=== PATIENT | female | born 1995 | race Caucasian/White ===

== ENCOUNTER 2020-02-01 16:43 | Emergency (ER) | payer OTHER, SELFPAY ==
[2020-02-01 16:44] VITALS: BP 132/71; PULSE 106; RESP 14; TEMP 36.3; O2SAT 99
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
[2020-02-01] MEDS: SODIUM CHLORIDE 0.9% IV 1,000 ML 999 ML IV CONT (17:30)
[2020-02-01] MEDS: METOCLOPRAMIDE HCL INJ 10 MG/2 ML VIAL IV PUSH (17:31)
[2020-02-01] MEDS: KETOROLAC 30 MG/ML VIAL (*BKC) IV PUSH (17:33)
[2020-02-01] MEDS: diphenhydrAMINE HCl INJ 50 MG/ML VIAL 25 MG IV PUSH (17:33)
[2020-02-01 19:12] VITALS: BP 125/73; PULSE 86; RESP 20; O2SAT 99
[2020-02-01 20:38] VITALS: BP 108/60; PULSE 85; RESP 16; O2SAT 100
== END 2020-02-01 20:38 | disposition home or self-care (01) ==
PROVIDERS: Emergency Provider Emergency Medicine
DX: G43.909 Migraine, unspecified, not intractable, without status migrainosus (principal); M79.7 Fibromyalgia; F17.200 Nicotine dependence, unspecified, uncomplicated
CPT/HCPCS: 96361; 96365; 96375; 99284; A9270; J0131; J1100; J1200; J1885; J2765; J7030

== ENCOUNTER 2020-02-02 06:59 | Emergency (ER) | payer OTHER, SELFPAY ==
[2020-02-02 07:02] VITALS: BP 120/63; PULSE 103; RESP 16; TEMP 36.7; O2SAT 100
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
[2020-02-02] MEDS: KETOROLAC 30 MG/ML VIAL (*BKC) IV PUSH (08:32)
[2020-02-02] MEDS: diazePAM INJ (*CRX) 10 MG/2 ML SYRINGE 5 MG IV PUSH (08:36)
== END 2020-02-02 09:50 | disposition home or self-care (01) ==
PROVIDERS: Emergency Provider General Practice
DX: G43.909 Migraine, unspecified, not intractable, without status migrainosus (principal); M79.7 Fibromyalgia; F17.200 Nicotine dependence, unspecified, uncomplicated
CPT/HCPCS: 96374; 96375; 99284; J1885; J3360

== ENCOUNTER 2020-02-17 14:24 | Emergency (ER) | payer OTHER, SELFPAY ==
[2020-02-17 14:26] VITALS: BP 114/50; PULSE 96; RESP 18; TEMP 36.3; O2SAT 98
--- NOTE | 2020-02-17 14:45 | PC.NURSE ---
patient brought back to ED room 4 with c/o headache. see initial notes. patient prefers not to have IV meds. wants PO meds only. waiting for further orders from the provider.
--- NOTE | 2020-02-17 14:49 | PC.NURSE ---
provider in room
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
[2020-02-17] MEDS: SODIUM CHLORIDE 0.9% IV 1,000 ML 999 ML IV CONT (15:14)
[2020-02-17] MEDS: METOCLOPRAMIDE HCL INJ 10 MG/2 ML VIAL IV PUSH (15:15)
[2020-02-17] MEDS: KETOROLAC 30 MG/ML VIAL (*BKC) IV PUSH (15:15)
[2020-02-17] MEDS: diphenhydrAMINE HCl INJ 50 MG/ML VIAL 25 MG IV PUSH (15:16)
[2020-02-17] MEDS: LORazepam INJ (*CRX) 2 MG/ML VIAL 1 MG IV PUSH (15:24)
[2020-02-17 16:27] VITALS: BP 97/53; PULSE 69; RESP 18; O2SAT 100
== END 2020-02-17 16:28 | disposition home or self-care (01) ==
PROVIDERS: Emergency Provider Emergency Medicine; PCP Nurse Practitioner Family
DX: F41.9 Anxiety disorder, unspecified (principal); F32.9 Major depressive disorder, single episode, unspecified; M79.7 Fibromyalgia; F17.210 Nicotine dependence, cigarettes, uncomplicated; G43.909 Migraine, unspecified, not intractable, without status migrainosus
CPT/HCPCS: 96361; 96374; 96375; 99284; J1200; J1885; J2060; J2765; J7030

== ENCOUNTER 2020-02-18 12:35 | Outpatient (CLI) | payer OTHER, SELFPAY ==
[2020-02-18 15:15] LABS: Anion Gap 6 mmol/L (8-16); Blood Urea Nitrogen 9 mg/dL (7-17); Calcium 9.1 mg/dL (8.4-10.2); Carbon Dioxide 23 mmol/L (22-30); Chloride 112 mmol/L (98-107); Estimated Glomerular Filt Rate > 60; Glucose 95 mg/dL (65-105); Magnesium 2.1 mg/dL (1.6-2.3); Potassium 4.5 mmol/L (3.4-5.0); Sodium 141 mmol/L (137-145)
== END 2020-02-18 12:36 | disposition home or self-care (01) ==
LOC: ANHLAB 12:57
PROVIDERS: PCP Nurse Practitioner Family
DX: E87.6 Hypokalemia (principal)
CPT/HCPCS: 36415; 80048; 83735; 97014; 97140; G0283

== ENCOUNTER 2020-03-03 15:44 | Outpatient (CLI) | payer OTHER, SELFPAY ==
[2020-03-03 15:55] LABS: Basophils Absolute Auto 0.05 K/mm3 (0.00-0.10); Basophils Percent Auto 0.8 % (0.0-1.0); Eosinophils Absolute Auto 0.13 K/mm3 (0.02-0.50); Eosinophils Percent Auto 2.1 % (1.0-6.0); Hematocrit 42.9 % (35.0-49.0); Hemoglobin 14.3 g/dL (12.0-15.0); Immature Granulocyte Absolute 0.02 K/mm3 (0.00-0.00); Immature Granulocyte Percent A 0.3 % (0.0-0.0); Lymphocytes Percent Auto 36.6 % (18.0-42.0); Mean Corpuscular HGB Conc 33.3 g/dL (32.0-36.0); Mean Corpuscular Hemoglobin 31.8 pg (27.0-31.0); Mean Corpuscular Volume 95.3 fL (78.0-102.0); Mean Platelet Volume 9.8 fl (9.2-11.8); Monocytes Percent Auto 6.4 % (2.0-11.0); Neutrophils Absolute Auto 3.4 K/mm3 (1.7-7.2); Neutrophils Percent Auto 53.8 % (50.0-70.0); Platelet Count Result 341 K/mm3 (150-420); Red Cell Distribution Width 11.6 % (11.6-14.4); White Blood Count 6.3 K/mm3 (4.8-10.8)
[2020-03-03 16:41] LABS: Alanine Aminotransferase 14 U/L (14-59); Albumin Level 4.9 g/dL (3.4-5.0); Alkaline Phosphatase 85 U/L (46-116); Anion Gap 13 mmol/L (8-16); Aspartate Amino Transferase < 10 U/L (15-37); Bilirubin,Total 0.4 mg/dL (0.00-1.00); Blood Urea Nitrogen 15 mg/dL (7-18); Calcium 9.4 mg/dL (8.5-10.1); Carbon Dioxide 20 mmol/L (21-32); Chloride 107 mmol/L (98-108); Estimated Glomerular Filt Rate > 60; Glucose 94 mg/dL (70-99); Osmolality Calculated 290 mOsm/kg (285-295); Potassium 3.9 mmol/L (3.5-5.1); Sodium 140 mmol/L (136-145)
[2020-03-08 23:02] LABS: Gliadin AB, IgG 4 Units (<20); Reticulin IgA Negative (Negative); TTG IGA AB 1 U/mL (<4)
== END 2020-03-03 15:45 | disposition home or self-care (01) ==
LOC: CHSLAB 15:46
PROVIDERS: PCP Nurse Practitioner Family; Visit Provider Nurse Practitioner Family
DX: M79.7 Fibromyalgia (principal); G43.109 Migraine with aura, not intractable, without status migrainosus; F41.9 Anxiety disorder, unspecified; F32.9 Major depressive disorder, single episode, unspecified
CPT/HCPCS: 36415; 80053; 83516; 85025; 86255

== ENCOUNTER 2020-03-08 14:41 | Emergency (ER) | payer OTHER, SELFPAY ==
[2020-03-08 15:03] VITALS: BP 122/49; PULSE 55; RESP 18; TEMP 36.6; O2SAT 99
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
[2020-03-08] MEDS: METOCLOPRAMIDE HCL INJ 10 MG/2 ML VIAL IV PUSH (16:03)
[2020-03-08] MEDS: LACTATED RINGERS 1,000 ML 999 ML IV CONT (16:03)
[2020-03-08] MEDS: diazePAM INJ (*CRX) 10 MG/2 ML SYRINGE 5 MG IV PUSH (16:03)
[2020-03-08 16:08] VITALS: BP 91/64; PULSE 64; RESP 18; O2SAT 98
[2020-03-08 17:35] VITALS: BP 120/64; PULSE 64; RESP 18; O2SAT 99
== END 2020-03-08 17:36 | disposition home or self-care (01) ==
PROVIDERS: Emergency Provider Emergency Medicine; PCP Nurse Practitioner Family
DX: G43.909 Migraine, unspecified, not intractable, without status migrainosus (principal); F41.9 Anxiety disorder, unspecified; F32.9 Major depressive disorder, single episode, unspecified; M79.7 Fibromyalgia; F43.10 Post-traumatic stress disorder, unspecified; Z62.810 Personal history of physical and sexual abuse in childhood; F17.210 Nicotine dependence, cigarettes, uncomplicated
CPT/HCPCS: 96361; 96374; 96375; 99284; J1100; J2765; J3360; J7120

== ENCOUNTER 2020-03-20 10:11 | Outpatient (CLI) | payer OTHER, SELFPAY ==
[2020-03-20 11:43] LABS: HIV 1/2 Ab P24 Ag Result Negative (Negative)
[2020-03-20 12:31] LABS: Hepatitis B Surface Antigen Negative (Negative)
[2020-03-20 12:37] LABS: HAV RESULT Negative (Negative); Hepatitis B Core IgM Result Negative (Negative)
[2020-03-20 12:49] LABS: Hepatitis C Virus Antibody Negative (Negative)
[2020-03-21 07:11] LABS: Rapid Plasma Reagin Non-Reactive (NonReactive)
== END 2020-03-20 10:12 | disposition home or self-care (01) ==
LOC: ANHLAB 10:13
PROVIDERS: PCP Nurse Practitioner Family; Visit Provider Obstetrics & Gynecology
DX: Z11.3 Encounter for screening for infections with a predominantly sexual mode of transmission (principal)
CPT/HCPCS: 36415; 80074; 86592; 86695; 86696; 86703; 97014; 97140; G0283; G0432

== ENCOUNTER 2020-04-02 18:37 | Emergency (ER) | payer OTHER, SELFPAY ==
[2020-04-02 19:13] VITALS: BP 116/49; PULSE 83; RESP 12; TEMP 36.9; O2SAT 97
[2020-04-02] MEDS: ACETAMINOPHEN 500 MG TABLET 1000 MG PO (20:30)
[2020-04-02 21:05] VITALS: BP 114/56; PULSE 66; RESP 18; O2SAT 100
== END 2020-04-02 19:15 | disposition left against medical advice (07) ==
PROVIDERS: Emergency Provider Emergency Medicine; PCP Nurse Practitioner Family
DX: G43.909 Migraine, unspecified, not intractable, without status migrainosus (principal)
CPT/HCPCS: 99199; A9270

== ENCOUNTER 2020-04-04 14:30 | Outpatient (CLI) | payer OTHER, SELFPAY ==
--- NOTE | ~2020-04-04 | XR_ITS ---
XR facial bones min 3V DATE: 04/04/2020 14:54 INDICATION: Left facial bruising for 4 days. Migraine with aura. TECHNIQUE: 4 views COMPARISON: None FINDINGS: The nasal bones and anterior maxillary spine appear intact. Normal sella turcica. The front ozygomatic sutures are intact. Orbital rims are preserved. No blowout fracture is evident. The paranasal sinuses and mastoid air cells appear normally developed and aerated. The mandible appea rs unremarkable. IMPRESSION: No evidence of facial fracture Normal paranasal sinuses and mastoid air cells Reviewed, dictated and finalized at location A. MAL ENGINEER
== END 2020-04-04 14:31 | disposition home or self-care (01) ==
LOC: CHSLAB 14:32
PROVIDERS: PCP Nurse Practitioner Family; Visit Provider Nurse Practitioner Family
DX: G43.109 Migraine with aura, not intractable, without status migrainosus (principal); S09.93XA Unspecified injury of face, initial encounter
CPT/HCPCS: 70150

== ENCOUNTER 2020-04-08 20:08 | Emergency (ER) | payer OTHER, SELFPAY ==
[2020-04-08 20:36] VITALS: BP 104/77; PULSE 80; RESP 20; TEMP 36.3; O2SAT 99
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
[2020-04-08] MEDS: LACTATED RINGERS 1,000 ML 999 ML IV CONT (21:26)
[2020-04-08] MEDS: METOCLOPRAMIDE HCL INJ 10 MG/2 ML VIAL IV PUSH (21:27)
[2020-04-08] MEDS: KETOROLAC 30 MG/ML VIAL (*BKC) IV PUSH (21:27)
[2020-04-08] MEDS: diazePAM INJ (*CRX) 10 MG/2 ML SYRINGE 5 MG IV PUSH (21:27)
[2020-04-08 22:22] VITALS: BP 104/64; PULSE 58; RESP 20; TEMP 36.6; O2SAT 100
== END 2020-04-08 22:25 | disposition home or self-care (01) ==
PROVIDERS: Emergency Provider Emergency Medicine; PCP Nurse Practitioner Family
DX: G43.119 Migraine with aura, intractable, without status migrainosus (principal); F07.81 Postconcussional syndrome
CPT/HCPCS: 96361; 96374; 96375; 99283; 99284; J1885; J2765; J3360; J7120

== ENCOUNTER 2020-04-20 13:29 | Emergency (ER) | payer OTHER, SELFPAY ==
[2020-04-20 13:51] VITALS: BP 123/78; PULSE 91; RESP 16; TEMP 36.9; O2SAT 98
[2020-04-20] MEDS: ONDANSETRON HCL ODT 4 MG TABLET PO (14:10)
[2020-04-20] MEDS: KETOROLAC (*BKC) 60 MG/2 ML VIAL IM (14:10)
[2020-04-20] MEDS: METOCLOPRAMIDE HCL 10 MG TABLET PO (14:11)
[2020-04-20] MEDS: PROCHLORPERAZINE MALEATE 5 MG TABLET PO (14:11)
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
[2020-04-20] MEDS: traMADol HCL (*CRX) 50 MG TABLET PO (15:49)
[2020-04-20 16:08] VITALS: BP 111/75; PULSE 94; RESP 16; O2SAT 100
== END 2020-04-20 16:10 | disposition home or self-care (01) ==
PROVIDERS: Emergency Provider Emergency Medicine; PCP Nurse Practitioner Family
DX: G43.909 Migraine, unspecified, not intractable, without status migrainosus (principal)
CPT/HCPCS: 96372; 99283; A9270; J1885

== ENCOUNTER 2020-05-07 13:30 | Outpatient (RCR) | payer OTHER, SELFPAY ==
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
--- NOTE | 2020-03-27 16:09 | PTOPEVAL ---
PHYSICAL THERAPY RE-EVALUATION and UPDATED PLAN OF CARE Thank you for referring Molly Acevedo to [facility].? Molly has made gains in PT but has not fully reached goals set. She is scheduled to continue with physical therapy? 2x/week for 6 weeks. Please review, sign, date and return this plan of care MARIBEL. I agree with and certify that the following plan of care is medically necessary. 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 Still occasional discomfort with tampon use. [place] - a little bit better with insertion and penetration - but still rather painful. Some increase in discomfort next day as well. Did notice some improvement following last treatment with PT approaching pt from the L side. Feeling ~ 40% improvement since starting treatment. Pain Assessment Lower Abdomen Reported Pain Level 5 Pain Description Aching,Cramping,Dull,Tightness Pain Frequency Chronic Other Pain Description more on L side Lowest Pain Intensity 3 Greatest Pain Intensity 6 Pelvic Health Evaluation Pelvic Floor Assessment Permission Received for External/ Yes Internal Perineal Exam External Perineal Body Palpation L lower abdominal tightness present - lateral bladder border Internal Perineal Body Palpation tenderness at introitus - mainly at 6 o'clock, internally 10-11 o'clock region, 1-6 o'clock region - overall - decrease in tissue tension but still increased tightness/tautness at 4-5 o' clock region more tenderness this date vs tissue tension PT Clinical Summary Clinical Summary Protocol: PTEVCODE PT Clinical Summary Pelvic Floor Impact Questionnaire - 15 pts Vulvar Pain Functional Questionnaire - 22 pts
--- NOTE | 2020-04-03 09:54 | PCPTNOTE ---
Pt called and cancelled due to illness.
--- NOTE | 2020-04-16 09:32 | PCPTNOTE ---
Patient called & cancelled scheduled appointment this date due to [not feeling well ]
--- NOTE | 2020-05-05 12:15 | PCPTNOTE ---
Patient called & cancelled scheduled appointment this date due to having migraine.
--- NOTE | 2020-05-07 15:54 | PTOPEVAL ---
PHYSICAL THERAPY DISCHARGE NOTE Thank you for referring Molly Acevedo to [facility] [place].? Molly has been seen for 21 visits. Gains have been made in regards to decrease in tissue tension - levator ani and lower abdominal, mild decrease with pain levels, and increase with functional abilities. She is being discharged from PT at this time. I agree with Molly's discharge from PT. Referring Physician Date Admitting Provider: Attending Provider: Singh Long DO Referring Provider: Singh Long DO Therapy Assessment Status Assessment Status Assessment Status Discharge Evaluation Information Problem Diagnosis vaginismus Subjective Information Molly states that she is Query Text:As Reported By Patient/ having some lasting effect Family from migraine on Tuesday. She hasn't had intercourse for awhile. Not using tampons - no periods due to control method. Pain Assessment Pain Scale Used Numeric (1 - 10) Self Report Pain Assessment Lower Abdomen Reported Pain Level 6 Pain Description Pulling,Tightness Pain Frequency Chronic Lowest Pain Intensity 4 Greatest Pain Intensity 8 Additional Pain Comments also having increased back discomfort Pain Score Pain Score 6: Self Report Interventions Used Interventions Used By Clinicians Electrical Stimulation,Heat, Manual Therapy Techniques Pelvic Health Evaluation Pelvic Floor Assessment Permission Received for External/ Yes Internal Perineal Exam Internal Perineal Body Palpation tenderness at initial entrance - but then palpation of introitus - not tender today. Marked decrease in levator ani tissue tension - some tenderness still present at 11 o'clock, 5-6 o'clock regions - but no tissue tension. Additional Comments sacral - mild decreased mobility on L side, decrease with L to R lateral glide - able to increase mobility, mild decrease with P-A mobility L5 mild decrease mobility with L leg pull Lower abdominal - L sided tightness present - lateral border region and into L iliac region PT Clinical Summary Clinical Summary Protocol: PTEVCODE
== END 2020-05-12 12:43 | disposition home or self-care (01) ==
LOC: ANHHIPT 13:30
PROVIDERS: PCP Nurse Practitioner Family; Referring Provider Obstetrics & Gynecology; Visit Provider Obstetrics & Gynecology
DX: N94.2 Vaginismus (principal)
CPT/HCPCS: 97014; 97140; 97162; 97530; G0283

== ENCOUNTER 2020-05-27 23:13 | Emergency (ER) | payer OTHER, SELFPAY ==
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
[2020-05-27 23:15] VITALS: BP 131/82; PULSE 84; RESP 16; TEMP 36.5; O2SAT 99
[2020-05-28 00:27] VITALS: BP 116/70; PULSE 71; RESP 18; O2SAT 100
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
[2020-05-28] MEDS: diphenhydrAMINE HCl INJ 50 MG/ML VIAL 25 MG IV PUSH (00:41)
[2020-05-28] MEDS: METOCLOPRAMIDE HCL INJ 10 MG/2 ML VIAL IV PUSH (00:41)
[2020-05-28] MEDS: KETOROLAC 30 MG/ML VIAL (*BKC) IV PUSH (00:42)
[2020-05-28] MEDS: LACTATED RINGERS 1,000 ML 999 ML IV CONT (00:50)
[2020-05-28 01:32] VITALS: BP 135/73; PULSE 81; RESP 16; O2SAT 100
== END 2020-05-28 01:34 | disposition home or self-care (01) ==
PROVIDERS: Emergency Provider General Practice; PCP Nurse Practitioner Family
DX: R51.9 Headache, unspecified (principal); S90.121A Contusion of right lesser toe(s) without damage to nail, initial encounter; F41.9 Anxiety disorder, unspecified; F32.9 Major depressive disorder, single episode, unspecified; M41.9 Scoliosis, unspecified; M79.7 Fibromyalgia; F43.10 Post-traumatic stress disorder, unspecified; F17.210 Nicotine dependence, cigarettes, uncomplicated; X58.XXXA Exposure to other specified factors, initial encounter
CPT/HCPCS: 73660; 96361; 96374; 96375; 99284; J1200; J1885; J2765; J7120

== ENCOUNTER 2020-06-19 15:15 | Outpatient (CLI) | payer OTHER, SELFPAY ==
--- NOTE | ~2020-06-19 | MR_ITS ---
EXAMINATION: MR brain/brain stem wo/w con DATE: 06/19/2020 16:22 INDICATION: Chronic migraine headache. TECHNIQUE: Magnetic resonance imaging (MRI) of the brain and brainstem was performed without and with 15 mL MultiHance intravenous contrast. Sequences included sagittal and axial T1-weighted FSE, axial diffusion-weighted FS EPI, axial T2*-weighted GRE, axial T2-weighted FLAIR Propeller, and axial T2-we ighted Propeller. Postcontrast sequences included axial and coronal T1-weighted FSE. Apparent diffusi on coefficient (ADC) maps were created. COMPARISON: None. FINDINGS: There is no intracranial hemorrhage, acute infarction, or abnormal intracranial mass lesion . The ventricles are normal in size. The paranasal sinuses are clear. The orbits are normal. The mast oid air cells are normal. IMPRESSION: 1. Normal brain. Reviewed, dictated and finalized at location B. IMPRESSION: 1. Normal brain.
[2020-06-19 15:50] LABS: Estimated Glomerular Filt Rate > 60
== END 2020-06-19 15:16 | disposition home or self-care (01) ==
PROVIDERS: PCP Nurse Practitioner Family
DX: G43.709 Chronic migraine without aura, not intractable, without status migrainosus (principal)
CPT/HCPCS: 70553; A9577

== ENCOUNTER 2020-09-07 22:04 | Emergency (ER) | payer OTHER, SELFPAY ==
[2020-09-07 22:25] VITALS: BP 110/64; PULSE 93; RESP 18; TEMP 37.1; O2SAT 100
--- NOTE | 2020-09-08 01:21 | PC.NURSE ---
pt to triage requesting to know how long wait would be. told this RN she was leaving and ambulatory out of ed c steady, even, unassisted gait. a/o x 4.
== END 2020-09-08 01:21 | disposition left against medical advice (07) ==
LOC: ANHED 09-08 01:37
PROVIDERS: PCP Nurse Practitioner Family
DX: R51.9 Headache, unspecified (principal)
CPT/HCPCS: 99199

== ENCOUNTER 2020-09-08 15:13 | Emergency (ER) | payer OTHER, SELFPAY ==
[2020-09-08 15:30] VITALS: BP 134/62; PULSE 99; RESP 16; TEMP 36.4; O2SAT 98
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
[2020-09-08] MEDS: DEXAMETHASONE SOD PHOS INJ 4 MG/ML VIAL 10 MG IM (16:07)
[2020-09-08] MEDS: METOCLOPRAMIDE HCL 10 MG TABLET PO (16:07)
[2020-09-08] MEDS: KETOROLAC (*BKC) 60 MG/2 ML VIAL IM (16:08)
[2020-09-08] MEDS: diphenhydrAMINE HCl INJ 50 MG/ML VIAL IM (16:08)
--- NOTE | 2020-09-08 16:18 | PC.NURSE ---
REPORT PROVIDED TO ONCOMING RN PONCHO OLGUIN
[2020-09-08 16:22] VITALS: BP 120/80; PULSE 80; RESP 18; TEMP 36.6; O2SAT 98
== END 2020-09-08 16:24 | disposition home or self-care (01) ==
PROVIDERS: Emergency Provider Emergency Medicine; PCP Nurse Practitioner Family
DX: G43.909 Migraine, unspecified, not intractable, without status migrainosus (principal)
CPT/HCPCS: 96372; 99283; 99284; A9270; J1100; J1200; J1885

== ENCOUNTER 2021-05-07 15:00 | Outpatient (RCR) | payer OTHER, SELFPAY ==
[2021-02-26 13:10] VITALS: BP_SYST 155
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
--- NOTE | 2021-03-04 14:30 | PCPTNOTE ---
Patient called & cancelled scheduled appointment this date due to transportation not picking her up for her appointment.
--- NOTE | 2021-03-31 14:40 | PCPTNOTE ---
Patient did not show up for scheduled appointment this date. Called, left message regarding rescheduling re-eval.
--- NOTE | 2021-04-07 15:24 | PCPTNOTE ---
Patient called & cancelled scheduled appointment this date due to transportation. She has been rescheduled for next week.
[2021-04-16 16:31] VITALS: BP_SYST 180
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
--- NOTE | 2021-04-28 16:10 | PCPTNOTE ---
Patient called & cancelled scheduled appointment this date did not leave a reason.
--- NOTE | 2021-05-05 15:23 | PCPTNOTE ---
Patient called & cancelled scheduled appointment this date due to not having transportation.
--- NOTE | 2021-05-28 10:55 | PCPTNOTE ---
Admitting Provider: Attending Provider: Mala Fisher Patient:Molly Acevedo Date of :1995 Physical Therapy Discharge Summary Patient has not returned for any further treatments since her re-evaluation on 05/07/2021, therefore she will be discharged at this time. Patient?s initial visit was on 02/26/2021 and she had a total of 11 visits with 5 missed visits. The goals have been partially met at this time. Thank you for referring this patient to [facility]. Please review, sign, date and return this discharge summary MARIBEL. I have been updated about the patient's current status and I agree with discharge from the above service at this time. Referring Physician Date
== END 2021-05-27 23:59 | disposition home or self-care (01) ==
LOC: ANHPT 15:00
PROVIDERS: PCP Nurse Practitioner Family
DX: S42.202D Unspecified fracture of upper end of left humerus, subsequent encounter for fracture with routine healing (principal); S22.089D Unspecified fracture of T11-T12 vertebra, subsequent encounter for fracture with routine healing; S32.019D Unspecified fracture of first lumbar vertebra, subsequent encounter for fracture with routine healing
CPT/HCPCS: 97110; 97112; 97140; 97162

== ENCOUNTER 2021-12-04 10:37 | Outpatient (CLI) | payer OTHER, SELFPAY ==
[2021-12-04 11:54] LABS: HIV 1/2 Ab P24 Ag Result Negative (Negative)
[2021-12-04 12:19] LABS: Hepatitis B Surface Antigen Negative (Negative)
[2021-12-04 12:25] LABS: HAV RESULT Negative (Negative); Hepatitis B Core IgM Result Negative (Negative)
[2021-12-04 12:36] LABS: Hepatitis C Virus Antibody Negative (Negative)
== END 2021-12-04 10:38 | disposition home or self-care (01) ==
LOC: ANHLAB 10:39
PROVIDERS: PCP Nurse Practitioner Family; Visit Provider Obstetrics & Gynecology
DX: Z11.3 Encounter for screening for infections with a predominantly sexual mode of transmission (principal)
CPT/HCPCS: 36415; 80074; 86695; 86696; 86703; 87491; 87591; 87661; G0432

== ENCOUNTER 2022-01-07 16:12 | Outpatient (CLI) | payer OTHER, SELFPAY | END 2022-01-07 16:13 | disposition home or self-care (01) | LOC: ANHLAB 16:14 | PROVIDERS: PCP Family Medicine; Visit Provider Obstetrics & Gynecology | DX: Z11.3 Encounter for screening for infections with a predominantly sexual mode of transmission (principal) | CPT/HCPCS: 87491; 87591 ==

== ENCOUNTER 2022-06-13 15:11 | Emergency (ER) | payer OTHER, SELFPAY ==
--- NOTE | ~2022-06-13 | XR_ITS ---
EXAMINATION: XR hip LT 2V w AP pelvis DATE: 06/13/2022 16:00 INDICATION: Left hip pain. TECHNIQUE: An anteroposterior view of the pelvis and 2 views of left hip were obtained. COMPARISON: None. FINDINGS: Bone alignment is normal. No fracture. Joint spaces are normal. IMPRESSION: 1. Normal pelvis and left hip. Reviewed, dictated and finalized at location A.
[2022-06-13 15:17] VITALS: BP 113/78; PULSE 90; RESP 18; TEMP 37.3; O2SAT 100
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
[2022-06-13] MEDS: HYDROcodone/acetaminophen (*CRX) 5-325 MG TABLET 1 TAB PO (17:03)
== END 2022-06-13 17:05 | disposition home or self-care (01) ==
PROVIDERS: Emergency Provider Physician Assistant; PCP Family Medicine
DX: M54.32 Sciatica, left side (principal); S70.02XA Contusion of left hip, initial encounter; M79.7 Fibromyalgia; F41.9 Anxiety disorder, unspecified; F32.A Depression, unspecified; F43.10 Post-traumatic stress disorder, unspecified; Z62.810 Personal history of physical and sexual abuse in childhood; F17.290 Nicotine dependence, other tobacco product, uncomplicated; W19.XXXA Unspecified fall, initial encounter
CPT/HCPCS: 73502; 96372; 99283; A9270; J1100

== ENCOUNTER 2022-07-11 08:47 | Emergency (ER) | payer OTHER, SELFPAY ==
[2022-07-11 08:49] VITALS: BP 130/84; PULSE 69; RESP 16; TEMP 36.8; O2SAT 100
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
[2022-07-11] MEDS: SODIUM CHLORIDE 0.9% IV 1,000 ML 999 ML IV CONT (10:11)
[2022-07-11] MEDS: diphenhydrAMINE HCl INJ 50 MG/ML VIAL 25 MG IV PUSH (10:12)
[2022-07-11] MEDS: KETOROLAC 15 MG/ML VIAL (*BKC) IV PUSH (10:15)
[2022-07-11] MEDS: PROCHLORPERAZINE EDISYLATE 10 MG/2 ML VIAL IV PUSH (10:17)
[2022-07-11 10:30] VITALS: BP 107/53; PULSE 55; RESP 16; O2SAT 100
[2022-07-11 11:00] VITALS: BP 90/60; PULSE 50; RESP 16; O2SAT 100
[2022-07-11 11:40] VITALS: BP 96/50; PULSE 80; RESP 16; O2SAT 100
== END 2022-07-11 11:45 | disposition home or self-care (01) ==
PROVIDERS: Emergency Provider Emergency Medicine
DX: G43.909 Migraine, unspecified, not intractable, without status migrainosus (principal); F43.10 Post-traumatic stress disorder, unspecified; F41.8 Other specified anxiety disorders; F17.290 Nicotine dependence, other tobacco product, uncomplicated; F12.90 Cannabis use, unspecified, uncomplicated
CPT/HCPCS: 96361; 96374; 96375; 99284; J0780; J1200; J1885; J7030

== ENCOUNTER 2022-10-27 14:00 | Outpatient (RCR) | payer OTHER, SELFPAY ==
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
--- NOTE | 2022-09-02 16:45 | OPREHPOC ---
Outpatient Therapy Plan of Care This is a Multidisciplinary Plan of Care that may contain components documented by all disciplines (PT, OT, and ST.) PT Problem 1 PT Problem #1 Knowledge Deficit PT Goal 1 Goal Pt will be independent in HEP Target Visit 8 PT Goal 2 Goal Pt will verbalize understanding of diagnosis and prognosis Target Visit 8 PT Problem 2 PT Problem #2 Impaired Strength PT Goal 1 Goal Pt will demo strength of 4/5 in all tested planes Target Visit 16 PT Problem 3 PT Problem #3 Impaired Range of Motion PT Goal 1 Goal Pt will demo full ROM of lumbar and thoracic spine PT Problem 4 PT Problem #4 Pain PT Goal 1 Goal Pt will report worst pain at 5/10 or less Target Visit 8 PT Goal 2 Goal Pt will report worst pain at 3/10 or less Target Visit 16
--- NOTE | 2022-09-24 16:49 | PTOPPROG ---
Assessment and note entered by Marivel Gibbons, PT Evaluation Information Assessment Status Progress Diagnosis pain in thoracic spine, pain in left hip Subjective Information Pt reports feeling 60-70% improved. Has relieved some of the sharpness of pain in left hip. High levels of pain are shorter in length Assessment PT Clinical Summary Pt reports improvement in overall discomfort, that moments of severe pain are decreased in length of time, rosa's improved strength and range. However she has yet to meet all her therapy goals and will be starting a new job soon next week which will require incresaed length of time standing and possibly lifting. Thus patient will benefit from continued therapy to continue progress, and educate patient on core stability and techniques to prevent reinjury or increased pain. Plan of Care Interventions Electrical Stimulation,Hot Pack/Cold Pack,Manual Therapy,Neuro Re-education,Patient/Caregiver Educati,Therapeutic Activities,Therapeutic Exercise,Ultrasound PT Services Indicated Yes Treatment Frequency and 2x weekly x 4 weeks Duration These treatments will address the objective and functional deficits as defined above. The patient will be advanced safely and appropriately in order for the patient to progress towards his/her prior level of function. Additional exercises will be introduced and as well as a comprehensive home exercise program upon discharge, if needed, ?to ensure carryover of functional gains achieved in the clinic. This treatment plan has been reviewed and agreement upon by the patient.
--- NOTE | 2022-09-24 16:50 | OPREHPOC ---
Outpatient Therapy Plan of Care This is a Multidisciplinary Plan of Care that may contain components documented by all disciplines (PT, OT, and ST.) PT Problem 1 PT Problem #1 Knowledge Deficit PT Goal 1 Goal Pt will be independent in HEP Target Visit 8 Progress Met PT Goal 2 Goal Pt will verbalize understanding of diagnosis and prognosis Target Visit 8 Progress Met PT Problem 2 PT Problem #2 Impaired Strength PT Goal 1 Goal Pt will demo strength of 4/5 in all tested planes Target Visit 16 Progress Partially Met PT Problem 3 PT Problem #3 Impaired Range of Motion PT Goal 1 Goal Pt will demo full ROM of lumbar and thoracic spine Target Visit 8 Progress Met PT Goal 2 Goal Pt will demo full ROM of lumbar and thoracic spine without discomfort Target Visit 16 PT Problem 4 PT Problem #4 Pain PT Goal 1 Goal Pt will report worst pain at 5/10 or less Target Visit 8 Progress Partially Met Comment progressing PT Goal 2 Goal Pt will report worst pain at 3/10 or less Target Visit 16
--- NOTE | 2022-10-21 07:56 | PCPTNOTE ---
10/20/22 Pt was called after being 10 minutes late to her appointment and reported she forgot her appointment, wouldn't be in today. Appointment cancelled and re-evaluation rescheduled for next appointment.
--- NOTE | 2022-10-28 16:19 | PTOPDC ---
Assessment and note entered by Marivel Gibbons, PT Assessment Status Discharge Diagnosis pain in thoracic spine, Left hip pain Subjective Information Pt reports applying the abdominal tightening and postural support at work. Would like to be able to go to the gym and do her own work outs. Self-perceived improvement: 60-70% improved overall. With working some days are more inflammed. Pt reports high pain levels are shorter in length Reported Pain Level Pain Score 5,2: Self Report Assessment PT Clinical Summary Pt has attended therapy consistently for her hip and back pain. She has since started a new job which requires standing and lifting frequently. She states she uses the knowledge she has gained to make sure she has appropriate alignment and posture with these activities. Overall she reports feeling 60-70% improved which has remained unchanged, while her strength has improved and her range has improved overall as well. Pt does have multiple co-morbidities and prior medical history that may have prevented her from reaching the pain goals set for her however she does report improved function with less pain overall. Thus patient is being discharged from therapy for max benefit being met at this time.
== END 2022-10-29 14:19 | disposition home or self-care (01) ==
LOC: ANHHIPT 14:00
PROVIDERS: Visit Provider Nurse Practitioner Family
DX: M54.6 Pain in thoracic spine (principal)
CPT/HCPCS: 97014; 97110; 97140; 97162; 97530; 97750; G0283

== ENCOUNTER 2023-06-14 10:03 | Outpatient (CLI) | payer OTHER, SELFPAY ==
[2023-06-14 10:29] LABS: Basophils Absolute Auto 0.03 K/mm3 (0.00-0.10); Basophils Percent Auto 0.4 % (0.0-1.0); Eosinophils Absolute Auto 0.09 K/mm3 (0.02-0.50); Eosinophils Percent Auto 1.1 % (1.0-6.0); Hematocrit 44.4 % (35.0-49.0); Hemoglobin 14.2 g/dL (12.0-15.0); Immature Granulocyte Absolute 0.03 K/mm3 (0.00-0.00); Immature Granulocyte Percent A 0.4 % (0.0-0.0); Lymphocytes Absolute Auto 1.88 K/mm3 (1.10-4.50); Lymphocytes Percent Auto 23.9 % (18.0-42.0); Mean Corpuscular Hemoglobin 29.9 pg (27.0-31.0); Mean Corpuscular Volume 93.5 fL (78.0-102.0); Mean Platelet Volume 10.2 fl (9.2-11.8); Monocytes Absolute Auto 0.39 K/mm3 (0.10-0.90); Neutrophils Absolute Auto 5.44 K/mm3 (1.70-7.20); Neutrophils Percent Auto 69.2 % (50.0-70.0); Platelet Count Result 268 K/mm3 (150-420); Red Blood Count 4.75 M/mm3 (4.20-5.40); Red Cell Distribution Width 12.1 % (11.6-14.4); White Blood Count 7.9 K/mm3 (4.8-10.8)
[2023-06-14 10:57] LABS: Alanine Aminotransferase 30 U/L (14-59); Albumin Level 4.3 g/dL (3.4-5.0); Alkaline Phosphatase 53 U/L (46-116); Anion Gap 12 mmol/L (4-12); Aspartate Amino Transferase 12 U/L (15-37); Bilirubin,Total 0.3 mg/dL (0.00-1.00); Blood Urea Nitrogen 15 mg/dL (7-18); Calcium 9.5 mg/dL (8.5-10.1); Carbon Dioxide 24 mmol/L (21-32); Chloride 109 mmol/L (98-108); Estimated Glomerular Filt Rate > 60; Glucose 84 mg/dL (70-99); Osmolality Calculated 299 mOsm/kg (285-295); Potassium 4.7 mmol/L (3.5-5.1); Sodium 145 mmol/L (136-145); Total Protein 7.3 g/dL (6.4-8.2)
== END 2023-06-14 10:04 | disposition home or self-care (01) ==
LOC: CHSLAB 10:05
PROVIDERS: PCP Family Medicine; Visit Provider Family Medicine
DX: M79.7 Fibromyalgia (principal)
CPT/HCPCS: 36415; 80053; 85025

== ENCOUNTER 2023-07-19 13:01 | Outpatient (CLI) | payer OTHER, SELFPAY ==
[2023-07-19 14:14] LABS: HIV 1/2 Ab P24 Ag Result Negative (Negative)
[2023-07-19 14:41] LABS: Hepatitis B Surface Antigen Negative (Negative)
[2023-07-19 14:46] LABS: HAV RESULT Negative (Negative)
[2023-07-19 14:59] LABS: Hepatitis C Virus Antibody Negative (Negative)
[2023-07-20 13:50] LABS: Rapid Plasma Reagin Non-Reactive (NonReactive)
== END 2023-07-19 13:02 | disposition home or self-care (01) ==
LOC: ANHLAB 13:02
PROVIDERS: PCP Family Medicine; Visit Provider Obstetrics & Gynecology
DX: Z11.3 Encounter for screening for infections with a predominantly sexual mode of transmission (principal)
CPT/HCPCS: 36415; 86592; 86695; 86696; 86703; 86709; 86803; 87340; G0432

== ENCOUNTER 2023-08-04 12:51 | Emergency (ER) | payer OTHER, SELFPAY ==
--- NOTE | ~2023-08-04 | US_ITS ---
EXAMINATION: US pelvic complete w TV DATE: 08/04/2023 18:41 INDICATION: lower abd/vaginal pain TECHNIQUE: Multiple transabdominal and endovaginal sonographic images of the pelvis were obtained. COMPARISON: 04/20/2015 FINDINGS: Uterus: 5.3 x 2.8 x 3.1 cm. Fluid in the endometrial canal. Somewhat focal appearing hypoechoic area measuring approximately 11 mm in the endometrial canal, similar size and location to the prior study. Endometrial complex measures 4 mm. Right Ovary: 3.9 x 2.4 x 3.0 cm. Vascular flow is present. No adnexal mass. Left Ovary: 3.9 x 2.0 x 3.1 cm. Vascular flow is present. No adnexal mass. Adnexal fluid. There is moderate free fluid in the pelvis. IMPRESSION: Fluid in the endometrial canal, likely blood. Correlate with menstrual cycle. Additional 11 mm, hypoechoic focus in the endometrial canal, may represent blood and/or clot, however similarity to the prior study raises concern for an endometrial polyp. Consider gynecology referral and sonohysterography. Reviewed, dictated and finalized at location K. IMPRESSION: Fluid in the endometrial canal, likely blood. Correlate with menstrual cycle. Additional 11 mm, hypoechoic focus in the endometrial canal, may represent bloo d and/or clot, however similarity to the prior study raises concern for an endo metrial polyp. Consider gynecology referral and sonohysterography.
[2023-08-04 13:16] VITALS: BP 109/66; PULSE 87; RESP 16; TEMP 36.6; O2SAT 100
[2023-08-04 14:01] LABS: Appearance Urine Turbid (Clear); Bacteria Urine None Seen /hpf; Bilirubin Urine Negative (Negative); Blood Urine Negative (Negative); Color Urine Yellow (Yellow); Glucose Urine UA Negative (Negative); Ketones Urine Negative (Negative); Leukocyte Esterase Ur Negative LEU/UL (Negative); Nitrate Urine Negative (Negative); Non Pathogenic Casts 0-2; Protein Urine Negative (Negative); RBC Urine 0-2 /hpf (0-2); Specific Grav Ur 1.016 (1.001-1.035); Squamous Epithelial Cell Urine None Seen /hpf (Few); Urobilinogen Urine 0.2 mg/dL (<2.0); WBC Urine 0-5 /hpf (0-3)
[2023-08-04 14:02] LABS: Add Urine Microscopic? YES
[2023-08-04 17:00] VITALS: BP 127/87; PULSE 70; RESP 18; O2SAT 98
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
[2023-08-04] MEDS: ACETAMINOPHEN 500 MG TABLET 1000 MG PO (17:26)
[2023-08-04 17:36] LABS: Basophils Absolute Auto 0.1 K/mm3 (0.0-0.1); Basophils Percent Auto 0.7 % (0.2-1.2); Eosinophils Absolute Auto 0.1 K/mm3 (0-0.3); Eosinophils Percent Auto 0.9 % (0-4.4); Hematocrit 40.1 % (37.0-47.0); Hemoglobin 13.6 g/dL (12.0-15.0); Immature Granulocyte Absolute 0.02 K/mm3 (0.00-0.031); Immature Granulocyte Percent A 0.2 % (0-0.5); Lymphocytes Absolute Auto 3.02 K/mm3 (0.9-3.2); Lymphocytes Percent Auto 33.9 % (18.3-44.2); Mean Corpuscular HGB Conc 33.9 g/dl (32-36); Mean Corpuscular Hemoglobin 31.1 pg (26-34); Mean Corpuscular Volume 91.6 fl (80-100); Mean Platelet Volume 10.3 fl (7.4-10.4); Monocytes Absolute Auto 0.4 K/mm3 (0.1-0.6); Monocytes Percent Auto 4.8 % (2.6-8.5); Neutrophils Absolute Auto 5.3 K/mm3 (1.3-6.7); Neutrophils Percent Auto 59.5 % (45.5-73.1); Platelet Count Result 249 k/mm3 (150-375); Red Blood Count 4.38 M/mm3 (4.2-5.4); Red Cell Distribution Width 11.9 % (11.5-14.5); White Blood Count 8.9 K/mm3 (4.5-10.0)
[2023-08-04 18:35] LABS: Alanine Aminotransferase 30 U/L (6-35); Albumin Level 4.9 g/dL (3.5-5.1); Alkaline Phosphatase 61 U/L (38-126); Anion Gap 12 mmol/L (4-12); Aspartate Amino Transferase 23 U/L (14-36); Bilirubin,Total 0.6 mg/dL (0.2-1.3); Blood Urea Nitrogen 18 mg/dL (7-17); Calcium 9.5 mg/dL (8.4-10.2); Carbon Dioxide 17 mmol/L (22-30); Chloride 112 mmol/L (98-107); Estimated CRCL calculation 69 ml/min; Estimated Glomerular Filt Rate > 60; Glucose 92 mg/dL (65-110); Potassium 3.7 mmol/L (3.4-5.0); Sodium 141 mmol/L (137-145)
[2023-08-04 19:10] VITALS: BP 116/74; PULSE 64; RESP 16; O2SAT 100
[2023-08-04] MEDS: KETOROLAC 30 MG/ML VIAL (*BKC) IM (19:28)
== END 2023-08-04 20:09 | disposition home or self-care (01) ==
PROVIDERS: Emergency Medicine; Emergency Provider Physician Assistant; PCP Family Medicine
DX: N84.0 Polyp of corpus uteri (principal); R10.2 Pelvic and perineal pain; M79.7 Fibromyalgia; F41.9 Anxiety disorder, unspecified; F32.A Depression, unspecified; F43.10 Post-traumatic stress disorder, unspecified; Z62.810 Personal history of physical and sexual abuse in childhood; F17.290 Nicotine dependence, other tobacco product, uncomplicated; Z90.49 Acquired absence of other specified parts of digestive tract; Z79.899 Other long term (current) drug therapy
CPT/HCPCS: 36415; 76830; 76856; 80053; 81001; 81025; 85025; 96372; 99284; A9270; J1885

== ENCOUNTER 2023-10-18 10:11 | Outpatient (CLI) | payer OTHER, SELFPAY | END 2023-10-18 10:12 | disposition home or self-care (01) | LOC: ANHLAB 10:12 | PROVIDERS: PCP Family Medicine; Visit Provider Obstetrics & Gynecology | DX: R35.0 Frequency of micturition (principal) | CPT/HCPCS: 87086 ==

== ENCOUNTER 2023-12-27 09:00 | Outpatient (RCR) | payer OTHER, SELFPAY ==
--- NOTE | 2023-11-01 11:00 | OPREHPOC ---
Outpatient Therapy Plan of Care This is a Multidisciplinary Plan of Care that may contain components documented by all disciplines (PT, OT, and ST.) PT Problem 1 PT Problem #1 Knowledge Deficit PT Goal 1 Goal / Goal Update 1. Patient will perform independent HEP Target Visit 3 PT Problem 2 PT Problem #2 Pain PT Goal 1 Goal / Goal Update 1. Patient will tolerate 2 finger circumferential stretch of pelvic floor with pain no higher than 2 /10 to fully tolerate pelvic exam and other medical management Target Visit 6 PT Problem 3 PT Problem #3 Impaired Functional ADLs PT Goal 1 Goal / Goal Update 1. Patient will report no difficulty with voiding 2. Patient will be able to sit and stand without limitation from pelvic pain Target Visit 6
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
--- NOTE | 2023-11-29 09:39 | PCPTNOTE ---
Patient called to cancel appointment 11/29/23 due to personal conflict.
--- NOTE | 2023-12-06 09:43 | OPREHPOC ---
Outpatient Therapy Plan of Care This is a Multidisciplinary Plan of Care that may contain components documented by all disciplines (PT, OT, and ST.) PT Problem 1 PT Problem #1 Knowledge Deficit PT Goal 1 Goal / Goal Update 1. Patient will perform independent HEP Target Visit 3 Progress Met PT Problem 2 PT Problem #2 Pain PT Goal 1 Goal / Goal Update 1. Patient will tolerate 2 finger circumferential stretch of pelvic floor with pain no higher than 2 /10 to fully tolerate pelvic exam and other medical management update 12/06/23 1. pain 4/10 with mild increased muscle tone NEW GOAL 2. Back pain no higher than 2/10 with cooking and cleaning tasks Target Visit 10 Progress Partially Met PT Problem 3 PT Problem #3 Impaired Functional ADLs PT Goal 1 Goal / Goal Update 1. Patient will report no difficulty with voiding 2. Patient will be able to sit and stand without limitation from pelvic pain update 12/06/23 1. improved but still some difficulty 2. pelvic pain still present Target Visit 6 Progress Partially Met PT Problem 4 PT Problem #4 Impaired Range of Motion PT Goal 1 Goal / Goal Update New goal 12/06/23 1. Lumbar range of motion will be full and pain free in all planes to allow for cooking and cleaning Target Visit 10
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
--- NOTE | 2024-01-03 11:37 | PCPTNOTE ---
Patient did not show up for appointment 01/03/24. Patient did not answer when called and voicemail not set up.
--- NOTE | 2024-01-19 14:48 | PCPTNOTE ---
Patient did not show up for appointment 01/19/24.
== END 2024-01-30 23:59 | disposition home or self-care (01) ==
LOC: ANHPT 09:00
PROVIDERS: PCP Nurse Practitioner Family; Visit Provider Obstetrics & Gynecology
DX: M54.6 Pain in thoracic spine (principal); R10.2 Pelvic and perineal pain; G89.29 Other chronic pain
CPT/HCPCS: 97110; 97140; 97162; 97530

== ENCOUNTER 2023-12-29 10:42 | Outpatient (CLI) | payer OTHER, SELFPAY ==
[2023-12-29 12:04] LABS: HIV 1/2 Ab P24 Ag Result Negative (Negative)
[2023-12-29 12:20] LABS: Trichomonas Vag PCR NOT DETECTED (NOT DETECTE)
[2023-12-29 12:43] LABS: Chlamydia trachomatis NOT DETECTED (NOT DETECTE); Neisseria gonorrhoeae PCR NOT DETECTED (NOT DETECTE)
[2023-12-29 16:20] LABS: Hepatitis B Surface Antigen Negative (Negative)
[2023-12-29 16:25] LABS: HAV RESULT Negative (Negative); Hepatitis B Core IgM Result Negative (Negative)
[2023-12-29 16:37] LABS: Hepatitis C Virus Antibody Negative (Negative)
[2023-12-30 10:35] LABS: Rapid Plasma Reagin Non-Reactive (NonReactive)
== END 2023-12-29 10:43 | disposition home or self-care (01) ==
LOC: ANHLAB 10:43
PROVIDERS: PCP Nurse Practitioner Family; Visit Provider Obstetrics & Gynecology
DX: Z11.3 Encounter for screening for infections with a predominantly sexual mode of transmission (principal)
CPT/HCPCS: 36415; 80074; 86592; 86703; 87491; 87591; 87661; G0432

== ENCOUNTER 2024-03-29 11:02 | Outpatient (CLI) | payer OTHER, SELFPAY ==
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
--- OUTSIDE RECORDS SUMMARY | 2024-03-29 11:34 | XMS_ITS | Encounter Summary ---
Author Organization [facility] Address [address] [place] [address] Care Team Providers Care Roll Forming Supervisor Name Role Phone Myra, Breana Gorman APRN-JOURNEYMAN PRESS OPERATOR Primary Care Provider Jacob Galvan DO Primary Care Provider [phone] Reason for Visit * Reason Onset Date Comments MEDICATION REFILL 06/11/2022 Encounter Details Date Type Department Care Team (Late st Contact Info) Description 06/11/2022 Refill [facility] [address] [place] [address], [place] [address] Andre Farah MD [address] [place] [phone] MEDICATION REFILL Social History Tobacco Use Types Packs/Day Years Used Date Smoking Tobacco: Former Cigarettes 0.5 9 1 03/23/2009 - 01/20/2019 Smokeless Tobacco: Never Alcohol Use Standard Drinks/Week Comments No 0 (1 standard drink = 0.6 oz pur e alcohol) Sex and Gender Information Value Date Recorded Sex Assigned at Not on file Gender Identity Not on file Sexual Orientation Not on file COVID-19 Exposure Response Date Recorded In the last 10 days, have yo u been in contact with someone who was confirmed or suspected to have Coronavirus/COVID-19? No / Unsure 06/07/2022 11:01 AM CDT documented as of this encounter Functional Status Functional Status Response Date of Assess ment Is person deaf or have serious hearing difficult y? No 05/16/2019 Is person blind or have serious difficulty seein g? No 05/16/2019 Does person have serious dif ficulty walking/climbing stairs? No 05/16/2019 Does person have difficulty dressing/bathing? No 05/16/2019 Does person have difficulty doing errands alone? No 05/16/2019 Cognitive Status Response Date of Assessm ent Does person have difficulty concentrating/remembering/making decisions? No 05/16/2019 documented as of this encounter Miscellaneous Notes * Telephone Encounter - Karlee Craig MA - 06/11/2022 9:08 AM CDT Refill Request NAVEEN: 09/09/2021 NOV scheduled: canceled LRF: 03/01/2022 Qty Disp: 15 # of refills: 3 documented in this encounter Plan of Treatment Upcoming Encounters Date Type Department Care Team (Late st Contact Info) Description 06/11/2024 1:00 PM CDT Office Visit [facility]rology [address] [place] [address], [place] [address] Jhonathan Subramanian APRN-CNP [address] [place] [phone] documented as of this encounter Visit Diagnoses Diagnosis Fibromyalgia Mylagia and myositis, unspecified documented in this encounter Care Teams Roll Forming Supervisor Relationship Specialty Start Date End Date Breana Renteria APRN-CNP [address] [place] [address] PCP - General 05/05/20 05/08/23 Jacob Galvan DO [address] [place] [address] PCP - General Family Medicine 05/09/23 documented as of this encounter
--- OUTSIDE RECORDS SUMMARY | 2024-03-29 11:34 | XMS_ITS ---
Author Organization [facility] Address [address] [place] [address] Care Team Providers Care Furnace Packer Name Role Phone Marge Gaston Primary Care Provider [phone] Allergies No Known Allergies REASON FOR VISIT 1 Month follow up Medications Medication SIG (Take, Route, Fr equency, Duration) Notes Start Date End Date Status Pregabalin 200 MG 1 capsule Orally twice a day 06/2023 Active Depo-Provera 150 MG/ML 1 mL Intramuscular Active Lexapro 20 MG 1 tablet Orally Once a day for 30 days Active lamoTRIgine 200 MG 1 tablet Orally Once a day for 30 days Active traZODone HCl 50 MG 1.5 tablets at bedti me as needed Orally Once a day for 30 days Active Encounters Encounter Location Date Provider Diagnosis [address] [address] 03/06/2024 Marge Gaston Post traumatic stres s disorder (PTSD) F43.10 ; Marijuana smoker F12.20 ; Nicotine dependence, unspecified, uncomplicated F17.200 ; Medication management Z79.899 and Chronic depression F32.9 Assessments Encounter Date Diagnosis (ICD Code) Assessment Notes Treatment Notes Treatment Clinical Notes Section Notes 03/06/2024 Post traumatic stress disorder (PTSD) (ICD-10 - F43.10) Client does not wish to make medication changes at this time. Continue psychotherapy as scheduled. 03/06/2024 Marijuana smoker (ICD-10 - F12.20) 03/06/2024 Nicotine dependence, unspecified, uncomplicated (ICD-10 - F17.200) 03/06/2024 Medication management (ICD-10 - Z79.899) May self-administer medications or be administered own oral medications per [facility] protocols. Provided informed consent with understanding of side effects, adverse effects, risks and benefits as well as alternative treatments as previously discussed and with the above recommended medications & other aspects of the treatment program. Agrees to return sooner if symptoms worsen or suicidal or homicidal ideations occur. Labs monitored by PCP. 03/06/2024 Chronic depression (ICD-10 - F32.9) Client does not wish to make medication changes at this time. Continue psychotherapy as scheduled. Plan Of Treatment Medication Medication Name Sig Start Date Stop Date Notes Lexapro 20 MG 1 tablet Orally Once a day for 30 days lamoTRIgine 200 MG 1 tablet Orally Once a day for 30 days traZODone HCl 50 MG 1.5 tablets at bedti me as needed Orally Once a day for 30 days Treatment Notes Assessment Notes Post traumatic stress disorder (PTSD) Client does not wish to make medication changes at this time. Continue psychotherapy as scheduled. Medication management May self-administe r medications or be administered own oral medications per [facility] protocols. Provided informed consent with understanding of side effects, adverse effects, risks and benefits as well as alternative treatments as previously discussed and with the above recommended medications & other aspects of the treatment program. Agrees to return sooner if symptoms worsen or suicidal or homicidal ideations occur. Chronic depression Client does not wish to make medication changes at this time. Continue psychotherapy as scheduled. Next Appt Details Follow Up: 4 Weeks, Reason: Psychiatric Follow-up & Medication Management Progress Notes * Molly PETERSONDOB: 7 (28 yo F)Acc No.[id number]:03/06/2024 Patient: Molly ABDUL Provider: Renetta Gaston DNP, STUDENT DEVELOPMENT SPECIALIST, PMHNP-BC :1995 A ge:28 Y S ex:Female Date:03/06/2024 Address:[address], [place], [id number] Check In:01:00 PM SERGEANT MISSILE CREWMAN Subjective: * Chief Complaints: * 1 Month follow up * HPI: D epression Screening: PHQ-9 L ittle interest or pleasure in doing things?Several days F eeling down, depressed, or hopeless S everal T rouble falling or staying asleep, or sleeping too much N early every day F eeling tired or having little energy N early every day P oor appetite or overeating N ot at all F eeling bad about yourself or that you are a failure, or have let yourself or your family down S ever T rouble concentrating on things, such as reading the newspaper or watching television S ever M oving or speaking so slowly that other people could have noticed; or the opposite, being so fidgety or restless that you have been moving around a lot more than usual N ot at all T houghts that you would be better off or of hurting yourself in some way N ot at all T otal Score 1 0 I nterpretation M oderate Depression Intervention D epression Screening Findings P ositive F ollow-Up for Depression N o Referral necessary, patient involved in behavioral health treatment . S creening: Clayton Suicide Severity Rating Scale (LF) D o you want to initiate with S creener form I nterpretation: L ow Risk 6 . Suicide Behaviour: Have you ever done anything,started to do anything, or prepared to end your life? N o 2 . Suicidal Thoughts: Have you actually had any thoughts of killing yourself? N o 1 . Wish to be : Have you wished you were or wished you could go to sleep and not wake up? N o C SSRS Interpretation and Follow Up Plan: CSSRS Interpretation and Follow Up Plan C SSRS Screen documented using SF Y es R isk Disposition from SF L ow - No Follow Up Plan Required P sychiatric Assessment - Current Symptoms: 28-year-old female client presents for follow-up psychiatric and medication management appointment. Client is being followed for the management of chronic depression, PTSD, nicotine use disorder, and cannabis use. Client has a medical Hx significant for fibromyalgia and migraines. Client is amenable to appointment today. Changes since the last visit: Client has been organizing and cleaning things at home. She has job interview for [employer]. She has been practicing meditation and yoga. Goals: Mood stabilization Medications effective.: Reports that medications are mostly effective Medication Adherence: Reports taking medications as prescribed Side effects.: Denies side effects Sleep: Poor, has been napping during the day Nightmares/Night terrors: No but reports vivid dreams Appetite: Good Mood: Back and forth - pretty good overall Depression Rating (10/10 being the worst): 8 Suicidal ideation: Denies Homicidal ideation: Denies Anxiety Rating (10/10 being the worst): 9 Anger/Irritability Rating (10/10 being the worst): 5 Psychotic Symptoms/Behaviors: None observed or reported Manic Behaviors: None observed or reported Obsessive/Compulsive Behaviors: None observed or reported Signs/Symptoms of trauma/PTSD: Client has Hx of PTSD Substance Use: None Medical concerns or hospitalizations: No medical concerns at this time Therapy: Participating in individual therapy services. * ROS: P sych ROS: Constitutional A ll systems negative unless indicated otherwise, No recent illness reported. R espiratory D enies problems. C ardiovascular D enies history of cardiac problems. G I D enies problems. G U P COS. M usculoskeletal C hronic pain - H x of fibromyalgia. N eurological M igraines. E ndocrine D enies problems/concerns.?Psych D enies SI/HI/AH/VH,Reports depression, anxiety and anger/irritability,Reports sleep disturbances. * Medical History: * Surgical History: t onsillectomy/adnoidectomy 2008gallbladder removed 2015tead ducts worked on 1999wisdom teeth removed 2017 * Hospitalization/Major Diagno stic Procedure: s ee surgeries * Family History: F ather: alive. M other: alive. 3 sister(s) - healthy. . * Social History: P rimary Social History: L iving Arrangement L iving Arrangement: I ndependent Living I s this a supportive environment? Y es Alcohol Use A lcohol Use Frequency: N ever Illicit Substance Usage I llicit Substance Usage: N o Employment Status E mployment Status: U nemployed Full-time student * Medications: T akingDepo-Provera 150 MG/ML Suspension Prefilled Syringe 1 mL Intramuscular Pregabalin 200 MG Capsule 1 capsule Orally twice a day lamoTRIgine 200 MG Tablet 1 tablet Orally Once a day Lexapro 20 MG Tablet 1 tablet Orally Once a day traZODone HCl 50 MG Tablet 1.5 tablets at bedtime as needed Orally Once a day Medication List reviewed and reconciled with the patientTaking Depo-Provera 150 MG/ML Suspension Prefilled Syringe 1 mL Intramuscular Taking Pregabalin 200 MG Capsule 1 capsule Orally twice a day Taking lamoTRIgine 200 MG Tablet 1 tablet Orally Once a day Taking Lexapro 20 MG Tablet 1 tablet Orally Once a day Taking traZODone HCl 50 MG Tablet 1.5 tablets at bedtime as needed Orally Once a day Medication List reviewed and reconciled with the patient * Allergies: N .K.D.A.no[Allergies Verified] Objective: * Vitals: Unable to obtain vital signs due to telehealth visit . * Examination: P sychiatry: ATTENTION: g ood. ORIENTATION: p erson, place and time. ATTITUDE: c ooperative. AFFECT: u nable to assess - telephone appointment, verbally full, tearful at times. MOOD: d ysthymic, anxious. SPEECH: c lear, normal/R/V/R. CURRENT HOMICIDALITY: d enies. CURRENT SUICIDALITY: d enies. THOUGHT PROCESS: l inear, goal-directed. THOUGHT CONTENT: u nremarkable. PERCEPTUAL DISORDERS: n o perceptual disorder noted. INSIGHT: g ood-fair. JUDGEMENT: f air. INTELLIGENCE (estimate): a verage. M ental Status Exam is limited due to telehealth visit . Assessment: * Assessment: 1. P ost traumatic stress disorder (PTSD) - F43.10 2 . M arijuana smoker - F12.20 3 . N icotine dependence, unspecified, uncomplicated - F17.200 4 . M edication management - Z79.899 5 . C hronic depression - F32.9 (Primary) Plan: * Treatment: 2. P ost traumatic stress disorder (PTSD) Refill Lexapro Tablet, 20 MG, 1 tablet, Orally, Once a day, 30 days, 30 Tablet, Refills 0; R efill traZODone HCl Tablet, 50 MG, 1.5 tablets at bedtime as needed, Orally, Once a day, 30 days, 45 Tablet, Refills 0. Notes: Client does not wish to make medication changes at this time. Continue psychotherapy as scheduled. 3. M edication management Notes: May self-administer medications or be administered own oral medications per [facility] protocols. Provided informed consent with understanding of side effects, adverse effects, risks and benefits as well as alternative treatments as previously discussed and with the above recommended medications & other aspects of the treatment program. Agrees to return sooner if symptoms worsen or suicidal or homicidal ideations occur. Clinical Notes: Labs monitored by PCP. * Procedure Codes: * Follow Up: 4 Weeks (Reason: Psychiatric Follow-up & Medication Management) * * EANT MISSILE CREWMAN Sign off status: Completed true * Provider: Renetta Gaston, TAJ, STUDENT DEVELOPMENT SPECIALIST, PMLEYDIP-KILO Date: 0 03/06/2024 Generated for Printing/Faxing/eTransmitting on: 0 03/29/2024 11:33 AM SERGEANT MISSILE CREWMAN History and Physical Notes * HPI (History of Present Illness) Category Sub-Category Detail Notes Category Not es Depression Screening PHQ-9 Little inte rest or pleasure in doing things: Several days Feeling down, depressed, or hopeless: Se veral days Trouble falling or staying asleep, or sl eeping too much: Nearly every day Feeling tired or having little energy: N early every day Poor appetite or overeating: Not at all Feeling bad about yourself o r that you are a failure, or have let yourself or your family down: Several days Trouble concentrating on thi ngs, such as reading the newspaper or watching television: Several days Moving or speaking so slowly that other people could have noticed; or the opposite, being so fidgety or restless that you have been moving around a lot more than usual: Not at all Thoughts that you would be b jefe off or of hurting yourself in some way: Not at all Total Score: 10 Interpretation: Moderate Depression Intervention Depression Screening Findings: P ositive Follow-Up for Depression: No Referral necessary, patient involved in behavioral health treatment . Psychiatric Assessment - Current Symptoms 28-year-old female client presents for follow-up psychiatric and medication management appointment. Client is being followed for the management of chronic depression, PTSD, nicotine use disorder, and cannabis use. Client has a medical Hx significant for fibromyalgia and migraines. Client is amenable to appointment today. Changes since the last visit: Client has been organizing and cleaning things at home. She has job interview for [employer]. She has been practicing meditation and yoga. Goals: Mood stabilization Medications effective.: Reports that medications are mostly effective Medication Adherence: Reports taking medications as prescribed Side effects.: Denies side effects Sleep: Poor, has been napping during the day Nightmares/Night terrors: No but reports vivid dreams Appetite: Good Mood: Back and forth - pretty good overall Depression Rating (10/10 being the worst): 8 Suicidal ideation: Denies Homicidal ideation: Denies Anxiety Rating (10/10 being the worst): 9 Anger/Irritability Rating (10/10 being the worst): 5 Psychotic Symptoms/Behaviors: None observed or reported Manic Behaviors: None observed or reported Obsessive/Compulsive Behaviors: None observed or reported Signs/Symptoms of trauma/PTSD: Client has Hx of PTSD Substance Use: None Medical concerns or hospitalizations: No medical concerns at this time Therapy: Participating in individual therapy services Screening Clayton Suicide Severity Rating Scale (LF) Do you want to initiate with: Screener form Interpretation:: Low Risk 6. Suicide Behavior Question: Have you ever done anything,started to do anything, or prepared to end your life?: No 2. Suicidal Thoughts: Have you actually had any thoughts of killing yourself?: No 1. Wish to be : Have you wished you were or wished you could go to sleep and not wake up?: No CSSRS Interpretation and Follow Up Plan CSSRS Interpretation and Follow Up Plan CSSRS Screen documented using SF: Yes Risk Disposition from SF: Low - No Follo w Up Plan Required Examination Category Sub-Category Detail Notes Category Not es Psychiatry ATTITUDE: cooperative Mental Status E xam is limited due to telehealth visit ATTENTION: good ORIENTATION: person, place and ti me AFFECT: unable to assess - t elephone appointment, verbally full, tearful at times MOOD: dysthymic, anxious SPEECH: clear, normal/R/V/R INSIGHT: good-fair JUDGEMENT: fair THOUGHT PROCESS: linear, goal-directe d THOUGHT CONTENT: unremarkable PERCEPTUAL DISORDERS: no perceptual diso rder noted CURRENT SUICIDALITY: denies CURRENT HOMICIDALITY: denies INTELLIGENCE (estimate): average
--- OUTSIDE RECORDS SUMMARY | 2024-03-29 11:34 | XMS_ITS | Encounter Summary ---
Author Organization [facility] Address [address] [place] [address] Care Team Providers Care Oil Heater Operator Name Role Phone Jacob Galvan DO Primary Care Provider [phone] Reason for Visit * Reason Onset Date Comments MEDICATION REFILL 01/20/2024 Encounter Details Date Type Department Care Team (Late st Contact Info) Description 01/20/2024 Refill [facility] - Neurology [address] [place] [address], [place] [phone] Jhonathan Subramanian, SCIENCE INTERN-GYM TEACHER [address] [place] [phone] MEDICATION REFILL Social History Tobacco Use [...] on file Sexual Orientation Not on file documented as of this encounter Functional Status [...] No 05/16/2019 documented as of this encounter Plan of Treatment Upcoming Encounters Date Type Department Care Team (Late st Contact Info) Description 06/11/2024 1:00 PM CDT Office Visit [facility] - Neurology [address] [facility], [place] [address] Jhonathan Subramanian, SCIENCE INTERN-GYM TEACHER [address] [place] [address] [place] [phone] documented as of this encounter Visit Diagnoses Diagnosis Chronic migraine without aura, intractable, without status migrainosus Migraine without aura and without status migrainosus, not intractable Migraine without aura, without mention of intractable migraine without mention of status migrainosus documented in this encounter Care Teams Oil Heater Operator Relationship Specialty Start Date End Date Jacob Galvan DO [address] [place] [id number] PCP - General Family Medicine 05/09/23 documented as of this encounter
--- OUTSIDE RECORDS SUMMARY | 2024-03-29 11:34 | XMS_ITS | Referral Summary ---
Author Organization [facility] Address [address] [place] [address] Care Team Providers Care Glass Calibrator Name Role Phone Martinnuzhat Jacob Primary Care Provider [phone] Source Comments [facility],non-owned Affiliates and Associated Physician Practices is amultiple site organization consisting of ambulatory clinics and hospital sitesin [place], [place], [place] and [place]. This disclosure is being madepursuant to the Care Everywhere program and may not contain all information available regarding this patient. Last updated 17.[facility] Encounters Date Type Department Care Team Description 01/20/2024 Refill [facility] - Neurology [address] [place] [phone] Jhonathan Subramanian, SPEARER-SHEARING MACHINE FEEDER MEDICATION REFILL from Last 3 Months Allergies Active Allergy Reactions Criticality Noted Date [...] fluticasone propionate (FLONASE) 50 MCG/ACT nasal spray [place] 1 (one) spray into the nose every [...] every 6 hours as needed 1 Inhaler 05/05/2020 Active medroxyPROGESTER one (DEPO-PROVERA) 150 MG/ML [...] Anxiety 03/28/2015 GERD (gastroesophageal reflux disease) 5 Immunizations Name Administration Dates Next Due DTAP, [...] OPV 12/18/1997 TDAP (7yrs+) 12/19/2020,11/08/2011 VARICELLA 09/03/2014,12/18/1997 Social History Tobacco Use Types Packs/Day Years [...] Comments Blood Pressure 146/71 12/12/2023 1:03 PM GRANT MANAGER Pulse 68 12/12/2023 1:03 PM GRANT MANAGER Temperature 36.3 C (97.4 F) 12/12/2023 1:03 PM GRANT MANAGER Respiratory Rate 18 05/21/2019 1:36 PM CDT Oxygen Saturation 99% 12/12/2023 1:03 PM GRANT MANAGER Inhaled Oxygen Concentration - - Weight 50.8 kg (112 lb) 12/12/2023 1:03 PM GRANT MANAGER Height 160 cm (5' 3 ) 12/12/2023 1:03 PM GRANT MANAGER Body Mass Index 19.84 12/12/2023 1:03 PM GRANT MANAGER Functional Status Functional Status Response Date of [...] person have difficulty concentrating/remembering/making decisions? No 05/16/2019 Plan of Treatment Upcoming Encounters Date Type Department Care Team (Late st Contact Info) Description 06/11/2024 1:00 PM CDT Office Visit [facility] - Neurology [address] [facility], [place] [phone] Jhonathan Subramanian, SPEARER-SHEARING MACHINE FEEDER [address] [place] [phone] Procedures Procedure Name Priority Date/Time Associated Diagnosis Comments HIV-1 HIV-2 ANTIGEN/ANTIBODY STAT 12/19/2018 2:21 PM GRANT MANAGER from Last 3 Months or Most Recently Relevant to Health Maintenance Results * HIV-1 HIV-2 ANTIGEN/ANTIBODY (12/19/2018 2:21 PM GRANT MANAGER) HIV Antigen/Antibod y 1 & 2 Non-reacti ve Non-react michel 12/19/2018 3:27 PM GRANT MANAGER [facility] Comment: Neither HIV-1 p24 Antigen nor HIV-1/HIV-2 Antibodies are detected. Blood BLOOD SPECIMEN / Unknown Venipuncture / Unknown 12/19/2018 2:21 PM GRANT MANAGER 12/19/2018 2:40 PM GRANT MANAGER Carmella Box MD LAB - HEMATOLOGY ORD ERABLES [facility] [address] [phone] from Last 3 Months or Most Recently Relevant to Health Maintenance Advance Directives * Full Code (Latest Code Status on File) Date Activated Date Inactivated Comments 05/16/2019 2:31 AM 05/21/2019 4:18 PM * Full Code Date Activated Date Inactivated Comments 08/23/2017 5:14 AM 08/24/2017 6:05 PM * Full Code Date Activated Date Inactivated Comments 08/23/2017 4:24 AM 08/23/2017 5:14 AM Care Teams Glass Calibrator Relationship Specialty Start Date End Date Jacob Galvan DO [address] [place] [id number] PCP - General Family Medicine 05/09/23
--- OUTSIDE RECORDS SUMMARY | 2024-03-29 11:34 | XMS_ITS | Encounter Summary ---
Author Organization [facility] Address [address] [place] [address] Care Team Providers Care Net Software Developer Name Role Phone Myra Breana Gorman APRN-FACILITIES ENGINEERING MANAGER Primary Care Provider Jacob Galvan DO Primary Care Provider [phone] Reason for Visit * Reason Onset Date Comments MEDICATION REFILL 12/22/2022 Encounter Details Date Type Department Care Team (Late st Contact Info) Description 12/22/2022 Refill [facility] - Neurology [address] [place] [address], [place] [address] Andre Farah MD [address] [place] [phone] MEDICATION REFILL Social History Tobacco Use Types [...] encounter Miscellaneous Notes * Telephone Encounter - Dale Butcher MA - 12/22/2022 8:20 AM CST Molly Praveenasterling NAVEEN: 11/03/2022Dec due: 6 month follow up DEC date: none scheduled topiramate 200 MG tablet LRF: 11/03/2022 Quantity dispensed: 180 tablets (patient takes 2 tablets a day) # refills: 0 CIPAL GIFTS OFFICER documented in this encounter Plan of Treatment Upcoming Encounters Date Type Department Care Team (Late st Contact Info) Description 06/11/2024 1:00 PM CDT Office Visit [facility] - Neurology [address] [place] [address] [place] [address] Jhonathan Subramanian, SEARCH ENGINE OPTIMIZATION SPECIALIST-FACILITIES ENGINEERING MANAGER [address] [place] [address] [place] [address] documented as of this encounter Visit Diagnoses Diagnosis Migraine without aura and without status migrainosus, not intractable Migraine without aura, without mention of intractable migraine without mention of status migrainosus documented in this encounter Care Teams Net Software Developer Relationship Specialty Start Date End Date Breana Renteria APRN-FACILITIES ENGINEERING MANAGER [address] [place] [address] PCP - General 05/05/20 05/08/23 Jacob Galvan DO [address] [place] [phone] PCP - General Family Medicine 05/09/23 documented as of this encounter
--- OUTSIDE RECORDS SUMMARY | 2024-03-29 11:34 | XMS_ITS | Referral Summary ---
Author Organization [facility] Address [address] [place] [address] Care Team Providers Care Canvas Baster Name Role Phone Dhruv Byrd MD Primary Care Provider [phone] Allergies Active Allergy Reactions Criticality Noted Date Comments Bupropion Other (See comments) Low 05/05/2020 Made depression worse Duloxetine Other (See comments),Unknown Low 01/25/2019 Vomiting and insomnia Vomiting and insomnia Sumatriptan Vomiting Low 08/17/2017 Morphine Anxiety,Other (See comments),Palpitations Low 06/12/2015 Gets warm Pramipexole Other (See comments) Low 10/04/2019 insomnia insomnia Verapamil Other (See comments) Low 01/25/2019 Worsen acid reflux Worsen acid reflux Medications pregabalin (LYRICA) 200 mg capsule Take 1 capsule (200 mg total) by mouth 2 (two) times a day Active topiramate (TOPAMAX) 200 mg tablet Take 1 tablet (200 mg total) by mouth 2 (two) times a day Active lamoTRIgine (LaMICtal) 200 mg tablet Take 150 mg by mouth daily Active pantoprazole DR (PROTONIX) 40 mg EC tablet Take 1 tablet (40 mg total) by mouth daily Active escitalopram (LEXAPRO) 20 mg tablet Take 1 tablet (20 mg total) by mouth daily Active traZODone (DESYREL) 100 mg tablet Take 0.5 tablets (50 mg total) by mouth nightly Active tiZANidine (ZANAFLEX) 4 mg tablet Take 1 tablet (4 mg total) by mouth every 6 (six) hours as needed for muscle spasms Active erenumab-aooe (AIMOVIG AUTOINJECTOR, 2 PACK, SUBQ) Inject under the skin Active lidocaine (LIDODERM) 5 %Indications:Ch ronic midline thoracic back pain Place 1 patch on the skin daily Apply to painful area 12 hours per day, remove for 12 hours. 30 patch 1 3 Active butalbital-acet aminophen-caffe ine (ESGIC) 50-325-40 mg per tablet Take 1 tablet by mouth every 4 (four) hours as needed for headaches Active Active Problems Problem Noted Date Diagnosed Date Allergic rhinitis 05/25/2019 Recurrent major depressive disorder 08/17/2017 Fibromyalgia 05/05/2017 Insomnia 01/08/2017 Chronic migraine 2016 Mild persistent asthma without complication 06/2015 Anxiety 03/28/2015 GERD (gastroesophageal reflux disease) 5 Immunizations Immunization Administration Dates Next Due DTaP / HiB 11/26/1998 DTaP, Unspecified 09/19/2002, 8,04/01/1997,02/04 HPV, Quadrivalent 03/27/2009,11/19/2008,09/19/19 09 Hep A, Pediatric 03/06/2015,09/03/2014 Hep A, Unspecified 03/06/2015,09/03/2014 Hep B, Unspecified 07/15/1997,1996, 997 HiB 07/15/1997,04/01/1997,02/04/1997 Hib (HbOC) 07/15/1997,04/01/1997,02/04/1997 IPV 09/19/2002,04/01/1997,02/04/1997 Influenza Nasal, Unspecified 11/07/2021(Deferred : Patient Refused) Influenza, Quadrivalent, Spl it, Preservative Free, Intramuscular 03/06/2015 Influenza, Unspecified 08/23/2018,2018,02/10/2018,11/11,08/12/2017,04/15/2017 MMR 09/19/2002,12/18/1997 Meningococcal MCV4P (Menactra) 09/03/2014 OPV 12/18/1997 OPV, Unspecified 12/18/1997 Tdap 12/19/2020,11/08/2011 Varicella 09/03/2014,12/18/1997 Social History Tobacco Use Types Packs/Day Years Used Date Smoking Tobacco: Every Day Smokeless Tobacco: Never AUDIT-C Answer Date Recorded Q1: How often do you have a drink containing alc ohol? Never 11/20/2020 Average Number of Drinks Not on file 021 Q3: How often do you have si x or more drinks on one occasion? 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 [facility] Gender Identity Not on file Sexual Orientation Not on file Last Filed Vital Signs Vital Sign Reading Time Taken Comments Blood Pressure 112/72 07/29/2022 3:26 PM CDT Pulse 80 07/29/2022 3:26 PM CDT Temperature 36.6 C (97.8 F) 07/29/2022 3:26 PM CDT Respiratory Rate 16 07/29/2022 3:26 PM CDT Oxygen Saturation 99% 07/29/2022 3:26 PM CDT Inhaled Oxygen Concentration - - Weight 58.6 kg (129 lb 3.2 oz) 07/29/2022 3:26 P M CDT Height 160 cm (5' 2.99 ) 07/29/2022 3:26 PM CDT Body Mass Index 22.89 07/29/2022 3:26 PM CDT Plan of Treatment Not on file Insurance [facility] [address] [place] [id number] [id number] Care Teams Canvas Baster Relationship Specialty Start Date End Date Dhruv Byrd MD PCP - General Family Medicine 04/21/20
--- OUTSIDE RECORDS SUMMARY | 2024-03-29 11:34 | XMS_ITS | Patient Health Summary ---
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 1:36 PM CST Images from the original note were not included. Wilson Pendleton MD PFT ORDERABLES * FRACTIONAL EXHALED NITRIC OXIDE (03/01/2019 1:35 PM PHARMACEUTICAL PROCESS ENGINEER) Impressions Dale Ivey MD - 03/01/2019 1:35 PM PHARMACEUTICAL PROCESS ENGINEER [facility] DEPARTMENT OF PULMONARY, CRITICAL CARE, AND SLEEP MEDICINE EXHALED NITRIC OXIDE (FeNO) Molly Acevedo 03/01/2019 INTERPRETATION The measurement of fractional exhaled nitric oxide (FENO) was 5 ppb. IMPRESSION: 1. Normal fractional exhaled nitric oxide. 2. No prior study to compare. Dr.Raja Gene MORSE Pulmonary & Critical Care Fellow Division of Pulmonary, Critical Care and Sleep Medicine [facility] Pager:[phone] I have personally reviewed the test data and agree with Dr. Mills's findings. Dale Ivey MD 03/11/2019 Narrative Dale Ivey MD - 03/01/2019 1:35 PM PHARMACEUTICAL PROCESS ENGINEER Mervin Mills MD 03/01/2019 3:34 PM Procedure Note Mervin Mills MD - 03/01/2019 1:35 PM CST Images from the original note were not included. Wilson Pendleton MD RESPIRATORY THERAPY ORDERABLES * XR CHEST 2VW (12/19/2018 4:46 PM PHARMACEUTICAL PROCESS ENGINEER) Anatomical Region Laterality Modality Chest Radiographic Luz ging 12/19/2018 4:48 PM PHARMACEUTICAL PROCESS ENGINEER Impressions 12/20/2018 8:11 AM PHARMACEUTICAL PROCESS ENGINEER FINDINGS/IMPRESSION: There is no focal consolidation, pleural effusion, or pneumothorax. The cardiomediastinal silhouette is normal. The visible bony thorax is intact. Dictated by Sonu Sam MD (vice president investor relations). Dr. CHELE Valencia MD have personally reviewed and interpreted this examination/study. This report was electronically signed by CHELE RODRIGEZ MD on 12/20/2018 8:11 AM . Narrative 12/20/2018 8:11 AM PHARMACEUTICAL PROCESS ENGINEER EXAMINATION: XR CHEST 2VW HISTORY: 23 year-old with leukocytosis. COMPARISON: Chest radiograph dated 08/23/2017. Procedure Note Chele Rodrigez MD - 12/20/2018 EXAMINATION: XR CHEST 2VW HISTORY: 23 year-old with leukocytosis. COMPARISON: Chest radiograph dated 08/23/2017. FINDINGS/IMPRESSION: There is no focal consolidation, pleural effusion, or pneumothorax. The cardiomediastinal silhouette is normal. The visible bony thorax isintact. Dictated by Sonu Sam MD (vice president investor relations). Dr. CHELE Valencia MD have personally reviewed and interpreted this examination/study. This report was electronically signed by CHELE RODRIGEZ MD on 12/20/2018 8:11 AM . Jigna Amadormagaly PA-C DIAGNOSTIC IMAGING ORDERABLES * URINALYSIS W/MICROSCOPIC NO CULTURE (12/19/2018 2:22 PM PHARMACEUTICAL PROCESS ENGINEER) Color UA Straw Straw, Yellow, Colorless 12/19/2018 2:47 PM [facility] Clarity UA Clear Clear, Slt Cloudy 12/19/2018 2:47 PM [facility] Specific [place] UA 1.006 1.005 - 1.030 12/19/2018 2:47 PM [facility] pH UA 6.0 5.0 - 8.0 pH 12/19/2018 2:47 PM [facility] Protein UA Negative Negative mg/dL 12/19/2018 2:47 PM [facility] Glucose UA Negative Negative mg/dL 12/19/2018 2:47 PM [facility] Ketone UA Negative Negative mg/dL 12/19/2018 2:47 PM [facility] Bilirubin UA Negative Negative mg/dL 12/19/2018 2:47 PM [facility] Blood UA Negative Negative 12/19/2018 2:47 PM [facility] Nitrite UA Negative Negative 12/19/2018 2:47 PM [facility] Leukocyte Esterase Negative Negative 12/19/2018 2:47 PM [facility] Urobilinogen UA Negative Negative mg/dL 12/19/2018 2:47 PM [facility] RBC UA 0-2 None Seen, 0-2, 3-5 /HPF 12/19/2018 2:47 PM [facility] WBC UA 0-5 None Seen, 0-5 /HPF 12/19/2018 2:47 PM [facility] Squamous Epithelial Cells UA 0-2 None Seen, 0-2 /HPF 12/19/2018 2:47 PM [facility] Urine URINE SPECIMEN OBTAINED BY CLEAN CATCH PROCEDURE / Unknown Collection / Unknown 12/19/2018 2:22 PM PHARMACEUTICAL PROCESS ENGINEER 12/19/2018 2:40 PM PHARMACEUTICAL PROCESS ENGINEER Narrative [facility] - 12/19/2018 2:47 PM PHARMACEUTICAL PROCESS ENGINEER Jigna Varghese PA-C LAB - URINA LYSIS ORDERABLES Performing Organization Address [facility] Co de Phone Number [address] [phone] * HIV-1 HIV-2 ANTIGEN/ANTIBODY (12/19/2018 2:21 PM PHARMACEUTICAL PROCESS ENGINEER) HIV Antigen/Antibod y 1 & 2 Non-reacti ve Non-react michel 12/19/2018 3:27 PM [facility] Comment: Neither HIV-1 p24 Antigen nor HIV-1/HIV-2 Antibodies are detected. Blood BLOOD SPECIMEN / Unknown Venipuncture / Unknown 12/19/2018 2:21 PM PHARMACEUTICAL PROCESS ENGINEER 12/19/2018 2:40 PM PHARMACEUTICAL PROCESS ENGINEER Carmella Box MD LAB - HEMATOLOGY ORD ERABLES Performing Organization Address City/[facility]/ZIP Co de Phone Number [place] [id number], [place] [phone] * (ABNORMAL) DIFFERENTIAL MANUAL (12/19/2018 2:21 PM PHARMACEUTICAL PROCESS ENGINEER) WBC (corrected for NRBC) 19.3 10 3/uL 12/19/2018 3:16 PM [facility] Total Cell Count 100 12/19/2018 3:16 PM [facility] Neutrophils Absolute Manual 12.35(H) 1.60 - 7.00 10 3/uL 12/19/2018 3:16 PM [facility] Comment:(BANDS+SEGS) x WBC = NEUT # (ANC) Lymphocyte Absolute Manual 5.98(H) 0.80 - 2.90 10 3/uL 12/19/2018 3:16 PM [facility] Monocytes Absolute Manual 0.97(H) 0.14 - 0.66 10 3/uL 12/19/2018 3:16 PM [facility] Neutrophil % Manual 64(H) 30 - 60 % 12/19/2018 3:16 PM [facility] Lymphocyte % Manual 31 20 - 45 % 12/19/2018 3:16 PM [facility] Monocytes % Manual 5 2 - 10 % 12/19/2018 3:16 PM [facility] Platelet Estimate Adequate Adequate 12/19/2018 3:16 PM [facility] RBC Morphology Normal 12/19/2018 3:16 PM [facility] Blood BLOOD SPECIMEN / Unknown Venipuncture / Unknown 12/19/2018 2:21 PM PHARMACEUTICAL PROCESS ENGINEER 12/19/2018 2:40 PM PHARMACEUTICAL PROCESS ENGINEER Jigna Varghese PA-C LAB - HEMAT OLOGY ORDERABLES [facility] [address] [place] [address], [facility] [phone] * (ABNORMAL) CBC W AUTO DIFFERENTIAL (12/19/2018 2:21 PM PHARMACEUTICAL PROCESS ENGINEER) Only the most recent of3 resultswithin the time period is included. WBC 19.3(H) 3.5 - 10.5 10 3/uL 12/19/2018 2:43 PM [facility] RBC 4.49 3.90 - 5.00 10 6/uL 12/19/2018 2:43 PM [facility] Hemoglobin 13.8 12.0 - 15.5 g/dL 12/19/2018 2:43 PM [facility] Hematocrit 39.9 35.0 - 45.0 % 12/19/2018 2:43 PM [facility] MCV 88.9 81.0 - 97.0 fL 12/19/2018 2:43 PM [facility] MCH 30.7 28.0 - 34.0 pg 12/19/2018 2:43 PM [facility] MCHC 34.6 32.0 - 36.0 g/dL 12/19/2018 2:43 PM [facility] Platelet Count 382 150 - 400 10 3/uL 12/19/2018 2:43 PM [facility] RDW-SD 41.4 36.0 - 50.0 fL 12/19/2018 2:43 PM [facility] RDW-CV 12.8 11.2 - 14.8 % 12/19/2018 2:43 PM [facility] MPV 9.7 9.3 - 12.8 fL 12/19/2018 2:43 PM [facility] nRBC Absolute 0.00 0 10 3/uL 12/19/2018 2:43 PM [facility] nRBC Auto 0.0 0 /100 WBC 12/19/2018 2:43 PM [facility] Blood BLOOD SPECIMEN / Unknown Venipuncture / Unknown 12/19/2018 2:21 PM PHARMACEUTICAL PROCESS ENGINEER 12/19/2018 2:40 PM [facility] Jigna Varghese PA-C LAB - HEMAT OLOGY ORDERABLES [facility] [address] [place] [address] * (ABNORMAL) COMPREHENSIVE METABOLIC PANEL (12/19/2018 2:21 PM PHARMACEUTICAL PROCESS ENGINEER) BUN 8 7 - 26 mg/dL 12/19/2018 3:03 PM [facility] Creatinine 0.7 0.6 - 1.2 mg/dL 12/19/2018 3:03 PM [facility] Sodium 143 136 - 145 mmol/L 12/19/2018 3:03 PM [facility] Potassium 3.0(L) 3.5 - 4.5 mmol/L 12/19/2018 3:03 PM [facility] Chloride 111(H) 98 - 107 mmol/L 12/19/2018 3:03 PM [facility] CO2 21(L) 22 - 29 mmol/L 12/19/2018 3:03 PM [facility] Glucose 101 70 - 115 mg/dL 12/19/2018 3:03 PM [facility] Calcium 9.6 8.4 - 10.2 mg/dL 12/19/2018 3:03 PM [facility] Protein Total 7.4 6.0 - 8.3 g/dL 12/19/2018 3:03 PM [facility] Albumin 4.5 3.4 - 5.0 g/dL 12/19/2018 3:03 PM [facility] Bilirubin Total 0.8 0.2 - 1.2 mg/dL 12/19/2018 3:03 PM [facility] Alkaline Phosphatase 82 40 - 150 Units/L 12/19/2018 3:03 PM [facility] ALT 19 0 - 55 Units/L 12/19/2018 3:03 PM [facility] AST 17 5 - 34 Units/L 12/19/2018 3:03 PM [facility] Anion Gap 14 8 - 18 12/19/2018 3:03 PM [facility] BUN/Creatinine Ratio 11 7 - 23 12/19/2018 3:03 PM [facility] Osmolality Calculated 294 270 - 300 mOsm/kg 12/19/2018 3:03 PM [facility] Albumin/Globulin Ratio 1.6 1.1 - 2.3 12/19/2018 3:03 PM [facility] eGFR >60 >60 mL/min/1.7 3 m2 12/19/2018 3:03 PM [facility] Blood BLOOD SPECIMEN / Unknown Venipuncture / Unknown 12/19/2018 2:21 PM PHARMACEUTICAL PROCESS ENGINEER 12/19/2018 2:40 PM PHARMACEUTICAL PROCESS ENGINEER Jigna Varghese PA-C LAB - CHEMI STRY ORDERABLES [facility] [address] [phone] * HCG URINE QUALITATIVE - POINT OF CARE (12/19/2018 2:15 PM PHARMACEUTICAL PROCESS ENGINEER) HCG Qual Urine Negative Negative [facility] P OCT TESTING QC Verified Yes Yes [facility] POCT TESTING Urine URINE / Unknown 12/19/2018 2 :15 PM PHARMACEUTICAL PROCESS ENGINEER Carmella Box MD LAB - POINT OF CARE ORDERABLES Performing Organization Address [facility] Co de Phone Number [facility] POCT TESTING [address] [phone] * (ABNORMAL) BASIC METABOLIC PANEL (CALCIUM TOTAL) (08/24/2017 1:46 AM CDT) Only the most recent of2 resultswithin the time period is included. Pathologist [facility] BUN 11 7 - 26 mg/dL 08/24/2017 2:30 AM [facility] Creatinine 0.8 0.6 - 1.2 mg/dL 08/24/2017 2:30 AM [facility] Sodium 140 136 - 145 mmol/L 08/24/2017 2:30 AM [facility] Potassium 3.1(L) 3.5 - 4.5 mmol/L 08/24/2017 2:30 AM [facility] Chloride 113(H) 98 - 107 mmol/L 08/24/2017 2:30 AM [facility] CO2 16(L) 22 - 29 mmol/L 08/24/2017 2:30 AM [facility] Glucose 79 70 - 115 mg/dL 08/24/2017 2:30 AM [facility] Calcium 8.5 8.4 - 10.2 mg/dL 08/24/2017 2:30 AM [facility] Anion Gap 14 8 - 18 08/24/2017 2:30 AM [facility] BUN/Creatinine Ratio 14 7 - 23 08/24/2017 2:30 AM [facility] Osmolality Calculated 288 270 - 300 mOsm/kg 08/24/2017 2:30 AM CDT [facility] eGFR >60 >60 mL/min/1.7 3 m2 08/24/2017 2:30 AM CDT [facility] Blood BLOOD SPECIMEN / Unknown Venipuncture / Unknown 08/24/2017 1:46 AM CDT 08/24/2017 2:04 AM CDT Kelin Stanley MD LAB - CHEMISTRY [place]IZ [place] [address] [phone] * PHOSPHORUS BLOOD (08/24/2017 1:46 AM CDT) Phosphorus 3.1 2.3 - 4.7 mg/dL 08/24/2017 2:29 AM CDT [facility] Blood BLOOD SPECIMEN / Unknown Venipuncture / Unknown 08/24/2017 1:46 AM CDT 08/24/2017 2:04 AM CDT Kelin Stanley MD LAB - CHEMISTRY DENIZ [place] Performing Organization Address [facility]/ZIP Co de Phone Number [address] [phone] * MAGNESIUM BLOOD (08/24/2017 1:46 AM CDT) Magnesium 1.7 1.6 - 2.6 mg/dL 08/24/2017 2:29 AM CDT [facility] Blood BLOOD SPECIMEN / Unknown Venipuncture / Unknown 08/24/2017 1:46 AM CDT 08/24/2017 2:04 AM CDT Kelin Stanley MD LAB - CHEMISTRY DENIZ [place] Performing Organization Address [facility]/ZIP Co de Phone Number [address] [phone] * XR PELVIS AP W INLET OUTLET (08/23/2017 5:22 AM CDT) Anatomical Region Laterality Modality Radiographic Luz ging 08/23/2017 7:06 AM CDT Impressions 08/23/2017 10:41 AM CDT IMPRESSION: Known minimal fractures not visible. Dictated by Rachell Olson MD (vice president investor relations). Dr. SHARON Valencia M.D. have personally reviewed and interpreted this examination/study. This report was electronically signed by SHARON JAMES M.D. on 08/23/2017 10:41 AM . Narrative 08/23/2017 10:41 AM CDT EXAMINATION: XR PELVIS AP W INLET OUTLET HISTORY: fx FINDINGS: Comparison is made with a study from 08/23/2017 3:38 AM. Minimal fractures of the right sacral ala and right puboacetabular junction described on outside CT are not visible. . The hip joint spaces are preserved. The pubic symphysis is intact. The sacroiliac joints are normal. Contrast material is seen within the bladder. Linear radiopaque object overlying the left aspect of L3-4 vertebrae may be umbilical jewelry. Procedure Note Sharon James MD - 08/23/2017 EXAMINATION: XR PELVIS AP W INLET OUTLET HISTORY: fx FINDINGS: Comparison is made with a study from 08/23/2017 3:38 AM. Minimal fractures of the right sacral ala and right puboacetabular junction described on outside CT are not visible. . The hip joint spaces are preserved. The pubic symphysis is intact. The sacroiliac joints are normal. Contrast material is seen within the bladder. Linear radiopaque object overlying the left aspect of L3-4 vertebrae may be umbilical jewelry. IMPRESSION: Known minimal fractures not visible. Dictated by Rachell Olson MD (vice president investor relations). Dr. SHARON Valencia M.D. have personally reviewed and interpreted this examination/study. This report was electronically signed by SHARON JAMES M.D. on 08/23/2017 10:41 AM . Ranjan Willett MD DIAGNOSTIC IMAGING O RDERABLES * HCG URINE QUALITATIVE (08/23/2017 4:29 AM CDT) Test Urine Negative Negative 08/23/2017 4:36 AM CDT [facility] Urine URINE / Unknown Collection / Unknown 08/23/2017 4:29 AM CDT 08/23/2017 4:29 AM CDT Kelin Stanley MD LAB - URINALYS[place] [address], [facility] [phone] * XR PELVIS 1 OR 2VW (08/23/2017 3:54 AM CDT) Anatomical Region Laterality Modality Pelvis Radiographic Luz ging 08/23/2017 7:58 AM CDT Impressions 08/23/2017 10:18 AM CDT IMPRESSION: No acute fracture or dislocation identified. Dictated by Rachell Olson MD (vice president investor relations). I, Dr. SHARON JAMES M.D. have personally reviewed and interpreted this examination/study. This report was electronically signed by SHARON JAMES M.D. on 08/23/2017 10:18 AM . Narrative 08/23/2017 10:18 AM CDT EXAMINATION: XR FEMUR RIGHT 2VW, XR PELVIS 1 OR 2VW HISTORY: trauma FINDINGS: No prior study is available for comparison at the time of this dictation. PELVIS: No acute fracture is identified. The femoral heads appear well-seated within their respective acetabula. The hip joint spaces are preserved. The pubic symphysis is intact. The sacroiliac joints are normal. Contrast is seen in the urinary bladder. RIGHT FEMUR: The femur is intact without acute fracture. The joint spaces are preserved. Bone density and texture are normal. There is no soft tissue abnormality. Procedure Note Sharon James MD - 08/23/2017 EXAMINATION: XR FEMUR RIGHT 2VW, XR PELVIS 1 OR 2VW HISTORY: trauma FINDINGS: No prior study is available for comparison at the time of this dictation. PELVIS: No acute fracture is identified. The femoral heads appear well-seated within their respective acetabula. The hip joint spaces are preserved.The pubic symphysis is intact. The sacroiliac joints are normal. Contrast is seen in the urinary bladder. RIGHT FEMUR: The femur is intact without acute fracture. The joint spaces are preserved. Bone density and texture are normal. There is no soft tissue abnormality. IMPRESSION: No acute fracture or dislocation identified. Dictated by Rachell Olson MD (vice president investor relations). Dr. SHARON Valencia M.D. have personally reviewed and interpreted this examination/study. This report was electronically signed by SHARON JAMES M.D. on 08/23/2017 10:18 AM . Kelin Stanley MD DIAGNOSTIC IMAGING O RDERABLES * XR FEMUR RIGHT 2VW (08/23/2017 3:54 AM CDT) Anatomical Region Laterality Modality Lower Extremity Radiographic Luz ging 08/23/2017 7:58 AM CDT Impressions 08/23/2017 10:18 AM CDT IMPRESSION: No acute fracture or dislocation identified. Dictated by Rachell Olson MD (vice president investor relations). Dr. SHARON Valencia M.D. have personally reviewed and interpreted this examination/study. This report was electronically signed by SHARON JAMES M.D. on 08/23/2017 10:18 AM . Narrative 08/23/2017 10:18 AM CDT EXAMINATION: XR FEMUR RIGHT 2VW, XR PELVIS 1 OR 2VW HISTORY: trauma FINDINGS: No prior study is available for comparison at the time of this dictation. PELVIS: No acute fracture is identified. The femoral heads appear well-seated within their respective acetabula. The hip joint spaces are preserved. The pubic symphysis is intact. The sacroiliac joints are normal. Contrast is seen in the urinary bladder. RIGHT FEMUR: The femur is intact without acute fracture. The joint spaces are preserved. Bone density and texture are normal. There is no soft tissue abnormality. Procedure Note Sharon James MD - 08/23/2017 EXAMINATION: XR FEMUR RIGHT 2VW, XR PELVIS 1 OR 2VW HISTORY: trauma FINDINGS: No prior study is available for comparison at the time of this dictation. PELVIS: No acute fracture is identified. The femoral heads appear well-seated within their respective acetabula. The hip joint spaces are preserved.The pubic symphysis is intact. The sacroiliac joints are normal. Contrast is seen in the urinary bladder. RIGHT FEMUR: The femur is intact without acute fracture. The joint spaces are preserved. Bone density and texture are normal. There is no soft tissue abnormality. IMPRESSION: No acute fracture or dislocation identified. Dictated by Rachell Olson MD (vice president investor relations). Dr. SHARON Valencia M.D. have personally reviewed and interpreted this examination/study. This report was electronically signed by SHARON JAMES M.D. on 08/23/2017 10:18 AM . Kelin Stanley MD DIAGNOSTIC IMAGING O RDERABLES * XR CHEST 1VW PORTABLE (08/23/2017 3:52 AM CDT) Anatomical Region Laterality Modality Chest Radiographic Luz ging 08/23/2017 4:10 AM CDT Impressions 08/23/2017 10:16 AM CDT FINDINGS/IMPRESSION: Body ornamentation is present. There is no focal consolidation, pleural effusion, or pneumothorax. The cardiomediastinal silhouette is normal. The visible osseous structures are intact. Dictated by Raheel Tom MD (vice president investor relations). Dr. SHARON Valencia M.D. have personally reviewed and interpreted this examination/study. This report was electronically signed by SHARON JAMES M.D. on 08/23/2017 10:16 AM . Narrative 08/23/2017 10:16 AM CDT EXAMINATION: XR CHEST 1VW PORTABLE HISTORY: trauma COMPARISON: No prior study is available for comparison. Procedure Note Sharon James MD - 08/23/2017 EXAMINATION: XR CHEST 1VW PORTABLE HISTORY: trauma COMPARISON: No prior study is available for comparison. FINDINGS/IMPRESSION: Body ornamentation is present. There is no focal consolidation, pleural effusion, or pneumothorax. The cardiomediastinal silhouette is normal.The visible osseous structures are intact. Dictated by Raheel Tom MD (vice president investor relations). Dr. SHARON Valencia M.D. have personally reviewed and interpreted this examination/study. This report was electronically signed by SHARON JAMES M.D. on 08/23/2017 10:16 AM . Kelin Stanley MD DIAGNOSTIC IMAGING O RDERABLES * TYPE + SCREEN PANEL (08/23/2017 3:45 AM CDT) Antibody Screen NEG 8 4:27 AM CDT [facility] ABO Rh O NEG 08/23/2017 4:27 AM CDT [facility] Blood Bank BLOOD SPECIMEN / Unknown 08/23/2017 3:45 AM CDT 08/23/2017 3:45 AM CDT Kelin Stanley MD LAB - BLOOD BANK ORD ERABLES Performing Organization Address City/[facility]/ZIP Co de Phone Number [facility] [address] * ALCOHOL ETHYL BLOOD (08/23/2017 3:35 AM CDT) Interpretation Ethanol None Detected None Detected mg/dL 08/23/2017 3:54 AM CDT [facility] Comment: Ethanol levels less than 10 mg/dL are resulted as None detected . Blood BLOOD SPECIMEN / Unknown Venipuncture / Unknown 08/23/2017 3:35 AM CDT 08/23/2017 3:35 AM CDT Kelin Stanley MD LAB - CHEMISTRY ORDE RABMADHURI [address] [phone] Care Teams Research Professor Relationship Specialty Start Date End Date Jacob Galvan DO [address] [place] [id number] PCP - General Family Medicine 05/09/23
--- OUTSIDE RECORDS SUMMARY | 2024-03-29 11:34 | XMS_ITS | Encounter Summary ---
Author Organization [facility] Address [address] [place] [address] Care Team Providers Care Outbound Call Center Representative Name Role Phone Manan Etienne MD Primary Care Provider [phone] Breana Renteria Primary Care Provider [phone] None, Provider Primary Care Provider Jacob Rao DO Primary Care Provider [phone] Encounter Details Date Type Department Care Team (Late st Contact Info) Description 01/18/2013 Abstract [facility] CONVERSION [address] [place], [place] [id number] , Generic Conversion, Social History Tobacco Use Types Packs/Day Years Used Date Smoking Tobacco: Never Assessed Comments Unknown Sex and Gender Information Value Date Recorded Sex Assigned at Not on file Legal Sex Female 7:42 PM CDT Gender Identity Not on file Sexual Orientation Not on file documented as of this encounter Plan of Treatment Not on file documented as of this encounter Visit Diagnoses Not on filedocumented in this encounter Additional Health Concerns Infection Onset Date Last Indicated Resolved Time COVID-19 Rule Out 12/30/2020 12/30/2020 12/30/2020 9:05 PM PERSONAL INJURY LITIGATION PARALEGAL COVID-19 Rule Out 12/30/2020 12/30/2020 12/31/2020 11:04 PM PERSONAL INJURY LITIGATION PARALEGAL COVID-19 Confirmed 12/30/2020 12/30/2020 12:32 AM PERSONAL INJURY LITIGATION PARALEGAL documented as of this encounter Care Teams Outbound Call Center Representative Relationship Specialty [place] [address] [place] [address] PCP - General FAMILY PRACTICE 02/27/18 07/25/21 Breana Renteria FNP [address] [place] [address] PCP - General NURSE PRACTITIONER 07/26/21 01/06/22 None, MD Katy PCP - General UNKNOWN PHYSICIAN SPECIALTY 01/07/22 Jacob Galvan DO [address] [place] [address] PCP - General FAMILY PRACTICE 06/16/22 documented as of this encounter
--- OUTSIDE RECORDS SUMMARY | 2024-03-29 11:34 | XMS_ITS | Clinical Summary ---
Author Organization [facility] Address [address] [place] [address] Care Team Providers Care Diversity Manager Name Role Phone Dhruv Byrd MD Primary Care Provider Allergies Active Allergy Reactions Criticality Noted Date [...] OPV, Unspecified 12/18/1997 Tdap 12/19/2020,11/08/2011 Varicella 09/03/2014,12/18/1997 Surgical History Surgery Date Site/Laterality Comments CHOLECYSTECTOMY WISDOM TOOTH EXTRACTION TONSILLECTOMY AND ADENOIDECTOMY TONGUE SURGERY EYE SURGERY Medical History Medical History Date Comments Anxiety Depression GERD (gastroesophageal reflux disease) Inflammatory bowel disease Irritable bowel syndrome Fibromyalgia Anorexia Bulimia Migraine Head trauma Family History Medical History Relation Name Comments Depression Father Diabetes Father Heart disease Father Hyperlipidemia Father Hypertension Father Depression Mother Diabetes Mother Hyperlipidemia Mother Hypertension Mother Mental illness Mother Relation Name Status Comments Father Alive Mother Alive Social History Tobacco Use Types Packs/Day [...] on file Legal 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 Gender Identity Not on file Sexual Orientation Not on file Obstetrics History Last Filed Vital Signs Vital Sign Reading [...] 07/29/2022 3:26 PM CDT Plan of Treatment Health Maintenance Due Date Last Done Comments Cervical Cancer Screening 1996 Hepatitis C Screening 1996 Regular Well Visit/Exam 18-64 2014 Pneumococcal vaccine <65 (1 of 2 - PCV) 11/18/2015 Depression Screening 07/30/2023 07/29/2022, 11/20/2020, 11/20/2020 Covid-19 Vaccine (2 - 4-2 5 season) 2023 07/17/2020 Influenza Vaccine (#1) 2023 9, 05/19/2018, 02/10/2018, Additional history exists DTaP/Tdap/Td Vaccine (8 - Td or Tdap) 12/19/2030 12/19/2020, 11/08/2011, 09/19/2002, Additional history exists Hepatitis B Screening Completed 07/15/1997 , 1996, 1996 HPV Vaccines Completed 03/27/2009, 11/07, 09/18/2008 Varicella Vaccines Completed 09/03/2014, 12/18/1997 Insurance [facility] Care Teams Diversity Manager Relationship Specialty Start Date End Date Dhruv Byrd MD PCP - General Family Medicine 04/21/20
--- OUTSIDE RECORDS SUMMARY | 2024-03-29 11:34 | XMS_ITS | Encounter Summary ---
Author Organization [facility] Address [address] [place] [address] Care Team Providers Care Lay Up Operator Name Role Phone Manan Etienne MD Primary Care Provider [phone] Breana Renteria Primary Care Provider [phone] None, Provider Primary Care Provider Jacob Rao DO Primary Care Provider [phone] Encounter Details Date Type Department Care Team (Late st Contact Info) Description 07/20/2019 [facility] Complete Home Servicest Message Enc [facility] Family & Internal Medicine [address] [address] Manan Etienne MD [address] [place] [address] RE: Medication Questions Social History Tobacco Use Types Packs/Day Years Used Date Smoking Tobacco: Some Days Cigarettes 0.5 8 Electronic Cigarettes Smokeless Tobacco: Never Alcohol Use Standard Drinks/Week Comments No 0 (1 standard drink = 0.6 oz pur e alcohol) AUDIT-C Answer Date Recorded Frequency of Alcohol Consumption Never 02/27/2018 Average Number of Drinks Not on file 019 Frequency of Binge Drinking Not on file 02/08 PHQ-2 Answer Date Recorded PHQ-2 Score 5 01/02/2019 Comments No Sex and Gender Information Value Date Recorded Sex Assigned at Not on file Legal Sex Female 7:42 PM CDT Gender Identity Not on file Sexual Orientation Not on file COVID-19 Exposure Response Date Recorded In the last month, have you been in contact with someone who was confirmed or suspected to have Coronavirus / COVID-19? No / Unsure 07/20/2019 3:09 PM CDT documented as of this encounter Plan of Treatment Not on file documented as of this encounter Visit Diagnoses Not on filedocumented in this encounter Additional Health Concerns Infection Onset Date Last Indicated Resolved Time COVID-19 Rule Out 12/30/2020 12/30/2020 12/30/2020 9:05 PM HALL WORKER COVID-19 Rule Out 12/30/2020 12/30/2020 12/31/2020 11:04 PM HALL WORKER COVID-19 Confirmed 12/30/2020 12/30/2020 12:32 AM HALL WORKER Assessment Noted Time PHQ-9 Depression Total Score: 019 10:28 AM CDT documented as of this encounter Care Teams Lay Up Operator Relationship Specialty [place] [address] [place] [address] PCP - General FAMILY PRACTICE 02/27/18 07/25/21 Breana Renteria FNP [address] [place] [address] PCP - General NURSE PRACTITIONER 07/26/21 01/06/22 None, MD Katy PCP - General UNKNOWN PHYSICIAN SPECIALTY 01/07/22 Jacob Galvan DO [address] [place], [place] [id number] PCP - General FAMILY PRACTICE 06/16/22 documented as of this encounter
--- OUTSIDE RECORDS SUMMARY | 2024-03-29 11:34 | XMS_ITS ---
Author Organization [facility] Address [address] [place] [address] Care Team Providers Care Physical Therapy Manager Name Role Phone Marge Gaston Primary Care Provider REASON FOR VISIT PRAPARE Assess Social History Tobacco Use: Social History Observation Description Date Details (start date - stop date) Current Smoker NA - NA Dont use, Tobacco Use/Smoking Question Answer Notes Are you a Uses tobacco in other forms PRAPARE Question Answer Notes Date Completed/Updated: 03/22/2024 What is your current housing situation? I have h ousing Are you worried about losing your housing? No What is the highest level of school that you have finished? More than high school What is your current work situation? Unemployed and seeking work In the past year, have you o r any family members you live with been unable to get any of the following when it was really needed? Check all that apply Food,Phone Has lack of transportation k ept you from medical appointments, meetings, work or from getting things needed for daily living? No How often do you see or talk to people that you care about and feel close to? (For example: talking to friends on the phone, visiting friends or family, going to adventism or club meetings) 3 to 5 times a week How stressed are you? Stress is when someone feels tense, nervous, anxious, or can\t sleep at night because their mind is troubled Quite a bit In the past year have you sp ent more than 2 nights in a row in a long term, skilled nursing, mcc center, or juvenile correctional facility? No Are you a refugee? No What country are you from? [place] Do you feel physically and e motionally safe where you currently live? Unsure In the past year, have you b een afraid of your partner or ex-partner? No PRAPARE Score: 7 Enabling Services Provided? Yes Please specify Referral for Housing Services Tobacco Control (Standard) Question Answer Notes Tobacco use: Current every day smoker Additional Findings: Tobacco user e-cigarette Encounters Encounter Location Date Provider Diagnosis [address] [place] [address] 03/23/2024 Marge Gaston Plan Of Treatment No Information Progress Notes * ANDREEBaudilioMollyDOB: 7 (28 yo F)Acc No.[id number]:03/23/2024 Patient: Molly ABDUL :1995 A ge:28 Y S ex:Female Address:[address] [place] [address], [place] [address] Subjective: * Chief Complaints: * Rufino DELAROSA Assess * Medical History: * Surgical History: * Hospitalization/Major Diagno stic Procedure: * Social History: S ocial Determinants: Rufino Menchaca ate Completed/Updated: 0 03/22/2024 W hat is your current housing situation? I have housing A re you worried about losing your housing??No W hat is the highest level of school that you have finished? M ore than high school W hat is your current work situation? U nemployed and seeking work I n the past year, have you or any family members you live with been unable to get any of the following when it was really needed? Check all that apply F ood,Phone H as lack of transportation kept you from medical appointments, meetings, work or from getting things needed for daily living? N o H ow often do you see or talk to people that you care about and feel close to? (For example: talking to friends on the phone, visiting friends or family, going to adventism or club meetings) 3 to 5 times a week H ow stressed are you? Stress is when someone feels tense, nervous, anxious, or can\t sleep at night because their mind is troubled Q uite a bit I n the past year have you spent more than 2 nights in a row in a long term, skilled nursing, mcc center, or juvenile correctional facility? N o A re you a refugee? N o W hat country are you from? [place] D o you feel physically and emotionally safe where you currently live? U nsure I n the past year, have you been afraid of your partner or ex-partner? N o P RAPARE Score: 7 E nabling Services Provided? 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
--- OUTSIDE RECORDS SUMMARY | 2024-03-29 11:34 | XMS_ITS | Encounter Summary ---
Author Organization [facility] Address [address] [place] [address] Care Team Providers Care Tool/Die Maker Name Role Phone Breana Renteria Primary Care Provider Jacob Galvan DO Primary Care Provider [phone] Reason for Visit * Reason Onset Date Comments MEDICATION REFILL 07/09/2022 Encounter Details Date Type Department Care Team (Late st Contact Info) Description 07/09/2022 Refill [facility] - Neurology [address] [place] [address], [place] [address] Jhonathan Subramanian APRN-CNP [address] [place] [phone] MEDICATION REFILL Social History Tobacco Use Types [...] Description 06/11/2024 1:00 PM CDT Office Visit [facility] - Neurology [address] [facility], [place] [address] Jhonathan Subramanian, MULTIMEDIA DESIGNER-BELT AND LINK SHOP SUPERVISOR [address] [place] [address] [place] [address] documented as of this encounter Visit Diagnoses Diagnosis Fibromyalgia Mylagia and myositis, unspecified documented in this encounter Care Teams Tool/Die Maker Relationship Specialty Start Date End Date Breana Renteria, RANDA-BELT AND LINK SHOP SUPERVISOR [address] [place] [address] PCP - General 05/05/20 05/08/23 Jacob Galvan DO [address] [place] [address] PCP - General Family Medicine 05/09/23 documented as of this encounter
--- OUTSIDE RECORDS SUMMARY | 2024-03-29 11:34 | XMS_ITS | Encounter Summary ---
Author Organization [facility] Address [address] [place] [address] Care Team Providers Care Conveyor Technician Name Role Phone Manan Etienne MD Primary Care Provider [phone] Breana Renteria Primary Care Provider [phone] None, Provider Primary Care Provider Jacob Rao DO Primary Care Provider [phone] Encounter Details Date Type Department Care Team (Late st Contact Info) Description 07/23/2019 MyCAwesomeHighlightert Message Enc [facility] Medical Group Family & Internal Medicine [address] [address] Manan Etienne MD [address] [place] [address] Medication Questions Social History Tobacco Use Types [...] have Coronavirus / COVID-19? 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 COVID-19 Rule Out 12/30/2020 12/30/2020 12/31/2020 11:04 PM PRODUCT TRANSFER PUMPER COVID-19 Confirmed 12/30/2020 12/30/2020 12:32 AM PRODUCT TRANSFER PUMPER Assessment Noted Time PHQ-9 Depression Total Score: 019 10:28 AM CDT documented as of this encounter Care Teams Conveyor Technician Relationship Specialty [place] [address] [place] [address] PCP - General FAMILY PRACTICE 02/27/18 07/25/21 Breana Renteria FNP [address] [place] [address] PCP - General NURSE PRACTITIONER 07/26/21 01/06/22 None, MD Katy PCP - General UNKNOWN PHYSICIAN SPECIALTY 01/07/22 Jacob Galvan DO [address] [place] [address] PCP - General FAMILY PRACTICE 06/16/22 documented as of this encounter
--- OUTSIDE RECORDS SUMMARY | 2024-03-29 11:34 | XMS_ITS | Encounter Summary ---
Author Organization [facility] Address [address] [place] [address] Care Team Providers Care Bacteriology Professor Name Role Phone Myra, Breana Gorman APRN-CAFETERIA ASSISTANT Primary Care Provider Jacob Galvan DO Primary Care Provider [phone] Reason for Visit * Reason Onset Date Comments MEDICATION REFILL 03/01/2022 Encounter Details Date Type Department Care Team (Late st Contact Info) Description 03/01/2022 Refill [facility] [address] [place] [address], [place] [address] Andre Farah MD [address] [place] [phone] MEDICATION REFILL Social History Tobacco Use [...] Telephone Encounter - Karlee Craig MA - 03/01/2022 8:15 AM CST Refill Request NAVEEN: 09/09/2021 NOV scheduled: 06/14/2022 LRF: 09/11/2021 Qty Disp: 15 # of refills: 3 MONGERY WORKER documented in this encounter Plan of Treatment Upcoming Encounters Date Type Department Care Team (Late st Contact Info) Description 06/11/2024 1:00 PM CDT Office Visit [facility] - Neurology [address] [place] [address], [place] [address] Jhonathan Subramanian APRN-CAFETERIA ASSISTANT [address] [place] [address] [place] [address] documented as of this encounter Visit Diagnoses Diagnosis Fibromyalgia Mylagia and myositis, unspecified documented in this encounter Care Teams Bacteriology Professor Relationship Specialty Start Date End Date Breana Renteria APRN-MEMO [address] [place] [address] PCP - General 05/05/20 05/08/23 Jacob Galvan DO [address] [place] [address] PCP - General Family Medicine 05/09/23 documented as of this encounter
--- OUTSIDE RECORDS SUMMARY | 2024-03-29 11:34 | XMS_ITS | Patient Health Record ---
Author Organization [facility] Address [address] [place] [address] Care Team Providers Care Bridal Consultant Name Role Phone Marge Gaston Primary Care Provider [phone] Randi Johnston Unavailable [phone] Tyler Colon Unavailable Allergies No Known Allergies Reason For Referral Reason Psychotherapy Diagnosis 1 Chronic depression ( F32.9) Diagnosis 2 Post traumatic stres s disorder (PTSD) (F43.10) Referral Organization [facility] Referring Provider First Name Marge Referring Provider Last Name Alek Referring Provider Speciality Psychiatry Referred Provider Specialty Behavioral [facility] Clinical Notes Rey Munoz 08:56:58 AM >HN PW contacted consumer regarding referral. Consumer is in agreement with the therapy referral. HN explained the therapy process and provided the Central Access contact information with instructions. Consumer voiced understanding and had no questions at this time. Case addressed and closed. Referral Priority Routine Medications Medication SIG (Take, Route, Fr equency, [...] Once a day for 30 days Active Social History Tobacco Use: Social History Observation [...] phone, visiting friends or family, going to pentecostal or club meetings) 3 to 5 times a week How stressed are you? Stress is when someone feels tense, nervous, anxious, or can\t sleep at night because their mind is troubled Quite a bit In the past year have you sp ent more than 2 nights in a row in a penitentiary, correction, [facility] center, or juvenile correctional facility? No Are [...] day smoker Additional Findings: Tobacco user e-cigarette Problems Problem Type SNOMED Code ICD Code Onset Dates Problem Status W/U Status Risk Notes Problem Tobacco user (490895990) Nicotine dependence, unspecified, uncomplicated (F17.200) Active confirmed Problem Posttraumatic stress disorder (31719460) Post traumatic stress disorder (PTSD) (F43.10) Active confirmed Problem Cannabis dependence (80902349) Marijuana smoker (F12.20) Active confirmed Problem Chronic depression (177674100) Chronic depression (F32.9) Active confirmed Encounters Encounter Location Date Provider Diagnosis [address] [address] 04/06/2023 Randi Johnston Post traumatic stress disorder (PTSD) F43.10 and Chronic depression F32.[address] [address] 06/01/2023 Marge Sabblut Nicotine dependence, unspecified, uncomplicated F17.200 ; Post traumatic stress disorder (PTSD) F43.10 ; Chronic depression F32.9 and Marijuana smoker F12.[address] [address] 06/22/2023 Marge Sabblut Post traumatic stress disorder (PTSD) F43.10 ; Marijuana smoker F12.20 ; Nicotine dependence, unspecified, uncomplicated F17.200 and Chronic depression F32.[address] [address] 07/12/2023 Marge Sabblut Post traumatic stress disorder (PTSD) F43.10 ; Marijuana smoker F12.20 ; Nicotine dependence, unspecified, uncomplicated F17.200 and Chronic depression F32.[address] [address] 08/12/2023 Marge Sabblut Post traumatic stress disorder (PTSD) F43.10 ; Marijuana smoker F12.20 ; Nicotine dependence, unspecified, uncomplicated F17.200 and Chronic depression F32.[address] [place] [address] 09/14/2023 Marge Sabblut Post traumatic stress disorder (PTSD) F43.10 ; Marijuana smoker F12.20 ; Nicotine dependence, unspecified, uncomplicated F17.200 and Chronic depression F32.[address] [place] [address] 11/15/2023 Marge Sabblut Post traumatic stress disorder (PTSD) F43.10 ; Marijuana smoker F12.20 ; Nicotine dependence, unspecified, uncomplicated F17.200 and Chronic depression F32.[address] [address] 12/27/2023 Marge Sabblut Post traumatic stress disorder (PTSD) F43.10 ; Marijuana smoker F12.20 ; Nicotine dependence, unspecified, uncomplicated F17.200 and Chronic depression F32.[address] [address] 02/07/2024 Marge Gaston Post traumatic stress disorder (PTSD) F43.10 ; Marijuana smoker F12.20 ; Nicotine dependence, unspecified, uncomplicated F17.200 ; Chronic depression F32.9 and Medication management Z79.[address] [address] 03/06/2024 Marge Gaston Post traumatic stress disorder (PTSD) F43.10 ; Marijuana smoker F12.20 ; Nicotine dependence, unspecified, uncomplicated F17.200 ; Medication management Z79.899 and Chronic depression F32.[address] [address] 06/27/2023 Marge Gaston Encounter for screening for malignant neoplasm of cervix Z12.[address] [address] 07/06/2023 Marge Gaston Chronic depression F32.[address] [address] 07/27/2023 Marge Gaston [address] [address] 09/06/2023 Marge Gaston [address] [address] 11/08/2023 Marge Gaston Chronic depression F32.[address] [address] 11/22/2023 Marge Gaston [address] [place] [address] 11/28/2023 Marge Gaston [address] [address] 01/27/2024 Marge Gaston Chronic depression F32.9 and Post traumatic stress disorder (PTSD) F43.[address] [place] [address] 02/09/2024 Tyler Colon [address] [place] [address] 03/23/2024 Marge Gaston Assessments Encounter Date Diagnosis (ICD Code) Assessment Notes Treatment Notes Treatment Clinical Notes Section Notes 04/06/2023 Post traumatic stress disorder (PTSD) (ICD-10 - F43.10) Antidepressant education - reviewed side effects which may include increased risk of suicide, anxiety, sleep disturbance, nausea, dry mouth, increased bruising, sexual dysfunction, chicho, wt gain, and serotonin syndrome. Need to notify provider if planning or experiencing . Reasons, potential benefits, interactions and side effects of all medications were discussed. The Patient/Guardian asked appropriate questions, appeared to understand the answers, and decided to accept the treatment and continue being followed. Alternatives and expected course without treatment were reviewed. The Patient/Guardian is aware of the need to contact the office or return for an earlier appointment if any problems or concerns arise. May also contact the 24-hour crisis hotline ([facility]), refer to the closest emergency room or call 911 if new symptoms arise of existing symptoms worsen. The Patient/Guardian is aware that this would apply to symptoms like: suicidal ideation, homicidal ideation, high risk behaviors, manic symptoms, psychotic symptoms, physical symptoms, or any other symptoms that may be dangerous to self or others. Greater than 50% of time spent on coordination and counseling where psychopharmacology as well as psychotherapeutic interventions were discussed along with review of treatments in the past. Education provided concerning need for adequate hydration. Patient/Guardian verbalized understanding of education, treatment plan and follow up. May self-administer or be administered own oral medication per [facility] Protocols. Provided informed consent with understanding of side effects, risks and benefits as well as alternative treatments as previously discussed and with the above recommended medications ang other aspects of the treatment program. Agrees to return sooner if symptoms worsen or suicidal or homicidal ideations occur. support and education provided concerning illness and treatment plan, risks and benefits, pt verbalized understanding of the same and agreeable 06/01/2023 Nicotine dependence, unspecified, uncomplicated (ICD-10 - F17.200) 06/22/2023 Post traumatic stress disorder (PTSD) (ICD-10 - F43.10) 06/27/2023 Encounter for screening for malignant neoplasm of cervix (ICD-10 - Z12.4) Patient Educated with: Learning about Cervical Cancer Screenings.pdf (Learning about Cervical Cancer Screenings.pdf) 07/06/2023 Chronic depression (ICD-10 - F32.9) 07/12/2023 Post traumatic stress disorder (PTSD) (ICD-10 - F43.10) 08/12/2023 Post traumatic stress disorder (PTSD) (ICD-10 - F43.10) Client reports improved mood - mutually agreed to not make medication changes at this time Psychotherapy recommended. Client has information needed to make appointment. 09/14/2023 Post traumatic stress disorder (PTSD) (ICD-10 - F43.10) Client reports improved mood - mutually agreed to not make medication changes at this time Psychotherapy recommended. Client has information needed to make appointment. 11/08/2023 Chronic depression (ICD-10 - F32.9) 11/15/2023 Post traumatic stress disorder (PTSD) (ICD-10 - F43.10) Trazodone managed by PCP. Psychotherapy recommended. Client has information needed to make appointment. 12/27/2023 Post traumatic stress disorder (PTSD) (ICD-10 - F43.10) Trazodone managed by PCP. Continue psychotherapy as scheduled. 01/27/2024 Chronic depression (ICD-10 - F32.9) 02/07/2024 Post traumatic stress disorder (PTSD) (ICD-10 - F43.10) Client does not wish to make medication changes at this time. Continue psychotherapy as scheduled. 03/06/2024 Post traumatic stress disorder (PTSD) (ICD-10 - F43.10) Client does not wish to make medication changes at this time. Continue psychotherapy as scheduled. 01/27/2024 Post traumatic stress disorder (PTSD) (ICD-10 - F43.10) 03/06/2024 Marijuana smoker (ICD-10 - F12.20) 02/07/2024 Marijuana smoker (ICD-10 - F12.20) 12/27/2023 Marijuana smoker (ICD-10 - F12.20) 11/15/2023 Marijuana smoker (ICD-10 - F12.20) 09/14/2023 Marijuana smoker (ICD-10 - F12.20) 08/12/2023 Marijuana smoker (ICD-10 - F12.20) 07/12/2023 Marijuana smoker (ICD-10 - F12.20) 06/22/2023 Marijuana smoker (ICD-10 - F12.20) 06/01/2023 Post traumatic stress disorder (PTSD) (ICD-10 - F43.10) 04/06/2023 Chronic depression (ICD-10 - F32.9) Mood stabilizer education - reviewed side effects which may include decreases WBCs, SJS, hepatotoxicity. Possible harm; need to notify provider if planning or experiencing . 06/01/2023 Marijuana smoker (ICD-10 - F12.20) 06/01/2023 Chronic depression (ICD-10 - F32.9) 06/22/2023 Nicotine dependence, unspecified, uncomplicated (ICD-10 - F17.200) 07/12/2023 Nicotine dependence, unspecified, uncomplicated (ICD-10 - F17.200) 08/12/2023 Nicotine dependence, unspecified, uncomplicated (ICD-10 - F17.200) 11/15/2023 Nicotine dependence, unspecified, uncomplicated (ICD-10 - F17.200) 09/14/2023 Nicotine dependence, unspecified, uncomplicated (ICD-10 - F17.200) 12/27/2023 Nicotine dependence, unspecified, uncomplicated (ICD-10 - F17.200) 02/07/2024 Nicotine dependence, unspecified, uncomplicated (ICD-10 - F17.200) 03/06/2024 Nicotine dependence, unspecified, uncomplicated (ICD-10 - F17.200) 03/06/2024 Medication management (ICD-10 - Z79.899) May self-administer medications or be administered own oral medications per [facility]. Provided informed consent with understanding of side effects, adverse effects, risks and benefits as well as alternative treatments as previously discussed and with the above recommended medications & other aspects of the treatment program. Agrees to return sooner if symptoms worsen or suicidal or homicidal ideations occur. Labs monitored by PCP. 02/07/2024 Medication management (ICD-10 - Z79.899) May self-administer medications or be administered own oral medications per [facility]. Provided informed consent with understanding of side effects, adverse effects, risks and benefits as well as alternative treatments as previously discussed and with the above recommended medications & other aspects of the treatment program. Agrees to return sooner if symptoms worsen or suicidal or homicidal ideations occur. Labs monitored by PCP. 02/07/2024 Chronic depression (ICD-10 - F32.9) Client does not wish to make medication changes at this time. Continue psychotherapy as scheduled. 12/27/2023 Chronic depression (ICD-10 - F32.9) Consider med change if no improvement in mood next month. Continue psychotherapy as scheduled. 11/15/2023 Chronic depression (ICD-10 - F32.9) Consider med change if no improvement in mood next month. Psychotherapy recommended. Client has information needed to make appointment. 08/12/2023 Chronic depression (ICD-10 - F32.9) Client reports improved mood - mutually agreed to not make medication changes at this time Psychotherapy recommended. Client has information needed to make appointment. 09/14/2023 Chronic depression (ICD-10 - F32.9) Client reports improved mood - mutually agreed to not make medication changes at this time Psychotherapy recommended. Client has information needed to make appointment. 07/12/2023 Chronic depression (ICD-10 - F32.9) 06/22/2023 Chronic depression (ICD-10 - F32.9) 03/06/2024 Chronic depression (ICD-10 - F32.9) Client does not wish to make medication changes at this time. Continue psychotherapy as scheduled. 06/01/2023 Other May self-admini ster medications or be administered own oral medications per [facility]. Provided informed consent with understanding of side effects, adverse effects, risks and benefits as well as alternative treatments as previously discussed and with the above recommended medications & other aspects of the treatment program. Agrees to return sooner if symptoms worsen or suicidal or homicidal ideations occur. 06/22/2023 Other May self-admini ster medications or be administered own oral medications per [facility]. Provided informed consent with understanding of side effects, adverse effects, risks and benefits as well as alternative treatments as previously discussed and with the above recommended medications & other aspects of the treatment program. Agrees to return sooner if symptoms worsen or suicidal or homicidal ideations occur. 07/12/2023 Other Psychotherapy recommended. Client has information needed to make appointment. May self-administer medications or be administered own oral medications per [facility] protocols. Provided informed consent with understanding of side effects, adverse effects, risks and benefits as well as alternative treatments as previously discussed and with the above recommended medications & other aspects of the treatment program. Agrees to return sooner if symptoms worsen or suicidal or homicidal ideations occur. 08/12/2023 Other May self-admini ster medications or be administered own oral medications per [facility] protocols. Provided informed consent with understanding of side effects, adverse effects, risks and benefits as well as alternative treatments as previously discussed and with the above recommended medications & other aspects of the treatment program. Agrees to return sooner if symptoms worsen or suicidal or homicidal ideations occur. 09/14/2023 Other May self-admini ster medications or be administered own oral medications per [facility] protocols. Provided informed consent with understanding of side effects, adverse effects, risks and benefits as well as alternative treatments as previously discussed and with the above recommended medications & other aspects of the treatment program. Agrees to return sooner if symptoms worsen or suicidal or homicidal ideations occur. 11/15/2023 Other May self-admini ster medications or be administered own oral medications per [facility] protocols. Provided informed consent with understanding of side effects, adverse effects, risks and benefits as well as alternative treatments as previously discussed and with the above recommended medications & other aspects of the treatment program. Agrees to return sooner if symptoms worsen or suicidal or homicidal ideations occur. 12/27/2023 Other May self-admini ster medications or be administered own oral medications per [facility] protocols. Provided informed consent with understanding of side effects, adverse effects, risks and benefits as well as alternative treatments as previously discussed and with the above recommended medications & other aspects of the treatment program. Agrees to return sooner if symptoms worsen or suicidal or homicidal ideations occur. Labs monitored by PCP. 02/07/2024 Other Plan Of Treatment No Information Insurance Providers Payer Name Payer Address Payer Phone Subscriber Number Group Number Insured Name Patient Relationship to Insured Coverage Start Date Coverage End Date [employer] [facility] Attn Claims Department [address] [place] [address] [phone] [id number] Molly Acevedo Self - patient is the insured [facility] Attn Claims Department [address] [place] [address] [phone] [id number] Molly Acevedo Self - patient is the insured 3 Medical (General) History Medical History History ICD Code migraine headaches fibromyalgia Surgical History Surgery Date(Month/Year) tonsillectomy/adnoidectomy 2007 gallbladder removed 2015 tead ducts worked on 1998 wisdom teeth removed 2018 Hospitalization History Reason Date(Month/Year) see surgeries
--- OUTSIDE RECORDS SUMMARY | 2024-03-29 11:35 | XMS_ITS | Encounter Summary ---
Author Organization [facility] Address [address] [place] [address] Care Team Providers Care Crosscutter Rolled Glass Name Role Phone Manan Etienne MD Primary Care Provider [phone] Breana Renteria Primary Care Provider [phone] None, Provider Primary Care Provider Jacob Rao DO Primary Care Provider [phone] Reason for Visit * Reason Onset Date Comments Hospital Follow Up 12/22/2020 Encounter Details Date Type Department Care Team (Late st Contact Info) Description 12/22/2020 Hospital Follow-up Call [facility] [address] [place] [address] Ewa Thomson RN Hospital Follow Up Social History Tobacco Use Types Packs/Day Years Used Date Smoking Tobacco: Every Day Cigarettes 1 8 Electronic Cigarettes Smokeless Tobacco: Never Comments:Daily Vape use Alcohol Use Standard Drinks/Week Comments No 0 [...] have Coronavirus / COVID-19? No / Unsure 12/20/2020 1:01 AM SITE ACQUISITION SPECIALIST documented as of this encounter Functional Status * RETIRED Are you deaf or do you have serious difficulty hearing Answer Date of Assessment Author Status No 12/20/2020 12:55 AM SITE ACQUISITION SPECIALIST Acti ve documented as of this encounter Plan of Treatment Not on file documented as of this encounter Visit Diagnoses Not on filedocumented in this encounter Additional Health Concerns Infection Onset Date Last Indicated Resolved Time COVID-19 Rule Out 12/30/2020 12/30/2020 12/30/2020 9:05 PM SITE ACQUISITION SPECIALIST COVID-19 Rule Out 12/30/2020 12/30/2020 12/31/2020 11:04 PM SITE ACQUISITION SPECIALIST COVID-19 Confirmed 12/30/2020 12/30/2020 12:32 AM SITE ACQUISITION SPECIALIST Assessment Noted Time PHQ-9 Depression Total Score: 019 10:28 AM CDT documented as of this encounter Care Teams Crosscutter Rolled Glass Relationship Specialty [place] [address] [place] [address] PCP - General FAMILY PRACTICE 02/27/18 07/25/21 Breana Renteria FNP [address] [place] [address] PCP - General NURSE PRACTITIONER 07/26/21 01/06/22 None, Provider, PCP - General UNKNOWN PHYSICIAN SPECIALTY 01/07/22 Jacob Galvan DO [address] [place] [address] PCP - General FAMILY PRACTICE 06/16/22 documented as of this encounter
--- OUTSIDE RECORDS SUMMARY | 2024-03-29 11:35 | XMS_ITS ---
[facility] Organization [facility] Address [address] [place] [address] Care Team Providers Care Commercial Designer Name Role Phone Alek Marge Primary Care Provider Tyler Colon Unavailable [phone] REASON FOR VISIT resources needed Social History Tobacco Use: Social History Observation Description Date Details (start date - stop date) Current Smoker NA - NA Dont use, Tobacco Use/Smoking Question Answer Notes Are you a Uses tobacco in other forms PRAPARE Question Answer Notes Date Completed/Updated: 02/07/2024 What is your current housing situation? I have h ousing Are you worried about losing your housing? Yes What is the highest level of school that you have finished? More than high school What is your current work situation? Unemployed and seeking work In the past year, have you o r any family members you live with been unable to get any of the following when it was really needed? Check all that apply Food,Medicine or any health care (medical, dental, mental health or vision) Has lack of transportation k ept you from medical appointments, meetings, work or from getting things needed for daily living? No How often do you see or talk to people that you care about and feel close to? (For example: talking to friends on the phone, visiting friends or family, going to nondenominational or club meetings) 3 to 5 times a week How stressed are you? Stress is when someone feels tense, nervous, anxious, or can\t sleep at night because their mind is troubled Quite a bit In the past year have you sp ent more than 2 nights in a row in a [place]f, [place], halfway center, or juvenile correctional facility? No Are you a refugee? No What country are you from? [place] Do you feel physically and e motionally safe where you currently live? Unsure In the past year, have you b een afraid of your partner or ex-partner? No PRAPARE Score: 8 Enabling Services Provided? Yes Please specify Referral for Housing Services Tobacco Control (Standard) Question Answer Notes Tobacco use: Current every day smoker Additional Findings: Tobacco user e-cigarette Encounters Encounter Location Date Provider Diagnosis [address] [place] [address] 02/09/2024 Tyler Colon Plan Of Treatment No Information Progress Notes * Molly PETERSONDOB: 7 (28 yo F)Acc No.[id number]:02/09/2024 Patient: Molly ABDUL :1995 A ge:28 Y S ex:Female Address:[address] [place] [address], [place] [address] Subjective: * Chief Complaints: * R esources needed * Medical History: * Surgical History: * Hospitalization/Major Diagno stic Procedure: * Social History: S ocial Determinants: Rufino Menchaca ate Completed/Updated: , W hat is your current housing situation? I have housing, A re you worried about losing your housing? Y es, W hat is the highest level of school that you have finished? M ore than high school, W hat is your current work situation? U nemployed and seeking work, I n the past year, have you or any family members you live with been unable to get any of the following when it was really needed? Check all that apply F ood,Medicine or any health care (medical, dental, mental health or vision), H as lack of transportation kept you from medical appointments, meetings, work or from getting things needed for daily living? N o, H ow often do you see or talk to people that you care about and feel close to? (For example: talking to friends on the phone, visiting friends or family, going to nondenominational or club meetings) 3 to 5 times a week, H ow stressed are you? Stress is when someone feels tense, nervous, anxious, or can\t sleep at night because their mind is troubled Q uite a bit, I n the past year have you spent more than 2 nights in a row in a [place]f, [place], halfway center, or juvenile correctional facility? N o, A re you a refugee? N o, W hat country are you from? [place], D o you feel physically and emotionally safe where you currently live? U nsure, I n the past year, have you been afraid of your partner or ex-partner??No, P RAPARE Score: 8 , E nabling Services Provided? Y es, P lease specify?Referral for Housing Services. T obacco Use: D ont use, Tobacco Use/Smoking A re you a U ses tobacco in other forms. T obacco Control (Standard) T obacco use: C urrent every day smoker, A dditional Findings: Tobacco user e -cigarette. * Medications: Objective: * Vitals: * Physical Examination: Assessment: Plan: * Treatment: * Procedure Codes: * true * Date: Generated for Claire sood/Urvashi/eTransmitting on: 0 03/29/2024 11:34 AM LIAISON INSPECTION LABORATORY ASSISTANT
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
[2024-03-29 12:50] LABS: Hepatitis B Surface Antigen Negative (Negative)
[2024-03-29 12:51] LABS: HIV 1/2 Ab P24 Ag Result Negative (Negative)
[2024-03-29 12:55] LABS: HAV RESULT Negative (Negative); Hepatitis B Core IgM Result Negative (Negative)
[2024-03-29 13:07] LABS: Hepatitis C Virus Antibody Negative (Negative)
[2024-04-02 16:12] LABS: RPR Screen NON-REACTIVE (NON-REACTIVE)
== END 2024-03-29 11:03 | disposition home or self-care (01) ==
LOC: ANHLAB 11:03
PROVIDERS: PCP Family Medicine; Visit Provider Obstetrics & Gynecology
DX: Z20.2 Contact with and (suspected) exposure to infections with a predominantly sexual mode of transmission (principal)
CPT/HCPCS: 36415; 80074; 86592; 86695; 86696; 86703; G0432

== ENCOUNTER 2024-04-17 14:52 | Outpatient (CLI) | payer OTHER, SELFPAY ==
[2024-04-17 16:13] LABS: HIV 1/2 Ab P24 Ag Result Negative (Negative)
[2024-04-17 16:14] LABS: Hepatitis B Surface Antigen Negative (Negative)
[2024-04-17 16:19] LABS: Trichomonas Vag PCR NOT DETECTED (NOT DETECTE)
[2024-04-17 16:20] LABS: HAV RESULT Negative (Negative); Hepatitis B Core IgM Result Negative (Negative)
[2024-04-17 16:32] LABS: Hepatitis C Virus Antibody Negative (Negative)
[2024-04-17 16:44] LABS: Chlamydia trachomatis NOT DETECTED (NOT DETECTE); Neisseria gonorrhoeae PCR NOT DETECTED (NOT DETECTE)
--- OUTSIDE RECORDS SUMMARY | 2024-04-17 16:56 | XMS_ITS | Clinical Summary ---
Author Organization [facility] Address [address] [facility] [place] [place] [address] Care Team Providers Care Arts Manager Name Role Phone Jacob Galvan DO Primary Care Provider [phone] Source Comments [facility],non-owned Affiliates and Associated Physician Practices is amultiple site organization consisting of ambulatory clinics and hospital sitesin [place], [place], [place] and [place]. This disclosure is being madepursuant to the Care Everywhere program and may not contain all information available regarding this patient. Last updated 17.[facility] Allergies Active Allergy Reactions Criticality Noted Date [...] fluticasone propionate (FLONASE) 50 MCG/ACT nasal spray [place] 1 (one) spray into the nose every [...] 01/20/2024 Refill [facility] [address] [place] [address], [facility] [place] [address] Jhonathan Subramanian, SILVERING APPLICATOR-[facility] MEDICATION REFILL from Last 3 Months Immunizations [...] Comments Blood Pressure 146/71 12/12/2023 1:03 PM LITIGATOR Pulse 68 12/12/2023 1:03 PM LITIGATOR Temperature 36.3 C (97.4 F) 12/12/2023 1:03 PM LITIGATOR Respiratory Rate 18 05/21/2019 1:36 PM CDT Oxygen Saturation 99% 12/12/2023 1:03 PM LITIGATOR Inhaled Oxygen Concentration - - Weight 50.8 kg (112 lb) 12/12/2023 1:03 PM LITIGATOR Height 160 cm (5' 3 ) 12/12/2023 1:03 PM LITIGATOR Body Mass Index 19.84 12/12/2023 1:03 PM LITIGATOR Plan of Treatment Upcoming Encounters Date Type Department Care Team (Late st Contact Info) Description 06/11/2024 1:00 PM CDT Office Visit [facility] [address] [facility], [place] [address] Jhonathan Subramanian, SILVERING APPLICATOR-ADULT HEALTH CLINICAL NURSE SPECIALIST [address] [place] [phone] Health Maintenance Due Date Last Done Comments [...] HIV-1 HIV-2 ANTIGEN/ANTIBODY STAT 12/19/2018 2:21 PM LITIGATOR from Last 3 Months or Most Recently Relevant to Health Maintenance Results * HIV-1 HIV-2 ANTIGEN/ANTIBODY (12/19/2018 2:21 PM LITIGATOR) HIV Antigen/Antibod y 1 & 2 Non-reacti ve Non-react michel 12/19/2018 3:27 PM LITIGATOR [facility] Comment: Neither HIV-1 p24 Antigen nor HIV-1/HIV-2 Antibodies are detected. Blood BLOOD SPECIMEN / Unknown Venipuncture / Unknown 12/19/2018 2:21 PM LITIGATOR 12/19/2018 2:40 PM LITIGATOR Carmella Box MD LAB - HEMATOLOGY ORD ERABLES Performing Organization Address City/State/[facility] Co de Phone Number [facility] [address] [place] [address] from Last 3 Months or Most Recently Relevant to Health Maintenance Advance Directives * Full Code (Latest Code Status on File) Date Activated Date Inactivated Comments 05/16/2019 2:31 AM 05/21/2019 4:18 PM * Full Code Date Activated Date Inactivated Comments 08/23/2017 5:14 AM 08/24/2017 6:05 PM * Full Code Date Activated Date Inactivated Comments 08/23/2017 4:24 AM 08/23/2017 5:14 AM Care Teams Arts Manager Relationship Specialty Start Date End Date Jacob Galvan DO [address] [place] [address] PCP - General Family Medicine 05/09/23
--- OUTSIDE RECORDS SUMMARY | 2024-04-17 16:56 | XMS_ITS | Encounter Summary ---
Author Organization [facility] Address [address] [place] [address] Care Team Providers Care Electroplater Helper Name Role Phone Breana Renteria Primary Care Provider Jacob Galvan DO Primary Care Provider [phone] Reason for Visit * Reason Onset Date Comments MEDICATION REFILL 07/09/2022 Encounter Details Date Type Department Care Team (Late st Contact Info) Description 07/09/2022 Refill [facility] [address] [place] [address], [place] [address] Jhonathan Subramanian APRN-CNP [address] [place] [phone] MEDICATION REFILL Social History Tobacco Use Types [...] Description 06/11/2024 1:00 PM CDT Office Visit [facility] [address] [facility], [place] [address] Jhonathan Subramanian, [employer] HAND-EX ASSISTANT/PROGRAM DIRECTOR [address] [place] [address] [place] [address] documented as of this encounter Visit Diagnoses Diagnosis Fibromyalgia Mylagia and myositis, unspecified documented in this encounter Care Teams Electroplater Helper Relationship Specialty Start Date End Date Breana Renteria, RANDA-EX ASSISTANT/PROGRAM DIRECTOR [address] [place] [address] PCP - General 05/05/20 05/08/23 Jacob Galvan DO [address] [place] [id number] PCP - General Family Medicine 05/09/23 documented as of this encounter
--- OUTSIDE RECORDS SUMMARY | 2024-04-17 16:56 | XMS_ITS | Encounter Summary ---
Author Organization [facility] Address [address] [place] [address] Care Team Providers Care Senior Research Project Manager Name Role Phone Manan Etienne MD Primary Care Provider [phone] Breana Renteria Primary Care Provider [phone] None, Provider Primary Care Provider Jacob Rao DO Primary Care Provider [phone] Reason for Visit * Reason Onset Date Comments Hospital Follow Up 12/22/2020 Encounter Details Date Type Department Care Team (Late st Contact Info) Description 12/22/2020 Hospital Follow-up Call [facility] [address] [place] [address] Ewa Thomson RN Hospital Follow [...] COVID-19? No / Unsure 12/20/2020 1:01 AM EELER documented as of this encounter Functional Status * RETIRED Are you deaf or do you have serious difficulty hearing Answer Date of Assessment Author Status No 12/20/2020 12:55 AM EELER Acti ve documented as of this encounter Plan of Treatment Not on file documented as of this encounter Visit Diagnoses Not on filedocumented in this encounter Additional Health Concerns Infection Onset Date Last Indicated Resolved Time COVID-19 Rule Out 12/30/2020 12/30/2020 12/30/2020 9:05 PM EELER COVID-19 Rule Out 12/30/2020 12/30/2020 12/31/2020 11:04 PM EELER COVID-19 Confirmed 12/30/2020 12/30/2020 12:32 AM EELER Assessment Noted Time PHQ-9 Depression Total Score: 019 10:28 AM CDT documented as of this encounter Care Teams Senior Research Project Manager Relationship Specialty [place] [address] [place] [address] PCP - General FAMILY PRACTICE 02/27/18 07/25/21 Breana Renteria FNP [address] [place] [address] PCP - General NURSE PRACTITIONER 07/26/21 01/06/22 None, Provider, PCP - General UNKNOWN PHYSICIAN SPECIALTY 01/07/22 Jacob Galvan DO [address] [place] [address] PCP - General FAMILY PRACTICE 06/16/22 documented as of this encounter
--- OUTSIDE RECORDS SUMMARY | 2024-04-17 16:56 | XMS_ITS | Encounter Summary ---
Author Organization [facility] Address [address] [place] [address] Care Team Providers Care Radio Antenna Installer Name Role Phone Myra, Breana Gorman APRN-COTTON INSPECTOR Primary Care Provider Jacob Galvan DO Primary Care Provider [phone] Reason for Visit * Reason Onset Date Comments MEDICATION REFILL 06/11/2022 Encounter Details Date Type Department Care Team (Late st Contact Info) Description 06/11/2022 Refill [facility] [address] [place] [address], [place] [address] Andre Farah MD [address] [place] [phone] MEDICATION REFILL Social History Tobacco Use [...] Office Visit [facility] [address] [place] [address], [place] [address] Jhonathan Subramanian APRN-CNP [address] [place] [phone] documented as of this encounter Visit Diagnoses Diagnosis Fibromyalgia Mylagia and myositis, unspecified documented in this encounter Care Teams Radio Antenna Installer Relationship Specialty Start Date End Date Breana Renteria APRN-CNP [address] [place] [address] PCP - General 05/05/20 05/08/23 Jacob Galvan DO [address] [place] [address] PCP - General Family Medicine 05/09/23 documented as of this encounter
--- OUTSIDE RECORDS SUMMARY | 2024-04-17 16:56 | XMS_ITS ---
Author Organization [facility]ly [facility], later [facility] Address [address] [place] [address] Care Team Providers Care Tobacco Prevention Health Educator Name Role Phone Marge Gaston Primary Care Provider [phone] Allergies No Known Allergies REASON FOR VISIT 4 week F/U Medications Medication SIG (Take, Route, Fr equency, Duration) Notes Start Date End Date Status Pregabalin 200 MG 1 capsule Orally twice a day 06/2023 Active Depo-Provera 150 MG/ML 1 mL Intramuscular Active Lexapro 20 MG 1 tablet Orally Once a day for 30 days Active traZODone HCl 50 MG 1 - 2 tablets at bed time as needed Orally Once a day for 30 days Active lamoTRIgine 200 MG 1 tablet Orally Once a day for 30 days Active Encounters Encounter Location Date Provider Diagnosis [address] [place] [address] 04/16/2024 Marge Gaston Post traumatic stres s disorder (PTSD) F43.10 ; Marijuana smoker F12.20 ; Nicotine dependence, unspecified, uncomplicated F17.200 ; Medication management Z79.899 and Chronic depression F32.9 Assessments Encounter Date Diagnosis (ICD Code) Assessment Notes Treatment Notes Treatment Clinical Notes Section Notes 04/16/2024 Post traumatic stress disorder (PTSD) (ICD-10 - F43.10) Continue psychotherapy as scheduled. 04/16/2024 Marijuana smoker (ICD-10 - F12.20) 04/16/2024 Nicotine dependence, unspecified, uncomplicated (ICD-10 - F17.200) 04/16/2024 Medication management (ICD-10 - Z79.899) May self-administer medications or be administered own oral medications per [facility] protocols. Provided informed consent with understanding of side effects, adverse effects, risks and benefits as well as alternative treatments as previously discussed and with the above recommended medications & other aspects of the treatment program. Agrees to return sooner if symptoms worsen or suicidal or homicidal ideations occur. Labs monitored by PCP. 04/16/2024 Chronic depression (ICD-10 - F32.9) Client does not wish to make medication changes at this time. Continue psychotherapy as scheduled. Plan Of Treatment Medication Medication Name Sig Start Date Stop Date Notes Lexapro 20 MG 1 tablet Orally Once a day for 30 days traZODone HCl 50 MG 1 - 2 tablets at bed time as needed Orally Once a day for 30 days lamoTRIgine 200 MG 1 tablet Orally Once a day for 30 days Treatment Notes Assessment Notes Post traumatic stress disorder (PTSD) Co ntinue psychotherapy as scheduled. Medication management May self-administe r medications or be administered own oral medications per [facility] protocols. Provided informed consent with understanding of [...] Appt Details Follow Up: 4 Weeks, Reason: Psych F/U - In-Person or Telehealth Progress Notes * Molly PETERSONDOB: 7 (28 yo F)Acc No.[id number]:04/16/2024 Patient: Pat ABDULcelyn Provider: Renetta Gaston, TAJ, INTERACTIVE MULTIMEDIA DESIGNER, PMHNP-BC :1995 A ge:28 Y S ex:Female Date:04/16/2024 [id number] Check In:12:59 PM SOLE INKER Subjective: * Chief Complaints: * 4 week F/U * HPI: D epression Screening: PHQ-9 L ittle interest or pleasure in doing things?Several days F eeling down, depressed, or hopeless S everal days T rouble falling or staying asleep, or [...] reading the newspaper or watching television S M oving or speaking so slowly that [...] in behavioral health treatment . S creening: [place] Suicide Severity Rating Scale (LF) D o you want to initiate with S creener form I nterpretation: L ow Risk 6 . Suicide Behavior Question: Have you ever done [...] ow - No Follow Up Plan Required S ummary: Molly Peterson is a 28-year-old female client who presents for follow-up psychiatric and medication management appointment. Client is being followed for the management of chronic depression, PTSD, nicotine use disorder, and cannabis use. Client has a medical Hx significant for fibromyalgia and migraines. Client is amenable to appointment today. Molly Peterson is a 28-year-old female who reports experiencing anxiety and depression. She mentions that her grandfather recently (04/09/2024), but she feels at peace with it. Molly is currently in therapy to address some resurfacing issues from her past. She describes her mood as having anxiety and depression, rating both at an 8 out of 10. D enies anger/irritability. S he finds some relief by engaging in activities like going outside and readjusting her thoughts. Molly reports sleeping from 8:00 PM to 4:00 AM, which she feels is adequate, but she does not wish to wake up at 4:00 AM. She is considering increasing her Trazodone dosage from 75 mg to 100 mg as needed. Her appetite is good, and she eats two to three meals a day. Molly denies having nightmares. Denies suicidal or homicidal ideation. No reports or observations of psychotic symptoms/behaviors, manic behaviors, obsessive/compulsive behaviors or trauma/PTSD. No reports of side effects from medications. Denies substance use. Denies any medical concerns at this time. Client is participating in individual therapy services. * ROS: P [...] problems/concerns.?Psych D enies SI/HI/AH/VH,Reports depression, anxiety and anger/irritability. * Medical History: * Surgical History: t onsillectomy/adnoidectomy 2008gallbladder removed 2015tead ducts worked on 1998wisdom teeth removed 2017 * Hospitalization/Major Diagno stic [...] day, 30 days, 30 Tablet, Refills 0; I ncrease traZODone HCl Tablet, 50 MG, 1 - 2 tablets at bedtime as needed, Orally, Once a day, 30 days, 60 Tablet, Refills 0. Notes: Continue psychotherapy as scheduled. 3. M edication management Notes: May self-administer medications or be administered own oral medications per [facility] protocols. Provided informed consent with understanding of side effects, adverse effects, risks and benefits as well as alternative treatments as previously discussed and with the above recommended medications & other aspects of the treatment program. Agrees to return sooner if symptoms worsen or suicidal or homicidal ideations occur. Clinical Notes: Labs monitored by PCP. * Procedure Codes: * Follow Up: 4 Weeks (Reason: Psych F/U - In-Person or Telehealth) * * Sign off status: Completed true * Provider: Renetta Gaston, TAJ, INTERACTIVE MULTIMEDIA DESIGNER, PMHNP- Date: 0 04/16/2024 Generated for Printing/FaClctin/eTransmitting on: 0 04/17/2024 04:55 PM CDT History and Physical Notes * HPI (History [...] patient involved in behavioral health treatment . Summary Molly Peterson is a 28-year-old female client who presents for follow-up psychiatric and medication management appointment. Client is being followed for the management of chronic depression, PTSD, nicotine use disorder, and cannabis use. Client has a medical Hx significant for fibromyalgia and migraines. Client is amenable to appointment today. Molly Peterson is a 28-year-old female who reports experiencing anxiety and depression. She mentions that her grandfather recently (04/09/2024), but she feels at peace with it. Molly is currently in therapy to address some resurfacing issues from her past. She describes her mood as having anxiety and depression, rating both at an 8 out of 10. Denies anger/irritability. She finds some relief by engaging in activities like going outside and readjusting her thoughts. Molly reports sleeping from 8:00 PM to 4:00 AM, which she feels is adequate, but she does not wish to wake up at 4:00 AM. She is considering increasing her Trazodone dosage from 75 mg to 100 mg as needed. Her appetite is good, and she eats two to three meals a day. Molly denies having nightmares. Denies suicidal or homicidal ideation. No reports or observations of psychotic symptoms/behaviors, manic behaviors, obsessive/compulsive behaviors or trauma/PTSD. No reports of side effects from medications. Denies substance use. Denies any medical concerns at this time. Client is participating in individual therapy services. Screening [place] Suicide Severity Rating Scale (LF) Do you [...]
--- OUTSIDE RECORDS SUMMARY | 2024-04-17 16:56 | XMS_ITS | Encounter Summary ---
Author Organization [facility] Address [address] [place] [address] Care Team Providers Care Physiognomist Name Role Phone Manan Etienne MD Primary Care Provider [phone] Breana Renteria Primary Care Provider [phone] None, Provider Primary Care Provider Jacob Rao DO Primary Care Provider [phone] Encounter Details Date Type Department Care Team (Late st Contact Info) Description 01/18/[address] 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
--- OUTSIDE RECORDS SUMMARY | 2024-04-17 16:56 | XMS_ITS | Referral Summary ---
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
--- OUTSIDE RECORDS SUMMARY | 2024-04-17 16:56 | XMS_ITS | Patient Health Summary ---
Author Organization [facility] Address [address] [place] [address] Care Team Providers Care Commutator Repairer Name Role Phone Martinnuzhat Jacob LOPEZ Primary Care Provider [phone] Note from [facility],non-owned Affiliates and Associated Physician Practices is amultiple site organization consisting of ambulatory clinics and hospital sitesin [place], [place], [place] and [place]. This disclosure is being madepursuant to the Care Everywhere program and may not contain all information available regarding this patient. Last updated 17.[facility] Allergies * Duloxetine(Other) * Morphine(Other) -Low [...] propionate (FLONASE) 50 MCG/ACT nasal spray(Started 01/18/2013) [place] 1 (one) spray into the nose every [...] times daily 5 refills by 12/11/2024 * aubbopxtza-sxmfoztgnngbu-pviikcqe (Fioricet) 50-325-40 MG tablet(Started 12/12/2023) TAKE 1 [...] Comments Blood Pressure 146/71 12/12/2023 1:03 PM COMPUTER PROGRAMMING MANAGER Pulse 68 12/12/2023 1:03 PM COMPUTER PROGRAMMING MANAGER Temperature 36.3 C (97.4 F) 12/12/2023 1:03 PM COMPUTER PROGRAMMING MANAGER Respiratory Rate 18 05/21/2019 1:36 PM CDT Oxygen Saturation 99% 12/12/2023 1:03 PM COMPUTER PROGRAMMING MANAGER Inhaled Oxygen Concentration - - Weight 50.8 kg (112 lb) 12/12/2023 1:03 PM COMPUTER PROGRAMMING MANAGER Height 160 cm (5' 3 ) 12/12/2023 1:03 PM COMPUTER PROGRAMMING MANAGER Body Mass Index 19.84 12/12/2023 1:03 PM COMPUTER PROGRAMMING MANAGER Procedures * AUTO REFRACTOR(Performed 05/09/2023) * TSH REFLEX FREE T4(Performed 05/20/2019) * SYPHILIS ANTIBODY CASCADING REFLEX(Performed 05/20/2019) * LIPID PROFILE(Performed 05/20/2019) * HEMOGLOBIN A1C(Performed 05/20/2019) * URINALYSIS REFLEX TO MICROSCOPIC NO CULTURE(Performed 05/18/2019) * URINE DRUG SCREEN IMMUNOASSAY(Performed 05/18/2019) * IN POLYSOM 6/> YRS 4/> LOUISE(Performed 03/22/2019) Performed [...] Reactive Non Reactive 05/20/2019 8:13 AM CDT [facility] Comment: No Laboratory evidence of syphilis infection. Note: Circulating antibodies may be low or undetectable in early infection. If recent exposure is suspected, re-draw sample in 2-4 weeks and repeat testing. Blood BLOOD SPECIMEN / Unknown Venipuncture / Unknown 05/20/2019 7:13 AM CDT 05/20/2019 7:21 AM CDT Kary Munoz BAND ATTACHER-LINE PALLETIZER LAB - SEROLOGY O RDERABLES [facility] [address] [place] [address] * TSH REFLEX FREE T4 (05/20/2019 7:13 AM CDT) TSH 0.844 0.350 - 4.940 uIU/mL 05/20/2019 8:04 AM CDT [facility] Blood BLOOD SPECIMEN / Unknown Venipuncture / Unknown 05/20/2019 7:13 AM CDT 05/20/2019 7:21 AM CDT Kary Munoz BAND ATTACHER-LINE PALLETIZER LAB - CHEMISTRY ORDERABLES [facility] [address] [place] [address] * HEMOGLOBIN A1C (05/20/2019 7:13 AM CDT) Hemoglobin A1c 4.7 4.2 - 5.6 % 05/20/2019 7:35 AM CDT [facility] Estimated Average Glucose 88 mg/dL 05/20/2019 7:35 AM CDT [facility] Blood BLOOD SPECIMEN / Unknown Venipuncture / Unknown 05/20/2019 7:13 AM CDT 05/20/2019 7:21 AM CDT Narrative [facility] - 05/20/2019 7:35 AM CDT The following cutoff levels are recommended by [place] [employer]. A1c > 6.5% : considered [...] (HbF) exceeds 5% in the specimen. [facility] - CHEMISTRY ORDERABLES Performing Organization Address [facility]/[place] de Phone Number [facility] [address] [place] [address] * LIPID PROFILE (05/20/2019 7:13 AM CDT) Cholesterol 161 <200 mg/dL 05/20/2019 7:44 AM CDT [facility] Triglycerides 72 <150 mg/dL 05/20/2019 7:44 AM CDT [facility] HDL Cholesterol 50 >40 mg/dL 0 7:44 AM CDT [facility] LDL Calculated 97 <130 mg/dL 05/20/2019 7:44 AM CDT [facility] VLDL Calculated 14 <=30 mg/dL 0 7:44 AM CDT [facility] Chol HDL Ratio 3.2 <4.5 05/20/2019 7:44 AM CDT [facility] LDL/HDL Ratio 1.9 <5.0 05/20/2019 7:44 AM CDT [facility] Blood BLOOD SPECIMEN / Unknown Venipuncture / Unknown 05/20/2019 7:13 AM CDT 05/20/2019 7:21 AM CDT Kary S [facility] LAB - CHEMISTRY ORDERABLES Performing Organization Address [facility]/[place] de Phone Number [facility] [address] [place] [address] * (ABNORMAL) URINALYSIS REFLEX TO MICROSCOPIC NO CULTURE (05/18/2019 6:45 AM CDT) Color UA Straw Straw, Yellow 05/18/2019 7:48 AM CDT [facility] Clarity UA Slt Cloudy(A) Clear 05/18/2019 7:48 AM CDT [facility] Glucose UA Negative Negative 05/18/2019 7:48 AM CDT [facility] Bilirubin UA Negative Negative 05/18/2019 7:48 AM CDT [facility] Ketone UA Negative Negative 05/18/2019 7:48 AM CDT [facility] Specific [place] UA 1.008 1.005 - 1.030 05/18/2019 7:48 AM CDT [facility] Blood UA Negative Negative 05/18/2019 7:48 AM CDT [facility] pH UA 7.0 5.0 - 8.0 pH 05/18/2019 7:48 AM CDT [facility] Protein UA Negative Negative 05/18/2019 7:48 AM CDT [facility] Urobilinogen UA Negative Negative mg/dL 05/18/2019 7:48 AM CDT [facility] Nitrite UA Negative Negative 05/18/2019 7:48 AM CDT [facility] Leukocyte UA Negative Negative 05/18/2019 7:48 AM CDT [facility] Urine Microscopy Urine microscopy not indicated 05/18/2019 7:48 AM CDT [facility] Urine URINE SPECIMEN OBTAINED BY CLEAN CATCH PROCEDURE / Unknown Collection / Unknown 05/18/2019 6:45 AM CDT 05/18/2019 6:55 AM CDT Narrative [facility] - 05/18/2019 7:48 AM CDT Kary Munoz APRN-LINE PALLETIZER LAB - URINALYSIS ORDERABLES [facility] [address] [place] [address] * (ABNORMAL) DRUG SCREEN TOX URINE PANEL (05/18/2019 6:45 AM CDT) Only the most recent of3 resultswithin the time period is included. [facility] Amphetamines Screen Urine Not detected Not detected 05/18/2019 7:18 AM CDT [facility] Barbiturates Screen Urine Detected(A) Not detected 05/18/2019 7:18 AM CDT [facility] Benzodiazepines Screen Urine Not detected Not detected 05/18/2019 7:18 AM CDT [facility] Cannabinoids Screen Urine Not detected Not detected 05/18/2019 7:18 AM CDT [facility] Cocaine Screen Urine Not [...] 300 ng/mL PHENCYCLIDINE(PCP) 25 ng/mL Kary Munoz BAND ATTACHER-LINE PALLETIZER LAB - URINE CHEM ISTRY ORDERABLES [facility] [address] [place] [address] * IN POLYSOM 6/> YRS 4/> LOUISE (03/22/2019 11:03 AM COMPUTER PROGRAMMING MANAGER) Wilson Lange MD - 03/22/2019 11:03 AM COMPUTER PROGRAMMING MANAGER Wilson Pendleton MD 03/22/2019 11:04 AM [facility] Accredited by the [place] [employer] [facility], First Floor [address] [place] [address] Telephone : [phone] Medical Records Patient Name: Molly Acevedo : 1995 Date of Study: 03/22/2019 Referring Physician: Manan Etienne MD Type of Montage: Respiratory Scoring System: [facility] FULL NIGHT DIAGNOSTIC POLYSOMNOGRAM INTERPRETATION Procedure: The polysomnogram was performed with a fish technologist in attendance. Central, occipital, and temporal EEG, [...] obstructive sleep apnea (RONEN). Current Outpatient Medications: aubdqxtvlz-jnbckwzntdhvs-eihomhld (FIORICET) 50-325-40 MG tablet, Take 1-2 tablets [...] (FLONASE ALLERGY RELIEF) 50 MCG/ACT nasal spray, [place] 2 sprays into each nostril once daily, [...] M.D. Pulmonary and Critical Care Fellow, PGY-5 [facility] Division of Pulmonary, Critical Care and Sleep Medicine Pager: [phone] 03/22/2019 SLEEP MEDICINE ATTENDING PSG ATTESTATION I reviewed the entire polysomnogram epoch by epoch with our Pulmonary Disease and Critical Care Medicine Fellow, Dr. Gandhi. I revised the report accordingly. I agree with the above findings and impression. Wilson Pendleton MD, [facility], [facility], [facility] Field Technical Support Consultant, [facility] Professor of Internal Medicine Adjunct Design Printer [employer] of Neurology Division of Pulmonary, Critical Care, and Sleep Medicine [facility] This note was electronically signed on 03/22/2019. This note was electronically signed on 03/22/2019. CC: Boom Amador APRN-LINE PALLETIZER [address] [place] [address] Manan Etienne MD Wilson Pendleton MD PROCEDURE/MINOR DEBRA GICAL ORDERABLES * COMPLETE PFT W/WO BRONCHODILATOR (03/01/2019 1:37 PM COMPUTER PROGRAMMING MANAGER) Impressions Dale Ivey MD - 03/01/2019 1:37 PM COMPUTER PROGRAMMING MANAGER [facility] DEPARTMENT OF PULMONARY, CRITICAL CARE, AND SLEEP [...] of Pulmonary, Critical Care and Sleep Medicine [facility] Pager:[phone] I have personally reviewed the test data and agree with Dr. Mills's findings. Dale Ivey MD 03/11/2019 Narrative Dale Ivey MD - 03/01/2019 1:37 PM COMPUTER PROGRAMMING MANAGER Mervin Mills MD 03/01/2019 3:34 PM Procedure Note Mervin Mills MD - 03/01/2019 1:37 PM CST Images from the original note were not included. Wilson Pendleton MD RESPIRATORY THERAPY ORDERABLES * PFT OXYGEN DESATURATION STUDY (03/01/2019 1:36 PM COMPUTER PROGRAMMING MANAGER) Impressions Dale Ivey MD - 03/01/2019 1:36 PM COMPUTER PROGRAMMING MANAGER [facility] Department of Pulmonary, Critical Care, and Sleep [...] of Pulmonary, Critical Care and Sleep Medicine [facility] Pager:[phone] I have personally reviewed the test data and agree with Dr. Mills's findings. Dale Ivey MD 03/11/2019 Narrative Dale Ivey MD - 03/01/2019 1:36 PM COMPUTER PROGRAMMING MANAGER Mervin Mills MD 03/01/2019 3:34 PM Procedure Note Mervin Mills MD - 03/01/2019 1:36 PM CST Images from the original note were not included. Wilson Pendleton MD PFT ORDERABLES * FRACTIONAL EXHALED NITRIC OXIDE (03/01/2019 1:35 PM COMPUTER PROGRAMMING MANAGER) Impressions Dale Ivey MD - 03/01/2019 1:35 PM COMPUTER PROGRAMMING MANAGER [facility] DEPARTMENT OF PULMONARY, CRITICAL CARE, AND SLEEP MEDICINE EXHALED NITRIC OXIDE (FeNO) Molly Acevedo 03/01/2019 INTERPRETATION The measurement of fractional exhaled nitric oxide (FENO) was 5 ppb. IMPRESSION: 1. Normal fractional exhaled nitric oxide. 2. No prior study to compare. Dr.Raja Gene MORSE Pulmonary & Critical Care Fellow Division of Pulmonary, Critical Care and Sleep Medicine [facility] Pager:[phone] I have personally reviewed the test data and agree with Dr. Mills's findings. Dale Ivey MD 03/11/2019 Narrative Dale Ivey MD - 03/01/2019 1:35 PM COMPUTER PROGRAMMING MANAGER Mevrin Mills MD 03/01/2019 3:34 PM Procedure Note Mervin Mills MD - 03/01/2019 1:35 PM CST Images from the original note were not included. Wilson Pendleton MD RESPIRATORY THERAPY ORDERABLES * XR CHEST 2VW (12/19/2018 4:46 PM COMPUTER PROGRAMMING MANAGER) Anatomical Region Laterality Modality Chest Radiographic Luz ging 12/19/2018 4:48 PM COMPUTER PROGRAMMING MANAGER Impressions 12/20/2018 8:11 AM COMPUTER PROGRAMMING MANAGER FINDINGS/IMPRESSION: There is no focal consolidation, pleural effusion, or pneumothorax. The cardiomediastinal silhouette is normal. The visible bony thorax is intact. Dictated by Sonu Sam MD (assistant to the president). Dr. CHELE Valencia MD have personally reviewed and interpreted this examination/study. This report was electronically signed by CHELE RODRIGEZ MD on 12/20/2018 8:11 AM . Narrative 12/20/2018 8:11 AM COMPUTER PROGRAMMING MANAGER EXAMINATION: XR CHEST 2VW HISTORY: 23 year-old with leukocytosis. COMPARISON: Chest radiograph dated 08/23/2017. Procedure Note Chele Rodrigez MD - 12/20/2018 EXAMINATION: XR CHEST 2VW HISTORY: 23 year-old with leukocytosis. COMPARISON: Chest radiograph dated 08/23/2017. FINDINGS/IMPRESSION: There is no focal consolidation, pleural effusion, or pneumothorax. The cardiomediastinal silhouette is normal. The visible bony thorax isintact. Dictated by Sonu Sam MD (assistant to the president). Dr. CHELE Valencia MD have personally reviewed and interpreted this examination/study. This report was electronically signed by CHELE RODRIGEZ MD on 12/20/2018 8:11 AM . Jigna Amadormagaly PA-C DIAGNOSTIC IMAGING ORDERABLES * URINALYSIS W/MICROSCOPIC NO CULTURE (12/19/2018 2:22 PM COMPUTER PROGRAMMING MANAGER) Color UA Straw Straw, Yellow, Colorless 12/19/2018 2:47 PM [facility] Clarity UA Clear Clear, Slt Cloudy 12/19/2018 2:47 PM [facility] Specific [place] UA 1.006 1.005 - 1.030 12/19/2018 2:47 PM [facility] pH UA 6.0 5.0 - 8.0 pH 12/19/2018 2:47 PM [facility] Protein UA Negative Negative mg/dL 12/19/2018 2:47 PM [facility] Glucose UA Negative Negative mg/dL 12/19/2018 2:47 PM [facility] Ketone UA Negative Negative mg/dL 12/19/2018 2:47 PM [facility] Bilirubin UA Negative Negative mg/dL 12/19/2018 2:47 PM [facility] Blood UA Negative Negative 12/19/2018 2:47 PM [facility] Nitrite UA Negative Negative 12/19/2018 2:47 PM [facility] Leukocyte Esterase Negative Negative 12/19/2018 2:47 PM [facility] Urobilinogen UA Negative Negative mg/dL 12/19/2018 2:47 PM [facility] RBC UA 0-2 None Seen, 0-2, 3-5 /HPF 12/19/2018 2:47 PM [facility] WBC UA 0-5 None Seen, 0-5 /HPF 12/19/2018 2:47 PM [facility] Squamous Epithelial Cells UA 0-2 None Seen, 0-2 /HPF 12/19/2018 2:47 PM [facility] Urine URINE SPECIMEN OBTAINED BY CLEAN CATCH PROCEDURE / Unknown Collection / Unknown 12/19/2018 2:22 PM COMPUTER PROGRAMMING MANAGER 12/19/2018 2:40 PM COMPUTER PROGRAMMING MANAGER Narrative [facility] - 12/19/2018 2:47 PM COMPUTER PROGRAMMING MANAGER Jigna Varghese PA-C LAB - URINA LYSIS ORDERABLES Performing Organization Address [facility] Co de Phone Number [address] [phone] * HIV-1 HIV-2 ANTIGEN/ANTIBODY (12/19/2018 2:21 PM COMPUTER PROGRAMMING MANAGER) HIV Antigen/Antibod y 1 & 2 Non-reacti ve Non-react michel 12/19/2018 3:27 PM [facility] Comment: Neither HIV-1 p24 Antigen nor HIV-1/HIV-2 Antibodies are detected. Blood BLOOD SPECIMEN / Unknown Venipuncture / Unknown 12/19/2018 2:21 PM COMPUTER PROGRAMMING MANAGER 12/19/2018 2:40 PM COMPUTER PROGRAMMING MANAGER Carmella Box MD LAB - HEMATOLOGY ORD ERABLES Performing Organization Address City/[facility]/ZIP Co de Phone Number [place] [id number], [place] [phone] * (ABNORMAL) DIFFERENTIAL MANUAL (12/19/2018 2:21 PM COMPUTER PROGRAMMING MANAGER) WBC (corrected for NRBC) 19.3 10 3/uL 12/19/2018 3:16 PM [facility] Total Cell Count 100 12/19/2018 3:16 PM [facility] Neutrophils Absolute Manual 12.35(H) 1.60 - 7.00 10 3/uL 12/19/2018 3:16 PM [facility] Comment:(BANDS+SEGS) x WBC = NEUT # (ANC) Lymphocyte Absolute Manual 5.98(H) 0.80 - 2.90 10 3/uL 12/19/2018 3:16 PM [facility] Monocytes Absolute Manual 0.97(H) 0.14 - 0.66 10 3/uL 12/19/2018 3:16 PM [facility] Neutrophil % Manual 64(H) 30 - 60 % 12/19/2018 3:16 PM [facility] Lymphocyte % Manual 31 20 - 45 % 12/19/2018 3:16 PM [facility] Monocytes % Manual 5 2 - 10 % 12/19/2018 3:16 PM [facility] Platelet Estimate Adequate Adequate 12/19/2018 3:16 PM [facility] RBC Morphology Normal 12/19/2018 3:16 PM [facility] Blood BLOOD SPECIMEN / Unknown Venipuncture / Unknown 12/19/2018 2:21 PM COMPUTER PROGRAMMING MANAGER 12/19/2018 2:40 PM COMPUTER PROGRAMMING MANAGER Jigna Varghese PA-C LAB - HEMAT OLOGY ORDERABLES [facility] [address] [place] [address], [facility] [phone] * (ABNORMAL) CBC W AUTO DIFFERENTIAL (12/19/2018 2:21 PM COMPUTER PROGRAMMING MANAGER) Only the most recent of3 resultswithin the time period is included. WBC 19.3(H) 3.5 - 10.5 10 3/uL 12/19/2018 2:43 PM [facility] RBC 4.49 3.90 - 5.00 10 6/uL 12/19/2018 2:43 PM [facility] Hemoglobin 13.8 12.0 - 15.5 g/dL 12/19/2018 2:43 PM [facility] Hematocrit 39.9 35.0 - 45.0 % 12/19/2018 2:43 PM [facility] MCV 88.9 81.0 - 97.0 fL 12/19/2018 2:43 PM [facility] MCH 30.7 28.0 - 34.0 pg 12/19/2018 2:43 PM [facility] MCHC 34.6 32.0 - 36.0 g/dL 12/19/2018 2:43 PM [facility] Platelet Count 382 150 - 400 10 3/uL 12/19/2018 2:43 PM [facility] RDW-SD 41.4 36.0 - 50.0 fL 12/19/2018 2:43 PM [facility] RDW-CV 12.8 11.2 - 14.8 % 12/19/2018 2:43 PM [facility] MPV 9.7 9.3 - 12.8 fL 12/19/2018 2:43 PM [facility] nRBC Absolute 0.00 0 10 3/uL 12/19/2018 2:43 PM [facility] nRBC Auto 0.0 0 /100 WBC 12/19/2018 2:43 PM [facility] Blood BLOOD SPECIMEN / Unknown Venipuncture / Unknown 12/19/2018 2:21 PM COMPUTER PROGRAMMING MANAGER 12/19/2018 2:40 PM [facility] Jigna Varghese PA-C LAB - HEMAT OLOGY ORDERABLES [facility] [address] [place] [address] * (ABNORMAL) COMPREHENSIVE METABOLIC PANEL (12/19/2018 2:21 PM COMPUTER PROGRAMMING MANAGER) BUN 8 7 - 26 mg/dL 12/19/2018 3:03 PM [facility] Creatinine 0.7 0.6 - 1.2 mg/dL 12/19/2018 3:03 PM [facility] Sodium 143 136 - 145 mmol/L 12/19/2018 3:03 PM [facility] Potassium 3.0(L) 3.5 - 4.5 mmol/L 12/19/2018 3:03 PM [facility] Chloride 111(H) 98 - 107 mmol/L 12/19/2018 3:03 PM [facility] CO2 21(L) 22 - 29 mmol/L 12/19/2018 3:03 PM [facility] Glucose 101 70 - 115 mg/dL 12/19/2018 3:03 PM [facility] Calcium 9.6 8.4 - 10.2 mg/dL 12/19/2018 3:03 PM [facility] Protein Total 7.4 6.0 - 8.3 g/dL 12/19/2018 3:03 PM [facility] Albumin 4.5 3.4 - 5.0 g/dL 12/19/2018 3:03 PM [facility] Bilirubin Total 0.8 0.2 - 1.2 mg/dL 12/19/2018 3:03 PM [facility] Alkaline Phosphatase 82 40 - 150 Units/L 12/19/2018 3:03 PM [facility] ALT 19 0 - 55 Units/L 12/19/2018 3:03 PM [facility] AST 17 5 - 34 Units/L 12/19/2018 3:03 PM [facility] Anion Gap 14 8 - 18 12/19/2018 3:03 PM [facility] BUN/Creatinine Ratio 11 7 - 23 12/19/2018 3:03 PM [facility] Osmolality Calculated 294 270 - 300 mOsm/kg 12/19/2018 3:03 PM [facility] Albumin/Globulin Ratio 1.6 1.1 - 2.3 12/19/2018 3:03 PM [facility] eGFR >60 >60 mL/min/1.7 3 m2 12/19/2018 3:03 PM [facility] Blood BLOOD SPECIMEN / Unknown Venipuncture / Unknown 12/19/2018 2:21 PM COMPUTER PROGRAMMING MANAGER 12/19/2018 2:40 PM COMPUTER PROGRAMMING MANAGER Jigna Varghese PA-C LAB - CHEMI STRY ORDERABLES [facility] [address] [phone] * HCG URINE QUALITATIVE - POINT OF CARE (12/19/2018 2:15 PM COMPUTER PROGRAMMING MANAGER) HCG Qual Urine Negative Negative [facility] QC Verified Yes Yes [facility] Urine URINE / Unknown 12/19/2018 2 :15 PM COMPUTER PROGRAMMING MANAGER Carmella Box MD LAB - POINT OF CARE ORDERABLES Performing Organization Address [facility] Co de Phone Number [facility] [address] [phone] * (ABNORMAL) BASIC METABOLIC PANEL (CALCIUM TOTAL) (08/24/2017 1:46 AM CDT) Only the most recent of2 resultswithin the time period is included. Pathologist [facility] BUN 11 7 - 26 mg/dL 08/24/2017 2:30 AM [facility] Creatinine 0.8 0.6 - 1.2 mg/dL 08/24/2017 2:30 AM [facility] Sodium 140 136 - 145 mmol/L 08/24/2017 2:30 AM [facility] Potassium 3.1(L) 3.5 - 4.5 mmol/L 08/24/2017 2:30 AM [facility] Chloride 113(H) 98 - 107 mmol/L 08/24/2017 2:30 AM [facility] CO2 16(L) 22 - 29 mmol/L 08/24/2017 2:30 AM [facility] Glucose 79 70 - 115 mg/dL 08/24/2017 2:30 AM [facility] Calcium 8.5 8.4 - 10.2 mg/dL 08/24/2017 2:30 AM [facility] Anion Gap 14 8 - 18 08/24/2017 2:30 AM [facility] BUN/Creatinine Ratio 14 7 - 23 08/24/2017 2:30 AM [facility] Osmolality Calculated 288 270 - 300 mOsm/kg 08/24/2017 2:30 AM CDT [facility] eGFR >60 >60 mL/min/1.7 3 m2 08/24/2017 2:30 AM CDT [facility] Blood BLOOD SPECIMEN / Unknown Venipuncture / Unknown 08/24/2017 1:46 AM CDT 08/24/2017 2:04 AM CDT Kelin Stanely MD LAB - CHEMISTRY [place] [address] [phone] * PHOSPHORUS BLOOD (08/24/2017 1:46 AM CDT) Phosphorus 3.1 2.3 - 4.7 mg/dL 08/24/2017 2:29 AM CDT [facility] Blood BLOOD SPECIMEN / Unknown Venipuncture / Unknown 08/24/2017 1:46 AM CDT 08/24/2017 2:04 AM CDT Kelin Stanley MD LAB - CHEMISTRY [place] Performing Organization Address [facility]/ZIP Co de Phone Number [address] [phone] * MAGNESIUM BLOOD (08/24/2017 1:46 AM CDT) Magnesium 1.7 1.6 - 2.6 mg/dL 08/24/2017 2:29 AM CDT [facility] Blood BLOOD SPECIMEN / Unknown Venipuncture / Unknown 08/24/2017 1:46 AM CDT 08/24/2017 2:04 AM CDT Kelin Stanley MD LAB - CHEMISTRY [place] Performing Organization Address [facility]/ZIP Co de Phone Number [address] [phone] * XR PELVIS AP W INLET OUTLET (08/23/2017 5:22 AM CDT) Anatomical Region Laterality Modality Radiographic Luz ging 08/23/2017 7:06 AM CDT Impressions 08/23/2017 10:41 AM CDT IMPRESSION: Known minimal fractures not visible. Dictated by Rachell Olson MD (assistant to the president). Dr. SHARON Valencia M.D. have personally reviewed [...] not visible. Dictated by Rachell Olson MD (assistant to the president). Dr. SHARON Valencia M.D. have personally reviewed and interpreted this examination/study. This report was electronically signed by SHARON JAMES M.D. on 08/23/2017 10:41 AM . Ranjan Willett MD DIAGNOSTIC IMAGING O RDERABLES * HCG URINE QUALITATIVE (08/23/2017 4:29 AM CDT) Test Urine Negative Negative 08/23/2017 4:36 AM CDT [facility] Urine URINE / Unknown Collection / Unknown 08/23/2017 4:29 AM CDT 08/23/2017 4:29 AM CDT Kelin Stanley MD LAB - [place]IN[place] [address], [facility] [phone] * XR PELVIS 1 OR 2VW (08/23/2017 3:54 AM CDT) Anatomical Region Laterality Modality Pelvis Radiographic Luz ging 08/23/2017 7:58 AM CDT Impressions 08/23/2017 10:18 AM CDT IMPRESSION: No acute fracture or dislocation identified. Dictated by Rachell Olson MD (assistant to the president). I, Dr. SHARON JAMES M.D. have personally [...] dislocation identified. Dictated by Rachell Olson MD (assistant to the president). Dr. SHARON Valencia M.D. have personally reviewed [...] dislocation identified. Dictated by Rachell Olson MD (assistant to the president). Dr. SHARON Valencia M.D. have personally reviewed [...] dislocation identified. Dictated by Rachell Olson MD (assistant to the president). Dr. SHARON Valencia M.D. have personally reviewed [...] are intact. Dictated by Raheel Tom MD (assistant to the president). Dr. SHARON Valencia M.D. have personally reviewed [...] are intact. Dictated by Raheel Tom MD (assistant to the president). Dr. SHARON Valencia M.D. have personally reviewed and interpreted this examination/study. This report was electronically signed by SHARON JAMES M.D. on 08/23/2017 10:16 AM . Kelin Stanley MD DIAGNOSTIC IMAGING O RDERABLES * TYPE + SCREEN PANEL (08/23/2017 3:45 AM CDT) Antibody Screen NEG 8 4:27 AM CDT [facility] ABO Rh O NEG 08/23/2017 4:27 AM CDT [facility] Blood Bank BLOOD SPECIMEN / Unknown 08/23/2017 3:45 AM CDT 08/23/2017 3:45 AM CDT Kelin Stanley MD LAB - BLOOD BANK ORD ERABLES Performing Organization Address City/[facility]/ZIP Co de Phone Number [facility] [address] * ALCOHOL ETHYL BLOOD (08/23/2017 3:35 AM CDT) Interpretation Ethanol None Detected None Detected mg/dL 08/23/2017 3:54 AM CDT [facility] Comment: Ethanol levels less than 10 mg/dL are resulted as None detected . Blood BLOOD SPECIMEN / Unknown Venipuncture / Unknown 08/23/2017 3:35 AM CDT 08/23/2017 3:35 AM CDT Kelin Stanley MD LAB - CHEMISTRY ORDE [facility]ABMADH[facility] [address] [phone] Care Teams Commutator Repairer Relationship Specialty Start Date End Date Jacob Galvan DO [address] [place] [address] PCP - General Family Medicine 05/09/23
--- OUTSIDE RECORDS SUMMARY | 2024-04-17 16:56 | XMS_ITS | Patient Health Record ---
Author Organization [facility] Address [address] [place] [address] Care Team Providers Care Coin Wrapping Machine Operator Name Role Phone Marge Gaston Primary Care Provider Tyler Colon Unavailable [phone] Allergies No Known Allergies Reason For Referral Reason Psychotherapy Diagnosis 1 Chronic depression ( F32.9) Diagnosis 2 Post traumatic stres s disorder (PTSD) (F43.10) Referral Organization [facility] Referring Provider First Name Marge Referring Provider Last Name Alek Referring Provider Speciality Psychiatry Referred Provider Specialty Behavioral [facility] Clinical Notes Rey Munoz 08:56:58 AM >HN [...] phone, visiting friends or family, going to sabianism or club meetings) 3 to 5 times a week How stressed are you? Stress is when someone feels tense, nervous, anxious, or can\t sleep at night because their mind is troubled Quite a bit In the past year have you sp ent more than 2 nights in a row in a detention, senior care, fdc center, or juvenile correctional facility? No Are [...] W/U Status Risk Notes Problem Tobacco user (479381680) Nicotine dependence, unspecified, uncomplicated (F17.200) Active confirmed Problem Posttraumatic stress disorder (82877302) Post traumatic stress disorder (PTSD) (F43.10) Active confirmed Problem Cannabis dependence (87527163) Marijuana smoker (F12.20) Active confirmed Problem Chronic depression (762699538) Chronic depression (F32.9) Active confirmed Encounters Encounter Location Date Provider Diagnosis [address] [place] [address] 06/01/2023 Marge Gaston Nicotine dependence, unspecified, uncomplicated F17.200 ; Post traumatic stress disorder (PTSD) F43.10 ; Chronic depression F32.9 and Marijuana smoker F12.[address] [address] 06/22/2023 Marge Sabblut Post traumatic stress disorder (PTSD) F43.10 ; Marijuana smoker F12.20 ; Nicotine dependence, unspecified, uncomplicated F17.200 and Chronic depression F32.[address] [address] 07/12/2023 Marge Sabblut Post traumatic stress disorder (PTSD) F43.10 ; Marijuana smoker F12.20 ; Nicotine dependence, unspecified, uncomplicated F17.200 and Chronic depression F32.[address] [address] 08/12/2023 Marge Sabblut Post traumatic stress disorder (PTSD) F43.10 ; Marijuana smoker F12.20 ; Nicotine dependence, unspecified, uncomplicated F17.200 and Chronic depression F32.[address] [address] 09/14/2023 Marge Sabblut Post traumatic stress disorder (PTSD) F43.10 ; Marijuana smoker F12.20 ; Nicotine dependence, unspecified, uncomplicated F17.200 and Chronic depression F32.[address] [address] 11/15/2023 Marge Sabblut Post traumatic stress disorder (PTSD) F43.10 ; Marijuana smoker F12.20 ; Nicotine dependence, unspecified, uncomplicated F17.200 and Chronic depression F32.[address] [address] 12/27/2023 Marge Sabblut Post traumatic stress disorder (PTSD) F43.10 ; Marijuana smoker F12.20 ; Nicotine dependence, unspecified, uncomplicated F17.200 and Chronic depression F32.[address] [address] 02/07/2024 Marge Sabblut Post traumatic stress disorder (PTSD) F43.10 ; Marijuana smoker F12.20 ; Nicotine dependence, unspecified, uncomplicated F17.200 ; Chronic depression F32.9 and Medication management Z79.[address] [address] 03/06/2024 Marge Gaston Post traumatic stress disorder (PTSD) F43.10 ; Marijuana smoker F12.20 ; Nicotine dependence, unspecified, uncomplicated F17.200 ; Medication management Z79.899 and Chronic depression F32.[address] [address] 04/16/2024 Marge Gaston Post traumatic stress disorder (PTSD) F43.10 ; Marijuana smoker F12.20 ; Nicotine dependence, unspecified, uncomplicated F17.200 ; Medication management Z79.899 and Chronic depression F32.[address] [address] 06/27/2023 Marge Gaston Encounter for screening for malignant neoplasm of cervix Z12.[address] [address] 07/06/2023 Marge Gaston Chronic depression F32.[address] [address] 07/27/2023 Marge Gaston [address] [address] 09/06/2023 Marge Gaston [address] [address] 11/08/2023 Marge Gaston Chronic depression F32.[address] [address] 11/22/2023 Marge Gaston [address] [address] 11/28/2023 Marge Gaston [address] [address] 01/27/2024 Marge Gaston Chronic depression F32.9 and Post traumatic stress disorder (PTSD) F43.[address] [place] [address] 02/09/2024 Tyler Colon [address] [place] [address] 03/23/2024 Marge Gaston Assessments Encounter Date Diagnosis (ICD Code) Assessment Notes Treatment Notes Treatment Clinical Notes Section Notes 06/01/2023 Nicotine dependence, unspecified, uncomplicated (ICD-10 - [...] at this time. Continue psychotherapy as scheduled. 04/16/2024 Post traumatic stress disorder (PTSD) (ICD-10 - F43.10) Continue psychotherapy as scheduled. 04/16/2024 Marijuana smoker (ICD-10 - F12.20) 03/06/2024 Marijuana smoker (ICD-10 - F12.20) 02/07/2024 Marijuana smoker (ICD-10 - F12.20) 01/27/2024 Post traumatic stress disorder (PTSD) (ICD-10 - F43.10) 12/27/2023 Marijuana smoker (ICD-10 - F12.20) 11/15/2023 Marijuana smoker (ICD-10 - F12.20) 09/14/2023 Marijuana smoker (ICD-10 - F12.20) 08/12/2023 Marijuana smoker (ICD-10 - F12.20) 07/12/2023 Marijuana smoker (ICD-10 - F12.20) 06/22/2023 Marijuana smoker (ICD-10 - F12.20) 06/01/2023 Post traumatic stress disorder (PTSD) (ICD-10 - F43.10) 06/01/2023 Marijuana smoker (ICD-10 - F12.20) 06/01/2023 [...] dependence, unspecified, uncomplicated (ICD-10 - F17.200) 04/16/2024 Nicotine dependence, unspecified, uncomplicated (ICD-10 - F17.200) 04/16/2024 Medication management (ICD-10 - Z79.899) May self-administer medications or be administered own oral medications per [facility] protocols. Provided informed consent with understanding of side effects, adverse effects, risks and benefits as well as alternative treatments as previously discussed and with the above recommended medications & other aspects of the treatment program. Agrees to return sooner if symptoms worsen or suicidal or homicidal ideations occur. Labs monitored by PCP. 03/06/2024 Medication management (ICD-10 - Z79.899) May self-administer medications or be administered own oral medications per [facility] protocols. Provided informed consent with understanding of [...] at this time. Continue psychotherapy as scheduled. 02/07/2024 Medication management (ICD-10 - Z79.899) May self-administer medications or be administered own oral medications per [facility] protocols. Provided informed consent with understanding of side effects, adverse effects, risks and benefits as well as alternative treatments as previously discussed and with the above recommended medications & other aspects of the treatment program. Agrees to return sooner if symptoms worsen or suicidal or homicidal ideations occur. Labs monitored by PCP. 09/14/2023 Chronic depression (ICD-10 - F32.9) Client reports improved mood - mutually agreed to not make medication changes at this time Psychotherapy recommended. Client has information needed to make appointment. 11/15/2023 Chronic depression (ICD-10 - F32.9) Consider med change if no improvement in mood next month. Psychotherapy recommended. Client has information needed to make appointment. 12/27/2023 Chronic depression (ICD-10 - F32.9) Consider med change if no improvement in mood next month. Continue psychotherapy as scheduled. 08/12/2023 Chronic depression (ICD-10 - F32.9) Client reports improved mood - mutually agreed to not make medication changes at this time Psychotherapy recommended. Client has information needed to make appointment. 07/12/2023 Chronic depression (ICD-10 - F32.9) 06/22/2023 Chronic depression (ICD-10 - F32.9) 03/06/2024 Chronic depression (ICD-10 - F32.9) Client does not wish to make medication changes at this time. Continue psychotherapy as scheduled. 04/16/2024 Chronic depression (ICD-10 - F32.9) Client does not wish to make medication changes at this time. Continue psychotherapy as scheduled. 06/01/2023 Other May self-administer medications or be administered own oral medications per [facility] protocols. Provided informed consent with understanding of side effects, adverse effects, risks and benefits as well as alternative treatments as previously discussed and with the above recommended medications & other aspects of the treatment program. Agrees to return sooner if symptoms worsen or suicidal or homicidal ideations occur. 06/22/2023 Other May self-administer medications or be administered own oral medications per [facility] protocols. Provided informed consent with understanding of [...] or be administered own oral medications per [facility] protocols. Provided informed consent with understanding of side effects, adverse effects, risks and benefits as well as alternative treatments as previously discussed and with the above recommended medications & other aspects of the treatment program. Agrees to return sooner if symptoms worsen or suicidal or homicidal ideations occur. 08/12/2023 Other May self-administer medications or be administered own oral medications per [facility] protocols. Provided informed consent with understanding of side effects, adverse effects, risks and benefits as well as alternative treatments as previously discussed and with the above recommended medications & other aspects of the treatment program. Agrees to return sooner if symptoms worsen or suicidal or homicidal ideations occur. 09/14/2023 Other May self-administer medications or be administered own oral medications per [facility] protocols. Provided informed consent with understanding of side effects, adverse effects, risks and benefits as well as alternative treatments as previously discussed and with the above recommended medications & other aspects of the treatment program. Agrees to return sooner if symptoms worsen or suicidal or homicidal ideations occur. 11/15/2023 Other May self-administer medications or be administered own oral medications per [facility] protocols. Provided informed consent with understanding of side effects, adverse effects, risks and benefits as well as alternative treatments as previously discussed and with the above recommended medications & other aspects of the treatment program. Agrees to return sooner if symptoms worsen or suicidal or homicidal ideations occur. 12/27/2023 Other May self-administer medications or be administered own oral medications per [facility] protocols. Provided informed consent with understanding of [...] Insured Coverage Start Date Coverage End Date [employer] [facility] Claims Department [address] [place] [address] [phone] [id number] Molly Acevedo Self - patient is the insured 3 [employer] [facility] Claims Department [address] [place] [address] [phone] [id number] Molly Acevedo Self - patient is the insured 3 Medical (General) History Medical History History ICD Code migraine headaches fibromyalgia Surgical History Surgery Date(Month/Year) tonsillectomy/adnoidectomy 2007 gallbladder removed 2015 tead ducts worked on 1998 wisdom teeth removed 2018 Hospitalization History Reason Date(Month/Year) see surgeries
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
--- OUTSIDE RECORDS SUMMARY | 2024-04-17 16:56 | XMS_ITS | Encounter Summary ---
Author Organization [facility] Address [address] [place] [address] Care Team Providers Care Licensed Electrician Name Role Phone Manan Etienne MD Primary Care Provider [phone] Breana Renteria Primary Care Provider [phone] None, Provider Primary Care Provider Jacob Rao DO Primary Care Provider [phone] Encounter Details Date Type Department Care Team (Late st Contact Info) Description 07/20/2019 [facility] Interactivet Message Enc [facility] Family & Internal Medicine [address] [address] Manan Etienne MD [address] [place] [address] RE: Medication Questions Social History Tobacco [...] Rule Out 12/30/2020 12/30/2020 12/30/2020 9:05 PM PROFILING MACHINE OPERATOR COVID-19 Rule Out 12/30/2020 12/30/2020 12/31/2020 11:04 PM PROFILING MACHINE OPERATOR COVID-19 Confirmed 12/30/2020 12/30/2020 12:32 AM PROFILING MACHINE OPERATOR Assessment Noted Time PHQ-9 Depression Total Score: 019 10:28 AM CDT documented as of this encounter Care Teams Licensed Electrician Relationship Specialty [place] [address] [place] [address] PCP - General FAMILY PRACTICE 02/27/18 07/25/21 Breana Renteria FNP [address] [place] [address] PCP - General NURSE PRACTITIONER 07/26/21 01/06/22 None, MD [place] PCP - General UNKNOWN PHYSICIAN SPECIALTY 01/07/22 Jacob Galvan DO [address] [place], [place] [id number] PCP - General FAMILY PRACTICE 06/16/22 documented as of this encounter
--- OUTSIDE RECORDS SUMMARY | 2024-04-17 16:56 | XMS_ITS | Encounter Summary ---
Author Organization [facility] Address [address] [place] [address] Care Team Providers Care Burr Filer Name Role Phone Jacob Galvan DO Primary Care Provider [phone] Reason for Visit * Reason Onset Date Comments MEDICATION REFILL 01/20/2024 Encounter Details Date Type Department Care Team (Late st Contact Info) Description 01/20/2024 Refill [facility] - Neurology [address] [place] [address], [place] [address] Jhonathan Subramanian, CARDIAC REHABILITATION SPECIALIST-DOUBLE SURFACE OPERATOR [address] [place] [address] MEDICATION REFILL Social History Tobacco Use [...] Visit [facility] [address] [facility], [place] [address] Jhonathan Subramanian, CARDIAC REHABILITATION SPECIALIST-DOUBLE SURFACE OPERATOR [address] [place] [address] [place] [address] documented as of this encounter Visit Diagnoses Diagnosis Chronic migraine without aura, intractable, without status migrainosus Migraine without aura and without status migrainosus, not intractable Migraine without aura, without mention of intractable migraine without mention of status migrainosus documented in this encounter Care Teams Burr Filer Relationship Specialty Start Date End Date Jacob Galvan DO [address] [place] [address] PCP - General Family Medicine 05/09/23 documented as of this encounter
--- OUTSIDE RECORDS SUMMARY | 2024-04-17 16:56 | XMS_ITS ---
Author Organization [facility] Address [address] [place] [address] Care Team Providers Care Contract Clerk Name Role Phone Marge Gaston Primary Care Provider [phone] Allergies No Known Allergies REASON FOR [...] Active Encounters Encounter Location Date Provider Diagnosis [address] [address] 03/06/2024 Marge Gaston Post traumatic stres s [...] or be administered own oral medications per [facility] protocols. Provided informed consent with understanding of [...] or be administered own oral medications per [facility] protocols. Provided informed consent with understanding of [...] * Molly PETERSONDOB: 7 (28 yo F)Acc No.[id number]:03/06/2024 Patient: Molly ABDUL Provider: Renetta Gaston DNP, SIGNAL OPERATOR LINGUIST, PMHNP-BC :1995 A ge:28 Y S ex:Female Date:03/06/2024 Address:[address], [place], [phone] Check In:01:00 PM STEAM CLEANING MACHINE OPERATOR Subjective: * Chief Complaints: * 1 Month [...] in behavioral health treatment . S creening: [place] Suicide Severity Rating Scale (LF) D o [...] or be administered own oral medications per [facility] protocols. Provided informed consent with understanding of [...] Psychiatric Follow-up & Medication Management) * * M CLEANING MACHINE OPERATOR Sign off status: Completed true * Provider: Renetta Gaston DNP, SIGNAL OPERATOR LINGUIST, PMLEYDIP- Date: 0 03/06/2024 Generated for Printing/Faxing/eTransmitting on: 0 04/17/2024 04:55 PM CDT History [...] at home. She has job interview for [employer]. She has been practicing meditation and yoga. [...] Therapy: Participating in individual therapy services Screening [place] Suicide Severity Rating Scale (LF) Do you [...]
--- OUTSIDE RECORDS SUMMARY | 2024-04-17 16:56 | XMS_ITS | Referral Summary ---
Author Organization [facility] Address [address] [place] [address] Care Team Providers Care Living Manager Name Role Phone Martinnuzhat Jacob Primary Care Provider [phone] Source Comments [facility],non-owned Affiliates and Associated Physician Practices is amultiple site organization consisting of ambulatory clinics and hospital sitesin [place], [place], [place] and [place]. This disclosure is being madepursuant to the Care Everywhere program and may not contain all information available regarding this patient. Last updated 17.[facility] Encounters Date Type Department Care Team Description 01/20/2024 Refill [facility] - Neurology [address] [place] [phone] Jhonathan Subramanian, CONSERVATION SCIENTIST-SAT INSTRUCTOR MEDICATION REFILL from Last 3 Months Allergies [...] fluticasone propionate (FLONASE) 50 MCG/ACT nasal spray [place] 1 (one) spray into the nose every [...] Comments Blood Pressure 146/71 12/12/2023 1:03 PM EP SPECIALIST Pulse 68 12/12/2023 1:03 PM EP SPECIALIST Temperature 36.3 C (97.4 F) 12/12/2023 1:03 PM EP SPECIALIST Respiratory Rate 18 05/21/2019 1:36 PM CDT Oxygen Saturation 99% 12/12/2023 1:03 PM EP SPECIALIST Inhaled Oxygen Concentration - - Weight 50.8 kg (112 lb) 12/12/2023 1:03 PM EP SPECIALIST Height 160 cm (5' 3 ) 12/12/2023 1:03 PM EP SPECIALIST Body Mass Index 19.84 12/12/2023 1:03 PM EP SPECIALIST Functional Status Functional Status Response Date of [...] 06/11/2024 1:00 PM CDT Office Visit [facility] - Neurology [address] [facility], [place] [address] Jhonathan Subramanian, CONSERVATION SCIENTIST-SAT INSTRUCTOR [address] [place] [address] Procedures Procedure Name Priority Date/Time Associated Diagnosis Comments HIV-1 HIV-2 ANTIGEN/ANTIBODY STAT 12/19/2018 2:21 PM EP SPECIALIST from Last 3 Months or Most Recently Relevant to Health Maintenance Results * HIV-1 HIV-2 ANTIGEN/ANTIBODY (12/19/2018 2:21 PM EP SPECIALIST) HIV Antigen/Antibod y 1 & 2 Non-reacti ve Non-react michel 12/19/2018 3:27 PM EP SPECIALIST [facility] Comment: Neither HIV-1 p24 Antigen nor HIV-1/HIV-2 Antibodies are detected. Blood BLOOD SPECIMEN / Unknown Venipuncture / Unknown 12/19/2018 2:21 PM EP SPECIALIST 12/19/2018 2:40 PM EP SPECIALIST Carmella Box MD LAB - HEMATOLOGY ORD ERABLES [facility] [address] [phone] from Last 3 Months or Most Recently Relevant to Health Maintenance Advance Directives * Full Code (Latest Code Status on File) Date Activated Date Inactivated Comments 05/16/2019 2:31 AM 05/21/2019 4:18 PM * Full Code Date Activated Date Inactivated Comments 08/23/2017 5:14 AM 08/24/2017 6:05 PM * Full Code Date Activated Date Inactivated Comments 08/23/2017 4:24 AM 08/23/2017 5:14 AM Care Teams Living Manager Relationship Specialty Start Date End Date Jacob Galvan DO [address] [place] [address] PCP - General Family Medicine 05/09/23
--- OUTSIDE RECORDS SUMMARY | 2024-04-17 16:56 | XMS_ITS | Encounter Summary ---
Author Organization [facility] Address [address] [place] [address] Care Team Providers Care Rice Drier Name Role Phone Myra Breana Gorman APRN-PHOTOVOLTAIC FABRICATION TECHNICIAN Primary Care Provider Jacob Galvan DO Primary Care Provider [phone] Reason for Visit * Reason Onset Date Comments MEDICATION REFILL 12/22/2022 Encounter Details Date Type Department Care Team (Late st Contact Info) Description 12/22/2022 Refill [facility] - Neurology [address] [place] [address], [place] [address] Andre Farah MD [address] [place] [phone] MEDICATION REFILL Social History Tobacco Use Types [...] 2 tablets a day) # refills: 0 ENVIRONMENTAL ENGINEER documented in this encounter Plan of Treatment Upcoming Encounters Date Type Department Care Team (Late st Contact Info) Description 06/11/2024 1:00 PM CDT Office Visit [facility] - Neurology [address] [place] [address] [place] [address] Jhonathan Subramanian, SURPLUS PROPERTY DISPOSAL AGENT-PHOTOVOLTAIC FABRICATION TECHNICIAN [address] [place] [address] [place] [address] documented as of this encounter Visit Diagnoses Diagnosis Migraine without aura and without status migrainosus, not intractable Migraine without aura, without mention of intractable migraine without mention of status migrainosus documented in this encounter Care Teams Rice Drier Relationship Specialty Start Date End Date Breana Renteria APRN-PHOTOVOLTAIC FABRICATION TECHNICIAN [address] [place] [address] PCP - General 05/05/20 05/08/23 Jacob Galvan DO [address] [place] [address] PCP - General Family Medicine 05/09/23 documented as of this encounter
--- OUTSIDE RECORDS SUMMARY | 2024-04-17 16:56 | XMS_ITS | Clinical Summary ---
Author Organization [facility] Address [address] [place] [address] Care Team Providers Care Hot Die Picker Name Role Phone Dhruv Byrd MD Primary Care Provider [phone] Allergies Active Allergy Reactions Criticality Noted Date [...] on file Legal Sex Female 10:28 PM OFFSET ASSISTANT PRESS OPERATOR Gender Identity Not on file Sexual Orientation [...] 09/18/2008 Varicella Vaccines Completed 09/03/2014, 12/18/1997 Insurance [facility] Care Teams Hot Die Picker Relationship Specialty Start Date End Date Dhruv Byrd MD PCP - General Family Medicine 04/21/20
--- OUTSIDE RECORDS SUMMARY | 2024-04-17 16:56 | XMS_ITS | Encounter Summary ---
Author Organization [facility] Address [address] [place] [address] Care Team Providers Care Cable Splicing Technician Name Role Phone Manan Etienne MD Primary Care Provider [phone] Breana Renteria Primary Care Provider [phone] None, Provider Primary Care Provider Jacob Rao DO Primary Care Provider [phone] Encounter Details Date Type Department Care Team (Late st Contact Info) Description 07/23/2019 MyCPriceAreat Message Enc [facility] Medical Group Family & Internal Medicine [address] [address] Manan Etienne MD [address] [place] [address] Medication Questions Social History Tobacco Use [...] Rule Out 12/30/2020 12/30/2020 12/30/2020 9:05 PM SENIOR RESIDENT CARE DIRECTOR COVID-19 Rule Out 12/30/2020 12/30/2020 12/31/2020 11:04 PM SENIOR RESIDENT CARE DIRECTOR COVID-19 Confirmed 12/30/2020 12/30/2020 12:32 AM SENIOR RESIDENT CARE DIRECTOR Assessment Noted Time PHQ-9 Depression Total Score: 019 10:28 AM CDT documented as of this encounter Care Teams Cable Splicing Technician Relationship Specialty [place] [address] [place] [address] PCP - General FAMILY PRACTICE 02/27/18 07/25/21 Breana Renteria FNP [address] [place] [address] PCP - General NURSE PRACTITIONER 07/26/21 01/06/22 None, MD [place] PCP - General UNKNOWN PHYSICIAN SPECIALTY 01/07/22 Jacob Galvan DO [address] [place] [address] PCP - General FAMILY PRACTICE 06/16/22 documented as of this encounter
--- OUTSIDE RECORDS SUMMARY | 2024-04-17 16:56 | XMS_ITS ---
[facility] Address [address] [place] [address] Care Team Providers Care Department Coordinator Name Role Phone Marge Gaston Primary Care Provider [phone] REASON FOR VISIT PRAPARE Assess Social History [...] phone, visiting friends or family, going to jehovah's witness or club meetings) 3 to 5 times a week How stressed are you? Stress is when someone feels tense, nervous, anxious, or can\t sleep at night because their mind is troubled Quite a bit In the past year have you sp ent more than 2 nights in a row in a mcfp, long-term, chcf center, or juvenile correctional facility? No Are [...] e-cigarette Encounters Encounter Location Date Provider Diagnosis [address] [place] [address] 03/23/2024 Marge Gasotn Plan Of Treatment No Information Progress Notes * ANDREEBaudilioMollyDOB: 7 (28 yo F)Acc No.[id number]:03/23/2024 Patient: Molly ABDUL :1995 A ge:28 Y S ex:Female Address:[address] [place] [address], [place] [address] Subjective: * Chief Complaints: * Rufino DELAROSA [...] phone, visiting friends or family, going to jehovah's witness or club meetings) 3 to 5 times a week H ow stressed are you? Stress is when someone feels tense, nervous, anxious, or can\t sleep at night because their mind is troubled Q uite a bit I n the past year have you spent more than 2 nights in a row in a mcfp, long-term, chcf center, or juvenile correctional facility? N o [...] * true * Date: Generated for Claire Gerber/Apoorva on: 0 04/17/2024 04:55 PM CDT
--- OUTSIDE RECORDS SUMMARY | 2024-04-17 16:56 | XMS_ITS | Encounter Summary ---
Author Organization [facility] Address [address] [place] [address] Care Team Providers Care Bench Molder Apprentice Name Role Phone Myra, Breana Gorman APRN-CLOTHES MARKER Primary Care Provider Jacob Galvan DO Primary Care Provider [phone] Reason for Visit * Reason Onset Date Comments MEDICATION REFILL 03/01/2022 Encounter Details Date Type Department Care Team (Late st Contact Info) Description 03/01/2022 Refill [facility] [address] [place] [address], [place] [address] Ander Farah MD [address] [place] [address] MEDICATION REFILL Social History Tobacco Use [...] Qty Disp: 15 # of refills: 3 LE REPORTS DEVELOPER documented in this encounter Plan of Treatment Upcoming Encounters Date Type Department Care Team (Late st Contact Info) Description 06/11/2024 1:00 PM CDT Office Visit [facility] - Neurology [address] [place] [address], [facility] [place] [address] Jhonathan Subramanian APRN-CLOTHES MARKER [address] [place] [address] [place] [address] documented as of this encounter Visit Diagnoses Diagnosis Fibromyalgia Mylagia and myositis, unspecified documented in this encounter Care Teams Bench Molder Apprentice Relationship Specialty Start Date End Date Breana Renteria APRN-MEMO [address] [place] [address] PCP - General 05/05/20 05/08/23 Jacob Galvan DO [address] [place] [address] PCP - General Family Medicine 05/09/23 documented as of this encounter
== END 2024-04-17 14:53 | disposition home or self-care (01) ==
LOC: ANHLAB 14:52
PROVIDERS: PCP Family Medicine; Visit Provider Obstetrics & Gynecology
DX: Z11.3 Encounter for screening for infections with a predominantly sexual mode of transmission (principal)
CPT/HCPCS: 36415; 80074; 86695; 86696; 86703; 87491; 87591; 87661; G0432

== ENCOUNTER 2024-06-06 11:10 | Emergency (ER) | payer OTHER, SELFPAY ==
[2024-06-06 11:16] VITALS: BP 120/70; PULSE 79; RESP 16; TEMP 36.2; O2SAT 100
--- OUTSIDE RECORDS SUMMARY | 2024-06-06 12:41 | XMS_ITS | Encounter Summary ---
Author Organization [facility] Address [address] [place] [address] Care Team Providers Care Developer Trading Systems Name Role Phone Myra, Breana Gorman APRN-MAINTENANCE AND OPERATIONS SUPERVISOR Primary Care Provider Jacob Galvan DO Primary Care Provider [phone] Reason for Visit * Reason Onset Date Comments MEDICATION REFILL 03/01/2022 Encounter Details Date Type Department Care Team (Late st Contact Info) Description 03/01/2022 Refill [facility] [address] [place] [address], [place] [address] Andre Farah MD [address] [place] [phone] MEDICATION REFILL Social History Tobacco Use Types Packs/Day Years Used Date Smoking Tobacco: Former Cigarettes 0.5 9 1 03/23/2009 - 01/20/2019 Smokeless Tobacco: Never Alcohol Use Standard Drinks/Week Comments No 0 (1 standard drink = 0.6 oz pur e alcohol) Comments No Sex and Gender Information Value Date Recorded Sex Assigned at Not on file Legal Sex Female 5:35 PM BIOINFORMATICIST Gender Identity Not on file Sexual Orientation Not on file 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 Answer Date of Assessment Author No 05/16/2019 4:55 AM CDT Sumi Hilario RN * Is person blind or have serious difficulty seeing? Answer Date of Assessment Author No 05/16/2019 4:55 AM CDT Sumi Hilario RN * Does person have serious difficulty walking/climbing stairs? Answer Date of Assessment Author No 05/16/2019 4:55 AM CDT Sumi Hilario RN * Does person have difficulty dressing/bathing? Answer Date of Assessment Author No 05/16/2019 4:55 AM CDT Sumi Hilario RN * Does person have difficulty doing errands alone? Answer Date of Assessment Author No 05/16/2019 4:55 AM CDT Sumi Hilario RN documented as of this encounter Mental Status * Does person have difficulty concentrating/remembering/making decisions? Answer Entry Date Author No 05/16/2019 4:55 AM KIAT Sumi Hilario RN documented in this encounter Miscellaneous Notes * Telephone Encounter - Karlee Craig MA - 03/01/2022 8:15 AM CST Refill Request NAVEEN: 09/09/2021 NOV scheduled: 06/14/2022 LRF: 09/11/2021 Qty Disp: 15 # of refills: 3 NFORMATICIST documented in this encounter Plan of Treatment Upcoming Encounters Date Type Department Care Team (Late st Contact Info) Description 06/11/2024 1:00 PM CDT Office Visit [facility] - Neurology [address] [place] [address], [place] [phone] Jhonathan Subramanian APRN-MEMO [address] [place] [address] [place] [address] documented as of this encounter Visit Diagnoses Diagnosis Fibromyalgia Mylagia and myositis, unspecified documented in this encounter Care Teams Developer Trading Systems Relationship Specialty Start Date End Date Breana Renteria APRN-MEMO [address] [place] [address] PCP - General 05/05/20 05/08/23 Jacob Galvan DO [address] [place] [address] PCP - General Family Medicine 05/09/23 documented as of this encounter
--- OUTSIDE RECORDS SUMMARY | 2024-06-06 12:41 | XMS_ITS | Encounter Summary ---
Author Organization [facility] Address [address] [place] [address] Care Team Providers Care Layer Off Name Role Phone Manan Etienne MD Primary Care Provider [phone] Breana Renteria Primary Care Provider [phone] None, Provider Primary Care Provider Jacob Rao DO Primary Care Provider [phone] Encounter Details Date Type Department Care Team (Late st Contact Info) Description 07/23/2019 MyChart Message Enc [facility] Medical Group Family & Internal Medicine [address] [address] Manan Etienne MD [address] [place] [address] Medication Questions Social History Tobacco Use [...] Information Value Date Recorded Sex Assigned at Female 05/24/2024 9:12 AM CDT Legal Sex Female 7:42 PM CDT Gender [...] Rule Out 12/30/2020 12/30/2020 12/30/2020 9:05 PM SKI EDGE PAINTER COVID-19 Rule Out 12/30/2020 12/30/2020 12/31/2020 11:04 PM SKI EDGE PAINTER COVID-19 Confirmed 12/30/2020 12/30/2020 12:32 AM SKI EDGE PAINTER Assessment Noted Time PHQ-9 Depression Total Score: 019 10:28 AM CDT documented as of this encounter Care Teams Layer Off Relationship Specialty [place] [address] [place] [address] PCP - General FAMILY PRACTICE 02/27/18 07/25/21 Breana Renteria FNP [address] [place] [address] PCP - General NURSE PRACTITIONER 07/26/21 01/06/22 None, Provider, PCP - General UNKNOWN PHYSICIAN SPECIALTY 01/07/22 Jacob Galvan DO [address] [place] [address] PCP - General FAMILY PRACTICE 06/16/22 documented as of this encounter
--- OUTSIDE RECORDS SUMMARY | 2024-06-06 12:41 | XMS_ITS | Encounter Summary ---
Author Organization [facility] Address [address] [place] [address] Care Team Providers Care Metallic Yarn Slitting Machine Operator Name Role Phone Myra Breana Gorman APRN-DATA COLLECTION SPECIALIST Primary Care Provider Jacob Galvan DO Primary Care Provider [phone] Reason for Visit * Reason Onset Date Comments MEDICATION REFILL 06/11/2022 Encounter Details Date Type Department Care Team (Late st Contact Info) Description 06/11/2022 Refill [facility] [address] [place] [address], [place] [address] Andre Farah MD [address] [place] [address] MEDICATION REFILL Social History Tobacco Use Types Packs/Day Years Used Date Smoking Tobacco: Former Cigarettes 0.5 9 1 03/23/2009 - 01/20/2019 Smokeless Tobacco: Never Alcohol Use Standard Drinks/Week Comments No 0 (1 standard drink = 0.6 oz pur e alcohol) Comments No Sex and Gender Information Value Date Recorded Sex Assigned at Not on file Legal Sex Female 5:35 PM RIDING COACH Gender Identity Not on file Sexual Orientation Not on file 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 Not on file Not on file COVID-19 Exposure Response Date [...] Entry Date Author No 05/16/2019 4:55 AM CDT Sumi Hilario RN documented in this encounter [...] Office Visit [facility] - Neurology [address] [place] [address], [place] [address] Jhonathan Subramanian, DIRECTOR VACCINE-DATA COLLECTION SPECIALIST [address] [place] [address] [place] [phone] documented as of this encounter Visit Diagnoses Diagnosis Fibromyalgia Mylagia and myositis, unspecified documented in this encounter Care Teams Metallic Yarn Slitting Machine Operator Relationship Specialty Start Date End Date Breana Renteria, DIRECTOR VACCINE-DATA COLLECTION SPECIALIST [address] [place] [address] PCP - General 05/05/20 05/08/23 Jacob Galvan DO [address] [place] [address] PCP - General Family Medicine 05/09/23 documented as of this encounter
--- OUTSIDE RECORDS SUMMARY | 2024-06-06 12:41 | XMS_ITS | Encounter Summary ---
Author Organization [facility] Address [address] [place] [address] Care Team Providers Care Flight Control Tower Operator Name Role Phone Myra Breana Gorman APRN-CYLINDRICAL MIXER Primary Care Provider Jacob Galvan DO Primary Care Provider [phone] Reason for Visit * Reason Onset Date Comments MEDICATION REFILL 12/22/2022 Encounter Details Date Type Department Care Team (Late st Contact Info) Description 12/22/2022 Refill [facility] - Neurology [address] [place] [address], [place] [address] Andre Farah MD [address] [place] [address] [place] [address] MEDICATION REFILL Social History Tobacco Use Types Packs/Day Years Used Date Smoking Tobacco: Former Cigarettes 0.5 9 1 03/23/2009 - 01/20/2019 Smokeless Tobacco: Never Alcohol Use Standard Drinks/Week Comments No 0 (1 standard drink = 0.6 oz pur e alcohol) Comments No Sex and Gender Information Value Date Recorded Sex Assigned at Not on file Legal Sex Female 5:35 PM COMPUTER DRAFTER Gender Identity Not on file Sexual Orientation Not on file 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 Answer Date of Assessment Author No 05/16/2019 4:55 AM CDSumi Diaz RN * Is person blind or have serious difficulty seeing? Answer Date of Assessment Author No 05/16/2019 4:55 AM Sumi Oliveira RN * Does person have serious difficulty walking/climbing stairs? Answer Date of Assessment Author No 05/16/2019 4:55 AM Sumi Oliveira RN * Does person have difficulty dressing/bathing? Answer Date of Assessment Author No 05/16/2019 4:55 AM Sumi Oliveira RN * Does person have difficulty doing errands alone? Answer Date of Assessment Author No 05/16/2019 4:55 AM Sumi Oliveira RN documented as of this encounter Mental Status * Does person have difficulty concentrating/remembering/making decisions? Answer Entry Date Author No 05/16/2019 4:55 AM Sumi Oliveira RN documented in this encounter Miscellaneous Notes * Telephone Encounter - Dale Butcher MA - 12/22/2022 8:20 AM CST Molly Acevedo NAVEEN: 11/03/2022Dec due: 6 month follow up DEC date: none scheduled topiramate 200 MG tablet LRF: 11/03/2022 Quantity dispensed: 180 tablets (patient takes 2 tablets a day) # refills: 0 UTER DRAFTER documented in this encounter Plan of Treatment Upcoming Encounters Date Type Department Care Team (Late st Contact Info) Description 06/11/2024 1:00 PM CDT Office Visit [facility] - Neurology [address] [place] [address] [place] [address] Jhonathan Subramanian APRN-CNP [address] [place] [address] [place] [address] documented as of this encounter Visit Diagnoses Diagnosis Migraine without aura and without status migrainosus, not intractable Migraine without aura, without mention of intractable migraine without mention of status migrainosus documented in this encounter Care Teams Flight Control Tower Operator Relationship Specialty Start Date End Date Breana Renteria APRN-CNP [address] [place] [address] PCP - General 05/05/20 05/08/23 Jacob Galvan DO [address] [place] [address] PCP - General Family Medicine 05/09/23 documented as of this encounter
--- OUTSIDE RECORDS SUMMARY | 2024-06-06 12:41 | XMS_ITS | Encounter Summary ---
Author Organization [facility] Address [address] [place] [address] Care Team Providers Care Business Solutions Analyst Name Role Phone Breana Renteria Primary Care Provider Jacob Galvan DO Primary Care Provider [phone] Reason for Visit * Reason Onset Date Comments MEDICATION REFILL 07/09/2022 Encounter Details Date Type Department Care Team (Late st Contact Info) Description 07/09/2022 Refill [facility] - Neurology [address] [place] [address], [place] [address] Jhonathan Subramanian APRN-CNP [address] [place] [phone] MEDICATION REFILL Social History Tobacco Use Types Packs/Day Years Used Date Smoking Tobacco: Former Cigarettes 0.5 9 1 03/23/2009 - 01/20/2019 Smokeless Tobacco: Never Alcohol Use Standard Drinks/Week Comments No 0 (1 standard drink = 0.6 oz pur e alcohol) Comments No Sex and Gender Information Value Date Recorded Sex Assigned at Not on file Legal Sex Female 5:35 PM MEDIA LAW FACULTY MEMBER Gender Identity Not on file Sexual Orientation Not on file 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 Answer Date of Assessment Author No 05/16/2019 4:55 AM Sumi Oliveira RN * Is person blind or have [...] Sumi Oliveira RN documented in this encounter Plan of Treatment Upcoming Encounters Date Type Department Care Team (Late st Contact Info) Description 06/11/2024 1:00 PM CDT Office Visit [facility] - Neurology [address] [place] [address], [facility] [place] [address] Jhonathan Subramanian APRN-CNP [address] [place] [phone] documented as of this encounter Visit Diagnoses Diagnosis Fibromyalgia Mylagia and myositis, unspecified documented in this encounter Care Teams Business Solutions Analyst Relationship Specialty Start Date End Date Breana Renteria APRN-CNP [address] [place] [address] PCP - General 05/05/20 05/08/23 Jacob Galvan DO [address] [place] [address] PCP - General Family Medicine 05/09/23 documented as of this encounter
--- OUTSIDE RECORDS SUMMARY | 2024-06-06 12:41 | XMS_ITS | Encounter Summary ---
Author Organization [facility] Address [address] [facility] [place] [address] Care Team Providers Care Pharmaceutical Sales Representative Name Role Phone Cole Jacob LOPEZ Primary Care Provider [phone] Reason for Visit * Reason Onset Date Comments MEDICATION REFILL 01/20/2024 Encounter Details Date Type Department Care Team (Late st Contact Info) Description 01/20/2024 Refill [facility] - Neurology [address] [place] [address], [place] [address] Jhonathan Subramanian, DETAIL TECHNICIAN-BAR STEWARD [address] [place] [place] [phone] MEDICATION REFILL Social History Tobacco Use Types Packs/Day Years Used Date Smoking Tobacco: Former Cigarettes 0.5 9 1 03/23/2009 - 01/20/2019 Smokeless Tobacco: Never Alcohol Use Standard Drinks/Week Comments No 0 (1 standard drink = 0.6 oz pur e alcohol) Comments No Sex and Gender Information Value Date Recorded Sex Assigned at Not on file Legal Sex Female 5:35 PM ASSEMBLER FISHING FLOATS Gender Identity Not on file Sexual Orientation Not on file 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 Not on file Not [...] Office Visit [facility] - Neurology [address] [place] [address], [facility] [place] [address] Jhonathan Subramanian, DETAIL TECHNICIAN-BAR STEWARD [address] [place] [address] [place] [phone] documented as of this encounter Visit Diagnoses Diagnosis Chronic migraine without aura, intractable, without status migrainosus Migraine without aura and without status migrainosus, not intractable Migraine without aura, without mention of intractable migraine without mention of status migrainosus documented in this encounter Care Teams Pharmaceutical Sales Representative Relationship Specialty Start Date End Date Jacob Galvan DO [address] [place] [address] PCP - General Family Medicine 05/09/23 documented as of this encounter
--- OUTSIDE RECORDS SUMMARY | 2024-06-06 12:41 | XMS_ITS | Encounter Summary ---
Author Organization [facility] Address [address] [place] [address] Care Team Providers Care Practice Billing Associate Name Role Phone Manan Etienne MD Primary Care Provider [phone] Breana Renteria Primary Care Provider [phone] None, Provider Primary Care Provider Jacob Rao DO Primary Care Provider [phone] Encounter Details Date Type Department Care Team (Late st Contact Info) Description 07/20/2019 MyChart Message Enc [facility] Medical Group Family & Internal Medicine [address] [address] Manan Etienne MD [address] [place] [address] RE: Medication Questions Social History Tobacco [...] Rule Out 12/30/2020 12/30/2020 12/30/2020 9:05 PM CARBONATION EQUIPMENT TENDER COVID-19 Rule Out 12/30/2020 12/30/2020 12/31/2020 11:04 PM CARBONATION EQUIPMENT TENDER COVID-19 Confirmed 12/30/2020 12/30/2020 12:32 AM CARBONATION EQUIPMENT TENDER Assessment Noted Time PHQ-9 Depression Total Score: 019 10:28 AM CDT documented as of this encounter Care Teams Practice Billing Associate Relationship Specialty [place] [address] [place] [address] PCP - General FAMILY PRACTICE 02/27/18 07/25/21 Breana Renteria FNP [address] [place] [address] PCP - General NURSE PRACTITIONER 07/26/21 01/06/22 None, Provider, PCP - General UNKNOWN PHYSICIAN SPECIALTY 01/07/22 Jacob Galvan DO [address] [place] [address] PCP - General FAMILY PRACTICE 06/16/22 documented as of this encounter
--- OUTSIDE RECORDS SUMMARY | 2024-06-06 12:42 | XMS_ITS | Patient Health Record ---
Author Organization [facility] Address [address] [place] [address] Care Team Providers Care Technology Manager Name Role Phone Marge Gaston Primary Care Provider Tyler Colon Unavailable Allergies No Known Allergies Reason For Referral Reason Psychotherapy Diagnosis 1 Chronic depression ( F32.9) Diagnosis 2 Post traumatic stres s disorder (PTSD) (F43.10) Referral Organization [facility] Referring Provider First Name Marge Referring Provider Last Name Alek Referring Provider Speciality Psychiatry Referred Provider Specialty Behavioral [facility] Clinical Notes Rey Munoz 08:56:58 AM >HN [...] Duration) Notes Start Date End Date Status lamoTRIgine 200 MG 1 tablet Orally Once a day for 30 days Active Depo-Provera 150 MG/ML 1 mL Intramuscular Active Lexapro 20 MG 1 tablet Orally Once a day for 30 days Active Pregabalin 200 MG 1 capsule Orally twice a day 06/2023 Active traZODone HCl 50 MG 1 - [...] phone, visiting friends or family, going to buddhist or club meetings) 3 to 5 times a week How stressed are you? Stress is when someone feels tense, nervous, anxious, or can\t sleep at night because their mind is troubled Quite a bit In the past year have you sp ent more than 2 nights in a row in a usp, usp, longterm center, or juvenile correctional facility? No Are [...] W/U Status Risk Notes Problem Tobacco user (096487811) Nicotine dependence, unspecified, uncomplicated (F17.200) Active confirmed Problem Posttraumatic stress disorder (25933879) Post traumatic stress disorder (PTSD) (F43.10) Active confirmed Problem Cannabis dependence (28208011) Marijuana smoker (F12.20) Active confirmed Problem Chronic depression (317173934) Chronic depression (F32.9) Active confirmed Encounters Encounter Location Date Provider Diagnosis [address] [place] [address] 06/22/2023 Marge Gaston Post traumatic stress disorder (PTSD) F43.10 ; Marijuana smoker F12.20 ; Nicotine dependence, unspecified, uncomplicated F17.200 and Chronic depression F32.[address] [address] 07/12/2023 Marge Sabblut Post traumatic stress disorder (PTSD) F43.10 ; Marijuana smoker F12.20 ; Nicotine dependence, unspecified, uncomplicated F17.200 and Chronic depression F32.[address] [address] 08/12/2023 Marge Sabblut Post traumatic stress disorder (PTSD) F43.10 ; Marijuana smoker F12.20 ; Nicotine dependence, unspecified, uncomplicated F17.200 and Chronic depression F32.[address] [address] 09/14/2023 Marge Sabblut Post traumatic stress disorder (PTSD) F43.10 ; Marijuana smoker F12.20 ; Nicotine dependence, unspecified, uncomplicated F17.200 and Chronic depression F32.[address] [address] 11/15/2023 Marge Sabblut Post traumatic stress disorder (PTSD) F43.10 ; Marijuana smoker F12.20 ; Nicotine dependence, unspecified, uncomplicated F17.200 and Chronic depression F32.[address] [address] 12/27/2023 Marge Sabblut Post traumatic stress disorder (PTSD) F43.10 ; Marijuana smoker F12.20 ; Nicotine dependence, unspecified, uncomplicated F17.200 and Chronic depression F32.[address] [address] 02/07/2024 Marge Sabblut Post traumatic stress disorder (PTSD) F43.10 ; Marijuana smoker F12.20 ; Nicotine dependence, unspecified, uncomplicated F17.200 ; Chronic depression F32.9 and Medication management Z79.[address] [address] 03/06/2024 Marge Sabblut Post traumatic stress disorder (PTSD) F43.10 ; Marijuana smoker F12.20 ; Nicotine dependence, unspecified, uncomplicated F17.200 ; Medication management Z79.899 and Chronic depression F32.[address] [address] 04/16/2024 Marge Gaston Post traumatic stress disorder (PTSD) F43.10 ; Marijuana smoker F12.20 ; Nicotine dependence, unspecified, uncomplicated F17.200 ; Medication management Z79.899 and Chronic depression F32.[address] [address] 05/30/2024 Marge Gaston Post traumatic stress disorder (PTSD) F43.10 ; Marijuana smoker F12.20 ; Nicotine dependence, unspecified, uncomplicated F17.200 ; Medication management Z79.899 and Chronic depression F32.[address] [address] 06/27/2023 Marge Gaston Encounter for screening for malignant neoplasm of cervix Z12.[address] [address] 07/06/2023 Marge Gaston Chronic depression F32.[address] [address] 07/27/2023 Marge Gaston [address] [address] 09/06/2023 Marge Gaston [address] [address] 11/08/2023 Marge Gaston Chronic depression F32.[address] [address] 11/22/2023 Marge Gaston [address] [address] 11/28/2023 Marge Gaston [address] [address] 01/27/2024 Marge Gaston Chronic depression F32.9 and Post traumatic stress disorder (PTSD) F43.[address] [place] [address] 02/09/2024 Tyler Colon [address] [place] [address] 03/23/2024 Marge Gaston Assessments Encounter Date Diagnosis (ICD Code) Assessment Notes Treatment Notes Treatment Clinical Notes Section Notes 06/22/2023 Post traumatic stress disorder (PTSD) (ICD-10 [...] (ICD-10 - F43.10) Continue psychotherapy as scheduled. 05/30/2024 Post traumatic stress disorder (PTSD) (ICD-10 - F43.10) Continue psychotherapy as scheduled. 05/30/2024 Marijuana smoker (ICD-10 - F12.20) 04/16/2024 Marijuana smoker (ICD-10 - F12.20) 03/06/2024 Marijuana smoker (ICD-10 - F12.20) 02/07/2024 Marijuana smoker (ICD-10 - F12.20) 01/27/2024 Post traumatic stress disorder (PTSD) (ICD-10 - F43.10) 12/27/2023 Marijuana smoker (ICD-10 - F12.20) 11/15/2023 Marijuana smoker (ICD-10 - F12.20) 09/14/2023 Marijuana smoker (ICD-10 - F12.20) 08/12/2023 Marijuana smoker (ICD-10 - F12.20) 07/12/2023 Marijuana smoker (ICD-10 - F12.20) 06/22/2023 Marijuana smoker (ICD-10 - F12.20) 06/22/2023 Nicotine dependence, unspecified, uncomplicated (ICD-10 - [...] Nicotine dependence, unspecified, uncomplicated (ICD-10 - F17.200) 05/30/2024 Nicotine dependence, unspecified, uncomplicated (ICD-10 - F17.200) 05/30/2024 Medication management (ICD-10 - Z79.899) May self-administer medications or be administered own oral medications per [facility] protocols. Provided informed consent with understanding of side effects, adverse effects, risks and benefits as well as alternative treatments as previously discussed and with the above recommended medications & other aspects of the treatment program. Agrees to return sooner if symptoms worsen or suicidal or homicidal ideations occur. Labs monitored by PCP. 04/16/2024 Medication management (ICD-10 - Z79.899) May self-administer medications or be administered own oral medications per [facility] protocols. Provided informed consent with understanding of [...] or be administered own oral medications per [facility] protocols. Provided informed consent with understanding of [...] or be administered own oral medications per [facility] protocols. Provided informed consent with understanding of [...] at this time. Continue psychotherapy as scheduled. 05/30/2024 Chronic depression (ICD-10 - F32.9) Client does not wish to make medication changes at this time. Continue psychotherapy as scheduled. 06/22/2023 Other May self-administer medications or be administered own oral medications per [facility] protocols. Provided informed consent with understanding of [...] or be administered own oral medications per [facility] protocols. Provided informed consent with understanding of side effects, adverse effects, risks and benefits as well as alternative treatments as previously discussed and with the above recommended medications & other aspects of the treatment program. Agrees to return sooner if symptoms worsen or suicidal or homicidal ideations occur. 08/12/2023 Other May self-administer medications or be administered own oral medications per [facility] protocols. Provided informed consent with understanding of side effects, adverse effects, risks and benefits as well as alternative treatments as previously discussed and with the above recommended medications & other aspects of the treatment program. Agrees to return sooner if symptoms worsen or suicidal or homicidal ideations occur. 09/14/2023 Other May self-administer medications or be administered own oral medications per [facility] protocols. Provided informed consent with understanding of side effects, adverse effects, risks and benefits as well as alternative treatments as previously discussed and with the above recommended medications & other aspects of the treatment program. Agrees to return sooner if symptoms worsen or suicidal or homicidal ideations occur. 11/15/2023 Other May self-administer medications or be administered own oral medications per [facility] protocols. Provided informed consent with understanding of side effects, adverse effects, risks and benefits as well as alternative treatments as previously discussed and with the above recommended medications & other aspects of the treatment program. Agrees to return sooner if symptoms worsen or suicidal or homicidal ideations occur. 12/27/2023 Other May self-administer medications or be administered own oral medications per [facility] protocols. Provided informed consent with understanding of [...] Insured Coverage Start Date Coverage End Date [facility] Attn Claims Department [address] [place] [address] [phone] [id number] Molly Acevedo Self - patient is the insured 3 [facility] [employer] Att[employer] Claims Department [address] [place] [address] [phone] [id number] Molly Acevedo Self - patient is the insured 3 Medical (General) History Medical History History ICD Code migraine headaches fibromyalgia Surgical History Surgery Date(Month/Year) tonsillectomy/adnoidectomy 2007 gallbladder removed 2015 tead ducts worked on 1999 wisdom teeth removed 2018 Hospitalization History Reason Date(Month/Year) see surgeries
--- OUTSIDE RECORDS SUMMARY | 2024-06-06 12:42 | XMS_ITS | Clinical Summary ---
Author Organization [facility] Address [address] [place] [address] Care Team Providers Care Email Manager Name Role Phone Jacob Galvan DO Primary Care Provider [phone] Source Comments [facility],non-owned Affiliates and Associated Physician Practices is amultiple site organization consisting of ambulatory clinics and hospital sitesin [place], [place], [place]. This disclosure is being madepursuant to the Care Everywhere program and may not contain all information available regarding this patient. Last updated 17.[facility] Allergies Active Allergy Reactions Criticality Noted Date Comments Duloxetine Other 01/25/2019 Vomiting and insomnia Morphine Other Low 06/12/2015 Gets warm Pramipexole Other 10/04/2019 insomnia Sumatriptan Nausea Low 06/12/2015 Verapamil Other 01/25/2019 Worsen acid reflux Bupropion Other 05/05/2020 Made depression worse Medications * This document contains information received from the source organization and may not represent a complete record from that organization. * Be aware that medications may not be up to date on this document. Alwaysverify current medications with the patient. escitalopram (LEXAPRO) 20 MG tabletIndicatio ns:Major Depressive Disorder Take 1 tablet by mouth at bedtime Reasons: Major Depressive Disorder 15 tablet 1 05/21/19 20 Active fluticasone propionate (FLONASE) 50 MCG/ACT nasal spray Dillon 1 (one) spray into the nose every 24 hours 01/19/20 13 Active omeprazole (PRILOSEC) 40 MG capsule Take 1 capsule by mouth every 24 hours 30 capsule 3 06/27/19 20 Active Additional Information Patient not taking.Reported on 11/03/2022 lamoTRIgine (LAMICTAL) 200 MG tabletIndicatio ns:Depression, unspecified depression type Take 1 (one) tablet by mouth once daily 90 tablet 3 02/05/20 20 Active tiZANidine (ZANAFLEX) 4 MG tabletIndicatio ns:Muscle Spasticity Take 1 (one) tablet by mouth 3 times daily Reasons: Muscle Spasticity 270 tablet 3 02/05/20 20 Active traZODone (Desyrel) 75 MG TABSIndications :Depression, unspecified depression type Take 1 (one) Half Tablet by mouth at bedtime 90 tablet 3 02/05/20 20 Active loratadine (CLARITIN) 10 MG tabletIndicatio ns:Allergic rhinitis, unspecified seasonality, unspecified trigger Take 1 tablet by mouth once daily 90 tablet 3 02/05/20 20 Active Additional Information Patient not taking.Reported on 11/03/2022 potassium chloride ER (KLOR-CON M) 20 MEQ tabletIndicatio ns:Hypokalemia Take 1 tablet by mouth once daily 90 tablet 4 02/05/20 20 Active prochlorperazin e (COMPAZINE) 25 MG suppositoryIndi cations:Chronic migraine UNWRAP AND INSERT 1 SUPPOSITORY RECTALLY EVERY 12 HOURS NEEDED FOR NAUSEA OR VOMITING 12 suppository 5 04/18/19 21 Active Additional Information Patient not taking.Reported on 11/03/2022 albuterol HFA (PROVENTIL;VENT JARVIS;PROAIR) 108 (90 Base) MCG/ACT inhalerIndicati ons:Uncomplicat ed asthma, unspecified asthma severity, unspecified whether persistent (HCC) Inhale 2 (two) puffs by mouth every 6 hours as needed 1 Inhaler 11 05/06/19 21 Active medroxyPROGESTE Seth (DEPO-PROVERA) 150 MG/ML prefilled syringe 07/02/19 21 Active lamoTRIgine (LaMICtal) 150 MG tablet Take 1 (one) tablet by mouth once daily 05/04/19 24 Active medroxyPROGESTE Seth (Depo-Provera) 150 MG/ML vial ADMINISTER 1 ML IN THE MUSCLE EVERY 3 MONTHS 04/18/19 24 Active pregabalin (Lyrica) 200 MG capsuleIndicati ons:Fibromyalgi a Take 1 (one) capsule by mouth 2 times daily 60 capsule 3 05/09/19 24 Active erenumab-aooe (Aimovig) 140 MG/ML auto injector penIndications: Chronic migraine without aura, intractable, without status migrainosus,Michele sanjay without aura and without status migrainosus, not intractable Inject 1 mL subcutaneously every 30 days 1 mL 5 12/12/19 24 Active ubrogepant (Ubrelvy) 100 MG tabletIndicatio ns:Chronic migraine without aura, intractable, without status migrainosus,Michele sanjay without aura and without status migrainosus, not intractable Take 1 (one) tablet by mouth as needed for Migraine Can repeat in 2 hours if needed. No more than 2 doses in 24 hours. 10 tablet 5 12/12/19 24 Active topiramate (Topamax) 200 MG tabletIndicatio ns:Chronic migraine without aura, intractable, without status migrainosus,Michele sanjay without aura and without status migrainosus, not intractable Take 1 (one) tablet by mouth 2 times daily 60 tablet 5 12/12/19 24 Active butalbital-acet aminophen-caffe ine (Fioricet) 50-325-40 MG tabletIndicatio ns:Migraine without aura and without status migrainosus, not intractable TAKE 1 TABLET BY MOUTH EVERY 6 HOURS NEEDED FOR HEADACHE. NO ADDITIONAL TYLENOL OR ACETAMEOPHEN 15 tablet 5 12/12/19 24 Active Active Problems Problem Noted Date Diagnosed [...] Encounters Date Type Department Care Team Description 05/21/2024 Telephone [facility] - [facility]rology [address] [place] [id number] Jhonathan Subramanian, STRAW BOSS-WOOD DRILL OPERATOR Medication Prior Auth Request from Last 3 Months Immunizations Immunization Administration Dates Next Due DTAP, HISTORIC VACCINE 09/19/2002,1997,04/01/1997,02/04 DTaP/HIB 11/26/1998 HEP A PED/ADULT VACCINE 03/06/2015,09/03/2014 HEP A PEDS 2 DOSE 03/06/2015,09/03/2014 HEP B VACCINE 07/15/1997,1996,1996 HIB VACCINE 07/15/1997,04/01/1997,02/04/1997 HIB-HAEMOPHILUS INFLUENZAE B CONJUGATE VACCINE 07/15/1997,04/01/1997,02/04/1997 Human Papilloma Virus Hung valent Vaccine 03/27/2009,11/19/2008,09/18/2008 INFLUENZA VACCINE 10/28/2022, 9,05/19/2018,02/10,11/11/2017,08/12/2017,04/15/2017 ,03/06/2015 INFLUENZA VACCINE, QUADR. 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 file Not on file Not on file Last Filed Vital Signs Vital Sign Reading Time Taken Comments Blood Pressure 146/71 12/12/2023 1:03 PM PILER Pulse 68 12/12/2023 1:03 PM PILER Temperature 36.3 C (97.4 F) 12/12/2023 1:03 PM PILER Respiratory Rate 18 05/21/2019 1:36 PM CDT Oxygen Saturation 99% 12/12/2023 1:03 PM PILER Inhaled Oxygen Concentration - - Weight 50.8 kg (112 lb) 12/12/2023 1:03 PM PILER Height 160 cm (5' 3 ) 12/12/2023 1:03 PM PILER Body Mass Index 19.84 12/12/2023 1:03 PM PILER Plan of Treatment Upcoming Encounters Date Type Department Care Team (Late st Contact Info) Description 06/11/2024 1:00 PM CDT Office Visit [facility] - Neurology [address] [place] [address], [place] [phone] Jhonathan Subramanian, STRAW BOSS-WOOD DRILL OPERATOR [address] [place] [phone] Health Maintenance Due Date Last Done Comments PAP SMEAR 1996 HEPATITIS C SCREENING 11/13/2014 PNEUMOCOCCAL VACCINE (1 of 2 - PCV) 11/18/2015 COVID-19 VACCINE (1 - season) 2023 DEPRESSION SCREENING 02/08/2024 INFLUENZA VACCINE (Season Ended) 2024 10/28/2022, 08/23/2018, 05/19/2018, Additional history exists DTAP/TDAP/TD VACCINES (8 - Td or Tdap) 12/19/2030 12/19/2020, 11/08/2011, 09/19/2002, Additional history exists ZOSTER VACCINE (1 of 2) 2046 HEPATITIS B VACCINE Completed 07/15/1997, 1996, 1996 HIB VACCINE Completed 11/26/1998, 09/1997, 07/15/1997, Additional history exists HPV VACCINE Completed 03/27/2009, 11/07, 09/18/2008 MENINGOCOCCAL GROUPS A/C/Y/W VACCINE Completed 09/03/2014 HIV SCREENING Completed 12/19/2018 MENINGOCOCCAL (Group B) VACCINE SHARED DECISION-MAKING Aged Out No longer eligible based on patient's age to complete this topic Procedures Procedure Name Priority Date/Time Associated Diagnosis Comments HIV-1 HIV-2 ANTIGEN/ANTIBODY STAT 12/19/2018 2:21 PM PILER from Last 3 Months or Most Recently Relevant to Health Maintenance Results * HIV-1 HIV-2 ANTIGEN/ANTIBODY (12/19/2018 2:21 PM PILER) HIV Antigen/Antibod y 1 & 2 Non-reacti ve Non-react michel 12/19/2018 3:27 PM PILER [facility] Comment: Neither HIV-1 p24 Antigen nor HIV-1/HIV-2 Antibodies are detected. Blood BLOOD SPECIMEN / Unknown Venipuncture / Unknown 12/19/2018 2:21 PM PILER 12/19/2018 2:40 PM PILER us Carmella Box MD LAB - HEMATOLOGY ORDERABLES Final Result [facility] [address] [phone] from Last 3 Months or Most Recently Relevant to Health Maintenance Insurance [facility] THIRD LIBERTARIAN LIABILITY [employer] Liability Advance Directives * Full Code (Latest Code Status on File) Date Activated Date Inactivated Comments 05/16/2019 2:31 AM 05/21/2019 4:18 PM * Full Code Date Activated Date Inactivated Comments 08/23/2017 5:14 AM 08/24/2017 6:05 PM * Full Code Date Activated Date Inactivated Comments 08/23/2017 4:24 AM 08/23/2017 5:14 AM Care Teams Email Manager Relationship Specialty Start Date End Date Jacob Galvan DO [address] [place] [id number] PCP - General Family Medicine 05/09/23
--- OUTSIDE RECORDS SUMMARY | 2024-06-06 12:42 | XMS_ITS | Clinical Summary ---
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 Gender Identity Not on file Sexual Orientation [...] Screening 07/30/2023 07/29/2022, 11/20/2020, 11/20/2020 Covid-19 Vaccine (2023-2 5 season) 2023 07/17/2020 Influenza Vaccine (Season Ended) 2024 08/23/2018, 05/19/2018, 02/10/2018, Additional history exists DTaP/Tdap/Td Vaccine (8 - Td or Tdap) 12/19/2030 12/19/2020, 11/08/2011, 09/19/2002, Additional history exists Hepatitis B Screening Completed 07/15/1997 , 1996, 1996 HPV Vaccines Completed 03/27/2009, 11/07, 09/18/2008 Varicella Vaccines Completed 09/03/2014, 12/18/1997 Insurance [facility] Care Teams Staff Development Educator Relationship Specialty Start Date End Date Dhruv Byrd MD PCP - General Family Medicine 04/21/20
--- OUTSIDE RECORDS SUMMARY | 2024-06-06 12:42 | XMS_ITS | Encounter Summary ---
Author Organization [facility] Address [address] [place] [address] Care Team Providers Care Health Education Assistant Name Role Phone Manan Etienne MD Primary Care Provider [phone] Breana Renteria Primary Care Provider [phone] None, Provider Primary Care Provider Jacob Rao DO Primary Care Provider [phone] Reason for Visit * Reason Onset Date Comments Hospital Follow Up 12/22/2020 Encounter Details Date Type Department Care Team (Late st Contact Info) Description 12/22/2020 Hospital Follow-up Call [facility] [address] [place] [address] Ewa Thomson RN Hospital Follow [...] COVID-19? No / Unsure 12/20/2020 1:01 AM MONEY MARKET CLERK documented as of this encounter Functional Status * RETIRED Are you deaf or do you have serious difficulty hearing Answer Date of Assessment Author Status No 12/20/2020 12:55 AM MONEY MARKET CLERK Acti ve documented as of this encounter Plan of Treatment Not on file documented as of this encounter Visit Diagnoses Not on filedocumented in this encounter Additional Health Concerns Infection Onset Date Last Indicated Resolved Time COVID-19 Rule Out 12/30/2020 12/30/2020 12/30/2020 9:05 PM MONEY MARKET CLERK COVID-19 Rule Out 12/30/2020 12/30/2020 12/31/2020 11:04 PM MONEY MARKET CLERK COVID-19 Confirmed 12/30/2020 12/30/2020 12:32 AM MONEY MARKET CLERK Assessment Noted Time PHQ-9 Depression Total Score: 019 10:28 AM CDT documented as of this encounter Care Teams Health Education Assistant Relationship Specialty [place] [address] [place] [address] PCP - General FAMILY PRACTICE 02/27/18 07/25/21 Breana Renteria FNP [address] [place] [address] PCP - General NURSE PRACTITIONER 07/26/21 01/06/22 None, MD Katy PCP - General UNKNOWN PHYSICIAN SPECIALTY 01/07/22 Jacob Galvan DO [address] [place] [address] PCP - General FAMILY PRACTICE 06/16/22 documented as of this encounter
--- OUTSIDE RECORDS SUMMARY | 2024-06-06 12:42 | XMS_ITS | Encounter Summary ---
Author Organization [facility] Address [address] [place] [address] Care Team Providers Care Sightseeing Guide Name Role Phone Manan Etienne MD Primary Care Provider [phone] Breana Renteria Primary Care Provider [phone] None, Provider Primary Care Provider Jacob Rao DO Primary Care Provider [phone] Encounter Details Date Type Department Care Team (Late st Contact Info) Description 01/18/2013 Abstract [facility] CONVERSION [address] [place], [place] [id number] , Generic Conversion, Social History Tobacco Use [...] Rule Out 12/30/2020 12/30/2020 12/30/2020 9:05 PM 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 COVID-19 Rule Out 12/30/2020 12/30/2020 12/31/2020 11:04 PM FURNITURE PAINTER COVID-19 Confirmed 12/30/2020 12/30/2020 12:32 AM FURNITURE PAINTER documented as of this encounter Care Teams Sightseeing Guide Relationship Specialty [place] [address] [place] [address] PCP - General FAMILY PRACTICE 02/27/18 07/25/21 Breana Renteria FNP [address] [place] [address] PCP - General NURSE PRACTITIONER 07/26/21 01/06/22 None, Provider, PCP - General UNKNOWN PHYSICIAN SPECIALTY 01/07/22 Jacob Galvan DO [address] [place] [address] PCP - General FAMILY PRACTICE 06/16/22 documented as of this encounter
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
--- OUTSIDE RECORDS SUMMARY | 2024-06-06 12:42 | XMS_ITS | Referral Summary ---
Author Organization [facility] Address [address] [place] [address] Care Team Providers Care Laser Engraver Name Role Phone Dhruv Byrd MD Primary Care Provider [phone] Allergies Active Allergy Reactions Criticality Noted Date [...] on file Legal Sex Female 10:28 PM RESEARCH RECRUITER Gender Identity Not on file Sexual Orientation [...] Plan of Treatment Not on file Insurance [facility] [place] [id number] [facility] [address] [place] [phone] Care Teams Laser Engraver Relationship Specialty Start Date End Date Dhruv Byrd MD PCP - General Family Medicine 04/21/20
[2024-06-06 13:11] LABS: Add Urine Microscopic? NO; Appearance Urine Clear (Clear); Bilirubin Urine Negative (Negative); Blood Urine Negative (Negative); Color Urine Yellow (Yellow); Glucose Urine UA Negative (Negative); Ketones Urine Negative (Negative); Leukocyte Esterase Ur Negative LEU/UL (Negative); Nitrate Urine Negative (Negative); Protein Urine Negative (Negative); Specific Grav Ur 1.007 (1.001-1.035); Urobilinogen Urine 0.2 mg/dL (<2.0); pH Urine 6.5 (5.0-9.0)
[2024-06-06 13:14] LABS: Basophils Percent Auto 0.6 % (0.2-1.2); Eosinophils Percent Auto 0.5 % (0-4.4); Hematocrit 42.7 % (37.0-47.0); Hemoglobin 14.2 g/dL (12.0-15.0); Immature Granulocyte Absolute 0.01 K/mm3 (0.00-0.031); Immature Granulocyte Percent A 0.2 % (0-0.5); Lymphocytes Absolute Auto 2.41 K/mm3 (0.9-3.2); Lymphocytes Percent Auto 36.2 % (18.3-44.2); Mean Corpuscular HGB Conc 33.3 g/dl (32-36); Mean Corpuscular Hemoglobin 30.5 pg (26-34); Mean Corpuscular Volume 91.8 fl (80-100); Mean Platelet Volume 10.5 fl (7.4-10.4); Monocytes Absolute Auto 0.4 K/mm3 (0.1-0.6); Monocytes Percent Auto 5.9 % (2.6-8.5); Neutrophils Absolute Auto 3.8 K/mm3 (1.3-6.7); Neutrophils Percent Auto 56.6 % (45.5-73.1); Platelet Count Result 227 k/mm3 (150-375); Red Blood Count 4.65 M/mm3 (4.2-5.4); Red Cell Distribution Width 12.1 % (11.5-14.5); White Blood Count 6.7 K/mm3 (4.5-10.0)
[2024-06-06 13:21] LABS: Pregnancy On Board Control Positive; Urine Pregnancy Test Negative
[2024-06-06 13:22] LABS: Alanine Aminotransferase 15 U/L (6-35); Albumin Level 5.1 g/dL (3.5-5.1); Alkaline Phosphatase 67 U/L (38-126); Anion Gap 12 mmol/L (4-12); Aspartate Amino Transferase 19 U/L (14-36); Bilirubin,Total 0.8 mg/dL (0.2-1.3); Blood Urea Nitrogen 6 mg/dL (7-17); Calcium 9.5 mg/dL (8.4-10.2); Carbon Dioxide 21 mmol/L (22-30); Chloride 108 mmol/L (98-107); Estimated CRCL calculation 74 ml/min; Estimated Glomerular Filt Rate > 60; Glucose 88 mg/dL (65-110); Lipase 45 U/L (23-300); Potassium 3.5 mmol/L (3.4-5.0); Sodium 141 mmol/L (137-145)
[2024-06-06 13:48] VITALS: BP 119/81; PULSE 87; RESP 15; O2SAT 100
[2024-06-06] MEDS: diphenhydrAMINE HCl INJ 50 MG/ML VIAL 25 MG IV PUSH (13:49)
[2024-06-06] MEDS: SODIUM CHLORIDE 0.9% IV 1,000 ML 999 ML IV CONT (13:49)
[2024-06-06] MEDS: METOCLOPRAMIDE HCL INJ 10 MG/2 ML VIAL IV PUSH (13:50)
[2024-06-06] MEDS: KETOROLAC 30 MG/ML VIAL (*BKC) IV PUSH (13:51)
[2024-06-06 14:10] VITALS: BP 113/76; PULSE 68; RESP 15; O2SAT 100
--- OUTSIDE RECORDS SUMMARY | 2024-06-06 14:16 | XMS_ITS | Encounter Summary ---
Author Organization [facility] Address [address] [place] [address] Care Team Providers Care Motel Manager Name Role Phone Manan Etienne MD Primary Care Provider [phone] Breana Renteria Primary Care Provider [phone] None, Provider Primary Care Provider Jacob Rao DO Primary Care Provider [phone] Encounter Details Date Type Department Care Team (Late st Contact Info) Description 07/20/2019 MyChart Message Enc [facility] Medical Group Family & Internal Medicine [address] [address] Manan Etienne MD [address] [place] [address] RE: Medication Questions Social History Tobacco [...] Rule Out 12/30/2020 12/30/2020 12/30/2020 9:05 PM MANAGER CONTRACTING COVID-19 Rule Out 12/30/2020 12/30/2020 12/31/2020 11:04 PM MANAGER CONTRACTING COVID-19 Confirmed 12/30/2020 12/30/2020 12:32 AM MANAGER CONTRACTING Assessment Noted Time PHQ-9 Depression Total Score: 019 10:28 AM CDT documented as of this encounter Care Teams Motel Manager Relationship Specialty [place] [address] [place] [address] PCP - General FAMILY PRACTICE 02/27/18 07/25/21 Breana Renteria FNP [address] [place] [address] PCP - General NURSE PRACTITIONER 07/26/21 01/06/22 None, Provider, PCP - General UNKNOWN PHYSICIAN SPECIALTY 01/07/22 Jacob Galvan DO [address] [place] [address] PCP - General FAMILY PRACTICE 06/16/22 documented as of this encounter
--- OUTSIDE RECORDS SUMMARY | 2024-06-06 14:16 | XMS_ITS | Encounter Summary ---
Author Organization [facility] Address [address] [place] [address] Care Team Providers Care Property Assessment Monitor Name Role Phone Myra, Breana Gorman APRN-FIRE EQUIPMENT OPERATOR Primary Care Provider Jacob Galvan DO Primary Care Provider [phone] Reason for Visit * Reason Onset Date Comments MEDICATION REFILL 03/01/2022 Encounter Details Date Type Department Care Team (Late st Contact Info) Description 03/01/2022 Refill [facility] [address] [place] [address], [place] [address] Andre Farah MD [address] [place] [phone] MEDICATION REFILL Social History Tobacco Use Types Packs/Day Years Used Date Smoking Tobacco: Former Cigarettes 0.5 9 1 03/23/2009 - 01/20/2019 Smokeless Tobacco: Never Alcohol Use Standard Drinks/Week Comments No 0 (1 standard drink = 0.6 oz pur e alcohol) Comments No Sex and Gender Information Value Date Recorded Sex Assigned at Not on file Legal Sex Female 5:35 PM CATTLE KILLER Gender Identity Not on file Sexual Orientation Not on file 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 Not on file Not [...] Disp: 15 # of refills: 3 LE KILLER documented in this encounter Plan of Treatment Upcoming Encounters Date Type Department Care Team (Late st Contact Info) Description 06/11/2024 1:00 PM CDT Office Visit [facility] - Neurology [address] [place] [address], [place] [phone] Jhonathan Subramanian APRN-MEMO [address] [place] [address] [place] [address] documented as of this encounter Visit Diagnoses Diagnosis Fibromyalgia Mylagia and myositis, unspecified documented in this encounter Care Teams Property Assessment Monitor Relationship Specialty Start Date End Date Breana Renteria APRN-MEMO [address] [place] [address] PCP - General 05/05/20 05/08/23 Jacob Galvan DO [address] [place] [address] PCP - General Family Medicine 05/09/23 documented as of this encounter
--- OUTSIDE RECORDS SUMMARY | 2024-06-06 14:16 | XMS_ITS | Encounter Summary ---
Author Organization [facility] Address [address] [facility] [address] Care Team Providers Care Durable Medical Equipment Repairer Name Role Phone Cole Jacob LOPEZ Primary Care Provider [phone] Reason for Visit * Reason Onset Date Comments MEDICATION REFILL 01/20/2024 Encounter Details Date Type Department Care Team (Late st Contact Info) Description 01/20/2024 Refill [facility] - Neurology [address] [place] [address], [place] [phone] Jhonathan Subramanian, TURN LASTER-MINESWEEPING OFFICER [address] [place] [phone] MEDICATION REFILL Social History Tobacco Use Types Packs/Day Years Used Date Smoking Tobacco: Former Cigarettes 0.5 9 1 03/23/2009 - 01/20/2019 Smokeless Tobacco: Never Alcohol Use Standard Drinks/Week Comments No 0 (1 standard drink = 0.6 oz pur e alcohol) Comments No Sex and Gender Information Value Date Recorded Sex Assigned at Not on file Legal Sex Female 5:35 PM MANUFACTURING WORKER Gender Identity Not on file Sexual Orientation Not on file 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 file Not on file Not [...] Assessment Author No 05/16/2019 4:55 AM Sumi Oliviera RN * Does person have difficulty doing [...] Office Visit [facility]rology [address] [place] [address], [facility] [place] [address] Jhonathan Subramanian, TURN LASTER-MINESWEEPING OFFICER [address] [place] [address] [place] [phone] documented as of this encounter Visit Diagnoses Diagnosis Chronic migraine without aura, intractable, without status migrainosus Migraine without aura and without status migrainosus, not intractable Migraine without aura, without mention of intractable migraine without mention of status migrainosus documented in this encounter Care Teams Durable Medical Equipment Repairer Relationship Specialty Start Date End Date Jacob Galvan DO [address] [place] [address] PCP - General Family Medicine 05/09/23 documented as of this encounter
--- OUTSIDE RECORDS SUMMARY | 2024-06-06 14:16 | XMS_ITS | Encounter Summary ---
Author Organization [facility] Address [address] [place] [address] Care Team Providers Care Physical Education Professor Name Role Phone Myra Breana Gorman APRN-YIELD LOSS INSPECTOR Primary Care Provider Jacob Galvan DO Primary Care Provider [phone] Reason for Visit * Reason Onset Date Comments MEDICATION REFILL 12/22/2022 Encounter Details Date Type Department Care Team (Late st Contact Info) Description 12/22/2022 Refill [facility] - Neurology [address] [place] [address], [place] [address] Andre Farah MD [address] [place] [address] [place] [phone] MEDICATION REFILL Social History Tobacco Use Types Packs/Day Years Used Date Smoking Tobacco: Former Cigarettes 0.5 9 1 03/23/2009 - 01/20/2019 Smokeless Tobacco: Never Alcohol Use Standard Drinks/Week Comments No 0 (1 standard drink = 0.6 oz pur e alcohol) Comments No Sex and Gender Information Value Date Recorded Sex Assigned at Not on file Legal Sex Female 5:35 PM HOUSEKEEPER/LAUNDRY ASSISTANT Gender Identity Not on file Sexual Orientation Not on file 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 Not on file Not [...] 2 tablets a day) # refills: 0 EKEEPER/LAUNDRY ASSISTANT documented in this encounter Plan of Treatment Upcoming Encounters Date Type Department Care Team (Late st Contact Info) Description 06/11/2024 1:00 PM CDT Office Visit [facility] - Neurology [address] [place] [address] [place] [phone] Jhonathan Subramanian APRN-CNP [address] [place] [address] [place] [address] documented as of this encounter Visit Diagnoses Diagnosis Migraine without aura and without status migrainosus, not intractable Migraine without aura, without mention of intractable migraine without mention of status migrainosus documented in this encounter Care Teams Physical Education Professor Relationship Specialty Start Date End Date Breana Renteria APRN-CNP [address] [place] [address] PCP - General 05/05/20 05/08/23 Jacob Galvan DO [address] [place] [address] PCP - General Family Medicine 05/09/23 documented as of this encounter
--- OUTSIDE RECORDS SUMMARY | 2024-06-06 14:16 | XMS_ITS | Encounter Summary ---
Author Organization [facility] Address [address] [place] [address] Care Team Providers Care Sample Tailor Name Role Phone Breana Renteria Primary Care Provider Jacob Galvan DO Primary Care Provider [phone] Reason for Visit * Reason Onset Date Comments MEDICATION REFILL 07/09/2022 Encounter Details Date Type Department Care Team (Late st Contact Info) Description 07/09/2022 Refill [facility] [address] [place] [address], [place] [address] Jhonathan Subramanian APRN-CNP [address] [place] [phone] MEDICATION REFILL Social History Tobacco Use Types Packs/Day Years Used Date Smoking Tobacco: Former Cigarettes 0.5 9 1 03/23/2009 - 01/20/2019 Smokeless Tobacco: Never Alcohol Use Standard Drinks/Week Comments No 0 (1 standard drink = 0.6 oz pur e alcohol) Comments No Sex and Gender Information Value Date Recorded Sex Assigned at Not on file Legal Sex Female 5:35 PM REGENERATION OPERATOR Gender Identity Not on file Sexual Orientation Not on file 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 Not on file Not [...] Office Visit [facility] - Neurology [address] [place] [address], [place] [address] Jhonathan Subramanian APRN-CNP [address] [place] [phone] documented as of this encounter Visit Diagnoses Diagnosis Fibromyalgia Mylagia and myositis, unspecified documented in this encounter Care Teams Sample Tailor Relationship Specialty Start Date End Date Breana Renteria APRN-CNP [address] [place] [address] PCP - General 05/05/20 05/08/23 Jacob Galvan DO [address] [place] [address] PCP - General Family Medicine 05/09/23 documented as of this encounter
--- OUTSIDE RECORDS SUMMARY | 2024-06-06 14:16 | XMS_ITS | Encounter Summary ---
Author Organization [facility] Address [address] [place] [address] Care Team Providers Care Technical Service Specialist Name Role Phone Manan Etienne MD Primary Care Provider [phone] Breana Renteria Primary Care Provider [phone] None, Provider Primary Care Provider Jacob Rao DO Primary Care Provider [phone] Encounter Details Date Type Department Care Team (Late st Contact Info) Description 07/23/2019 MyChart Message Enc [facility] Medical Group Family & Internal Medicine [address] [address] Manan Etienne MD [address] [place] [address] Medication Questions Social History Tobacco Use [...] Rule Out 12/30/2020 12/30/2020 12/30/2020 9:05 PM BIOINFORMATICS SCIENTIST COVID-19 Rule Out 12/30/2020 12/30/2020 12/31/2020 11:04 PM BIOINFORMATICS SCIENTIST COVID-19 Confirmed 12/30/2020 12/30/2020 12:32 AM BIOINFORMATICS SCIENTIST Assessment Noted Time PHQ-9 Depression Total Score: 019 10:28 AM CDT documented as of this encounter Care Teams Technical Service Specialist Relationship Specialty [place] [address] [place] [address] PCP - General FAMILY PRACTICE 02/27/18 07/25/21 Breana Renteria FNP [address] [place] [address] PCP - General NURSE PRACTITIONER 07/26/21 01/06/22 None, Provider, PCP - General UNKNOWN PHYSICIAN SPECIALTY 01/07/22 Jacob Galvan DO [address] [place] [address] PCP - General FAMILY PRACTICE 06/16/22 documented as of this encounter
--- OUTSIDE RECORDS SUMMARY | 2024-06-06 14:16 | XMS_ITS | Encounter Summary ---
Author Organization [facility] Address [address] [place] [address] Care Team Providers Care Laser Beam Trim Operator Name Role Phone Myra Breana Gorman APRN-INDEPENDENT CROP CONSULTANT Primary Care Provider Jacob Galvan DO Primary Care Provider [phone] Reason for Visit * Reason Onset Date Comments MEDICATION REFILL 06/11/2022 Encounter Details Date Type Department Care Team (Late st Contact Info) Description 06/11/2022 Refill [facility] [address] [place] [address], [place] [address] Andre Farah MD [address] [place] [phone] MEDICATION REFILL Social History Tobacco Use Types Packs/Day Years Used Date Smoking Tobacco: Former Cigarettes 0.5 9 1 03/23/2009 - 01/20/2019 Smokeless Tobacco: Never Alcohol Use Standard Drinks/Week Comments No 0 (1 standard drink = 0.6 oz pur e alcohol) Comments No Sex and Gender Information Value Date Recorded Sex Assigned at Not on file Legal Sex Female 5:35 PM DIRECTOR OF ASSESSING Gender Identity Not on file Sexual Orientation Not on file 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 Not on file [...] Office Visit [facility] - Neu[facility] [address] [place] [address], [place] [phone] Jhonathan Subramanian, SWITCHBOARD INSPECTOR-INDEPENDENT CROP CONSULTANT [address] [place] [address] [place] [phone] documented as of this encounter Visit Diagnoses Diagnosis Fibromyalgia Mylagia and myositis, unspecified documented in this encounter Care Teams Laser Beam Trim Operator Relationship Specialty Start Date End Date Breana Renteria, SWITCHBOARD INSPECTOR-INDEPENDENT CROP CONSULTANT [address] [place] [address] PCP - General 05/05/20 05/08/23 Jacob Galvan DO [address] [place] [address] PCP - General Family Medicine 05/09/23 documented as of this encounter
--- OUTSIDE RECORDS SUMMARY | 2024-06-06 14:17 | XMS_ITS | Encounter Summary ---
Author Organization [facility] Address [address] [place] [address] Care Team Providers Care Creative Resource Manager Name Role Phone Manan Etienne MD Primary Care Provider [phone] Breana Renteria Primary Care Provider [phone] None, Provider Primary Care Provider Jacob Rao DO Primary Care Provider [phone] Reason for Visit * Reason Onset Date Comments Hospital Follow Up 12/22/2020 Encounter Details Date Type Department Care Team (Late st Contact Info) Description 12/22/2020 Hospital Follow-up Call [facility] [address] [place] [address] Ewa Thomson RN Hospital Follow [...] COVID-19? No / Unsure 12/20/2020 1:01 AM PRODUCT DISTRIBUTION SPECIALIST documented as of this encounter Functional Status * RETIRED Are you deaf or do you have serious difficulty hearing Answer Date of Assessment Author Status No 12/20/2020 12:55 AM PRODUCT DISTRIBUTION SPECIALIST Acti ve documented as of this encounter Plan of Treatment Not on file documented as of this encounter Visit Diagnoses Not on filedocumented in this encounter Additional Health Concerns Infection Onset Date Last Indicated Resolved Time COVID-19 Rule Out 12/30/2020 12/30/2020 12/30/2020 9:05 PM PRODUCT DISTRIBUTION SPECIALIST COVID-19 Rule Out 12/30/2020 12/30/2020 12/31/2020 11:04 PM PRODUCT DISTRIBUTION SPECIALIST COVID-19 Confirmed 12/30/2020 12/30/2020 12:32 AM PRODUCT DISTRIBUTION SPECIALIST Assessment Noted Time PHQ-9 Depression Total Score: 019 10:28 AM CDT documented as of this encounter Care Teams Creative Resource Manager Relationship Specialty [place] [address] [place] [address] PCP - General FAMILY PRACTICE 02/27/18 07/25/21 Breana Renteria FNP [address] [place] [address] PCP - General NURSE PRACTITIONER 07/26/21 01/06/22 None, MD [place] PCP - General UNKNOWN PHYSICIAN SPECIALTY 01/07/22 Jacob Galvan DO [address] [place] [address] PCP - General FAMILY PRACTICE 06/16/22 documented as of this encounter
--- OUTSIDE RECORDS SUMMARY | 2024-06-06 14:17 | XMS_ITS | Clinical Summary ---
Author Organization [facility] Feedback[facility]Machine Address [address] [place] [address] Care Team Providers Care Clerical Grader Name Role Phone Jacob Galvan DO Primary Care Provider [phone] Source Comments [facility],non-owned Affiliates and Associated Physician Practices is amultiple site organization consisting of ambulatory clinics and hospital sitesin [place], [place], [place] and [place]. This disclosure is being madepursuant to the Care Everywhere program and may not contain all information available regarding this patient. Last updated 17.[facility] Allergies Active Allergy Reactions Criticality Noted Date [...] fluticasone propionate (FLONASE) 50 MCG/ACT nasal spray [place] 1 (one) spray into the nose every [...] Telephone [facility] [address] [place] [phone] Jhonathan Subramanian, KEY HOLDER-FILTER TANK TENDER Medication Prior Auth Request from Last 3 [...] Disorder Sister 3 Paulette Depression Sister 3 Paultete bipolar Developmental delays Sister 3 Paulette Other [...] on file Legal Sex Female 5:35 PM PROVIDER NETWORK MANAGER Gender Identity Not on file Sexual Orientation Not on file 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 Not on file Not on file Not on file Last Filed Vital Signs Vital Sign Reading Time Taken Comments Blood Pressure 146/71 12/12/2023 1:03 PM PROVIDER NETWORK MANAGER Pulse 68 12/12/2023 1:03 PM PROVIDER NETWORK MANAGER Temperature 36.3 C (97.4 F) 12/12/2023 1:03 PM PROVIDER NETWORK MANAGER Respiratory Rate 18 05/21/2019 1:36 PM CDT Oxygen Saturation 99% 12/12/2023 1:03 PM PROVIDER NETWORK MANAGER Inhaled Oxygen Concentration - - Weight 50.8 kg (112 lb) 12/12/2023 1:03 PM PROVIDER NETWORK MANAGER Height 160 cm (5' 3 ) 12/12/2023 1:03 PM PROVIDER NETWORK MANAGER Body Mass Index 19.84 12/12/2023 1:03 PM PROVIDER NETWORK MANAGER Plan of Treatment Upcoming Encounters Date Type Department Care Team (Late st Contact Info) Description 06/11/2024 1:00 PM CDT Office Visit [facility] [address] [place] [address], [place] [phone] Jhonathan Subramanian, KEY HOLDER-FILTER TANK TENDER [address] [place] [phone] Health Maintenance Due Date Last Done [...] HIV-1 HIV-2 ANTIGEN/ANTIBODY STAT 12/19/2018 2:21 PM PROVIDER NETWORK MANAGER from Last 3 Months or Most Recently Relevant to Health Maintenance Results * HIV-1 HIV-2 ANTIGEN/ANTIBODY (12/19/2018 2:21 PM PROVIDER NETWORK MANAGER) HIV Antigen/Antibod y 1 & 2 Non-reacti ve Non-react michel 12/19/2018 3:27 PM PROVIDER NETWORK MANAGER [facility] Comment: Neither HIV-1 p24 Antigen nor HIV-1/HIV-2 Antibodies are detected. Blood BLOOD SPECIMEN / Unknown Venipuncture / Unknown 12/19/2018 2:21 PM PROVIDER NETWORK MANAGER 12/19/2018 2:40 PM PROVIDER NETWORK MANAGER us Carmella Box MD LAB - HEMATOLOGY ORDERABLES Final Result [facility] [address] [phone] from Last 3 Months or Most Recently Relevant to Health Maintenance Insurance [facility] [employer] Liability Advance Directives * Full Code (Latest Code Status on File) Date Activated Date Inactivated Comments 05/16/2019 2:31 AM 05/21/2019 4:18 PM * Full Code Date Activated Date Inactivated Comments 08/23/2017 5:14 AM 08/24/2017 6:05 PM * Full Code Date Activated Date Inactivated Comments 08/23/2017 4:24 AM 08/23/2017 5:14 AM Care Teams Clerical Grader Relationship Specialty Start Date End Date Jacob Galvan DO [address] [place] [address] PCP - General Family Medicine 05/09/23
--- OUTSIDE RECORDS SUMMARY | 2024-06-06 14:17 | XMS_ITS | Clinical Summary ---
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
--- OUTSIDE RECORDS SUMMARY | 2024-06-06 14:17 | XMS_ITS | Referral Summary ---
Author Organization [facility] Address [address] [place] [address] Care Team Providers Care Conditioning Room Worker Name Role Phone Dhruv Byrd MD Primary Care Provider [phone] Allergies Active Allergy Reactions Criticality Noted Date [...] on file Legal Sex Female 10:28 PM FIRE CONTROL MECHANIC Gender Identity Not on file Sexual Orientation [...] Plan of Treatment Not on file Insurance [place] [id number] [facility] [address] [place] [phone] Care Teams Conditioning Room Worker Relationship Specialty Start Date End Date Dhruv Byrd MD PCP - General Family Medicine 04/21/20
--- OUTSIDE RECORDS SUMMARY | 2024-06-06 14:17 | XMS_ITS | Encounter Summary ---
Author Organization [facility] Address [address] [place] [address] Care Team Providers Care Fretted Instruments Inspector Name Role Phone Manan Etienne MD Primary Care Provider [phone] Breana Renteria Primary Care Provider [phone] None, Provider Primary Care Provider Jacob Rao DO Primary Care Provider [phone] Encounter Details Date Type Department Care Team (Late st Contact Info) Description 01/18/2013 Abstract [facility] CONVERSION [address] [place], [place] [id number] , Generic Conversion, Social History Tobacco Use [...] Rule Out 12/30/2020 12/30/2020 12/30/2020 9:05 PM SINGLE STAYER OPERATOR COVID-19 Rule Out 12/30/2020 12/30/2020 12/31/2020 11:04 PM SINGLE STAYER OPERATOR COVID-19 Confirmed 12/30/2020 12/30/2020 12:32 AM SINGLE STAYER OPERATOR documented as of this encounter Care Teams Fretted Instruments Inspector Relationship Specialty [place] [address] [place] [address] PCP - General FAMILY PRACTICE 02/27/18 07/25/21 Breana Renteria FNP [address] [place] [address] PCP - General NURSE PRACTITIONER 07/26/21 01/06/22 None, Provider, PCP - General UNKNOWN PHYSICIAN SPECIALTY 01/07/22 Jacob Galvan DO [address] [place] [address] PCP - General FAMILY PRACTICE 06/16/22 documented as of this encounter
[2024-06-06 14:39] VITALS: BP 106/55; PULSE 57; RESP 14; O2SAT 100
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
== END 2024-06-06 16:11 | disposition home or self-care (01) ==
PROVIDERS: Emergency Provider Emergency Medicine; PCP Family Medicine
DX: G43.909 Migraine, unspecified, not intractable, without status migrainosus (principal); E28.2 Polycystic ovarian syndrome; M79.7 Fibromyalgia; F43.10 Post-traumatic stress disorder, unspecified; F41.9 Anxiety disorder, unspecified; F32.A Depression, unspecified; F17.290 Nicotine dependence, other tobacco product, uncomplicated; Z90.49 Acquired absence of other specified parts of digestive tract; Z79.899 Other long term (current) drug therapy
CPT/HCPCS: 36415; 80053; 81003; 81025; 83690; 85025; 96361; 96374; 96375; 99284; J1200; J1885; J2765; J7030

== ENCOUNTER 2024-06-11 09:27 | Outpatient (CLI) | payer OTHER, SELFPAY ==
--- OUTSIDE RECORDS SUMMARY | 2024-06-11 10:04 | XMS_ITS | Referral Summary ---
Author Organization [facility] Address [address] [place] [address] Care Team Providers Care Pocket Creaser Name Role Phone Dhruv Byrd MD Primary Care Provider [phone] Allergies Active Allergy Reactions Criticality Noted Date [...] on file Legal Sex Female 10:28 PM MORPHOLOGIST Gender Identity Not on file Sexual Orientation [...] Plan of Treatment Not on file Insurance [facility] [id number] [facility] [address] [place] [phone] Care Teams Pocket Creaser Relationship Specialty Start Date End Date Dhruv Byrd MD PCP - General Family Medicine 04/21/20
--- OUTSIDE RECORDS SUMMARY | 2024-06-11 10:04 | XMS_ITS | Encounter Summary ---
Author Organization [facility] Address [address] [place] [address] Care Team Providers Care Package Liner Name Role Phone Myra Breana Gorman APRN-MECHANICAL TEST TECHNICIAN Primary Care Provider Jacob Galvan DO Primary Care Provider Reason for Visit * Reason Onset Date Comments MEDICATION REFILL 12/22/2022 Encounter Details Date Type Department Care Team (Late st Contact Info) Description 12/22/2022 Refill [facility] [address] [place] [address], [place] [address] Andre Farah MD [address] [place] [address] [place] [phone] MEDICATION REFILL Social History Tobacco Use Types Packs/Day Years Used Date Smoking Tobacco: Former Cigarettes 0.5 9 1 03/23/2009 - 01/20/2019 Smokeless Tobacco: Never Alcohol Use Standard Drinks/Week Comments No 0 (1 standard drink = 0.6 oz pur e alcohol) Comments No Sex and Gender Information Value Date Recorded Sex Assigned at Not on file Legal Sex Female 5:35 PM NETWORK PROGRAM MANAGER Gender Identity Not on file Sexual Orientation Not on file 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 Not on fi le Care Associate Not on file Not on file Not [...] 2 tablets a day) # refills: 0 ORK PROGRAM MANAGER documented in this encounter Plan of Treatment Upcoming Encounters Date Type Department Care Team (Late st Contact Info) Description 06/11/2024 1:00 PM CDT Office Visit [facility] - Neurology [address] [place] [address] [place] [phone] Jhonathan Subramanian APRN-CNP [address] [place] [address] [place] [address] documented as of this encounter Visit Diagnoses Diagnosis Migraine without aura and without status migrainosus, not intractable Migraine without aura, without mention of intractable migraine without mention of status migrainosus documented in this encounter Care Teams Package Liner Relationship Specialty Start Date End Date Breana Renteria APRN-CNP [address] [place] [address] PCP - General 05/05/20 05/08/23 Jacob Galvan DO [address] [place] [address] PCP - General Family Medicine 05/09/23 documented as of this encounter
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
--- OUTSIDE RECORDS SUMMARY | 2024-06-11 10:04 | XMS_ITS | Encounter Summary ---
Author Organization [facility] Address [address] [place] [address] Care Team Providers Care Technicians And Trades Workers Name Role Phone Manan Etienne MD Primary Care Provider [phone] Breana Renteria Primary Care Provider [phone] None, Provider Primary Care Provider Jacob Rao DO Primary Care Provider [phone] Encounter Details Date Type Department Care Team (Late st Contact Info) Description 07/20/2019 MyChart Message Enc [facility] Medical Group Family & Internal Medicine [address] [address] Manan Etienne MD [address] [place] [address] RE: Medication Questions Social History Tobacco [...] Rule Out 12/30/2020 12/30/2020 12/30/2020 9:05 PM CIVIL RIGHTS REPRESENTATIVE COVID-19 Rule Out 12/30/2020 12/30/2020 12/31/2020 11:04 PM CIVIL RIGHTS REPRESENTATIVE COVID-19 Confirmed 12/30/2020 12/30/2020 12:32 AM CIVIL RIGHTS REPRESENTATIVE Assessment Noted Time PHQ-9 Depression Total Score: 019 10:28 AM CDT documented as of this encounter Care Teams Technicians And Trades Workers Relationship Specialty [place] [address] [place] [address] PCP - General FAMILY PRACTICE 02/27/18 07/25/21 Breana Renteria FNP [address] [place] [address] PCP - General NURSE PRACTITIONER 07/26/21 01/06/22 None, Provider, PCP - General UNKNOWN PHYSICIAN SPECIALTY 01/07/22 Jacob Galvan DO [address] [place] [address] PCP - General FAMILY PRACTICE 06/16/22 documented as of this encounter
--- OUTSIDE RECORDS SUMMARY | 2024-06-11 10:04 | XMS_ITS | Encounter Summary ---
Author Organization [facility] Address [address] [place] [address] Care Team Providers Care Sand Worker Name Role Phone Manan Etienne MD Primary Care Provider [phone] Breana Renteria Primary Care Provider [phone] None, Provider Primary Care Provider Jacob Rao DO Primary Care Provider [phone] Encounter Details Date Type Department Care Team (Late st Contact Info) Description 01/18/2013 Abstract [facility] CONVERSION [address] [place], [place] [id number] , Generic Conversion, Social History Tobacco Use [...] Rule Out 12/30/2020 12/30/2020 12/30/2020 9:05 PM BLOCKER AND SEWER COVID-19 Rule Out 12/30/2020 12/30/2020 12/31/2020 11:04 PM BLOCKER AND SEWER COVID-19 Confirmed 12/30/2020 12/30/2020 12:32 AM BLOCKER AND SEWER documented as of this encounter Care Teams Sand Worker Relationship Specialty [place] [address] [place] [address] PCP - General FAMILY PRACTICE 02/27/18 07/25/21 Breana Renteria FNP [address] [place] [address] PCP - General NURSE PRACTITIONER 07/26/21 01/06/22 None, Provider, PCP - General UNKNOWN PHYSICIAN SPECIALTY 01/07/22 Jacob Galvan DO [address] [place] [address] PCP - General FAMILY PRACTICE 06/16/22 documented as of this encounter
--- OUTSIDE RECORDS SUMMARY | 2024-06-11 10:04 | XMS_ITS | Encounter Summary ---
Author Organization [facility] Address [address] [place] [address] Care Team Providers Care Yard Clerk Name Role Phone Myra, Breana Gorman APRN-DIGITAL CONTENT MANAGER Primary Care Provider Jacob Galvan DO Primary Care Provider [phone] Reason for Visit * Reason Onset Date Comments MEDICATION REFILL 03/01/2022 Encounter Details Date Type Department Care Team (Late st Contact Info) Description 03/01/2022 Refill [facility] [address] [place] [address], [place] [address] Andre Farah MD [address] [place] [phone] MEDICATION REFILL Social History Tobacco Use Types Packs/Day Years Used Date Smoking Tobacco: Former Cigarettes 0.5 9 1 03/23/2009 - 01/20/2019 Smokeless Tobacco: Never Alcohol Use Standard Drinks/Week Comments No 0 (1 standard drink = 0.6 oz pur e alcohol) Comments No Sex and Gender Information Value Date Recorded Sex Assigned at Not on file Legal Sex Female 5:35 PM SENIOR SUPPLY CHAIN ANALYST Gender Identity Not on file Sexual Orientation Not on file 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 on file Not on file Not [...] Qty Disp: 15 # of refills: 3 OR SUPPLY CHAIN ANALYST documented in this encounter Plan of Treatment Upcoming Encounters Date Type Department Care Team (Late st Contact Info) Description 06/11/2024 1:00 PM CDT Office Visit [facility] - Neurology [address] [place] [address], [place] [phone] Jhonathan Subramanian APRN-MEMO [address] [place] [address] [place] [address] documented as of this encounter Visit Diagnoses Diagnosis Fibromyalgia Mylagia and myositis, unspecified documented in this encounter Care Teams Yard Clerk Relationship Specialty Start Date End Date Breana Renteria APRN-MEMO [address] [place] [address] PCP - General 05/05/20 05/08/23 Jacob Galvan DO [address] [place] [address] PCP - General Family Medicine 05/09/23 documented as of this encounter
--- OUTSIDE RECORDS SUMMARY | 2024-06-11 10:04 | XMS_ITS | Encounter Summary ---
Author Organization [facility] Address [address] [place] [address] Care Team Providers Care Black Leather Trimmer Name Role Phone Manan Etienne MD Primary Care Provider [phone] Breana Renteria Primary Care Provider [phone] None, Provider Primary Care Provider Jacob Rao DO Primary Care Provider [phone] Reason for Visit * Reason Onset Date Comments Hospital Follow Up 12/22/2020 Encounter Details Date Type Department Care Team (Late st Contact Info) Description 12/22/2020 Hospital Follow-up Call [facility] [address] [place] [address] Ewa Thomson RN Hospital Follow [...] COVID-19? No / Unsure 12/20/2020 1:01 AM PARTS PRODUCT ANALYST documented as of this encounter Functional Status * RETIRED Are you deaf or do you have serious difficulty hearing Answer Date of Assessment Author Status No 12/20/2020 12:55 AM PARTS PRODUCT ANALYST Acti ve documented as of this encounter Plan of Treatment Not on file documented as of this encounter Visit Diagnoses Not on filedocumented in this encounter Additional Health Concerns Infection Onset Date Last Indicated Resolved Time COVID-19 Rule Out 12/30/2020 12/30/2020 12/30/2020 9:05 PM PARTS PRODUCT ANALYST COVID-19 Rule Out 12/30/2020 12/30/2020 12/31/2020 11:04 PM PARTS PRODUCT ANALYST COVID-19 Confirmed 12/30/2020 12/30/2020 12:32 AM PARTS PRODUCT ANALYST Assessment Noted Time PHQ-9 Depression Total Score: 019 10:28 AM CDT documented as of this encounter Care Teams Black Leather Trimmer Relationship Specialty [place] [address] [place] [address] PCP - General FAMILY PRACTICE 02/27/18 07/25/21 Breana Renteria FNP [address] [place] [address] PCP - General NURSE PRACTITIONER 07/26/21 01/06/22 None, MD [place] PCP - General UNKNOWN PHYSICIAN SPECIALTY 01/07/22 Jacob Galvan DO [address] [place] [address] PCP - General FAMILY PRACTICE 06/16/22 documented as of this encounter
--- OUTSIDE RECORDS SUMMARY | 2024-06-11 10:04 | XMS_ITS | Encounter Summary ---
Author Organization [facility] Address [address] [facility] [place] [address] Care Team Providers Care Canteen Manager Name Role Phone Cole Jacob LOPEZ Primary Care Provider [phone] Reason for Visit * Reason Onset Date Comments MEDICATION REFILL 01/20/2024 Encounter Details Date Type Department Care Team (Late st Contact Info) Description 01/20/2024 Refill [facility] [address] [place] [address], [place] [phone] Jhonathan Subramanian, MEDICAL DIAGNOSTIC RADIOGRAPHER-COPRA PROCESSOR [address] [place] [address] MEDICATION REFILL Social History Tobacco Use Types Packs/Day Years Used Date Smoking Tobacco: Former Cigarettes 0.5 9 1 03/23/2009 - 01/20/2019 Smokeless Tobacco: Never Alcohol Use Standard Drinks/Week Comments No 0 (1 standard drink = 0.6 oz pur e alcohol) Comments No Sex and Gender Information Value Date Recorded Sex Assigned at Not on file Legal Sex Female 5:35 PM BOILERMAKER SHIP Gender Identity Not on file Sexual Orientation Not on file 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 Not on file Not [...] Office Visit [facility] - Neurology [address] [place] [address], [facility] [place] [address] Jhonathan Subramanian, MEDICAL DIAGNOSTIC RADIOGRAPHER-COPRA PROCESSOR [address] [place] [address] [place] [phone] documented as of this encounter Visit Diagnoses Diagnosis Chronic migraine without aura, intractable, without status migrainosus Migraine without aura and without status migrainosus, not intractable Migraine without aura, without mention of intractable migraine without mention of status migrainosus documented in this encounter Care Teams Canteen Manager Relationship Specialty Start Date End Date Jacob Galvan DO [address] [place] [address] PCP - General Family Medicine 05/09/23 documented as of this encounter
--- OUTSIDE RECORDS SUMMARY | 2024-06-11 10:04 | XMS_ITS | Clinical Summary ---
Author Organization [facility] Address [address] [facility] [place] [address] Care Team Providers Care Technical Operations Manager Name Role Phone Jacob Galvan DO Primary Care Provider [phone] Source Comments [facility],non-owned Affiliates and Associated Physician Practices is amultiple site organization consisting of ambulatory clinics and hospital sitesin [place], [place] and [place]. This disclosure is being madepursuant to the Care Everywhere program and may not contain all information available regarding this patient. 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 Not on file Not on file Last Filed Vital Signs Vital Sign Reading Time Taken Comments Blood Pressure 146/71 12/12/2023 1:[address] REPORTER Pulse 68 12/12/2023 1:[address] REPORTER Temperature 36.3 C (97.4 F) 12/12/2023 1:[address] REPORTER Respiratory Rate 18 05/21/2019 1:36 PM CDT Oxygen Saturation 99% 12/12/2023 1:[address] REPORTER Inhaled Oxygen Concentration - - Weight 50.8 kg (112 lb) 12/12/2023 1:[address] REPORTER Height 160 cm (5' 3 ) 12/12/2023 1:[address] REPORTER Body Mass Index 19.84 12/12/2023 1:[address] REPORTER Plan of Treatment Upcoming Encounters Date Type Department Care Team (Late st Contact Info) Description 06/11/2024 1:00 PM CDT Office Visit [facility] - Neurology [address] [place] [address], [place] [phone] Jhonathan Subramanian, TREASURY AGENT-FABRIC SEPARATOR OPERATOR [address] [place] [phone] Health Maintenance Due Date Last Done [...] HIV-1 HIV-2 ANTIGEN/ANTIBODY STAT 12/19/2018 2:[address] REPORTER from Last 3 Months or Most Recently Relevant to Health Maintenance Results * HIV-1 HIV-2 ANTIGEN/ANTIBODY (12/19/2018 2:[address] REPORTER) HIV Antigen/Antibod y 1 & 2 Non-reacti ve Non-react michel 12/19/2018 3:[address] REPORTER [facility] Comment: Neither HIV-1 p24 Antigen nor HIV-1/HIV-2 Antibodies are detected. Blood BLOOD SPECIMEN / Unknown Venipuncture / Unknown 12/19/2018 2:[address] REPORTER 12/19/2018 2:[address] REPORTER us Carmella Box MD LAB - HEMATOLOGY ORDERABLES Final Result [facility] [address] [phone] from Last 3 Months or Most Recently Relevant to Health Maintenance Insurance [facility] THIRD LIBERTARIAN LIABILITY Republican Liability Advance Directives * Full Code (Latest Code Status on File) Date Activated Date Inactivated Comments 05/16/2019 2:31 AM 05/21/2019 4:18 PM * Full Code Date Activated Date Inactivated Comments 08/23/2017 5:14 AM 08/24/2017 6:05 PM * Full Code Date Activated Date Inactivated Comments 08/23/2017 4:24 AM 08/23/2017 5:14 AM Care Teams Technical Operations Manager Relationship Specialty Start Date End Date Jacob Galvan DO [address] [place] [address] PCP - General Family Medicine 05/09/23
--- OUTSIDE RECORDS SUMMARY | 2024-06-11 10:04 | XMS_ITS | Encounter Summary ---
Author Organization [facility] Address [address] [place] [address] Care Team Providers Care Neuropsychology Division Chief Name Role Phone Manan Etienne MD Primary Care Provider [phone] Breana Renteria Primary Care Provider [phone] None, Provider Primary Care Provider Jacob Rao DO Primary Care Provider [phone] Encounter Details Date Type Department Care Team (Late st Contact Info) Description 07/23/2019 MyChart Message Enc [facility] Medical Group Family & Internal Medicine [address] [address] Manan Etienne MD [address] [place] [address] Medication Questions Social History Tobacco Use [...] Rule Out 12/30/2020 12/30/2020 12/30/2020 9:05 PM CONTACT CENTER AGENT COVID-19 Rule Out 12/30/2020 12/30/2020 12/31/2020 11:04 PM CONTACT CENTER AGENT COVID-19 Confirmed 12/30/2020 12/30/2020 12:32 AM CONTACT CENTER AGENT Assessment Noted Time PHQ-9 Depression Total Score: 019 10:28 AM CDT documented as of this encounter Care Teams Neuropsychology Division Chief Relationship Specialty [place] [address] [place] [address] PCP - General FAMILY PRACTICE 02/27/18 07/25/21 Breana Renteria FNP [address] [place] [address] PCP - General NURSE PRACTITIONER 07/26/21 01/06/22 None, Provider, PCP - General UNKNOWN PHYSICIAN SPECIALTY 01/07/22 Jacob Galvan DO [address] [place] [address] PCP - General FAMILY PRACTICE 06/16/22 documented as of this encounter
--- OUTSIDE RECORDS SUMMARY | 2024-06-11 10:04 | XMS_ITS | Clinical Summary ---
Author Organization [facility] Address [address] [place] [address] Care Team Providers Care Fuel System Maintenance Supervisor Name Role Phone Dhruv Byrd MD Primary Care Provider [phone] Allergies Active Allergy Reactions Criticality Noted Date [...] on file Legal Sex Female 10:28 PM CASH ROOM CLERK Gender Identity Not on file Sexual Orientation [...] 09/18/2008 Varicella Vaccines Completed 09/03/2014, 12/18/1997 Insurance [facility] Care Teams Fuel System Maintenance Supervisor Relationship Specialty Start Date End Date Dhruv Byrd MD PCP - General Family Medicine 04/21/20
--- OUTSIDE RECORDS SUMMARY | 2024-06-11 10:04 | XMS_ITS | Encounter Summary ---
Author Organization [facility] Address [address] [place] [address] Care Team Providers Care Boathouse Keeper Name Role Phone Breana Renteria Primary Care Provider Jacob Galvan DO Primary Care Provider [phone] Reason for Visit * Reason Onset Date Comments MEDICATION REFILL 07/09/2022 Encounter Details Date Type Department Care Team (Late st Contact Info) Description 07/09/2022 Refill [facility] Neurology [address] [place] [address], [place] [address] Jhonathan Subramanian APRN-CNP [address] [place] [phone] MEDICATION REFILL Social History Tobacco Use Types Packs/Day Years Used Date Smoking Tobacco: Former Cigarettes 0.5 9 1 03/23/2009 - 01/20/2019 Smokeless Tobacco: Never Alcohol Use Standard Drinks/Week Comments No 0 (1 standard drink = 0.6 oz pur e alcohol) Comments No Sex and Gender Information Value Date Recorded Sex Assigned at Not on file Legal Sex Female 5:35 PM SECTION WEAVER Gender Identity Not on file Sexual Orientation Not on file 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 Not on file Not [...] Office Visit [facility] - Neurology [address] [place] [address], [facility] [place] [address] Jhonathan Subramanian APRN-CNP [address] [place] [phone] documented as of this encounter Visit Diagnoses Diagnosis Fibromyalgia Mylagia and myositis, unspecified documented in this encounter Care Teams Boathouse Keeper Relationship Specialty Start Date End Date Breana Renteria APRN-CNP [address] [place] [address] PCP - General 05/05/20 05/08/23 Jacob Galvan DO [address] [place] [address] PCP - General Family Medicine 05/09/23 documented as of this encounter
--- OUTSIDE RECORDS SUMMARY | 2024-06-11 10:04 | XMS_ITS | Encounter Summary ---
Author Organization [facility] Address [address] [place] [address] Care Team Providers Care Valet Cashier Name Role Phone Myra Breana Gorman APRN-PUBLIC SPACE ATTENDANT Primary Care Provider Jacob Galvan DO Primary Care Provider [phone] Reason for Visit * Reason Onset Date Comments MEDICATION REFILL 06/11/2022 Encounter Details Date Type Department Care Team (Late st Contact Info) Description 06/11/2022 Refill [facility] [address] [place] [address], [place] [address] Andre Farah MD [address] [place] [phone] MEDICATION REFILL Social History Tobacco Use Types Packs/Day Years Used Date Smoking Tobacco: Former Cigarettes 0.5 9 1 03/23/2009 - 01/20/2019 Smokeless Tobacco: Never Alcohol Use Standard Drinks/Week Comments No 0 (1 standard drink = 0.6 oz pur e alcohol) Comments No Sex and Gender Information Value Date Recorded Sex Assigned at Not on file Legal Sex Female 5:35 PM WIND TURBINE BLADE REPAIR TECHNICIAN Gender Identity Not on file Sexual Orientation Not on file 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 Not on file Not [...] Office Visit [facility] - Neurology [address] [place] [address], [place] [phone] Jhonathan Subramanian, PLASTIC SURGERY NURSE-PUBLIC SPACE ATTENDANT [address] [place] [address] [place] [phone] documented as of this encounter Visit Diagnoses Diagnosis Fibromyalgia Mylagia and myositis, unspecified documented in this encounter Care Teams Valet Cashier Relationship Specialty Start Date End Date Breana Renteria, PLASTIC SURGERY NURSE-PUBLIC SPACE ATTENDANT [address] [place] [address] PCP - General 05/05/20 05/08/23 Jacob Galvan DO [address] [place] [address] PCP - General Family Medicine 05/09/23 documented as of this encounter
[2024-06-11 10:59] LABS: Syphilis IgG/IgM Antibody Negative (Negative)
[2024-06-11 11:01] LABS: Hepatitis B Surface Antigen Negative (Negative)
[2024-06-11 11:02] LABS: HIV 1/2 Ab P24 Ag Result Negative (Negative)
[2024-06-11 11:06] LABS: HAV RESULT Negative (Negative); Hepatitis B Core IgM Result Negative (Negative)
[2024-06-11 11:16] LABS: Trichomonas Vag PCR NOT DETECTED (NOT DETECTE)
[2024-06-11 11:18] LABS: Hepatitis C Virus Antibody Negative (Negative)
[2024-06-11 11:38] LABS: Chlamydia trachomatis NOT DETECTED (NOT DETECTE); Neisseria gonorrhoeae PCR NOT DETECTED (NOT DETECTE)
== END 2024-06-11 09:28 | disposition home or self-care (01) ==
LOC: ANHLAB 09:28
PROVIDERS: PCP Family Medicine; Visit Provider Obstetrics & Gynecology
DX: Z20.2 Contact with and (suspected) exposure to infections with a predominantly sexual mode of transmission (principal)
CPT/HCPCS: 36415; 80074; 86593; 86695; 86696; 86703; 87491; 87591; 87661; G0432

== ENCOUNTER 2024-06-15 15:38 | Outpatient (NON) | payer OTHER, SELFPAY ==
--- OUTSIDE RECORDS SUMMARY | 2024-06-15 15:41 | XMS_ITS | Clinical Summary ---
Author Organization [facility] Address [address] [facility] [place] [address] Care Team Providers Care Drafting Detailer Name Role Phone Jacob Galvan DO Primary Care Provider [phone] Source Comments [facility],non-owned Affiliates and Associated Physician Practices is amultiple site organization consisting of ambulatory clinics and hospital sitesin [place], [place], [place] and [place]. This disclosure is being madepursuant to the Care Everywhere program and may not contain all information available regarding this patient. Last updated 17.[facility] Allergies Active Allergy Reactions Criticality Noted Date [...] with the patient. escitalopram (LEXAPRO) 20 MG tabletIndicati ons:Major Depressive Disorder Take 1 tablet by mouth at bedtime Reasons: Major Depressive Disorder 15 tablet 1 05/21/19 20 Active fluticasone propionate (FLONASE) 50 MCG/ACT nasal spray [place] 1 (one) spray into the nose every 24 hours 01/19/20 13 Active omeprazole (PRILOSEC) 40 MG capsule Take 1 capsule by mouth every 24 hours 30 capsule 3 06/27/19 20 Active Additional Information Patient not taking.Reported on 11/03/2022 lamoTRIgine (LAMICTAL) 200 MG tabletIndicati ons:Depression , unspecified depression type Take 1 (one) tablet by mouth once daily 90 tablet 3 02/05/20 20 Active tiZANidine (ZANAFLEX) 4 MG tabletIndicati ons:Muscle Spasticity Take 1 (one) tablet by mouth 3 times daily Reasons: Muscle Spasticity 270 tablet 3 02/05/20 20 Active traZODone (Desyrel) 75 MG TABSIndication s:Depression, unspecified depression type Take 1 (one) Half Tablet by mouth at bedtime 90 tablet 3 02/05/20 20 Active loratadine (CLARITIN) 10 MG tabletIndicati ons:Allergic rhinitis, unspecified seasonality, unspecified trigger Take 1 tablet by mouth once daily 90 tablet 3 02/05/20 Active Additional Information Patient not taking.Reported on 06/11/2024 potassium chloride ER (KLOR-CON M) 20 MEQ tabletIndicati ons:Hypokalemi a Take 1 tablet by mouth once daily 90 tablet 4 02/05/20 20 Active prochlorperazi ne (COMPAZINE) 25 MG suppositoryInd ications:Chron ic migraine UNWRAP AND INSERT 1 SUPPOSITORY RECTALLY EVERY 12 HOURS NEEDED FOR NAUSEA OR VOMITING 12 suppository 5 04/18/19 Active Additional Information Patient not taking.Reported on 06/11/2024 albuterol HFA (PROVENTIL;ZION TOLIN;PROAIR) 108 (90 Base) MCG/ACT inhalerIndicat ions:Uncomplic ated asthma, unspecified asthma severity, unspecified whether persistent (HCC) Inhale 2 (two) puffs by mouth every 6 hours as needed 1 Inhaler 11 05/06/19 Active medroxyPROGEST ERone (DEPO-PROVERA) 150 MG/ML prefilled syringe 07/02/19 21 Active lamoTRIgine (LaMICtal) 150 MG tablet Take 1 (one) tablet by mouth once daily 05/04/19 24 Active medroxyPROGEST ERone (Depo-Provera) 150 MG/ML vial ADMINISTER 1 ML IN THE MUSCLE EVERY 3 MONTHS 04/18/19 24 Active pregabalin (Lyrica) 200 MG capsuleIndicat ions:Fibromyal narendra Take 1 (one) capsule by mouth 2 times daily 60 capsule 3 05/09/19 24 Active erenumab-aooe (Aimovig) 140 MG/ML auto injector penIndications :Chronic migraine without aura, intractable, without status migrainosus,Mi graine without aura and without status migrainosus, not intractable Inject 1 mL subcutaneously every 30 days 1 mL 6 06/12/19 25 Active topiramate (Topamax) 200 MG tabletIndicati ons:Chronic migraine without aura, intractable, without status migrainosus,Mi graine without aura and without status migrainosus, not intractable Take 1 (one) tablet by mouth 2 times daily 60 tablet 6 06/12/19 25 Active rimegepant (Nurtec) 75 MG tabletIndicati ons:Chronic migraine without aura, intractable, without status migrainosus,Mi graine without aura and without status migrainosus, not intractable Take 75 mg by mouth once daily as needed for Migraine 8 tablet 5 06/12/19 25 Active butalbital-olive taminophen-caf feine (Fioricet) 50-325-40 MG tabletIndicati ons:Migraine without aura and without status migrainosus, not intractable TAKE 1 TABLET BY MOUTH EVERY 6 HOURS NEEDED FOR HEADACHE. NO ADDITIONAL TYLENOL OR ACETAMEOPHEN 15 tablet 5 06/12/19 25 Active erenumab-aooe (Aimovig) 140 MG/ML auto injector penIndications :Chronic migraine without aura, intractable, without status migrainosus,Mi graine without aura and without status migrainosus, not intractable Inject 1 mL subcutaneously every 30 days 1 mL 5 12/12/19 24 025 Disconti nued(Reo rder) ubrogepant (Ubrelvy) 100 MG tabletIndicati ons:Chronic migraine without aura, intractable, without status migrainosus,Mi graine without aura and without status migrainosus, not intractable Take 1 (one) tablet by mouth as needed for Migraine Can repeat in 2 hours if needed. No more than 2 doses in 24 hours. 10 tablet 5 12/12/19 24 025 Disconti nued(Dos e Adjustme nt) topiramate (Topamax) 200 MG tabletIndicati ons:Chronic migraine without aura, intractable, without status migrainosus,Mi graine without aura and without status migrainosus, not intractable Take 1 (one) tablet by mouth 2 times daily 60 tablet 5 12/12/19 24 025 Disconti nued(Reo rder) butalbital-olive taminophen-caf feine (Fioricet) 50-325-40 MG tabletIndicati ons:Migraine without aura and without status migrainosus, not intractable TAKE 1 TABLET BY MOUTH EVERY 6 HOURS NEEDED FOR HEADACHE. NO ADDITIONAL TYLENOL OR ACETAMEOPHEN 15 tablet 5 12/12/19 24 025 Disconti nued(Reo rder) Active Problems Problem Noted Date Diagnosed Date [...] Encounters Date Type Department Care Team Description 06/15/2024 Telephone [facility] - [facility]rology [address] [place] [phone] Jhonathan Subramanian APRN-MEMO Medication Prior Auth Request (Aimovig) 06/12/2024 Telephone [facility] [address] [place] [phone] Jhonathan Subramanian CUP MACHINE OPERATOR-CONE CHOCOLATE DIPPER Medication Prior Auth Request ([facility] 06/11/2024 1:00 PM CDT Office Visit [facility] [address] [place] [phone] Jhonathan Subramanian, CUP MACHINE OPERATOR-CONE CHOCOLATE DIPPER Chronic migraine without aura, intractable, without status migrainosus (Primary Dx); Migraine without aura and without status migrainosus, not intractable; Tension headache 06/11/2024 Travel 05/21/2024 Telephone [facility] [address] [place] [phone] Jhonathan Subramanian CUP MACHINE OPERATOR-CONE CHOCOLATE DIPPER Medication Prior Auth Request from Last 3 [...] on file Legal Sex Female 5:35 PM OUTREACH LIAISON Gender Identity Not on file Sexual Orientation Not on file 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 Not on file Not on file Last Filed Vital Signs Vital Sign Reading Time Taken Comments Blood Pressure 107/64 06/11/2024 1:08 PM CDT Pulse 81 06/11/2024 1:08 PM CDT Temperature 36.3 C (97.4 F) 12/12/2023 1:03 PM OUTREACH LIAISON Respiratory Rate 18 05/21/2019 1:36 PM CDT Oxygen Saturation 97% 06/11/2024 1:08 PM CDT Inhaled Oxygen Concentration - - Weight 50.3 kg (111 lb) 06/11/2024 1:08 PM CDT Height 160 cm (5' 3 ) 12/12/2023 1:03 PM OUTREACH LIAISON Body Mass Index 19.66 12/12/2023 1:03 PM OUTREACH LIAISON Plan of Treatment Upcoming Encounters Date Type Department Care Team (Late st Contact Info) Description 12/12/2024 1:00 PM OUTREACH LIAISON Office Visit [facility] - Neurology [address] [place] [address], [place] [phone] Jhonathan Subramanian, CUP MACHINE OPERATOR-CONE CHOCOLATE DIPPER [address] [place] [address] [place] [phone] Health Maintenance Due Date Last Done Comments PAP SMEAR 1996 HEPATITIS C SCREENING 11/13/2014 PNEUMOCOCCAL VACCINE (1 of 2 - PCV) 11/18/2015 COVID-19 VACCINE ( season) 2023 DEPRESSION SCREENING 02/08/2024 INFLUENZA VACCINE [...] HIV-1 HIV-2 ANTIGEN/ANTIBODY STAT 12/19/2018 2:21 PM OUTREACH LIAISON from Last 3 Months or Most Recently Relevant to Health Maintenance Results * HIV-1 HIV-2 ANTIGEN/ANTIBODY (12/19/2018 2:21 PM OUTREACH LIAISON) HIV Antigen/Antibod y 1 & 2 Non-reacti ve Non-react michel 12/19/2018 3:27 PM OUTREACH LIAISON [facility] Comment: Neither HIV-1 p24 Antigen nor HIV-1/HIV-2 Antibodies are detected. Blood BLOOD SPECIMEN / Unknown Venipuncture / Unknown 12/19/2018 2:21 PM OUTREACH LIAISON 12/19/2018 2:40 PM OUTREACH LIAISON us Carmella Box MD LAB - HEMATOLOGY ORDERABLES Final Result [facility] [address] [place] [address] from Last 3 Months or Most Recently Relevant to Health Maintenance Insurance [facility] THIRD CONSTITUTION PARTY LIABILITY Green Party Liability Advance Directives * Full Code (Latest Code Status on File) Date Activated Date Inactivated Comments 05/16/2019 2:31 AM 05/21/2019 4:18 PM * Full Code Date Activated Date Inactivated Comments 08/23/2017 5:14 AM 08/24/2017 6:05 PM * Full Code Date Activated Date Inactivated Comments 08/23/2017 4:24 AM 08/23/2017 5:14 AM Care Teams Drafting Detailer Relationship Specialty Start Date End Date Jacob Galvan DO [address] [place] [id number] PCP - General Family Medicine 05/09/23
--- OUTSIDE RECORDS SUMMARY | 2024-06-15 15:41 | XMS_ITS | Encounter Summary ---
Author Organization [facility] Address [address] [place] [address] Care Team Providers Care Caddy Name Role Phone Myra Breana Gorman APRN-SUPERVISOR GROWER Primary Care Provider Jacob Galvan DO Primary Care Provider [phone] Reason for Visit * Reason Onset Date Comments MEDICATION REFILL 06/11/2022 Encounter Details Date Type Department Care Team (Late st Contact Info) Description 06/11/2022 Refill [facility] [address] [place] [address], [place] [address] Andre Farah MD [address] [place] [phone] MEDICATION REFILL Social History Tobacco Use Types Packs/Day Years Used Date Smoking Tobacco: Former Cigarettes 0.5 9 1 03/23/2009 - 01/20/2019 Smokeless Tobacco: Never Alcohol Use Standard Drinks/Week Comments No 0 (1 standard drink = 0.6 oz pur e alcohol) Comments No Sex and Gender Information Value Date Recorded Sex Assigned at Not on file Legal Sex Female 5:35 PM TEACHER OF THE DEAF Gender Identity Not on file Sexual Orientation Not on file 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 Not on file [...] st Contact Info) Description 12/12/2024 1:00 PM TEACHER OF THE DEAF Office Visit [facility] [address] [place] [address], [place] [phone] Jhonathan Subramanian, TELECOMMUNICATIONS FIELD ENGINEER-SUPERVISOR GROWER [address] [place] [address] [place] [phone] documented as of this encounter Visit Diagnoses Diagnosis Fibromyalgia Mylagia and myositis, unspecified documented in this encounter Care Teams Caddy Relationship Specialty Start Date End Date Breana Renteria, TELECOMMUNICATIONS FIELD ENGINEER-SUPERVISOR GROWER [address] [place] [address] PCP - General 05/05/20 05/08/23 Jacob Galvan DO [address] [place] [address] PCP - General Family Medicine 05/09/23 documented as of this encounter
--- OUTSIDE RECORDS SUMMARY | 2024-06-15 15:41 | XMS_ITS | Encounter Summary ---
Author Organization [facility] Address [address] [place] [address] Care Team Providers Care Head Start Coordinator Name Role Phone Myra, Breana Gorman APRN-METHODS ANALYST Primary Care Provider Jacob Galvan DO Primary Care Provider [phone] Reason for Visit * Reason Onset Date Comments MEDICATION REFILL 03/01/2022 Encounter Details Date Type Department Care Team (Late st Contact Info) Description 03/01/2022 Refill [facility] [address] [place] [address], [place] [address] Andre Farah MD [address] [place] [phone] MEDICATION REFILL Social History Tobacco Use Types Packs/Day Years Used Date Smoking Tobacco: Former Cigarettes 0.5 9 1 03/23/2009 - 01/20/2019 Smokeless Tobacco: Never Alcohol Use Standard Drinks/Week Comments No 0 (1 standard drink = 0.6 oz pur e alcohol) Comments No Sex and Gender Information Value Date Recorded Sex Assigned at Not on file Legal Sex Female 5:35 PM SPEARER Gender Identity Not on file Sexual Orientation Not on file 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 Not on file [...] of Assessment Author No 05/16/2019 4:55 AM KIAT Sumi Hilario RN * Does person have [...] Qty Disp: 15 # of refills: 3 RER documented in this encounter Plan of Treatment Upcoming Encounters Date Type Department Care Team (Late st Contact Info) Description 12/12/2024 1:00 PM SPEARER Office Visit [facility] - Neurology [address] [place] [address], [place] [phone] Jhonathan Subramanian, CARDIOTHORACIC PHYSIOTHERAPIST-METHODS ANALYST [address] [place] [address] [place] [address] documented as of this encounter Visit Diagnoses Diagnosis Fibromyalgia Mylagia and myositis, unspecified documented in this encounter Care Teams Head Start Coordinator Relationship Specialty Start Date End Date Breana Renteria APRN-MEMO [address] [place] [address] PCP - General 05/05/20 05/08/23 Jacob Galvan DO [address] [place] [address] PCP - General Family Medicine 05/09/23 documented as of this encounter
--- OUTSIDE RECORDS SUMMARY | 2024-06-15 15:41 | XMS_ITS | Encounter Summary ---
Author Organization [facility] Address [address] [place] [address] Care Team Providers Care Seed Cone Picker Name Role Phone Manan Etienne MD Primary Care Provider [phone] Breana Renteria Primary Care Provider [phone] None, Provider Primary Care Provider Jacob Rao DO Primary Care Provider [phone] Encounter Details Date Type Department Care Team (Late st Contact Info) Description 01/18/2013 Abstract [facility] CONVERSION [address] [place], [place] [id number] , Generic Conversion, Social History Tobacco Use [...] Rule Out 12/30/2020 12/30/2020 12/30/2020 9:05 PM CD MIXER HELPER COVID-19 Rule Out 12/30/2020 12/30/2020 12/31/2020 11:04 PM CD MIXER HELPER COVID-19 Confirmed 12/30/2020 12/30/2020 12:32 AM CD MIXER HELPER documented as of this encounter Care Teams Seed Cone Picker Relationship Specialty [place] [address] [place] [address] PCP - General FAMILY PRACTICE 02/27/18 07/25/21 Breana Renteria FNP [address] [place] [address] PCP - General NURSE PRACTITIONER 07/26/21 01/06/22 None, Provider, PCP - General UNKNOWN PHYSICIAN SPECIALTY 01/07/22 Jacob Galvan DO [address] [place] [address] PCP - General FAMILY PRACTICE 06/16/22 documented as of this encounter
--- OUTSIDE RECORDS SUMMARY | 2024-06-15 15:41 | XMS_ITS | Encounter Summary ---
Author Organization [facility] Address [address] [place] [address] Care Team Providers Care Barrel Dedenting Machine Operator Name Role Phone Manan Etienne MD Primary Care Provider [phone] Breana Renteria Primary Care Provider [phone] None, Provider Primary Care Provider Jacob Rao DO Primary Care Provider [phone] Reason for Visit * Reason Onset Date Comments Hospital Follow Up 12/22/2020 Encounter Details Date Type Department Care Team (Late st Contact Info) Description 12/22/2020 Hospital Follow-up Call [facility] [address] [place] [address] Ewa Thomson RN Hospital Follow [...] COVID-19? No / Unsure 12/20/2020 1:01 AM RN VISITING documented as of this encounter Functional Status * RETIRED Are you deaf or do you have serious difficulty hearing Answer Date of Assessment Author Status No 12/20/2020 12:55 AM RN VISITING Acti ve documented as of this encounter Plan of Treatment Not on file documented as of this encounter Visit Diagnoses Not on filedocumented in this encounter Additional Health Concerns Infection Onset Date Last Indicated Resolved Time COVID-19 Rule Out 12/30/2020 12/30/2020 12/30/2020 9:05 PM RN VISITING COVID-19 Rule Out 12/30/2020 12/30/2020 12/31/2020 11:04 PM RN VISITING COVID-19 Confirmed 12/30/2020 12/30/2020 12:32 AM RN VISITING Assessment Noted Time PHQ-9 Depression Total Score: 019 10:28 AM CDT documented as of this encounter Care Teams Barrel Dedenting Machine Operator Relationship Specialty [place] [address] [place] [address] PCP - General FAMILY PRACTICE 02/27/18 07/25/21 Breana Renteria FNP [address] [place] [address] PCP - General NURSE PRACTITIONER 07/26/21 01/06/22 None, MD [place] PCP - General UNKNOWN PHYSICIAN SPECIALTY 01/07/22 Jacob Galvan DO [address] [place] [address] PCP - General FAMILY PRACTICE 06/16/22 documented as of this encounter
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
--- OUTSIDE RECORDS SUMMARY | 2024-06-15 15:41 | XMS_ITS | Encounter Summary ---
Author Organization [facility] Address [address] [place] [address] Care Team Providers Care Hvac Residential Service Technician Name Role Phone Breana Renteria Primary Care Provider Jacob Galvan DO Primary Care Provider [phone] Reason for Visit * Reason Onset Date Comments MEDICATION REFILL 07/09/2022 Encounter Details Date Type Department Care Team (Late st Contact Info) Description 07/09/2022 Refill [facility] [address] [place] [address], [place] [address] Jhonathan Subramanian APRN-CNP [address] [place] [phone] MEDICATION REFILL Social History Tobacco Use Types Packs/Day Years Used Date Smoking Tobacco: Former Cigarettes 0.5 9 1 03/23/2009 - 01/20/2019 Smokeless Tobacco: Never Alcohol Use Standard Drinks/Week Comments No 0 (1 standard drink = 0.6 oz pur e alcohol) Comments No Sex and Gender Information Value Date Recorded Sex Assigned at Not on file Legal Sex Female 5:35 PM ASPHALT TAR AND GRAVEL ROOFER Gender Identity Not on file Sexual Orientation Not on file 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 file Not [...] st Contact Info) Description 12/12/2024 1:00 PM ASPHALT TAR AND GRAVEL ROOFER Office Visit [facility] - Neurology [address] [place] [address], [place] [address] Jhonathan Subramanian APRN-CNP [address] [place] [phone] documented as of this encounter Visit Diagnoses Diagnosis Fibromyalgia Mylagia and myositis, unspecified documented in this encounter Care Teams Hvac Residential Service Technician Relationship Specialty Start Date End Date Breana Renteria APRN-CNP [address] [place] [address] PCP - General 05/05/20 05/08/23 Jacob Galvan DO [address] [place] [address] PCP - General Family Medicine 05/09/23 documented as of this encounter
--- OUTSIDE RECORDS SUMMARY | 2024-06-15 15:41 | XMS_ITS | Clinical Summary ---
Author Organization [facility] Address [address] [place] [address] Care Team Providers Care Photoengraver Name Role Phone Dhruv Byrd MD Primary Care Provider [phone] Allergies Active Allergy Reactions Criticality Noted Date [...] on file Legal Sex Female 10:28 PM SPECIAL EVENTS COORDINATOR Gender Identity Not on file Sexual Orientation [...] 09/18/2008 Varicella Vaccines Completed 09/03/2014, 12/18/1997 Insurance [facility] Care Teams Photoengraver Relationship Specialty Start Date End Date Dhruv Byrd MD PCP - General Family Medicine 04/21/20
--- OUTSIDE RECORDS SUMMARY | 2024-06-15 15:41 | XMS_ITS | Encounter Summary ---
Author Organization [facility] Address [address] [place] [address] Care Team Providers Care Systems Consultant Name Role Phone Myra Breana Gorman APRN-INVESTIGATIVE ASSISTANT Primary Care Provider Jacob Galvan DO Primary Care Provider [phone] Reason for Visit * Reason Onset Date Comments MEDICATION REFILL 12/22/2022 Encounter Details Date Type Department Care Team (Late st Contact Info) Description 12/22/2022 Refill [facility] - Neurology [address] [place] [address], [place] [address] Andre Farah MD [address] [place] [address] [place] [address] MEDICATION REFILL Social History Tobacco Use Types Packs/Day Years Used Date Smoking Tobacco: Former Cigarettes 0.5 9 1 03/23/2009 - 01/20/2019 Smokeless Tobacco: Never Alcohol Use Standard Drinks/Week Comments No 0 (1 standard drink = 0.6 oz pur e alcohol) Comments No Sex and Gender Information Value Date Recorded Sex Assigned at Not on file Legal Sex Female 5:35 PM ENGINE WATCHMAN Gender Identity Not on file Sexual Orientation Not on file 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 Not on file Not [...] NAVEEN: 11/03/2022Dec due: 6 month follow up NOV date: none scheduled topiramate 200 MG tablet LRF: 11/03/2022 Quantity dispensed: 180 tablets (patient takes 2 tablets a day) # refills: 0 NE WATCHMAN documented in this encounter Plan of Treatment Upcoming Encounters Date Type Department Care Team (Late st Contact Info) Description 12/12/2024 1:00 PM ENGINE WATCHMAN Office Visit [facility] - Neurology [address] [place] [address] [place] [address] Jhonathan Subramanian APRN-CNP [address] [place] [address] [place] [address] documented as of this encounter Visit Diagnoses Diagnosis Migraine without aura and without status migrainosus, not intractable Migraine without aura, without mention of intractable migraine without mention of status migrainosus documented in this encounter Care Teams Systems Consultant Relationship Specialty Start Date End Date Breana Renteria APRN-CNP [address] [place] [address] PCP - General 05/05/20 05/08/23 Jacob Galvan DO [address] [place] [address] PCP - General Family Medicine 05/09/23 documented as of this encounter
--- OUTSIDE RECORDS SUMMARY | 2024-06-15 15:41 | XMS_ITS | Encounter Summary ---
Author Organization [facility] Address [address] [facility] [place] [address] Care Team Providers Care Life Sciences Teacher Name Role Phone Cole Jacob LOPEZ Primary Care Provider [phone] Reason for Visit * Reason Onset Date Comments MEDICATION REFILL 01/20/2024 Encounter Details Date Type Department Care Team (Late st Contact Info) Description 01/20/2024 Refill [facility] Neurology [address] [place] [address], [place] [address] Jhonathan Subramanian, AIRCRAFT PARTS ASSEMBLER-SMOKING TOBACCO PACKING MACHINE HAND [address] [place] [address] MEDICATION REFILL Social History Tobacco Use Types Packs/Day Years Used Date Smoking Tobacco: Former Cigarettes 0.5 9 1 03/23/2009 - 01/20/2019 Smokeless Tobacco: Never Alcohol Use Standard Drinks/Week Comments No 0 (1 standard drink = 0.6 oz pur e alcohol) Comments No Sex and Gender Information Value Date Recorded Sex Assigned at Not on file Legal Sex Female 5:35 PM BEAD FLIPPER Gender Identity Not on file Sexual Orientation Not on file 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 Not on file Not [...] st Contact Info) Description 12/12/2024 1:00 PM BEAD FLIPPER Office Visit [facility] - Neurology [address] [place] [address], [facility] [place] [phone] Jhonathan Subramanian, AIRCRAFT PARTS ASSEMBLER-SMOKING TOBACCO PACKING MACHINE HAND [address] [place] [address] [place] [phone] documented as of this encounter Visit Diagnoses Diagnosis Chronic migraine without aura, intractable, without status migrainosus Migraine without aura and without status migrainosus, not intractable Migraine without aura, without mention of intractable migraine without mention of status migrainosus documented in this encounter Care Teams Life Sciences Teacher Relationship Specialty Start Date End Date Jacob Galvan DO [address] [place] [address] PCP - General Family Medicine 05/09/23 documented as of this encounter
--- OUTSIDE RECORDS SUMMARY | 2024-06-15 15:41 | XMS_ITS | Encounter Summary ---
Author Organization [facility] Address [address] [facility] [place] [address] Care Team Providers Care Quickbooks Bookkeeper Name Role Phone Martinnuzhat Jacob LOPEZ Primary Care Provider [phone] Reason for Visit * Reason Onset Date Comments Medication Prior Auth Request 06/15/2024 Lu chandler Encounter Details Date Type Department Care Team (Late st Contact Info) Description 06/15/2024 Telephone [facility] Neurology [address] [place] [address], [place] [address] Jhonathan Subramanian, APPEALS NURSE-ADMINISTRATIVE PROJECT COORDINATOR [address] [place] [address] Medication Prior Auth Request (Aimovig) Social History Tobacco Use Types Packs/Day Years Used Date Smoking Tobacco: Former Cigarettes 0.5 9 1 03/23/2009 - 01/20/2019 Smokeless Tobacco: Never Alcohol Use Standard Drinks/Week Comments No 0 (1 standard drink = 0.6 oz pur e alcohol) Comments No Sex and Gender Information Value Date Recorded Sex Assigned at Not on file Legal Sex Female 5:35 PM MANAGEMENT NURSE RN Gender Identity Not on file Sexual Orientation Not on file 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 Attempted to do PA but [facility] is still denying the request because of the denial that was issued on 05/21/2024. Pt was supposed to receive an alternative treatment when she was here on 06/11/24. documented in this encounter Plan of Treatment Upcoming Encounters Date Type Department Care Team (Late st Contact Info) Description 12/12/2024 1:00 PM MANAGEMENT NURSE RN Office Visit [facility] Neurology [address] [place] [address], [place] [address] Jhonathan Subramanian, APPEALS NURSE-ADMINISTRATIVE PROJECT COORDINATOR [address] [place] [address] [place] [address] documented as of this encounter Visit Diagnoses Not on filedocumented in this encounter Care Teams Quickbooks Bookkeeper Relationship Specialty Start Date End Date Jacob Galvan DO [address] [place] [address] PCP - General Family Medicine 05/09/23 documented as of this encounter
--- OUTSIDE RECORDS SUMMARY | 2024-06-15 15:41 | XMS_ITS | Encounter Summary ---
Author Organization [facility] Address [address] [place] [address] Care Team Providers Care Contract Administration Coordinator Name Role Phone Manan Etienne MD Primary Care Provider [phone] Breana Renteria Primary Care Provider [phone] None, Provider Primary Care Provider Jacob Rao DO Primary Care Provider [phone] Encounter Details Date Type Department Care Team (Late st Contact Info) Description 07/20/2019 MyChart Message Enc [facility] Family & Internal Medicine [address] [address] Manan Etienne MD [address] [place] [address] RE: Medication Questions Social History Tobacco [...] Rule Out 12/30/2020 12/30/2020 12/30/2020 9:05 PM SCRAP METAL PROCESSING WORKER COVID-19 Rule Out 12/30/2020 12/30/2020 12/31/2020 11:04 PM SCRAP METAL PROCESSING WORKER COVID-19 Confirmed 12/30/2020 12/30/2020 12:32 AM SCRAP METAL PROCESSING WORKER Assessment Noted Time PHQ-9 Depression Total Score: 019 10:28 AM CDT documented as of this encounter Care Teams Contract Administration Coordinator Relationship Specialty [place] [address] [place] [address] PCP - General FAMILY PRACTICE 02/27/18 07/25/21 Breana Renteria FNP [address] [place] [address] PCP - General NURSE PRACTITIONER 07/26/21 01/06/22 None, Provider, PCP - General UNKNOWN PHYSICIAN SPECIALTY 01/07/22 Jacob Galvan DO [address] [place] [address] PCP - General FAMILY PRACTICE 06/16/22 documented as of this encounter
--- OUTSIDE RECORDS SUMMARY | 2024-06-15 15:41 | XMS_ITS | Encounter Summary ---
Author Organization [facility] Address [address] [place] [address] Care Team Providers Care Financial Systems Manager Name Role Phone Manan Etienne MD Primary Care Provider [phone] Breana Renteria Primary Care Provider [phone] None, Provider Primary Care Provider Jacob Rao DO Primary Care Provider [phone] Encounter Details Date Type Department Care Team (Late st Contact Info) Description 07/23/2019 MyChart Message Enc [facility] Family & Internal Medicine [address] [address] Manan Etienne MD [address] [place] [address] Medication Questions Social History Tobacco Use [...] Rule Out 12/30/2020 12/30/2020 12/30/2020 9:05 PM COLOR CONTROL OPERATOR COVID-19 Rule Out 12/30/2020 12/30/2020 12/31/2020 11:04 PM COLOR CONTROL OPERATOR COVID-19 Confirmed 12/30/2020 12/30/2020 12:32 AM COLOR CONTROL OPERATOR Assessment Noted Time PHQ-9 Depression Total Score: 019 10:28 AM CDT documented as of this encounter Care Teams Financial Systems Manager Relationship Specialty [place] [address] [place] [address] PCP - General FAMILY PRACTICE 02/27/18 07/25/21 Breana Renteria FNP [address] [place] [address] PCP - General NURSE PRACTITIONER 07/26/21 01/06/22 None, Provider, PCP - General UNKNOWN PHYSICIAN SPECIALTY 01/07/22 Jacob Galvan DO [address] [place] [address] PCP - General FAMILY PRACTICE 06/16/22 documented as of this encounter
--- OUTSIDE RECORDS SUMMARY | 2024-06-15 15:41 | XMS_ITS | Referral Summary ---
Author Organization [facility] Address [address] [place] [address] Care Team Providers Care Weatherization Administrator Name Role Phone Dhruv Byrd MD Primary Care Provider [phone] Allergies Active Allergy Reactions Criticality Noted Date [...] on file Legal Sex Female 10:28 PM MOBILITY ENGINEER Gender Identity Not on file Sexual Orientation [...] Treatment Not on file Insurance [facility] [id number] [facility] [address] [place] [address] Care Teams Weatherization Administrator Relationship Specialty Start Date End Date Dhruv Byrd MD PCP - General Family Medicine 04/21/20
== END 2024-06-15 15:39 | disposition home or self-care (01) ==
LOC: CHSLAB 15:39
PROVIDERS: Visit Provider Nurse Practitioner Family
DX: L08.9 Local infection of the skin and subcutaneous tissue, unspecified (principal)
CPT/HCPCS: 87070; 87075; 87205

== ENCOUNTER 2024-06-27 14:47 | Emergency (ER) | payer OTHER, SELFPAY ==
--- NOTE | ~2024-06-27 | CT_ITS ---
History: Headache and dizziness after blunt head trauma PROCEDURE: CT head without contrast. COMPARISON: Reference is made to an MRI examination of the brain dated 06/19/2020. CT examination of the head dated 10/14/2007. Both studies yielded benign results. TECHNIQUE: Axial imaging of the head performed from the skull base to the vertex without IV contrast. Sagittal a nd coronal reformations obtained. DLP: 605 mGy-cm FINDINGS: The ventricles are normal in size, shape and position. There is no mass, mass effect or midline shift. There is no abnormal extra-axial fluid collection or intracranial hemorrhage. Visualized paranasal sinuses are clear. The mastoid air cells are well aerated. No acute displaced fractures within the overlying cranium. Impression: No acute intracranial hemorrhage or suspicious mass effect. Reviewed, dictated and finalized at location A. Impression: No acute intracranial hemorrhage or suspicious mass effect.
--- NOTE | ~2024-06-27 | CT_ITS ---
History: Bilateral lower extremity paresthesias and subjective slurred speech PROCEDURE: CT cervical spine without intravenous contrast. COMPARISON: None TECHNIQUE: Multiple contiguous axial images of the cervical spine were performed without the administration of i ntravenous contrast. DLP: 165 mGy-cm FINDINGS: Straightening and slight reversal of the normal curvature of the cervical spine is identified, likely muscular in origin. No acute fractures are present. A 5.8 x 6.2 x 5.9 mm nodule is identified within the right upper lobe demonstrating soft tissue atten uation. The remainder of the bilateral lung apices are otherwise unremarkable. No soft tissue abnormality is present. The airway is patent. Impression: Straightening and slight reversal of the normal curvature of the cervical spine, likely muscular in o rigin. No acute fracture. Pulmonary nodule within the right upper lobe measuring 6.2 mm in greatest dimension. Fleischner guidelines do not applied to a patient of this age. CT examination of the entirety of the patient's chest is recommended, if clinically able. Reviewed, dictated and finalized at location A. Impression: Straightening and slight reversal of the normal curvature of the cervical spine , likely muscular in origin. No acute fracture. Pulmonary nodule within the right upper lobe measuring 6.2 mm in greatest dimen perry. Fleischner guidelines do not applied to a patient of this age. CT examination of the entirety of the patient's chest is recommended, if clinic ally able.
--- OUTSIDE RECORDS SUMMARY | 2024-06-27 14:53 | XMS_ITS | Encounter Summary ---
Author Organization [facility] Address [address] [place] [address] Care Team Providers Care Luggage Liner Name Role Phone Myra Breana Gorman APRN-GALLERY OR MUSEUM GUIDE Primary Care Provider Jacob Galvan DO Primary Care Provider [phone] Reason for Visit * Reason Onset Date Comments MEDICATION REFILL 12/22/2022 Encounter Details Date Type Department Care Team (Late st Contact Info) Description 12/22/2022 Refill [facility] Neurology [address] [place] [address], [place] [address] Andre Farah MD [address] [place] [address] [place] [address] MEDICATION REFILL Social History Tobacco Use Types Packs/Day Years Used Date Smoking Tobacco: Former Cigarettes 0.5 9 1 03/23/2009 - 01/20/2019 Smokeless Tobacco: Never Alcohol Use Standard Drinks/Week Comments No 0 (1 standard drink = 0.6 oz pur e alcohol) Comments No Sex and Gender Information Value Date Recorded Sex Assigned at Not on file Legal Sex Female 5:35 PM TRACK REPAIR PERSON Gender Identity Not on file Sexual Orientation Not on file 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 Not on file Not [...] 2 tablets a day) # refills: 0 K REPAIR PERSON documented in this encounter Plan of Treatment Upcoming Encounters Date Type Department Care Team (Late st Contact Info) Description 12/12/2024 1:00 PM TRACK REPAIR PERSON Office Visit [facility] - Neurology [address] [place] [address] [place] [address] Jhonathan Subramanian APRN-CNP [address] [place] [address] [place] [address] documented as of this encounter Visit Diagnoses Diagnosis Migraine without aura and without status migrainosus, not intractable Migraine without aura, without mention of intractable migraine without mention of status migrainosus documented in this encounter Care Teams Luggage Liner Relationship Specialty Start Date End Date Breana Renteria APRN-CNP [address] [place] [address] PCP - General 05/05/20 05/08/23 Jacob Galvan DO [address] [place] [address] PCP - General Family Medicine 05/09/23 documented as of this encounter
--- OUTSIDE RECORDS SUMMARY | 2024-06-27 14:53 | XMS_ITS | Clinical Summary ---
Author Organization [facility] Address [address] [facility] [address] Care Team Providers Care Public Relations Director Name Role Phone Jacob Galvan DO Primary Care Provider [phone] Source Comments [facility],non-owned Affiliates and Associated Physician Practices is amultiple site organization consisting of ambulatory clinics and hospital sitesin [place], [place], [place] and [place]. This disclosure is being madepursuant to the Care Everywhere program and may not contain all information available regarding this patient. Last updated 17.[facility] Allergies Active Allergy Reactions Criticality Noted Date [...] fluticasone propionate (FLONASE) 50 MCG/ACT nasal spray [place] 1 (one) spray into the nose every [...] Encounters Date Type Department Care Team Description 06/21/2024 Telephone [facility] [address] [place] [address] Jhonathan Subramanian APRN-LITHOGRAPHIC PRESS OPERATOR Medication Issue 06/15/2024 Telephone [facility] Neurology [address] [place] [phone] Jhonathan Subramanian WRONG ADDRESS CLERK-LITHOGRAPHIC PRESS OPERATOR Medication Prior Auth Request (Aimovig) 06/12/2024 Telephone [facility] Neu[facility] [address] [place] [phone] Jhonathan Subramanian WRONG ADDRESS CLERK-LITHOGRAPHIC PRESS OPERATOR Medication [facility] 06/11/2024 1:00 PM CDT Office Visit [facility] Neurology [address] [place] [phone] Jhonathan Subramanian, WRONG ADDRESS CLERK-LITHOGRAPHIC PRESS OPERATOR Chronic migraine without aura, intractable, without status migrainosus (Primary Dx); Migraine without aura and without status migrainosus, not intractable; Tension headache 06/11/2024 Travel 05/21/2024 Telephone [facility] Neurology [address] [place] [phone] Jhonathan Subramanian WRONG ADDRESS CLERK-LITHOGRAPHIC PRESS OPERATOR Medication Prior Auth Request from Last [...] on file Legal Sex Female 5:35 PM UNHAIRING MACHINE OPERATOR Gender Identity Not on file Sexual Orientation Not on file 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 Not on file Not on file Last Filed Vital Signs Vital Sign Reading Time Taken Comments Blood Pressure 107/64 06/11/2024 1:08 PM CDT Pulse 81 06/11/2024 1:08 PM CDT Temperature 36.3 C (97.4 F) 12/12/2023 1:03 PM UNHAIRING MACHINE OPERATOR Respiratory Rate 18 05/21/2019 1:36 PM CDT Oxygen Saturation 97% 06/11/2024 1:08 PM CDT Inhaled Oxygen Concentration - - Weight 50.3 kg (111 lb) 06/11/2024 1:08 PM CDT Height 160 cm (5' 3 ) 12/12/2023 1:03 PM UNHAIRING MACHINE OPERATOR Body Mass Index 19.66 12/12/2023 1:03 PM UNHAIRING MACHINE OPERATOR Plan of Treatment Upcoming Encounters Date Type Department Care Team (Late st Contact Info) Description 12/12/2024 1:00 PM UNHAIRING MACHINE OPERATOR [facility] [address] [place] [address], [place] [address] Jhonathan Subramanian, WRONG ADDRESS CLERK-LITHOGRAPHIC PRESS OPERATOR [address] [place] [address] Health Maintenance Due Date Last Done [...] HIV-1 HIV-2 ANTIGEN/ANTIBODY STAT 12/19/2018 2:21 PM UNHAIRING MACHINE OPERATOR from Last 3 Months or Most Recently Relevant to Health Maintenance Results * HIV-1 HIV-2 ANTIGEN/ANTIBODY (12/19/2018 2:21 PM UNHAIRING MACHINE OPERATOR) HIV Antigen/Antibod y 1 & 2 Non-reacti ve Non-react michel 12/19/2018 3:27 PM UNHAIRING MACHINE OPERATOR [facility] Comment: Neither HIV-1 p24 Antigen nor HIV-1/HIV-2 Antibodies are detected. Blood BLOOD SPECIMEN / Unknown Venipuncture / Unknown 12/19/2018 2:21 PM UNHAIRING MACHINE OPERATOR 12/19/2018 2:40 PM UNHAIRING MACHINE OPERATOR us Carmella Box MD LAB - HEMATOLOGY ORDERABLES Final Result [facility] [address] [phone] from Last 3 Months or Most Recently Relevant to Health Maintenance [facility] THIRD CONSTITUTION PARTY LIABILITY [employer] Party Liability Advance Directives * Full Code (Latest Code Status on File) Date Activated Date Inactivated Comments 05/16/2019 2:31 AM 05/21/2019 4:18 PM * Full Code Date Activated Date Inactivated Comments 08/23/2017 5:14 AM 08/24/2017 6:05 PM * Full Code Date Activated Date Inactivated Comments 08/23/2017 4:24 AM 08/23/2017 5:14 AM Care Teams Public Relations Director Relationship Specialty Start Date End Date Jacob Galvan DO [address] [place] [address] PCP - General Family Medicine 05/09/23
--- OUTSIDE RECORDS SUMMARY | 2024-06-27 14:53 | XMS_ITS | Encounter Summary ---
Author Organization [facility] Address [address] [place] [address] Care Team Providers Care Icing Coater Name Role Phone Myra, Breana Gorman APRN-MECHANICAL EXPERT Primary Care Provider Jacob Galvan DO Primary Care Provider Reason for Visit * Reason Onset Date Comments MEDICATION REFILL 03/01/2022 Encounter Details Date Type Department Care Team (Late st Contact Info) Description 03/01/2022 Refill [facility] [address] [place] [address], [place] [address] Andre Farah MD [address] [place] [address] MEDICATION REFILL Social History Tobacco Use Types Packs/Day Years Used Date Smoking Tobacco: Former Cigarettes 0.5 9 1 03/23/2009 - 01/20/2019 Smokeless Tobacco: Never Alcohol Use Standard Drinks/Week Comments No 0 (1 standard drink = 0.6 oz pur e alcohol) Comments No Sex and Gender Information Value Date Recorded Sex Assigned at Not on file Legal Sex Female 5:35 PM DEPUTY SHERIFF GENERALIST/BAILIFF Gender Identity Not on file Sexual Orientation Not on file 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 Not on file Not [...] Qty Disp: 15 # of refills: 3 TY SHERIFF GENERALIST/BAILIFF documented in this encounter Plan of Treatment Upcoming Encounters Date Type Department Care Team (Late st Contact Info) Description 12/12/2024 1:00 PM DEPUTY SHERIFF GENERALIST/BAILIFF Office Visit [facility] - Neurology [address] [place] [address], [place] [phone] Jhonathan Subramanian, DISTRICT ENGINEER-MECHANICAL EXPERT [address] [place] [address] [place] [address] documented as of this encounter Visit Diagnoses Diagnosis Fibromyalgia Mylagia and myositis, unspecified documented in this encounter Care Teams Icing Coater Relationship Specialty Start Date End Date Breana Renteria APRN-MEMO [address] [place] [address] PCP - General 05/05/20 05/08/23 Jacob Galvan DO [address] [place] [address] PCP - General Family Medicine 05/09/23 documented as of this encounter
--- OUTSIDE RECORDS SUMMARY | 2024-06-27 14:54 | XMS_ITS | Encounter Summary ---
Author Organization [facility] Address [address] [place] [address] Care Team Providers Care French Binding Folder Name Role Phone Breana Renteria Primary Care Provider Jacob Galvan DO Primary Care Provider [phone] Reason for Visit * Reason Onset Date Comments MEDICATION REFILL 07/09/2022 Encounter Details Date Type Department Care Team (Late st Contact Info) Description 07/09/2022 Refill [facility] - Neurology [address] [place] [address], [place] [address] Jhonathan Subramanian APRN-CNP [address] [place] [phone] MEDICATION REFILL Social History Tobacco Use Types Packs/Day Years Used Date Smoking Tobacco: Former Cigarettes 0.5 9 1 03/23/2009 - 01/20/2019 Smokeless Tobacco: Never Alcohol Use Standard Drinks/Week Comments No 0 (1 standard drink = 0.6 oz pur e alcohol) Comments No Sex and Gender Information Value Date Recorded Sex Assigned at Not on file Legal Sex Female 5:35 PM ROLLED GLASS CROSSCUTTER Gender Identity Not on file Sexual Orientation Not on file 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 Not on file [...] st Contact Info) Description 12/12/2024 1:00 PM ROLLED GLASS CROSSCUTTER Office Visit [facility] - Neurology [address] [place] [address], [place] [address] Jhonathan Subramanian APRN-CNP [address] [place] [phone] documented as of this encounter Visit Diagnoses Diagnosis Fibromyalgia Mylagia and myositis, unspecified documented in this encounter Care Teams French Binding Folder Relationship Specialty Start Date End Date Breana Renteria APRN-CNP [address] [place] [address] PCP - General 05/05/20 05/08/23 Jacob Galvan DO [address] [place] [address] PCP - General Family Medicine 05/09/23 documented as of this encounter
--- OUTSIDE RECORDS SUMMARY | 2024-06-27 14:54 | XMS_ITS | Referral Summary ---
Author Organization [facility] Address [address] [place] [address] Care Team Providers Care Label Cutter Name Role Phone Dhruv Byrd MD Primary Care Provider [phone] Allergies Active Allergy Reactions Criticality Noted Date [...] on file Legal Sex Female 10:28 PM PLANNING MANAGEMENT IT SPECIALIST Gender Identity Not on file Sexual Orientation [...] Insurance [facility] [place] [address] [facility] [address] [place] [phone] Care Teams Label Cutter Relationship Specialty Start Date End Date Dhruv Byrd MD PCP - General Family Medicine 04/21/20
--- OUTSIDE RECORDS SUMMARY | 2024-06-27 14:54 | XMS_ITS | Encounter Summary ---
Author Organization [facility] Address [address] [place] [address] Care Team Providers Care Mlt Name Role Phone Cole Jacob LOPEZ Primary Care Provider [phone] Reason for Visit * Reason Onset Date Comments MEDICATION REFILL 01/20/2024 Encounter Details Date Type Department Care Team (Late st Contact Info) Description 01/20/2024 Refill [facility] - Neurology [address] [place] [address], [place] [phone] Jhonathan Subramanian, PNEUMATIC DEICER INSPECTOR-BATCH BLENDER [address] [place] [phone] MEDICATION REFILL Social History Tobacco Use Types Packs/Day Years Used Date Smoking Tobacco: Former Cigarettes 0.5 9 1 03/23/2009 - 01/20/2019 Smokeless Tobacco: Never Alcohol Use Standard Drinks/Week Comments No 0 (1 standard drink = 0.6 oz pur e alcohol) Comments No Sex and Gender Information Value Date Recorded Sex Assigned at Not on file Legal Sex Female 5:35 PM CAN RUNNER Gender Identity Not on file Sexual Orientation Not on file 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 Not on file Not [...] st Contact Info) Description 12/12/2024 1:00 PM CAN RUNNER Office Visit [facility] - Neurology [address] [place] [address], [facility] [place] [phone] Jhonathan Subramanian, PNEUMATIC DEICER INSPECTOR-BATCH BLENDER [address] [place] [address] [place] [phone] documented as of this encounter Visit Diagnoses Diagnosis Chronic migraine without aura, intractable, without status migrainosus Migraine without aura and without status migrainosus, not intractable Migraine without aura, without mention of intractable migraine without mention of status migrainosus documented in this encounter Care Teams Mlt Relationship Specialty Start Date End Date Jacob Galvan DO [address] [place] [id number] PCP - General Family Medicine 05/09/23 documented as of this encounter
--- OUTSIDE RECORDS SUMMARY | 2024-06-27 14:54 | XMS_ITS | Encounter Summary ---
Author Organization [facility] Address [address] [place] [address] Care Team Providers Care Collection Administrator Name Role Phone Myra Breana Gorman APRN-RN MIDWIFE Primary Care Provider Jacob Galvan DO Primary Care Provider [phone] Reason for Visit * Reason Onset Date Comments MEDICATION REFILL 06/11/2022 Encounter Details Date Type Department Care Team (Late st Contact Info) Description 06/11/2022 Refill [facility] [address] [place] [address], [place] [address] Andre Farah MD [address] [place] [phone] MEDICATION REFILL Social History Tobacco Use Types Packs/Day Years Used Date Smoking Tobacco: Former Cigarettes 0.5 9 1 03/23/2009 - 01/20/2019 Smokeless Tobacco: Never Alcohol Use Standard Drinks/Week Comments No 0 (1 standard drink = 0.6 oz pur e alcohol) Comments No Sex and Gender Information Value Date Recorded Sex Assigned at Not on file Legal Sex Female 5:35 PM PARTS CLASSIFIER Gender Identity Not on file Sexual Orientation Not on file 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 Not on file Not [...] - 06/11/2022 9:08 AM CDT Refill Request NAVENE: 09/09/2021 NOV scheduled: canceled LRF: 03/01/2022 Qty Disp: 15 # of refills: 3 documented in this encounter Plan of Treatment Upcoming Encounters Date Type Department Care Team (Late st Contact Info) Description 12/12/2024 1:00 PM PARTS CLASSIFIER Office Visit [facility] - Neurology [address] [place] [address], [place] [phone] Jhonathan Subramanian, PUMP ASSEMBLER-RN MIDWIFE [address] [place] [address] [place] [phone] documented as of this encounter Visit Diagnoses Diagnosis Fibromyalgia Mylagia and myositis, unspecified documented in this encounter Care Teams Collection Administrator Relationship Specialty Start Date End Date Breana Renteria, PUMP ASSEMBLER-RN MIDWIFE [address] [place] [address] PCP - General 05/05/20 05/08/23 Jacob Galvan DO [address] [place] [address] PCP - General Family Medicine 05/09/23 documented as of this encounter
--- OUTSIDE RECORDS SUMMARY | 2024-06-27 14:54 | XMS_ITS | Clinical Summary ---
Author Organization [facility] Address [address] [place] [address] Care Team Providers Care Bus System Operator Name Role Phone Dhruv Byrd MD Primary Care Provider [phone] Allergies Active Allergy Reactions Criticality Noted Date [...] on file Legal Sex Female 10:28 PM BAKER PASTRY Gender Identity Not on file Sexual Orientation [...] 09/18/2008 Varicella Vaccines Completed 09/03/2014, 12/18/1997 Insurance [facility] Care Teams Bus System Operator Relationship Specialty Start Date End Date Dhruv Byrd MD PCP - General Family Medicine 04/21/20
--- OUTSIDE RECORDS SUMMARY | 2024-06-27 14:54 | XMS_ITS | Patient Health Record ---
Author Organization [facility] Address [address] [place] [address] Care Team Providers Care It Network Engineer Name Role Phone Marge Gaston Primary Care Provider [phone] Tyler Colon Unavailable Allergies No Known Allergies Reason For Referral No Information Medications Medication SIG (Take, Route, Fr equency, [...] phone, visiting friends or family, going to buddhism or club meetings) 3 to 5 times a week How stressed are you? Stress is when someone feels tense, nervous, anxious, or can\t sleep at night because their mind is troubled Quite a bit In the past year have you sp ent more than 2 nights in a row in a penitentiary, alf, prison center, or juvenile correctional facility? No Are [...] W/U Status Risk Notes Problem Tobacco user (767545618) Nicotine dependence, unspecified, uncomplicated (F17.200) Active confirmed Problem Posttraumatic stress disorder (76052580) Post traumatic stress disorder (PTSD) (F43.10) Active confirmed Problem Cannabis dependence (72003031) Marijuana smoker (F12.20) Active confirmed Problem Chronic depression (426280275) Chronic depression (F32.9) Active confirmed Encounters Encounter Location Date Provider Diagnosis [address] [place] [address] 07/06/2023 Marge Gaston Chronic depression F32.[address] [place] [address] 07/27/2023 Marge Gaston [address] [place] [address] 09/06/2023 Marge Gaston [address] [facility] [place] [address] 11/08/2023 Marge Gaston Chronic depression F32.[address] [place] [address] 11/22/2023 Marge Gaston [place] [address] [place] [address] 11/28/2023 Marge Gaston [address] [place] [address] 01/27/2024 Marge Sabblut Chronic depression F32.9 and Post traumatic stress disorder (PTSD) F43.[address] [place] [address] 02/09/2024 Tyler Colon [address] [place] [address] 03/23/2024 Marge Gaston [address] [place] [address] 07/12/2023 Marge Sabblut Post traumatic stress disorder (PTSD) F43.10 ; Marijuana smoker F12.20 ; Nicotine dependence, unspecified, uncomplicated F17.200 and Chronic depression F32.[address] [place] [address] 08/12/2023 Marge Sabblut Post traumatic stress disorder (PTSD) F43.10 ; Marijuana smoker F12.20 ; Nicotine dependence, unspecified, uncomplicated F17.200 and Chronic depression F32.[address] [place] [address] 09/14/2023 Marge Sabblut Post traumatic stress disorder (PTSD) F43.10 ; Marijuana smoker F12.20 ; Nicotine dependence, unspecified, uncomplicated F17.200 and Chronic depression F32.[address] [place] [address] 11/15/2023 Marge Sabblut Post traumatic stress disorder (PTSD) F43.10 ; Marijuana smoker F12.20 ; Nicotine dependence, unspecified, uncomplicated F17.200 and Chronic depression F32.[address] [place] [address] 12/27/2023 Marge Sabblut Post traumatic stress disorder (PTSD) F43.10 ; Marijuana smoker F12.20 ; Nicotine dependence, unspecified, uncomplicated F17.200 and Chronic depression F32.[address] [address] 02/07/2024 Marge Sabblut Post traumatic stress disorder (PTSD) F43.10 ; Marijuana smoker F12.20 ; Nicotine dependence, unspecified, uncomplicated F17.200 ; Chronic depression F32.9 and Medication management Z79.[address] [address] 03/06/2024 Marge Sabblut Post traumatic stress disorder (PTSD) F43.10 ; Marijuana smoker F12.20 ; Nicotine dependence, unspecified, uncomplicated F17.200 ; Medication management Z79.899 and Chronic depression F32.[address] [address] 04/16/2024 Marge Sabblut Post traumatic stress disorder (PTSD) F43.10 ; Marijuana smoker F12.20 ; Nicotine dependence, unspecified, uncomplicated F17.200 ; Medication management Z79.899 and Chronic depression F32.[address] [address] 05/30/2024 Marge Sabblut Post traumatic stress disorder (PTSD) F43.10 ; Marijuana smoker F12.20 ; Nicotine dependence, unspecified, uncomplicated F17.200 ; Medication management Z79.899 and Chronic depression F32.9 Assessments Encounter Date Diagnosis (ICD Code) Assessment Notes Treatment Notes Treatment Clinical Notes Section Notes 07/06/2023 Chronic depression (ICD-10 - F32.9) 07/12/2023 [...] scheduled. 05/30/2024 Marijuana smoker (ICD-10 - F12.20) 01/27/2024 Post traumatic stress disorder (PTSD) (ICD-10 - F43.10) 04/16/2024 Marijuana smoker (ICD-10 - F12.20) 03/06/2024 Marijuana smoker (ICD-10 - F12.20) 02/07/2024 Marijuana smoker (ICD-10 - F12.20) 12/27/2023 Marijuana smoker (ICD-10 - F12.20) 11/15/2023 Marijuana smoker (ICD-10 - F12.20) 09/14/2023 Marijuana smoker (ICD-10 - F12.20) 08/12/2023 Marijuana smoker (ICD-10 - F12.20) 07/12/2023 Marijuana smoker (ICD-10 - F12.20) 07/12/2023 Nicotine dependence, unspecified, uncomplicated (ICD-10 - [...] or be administered own oral medications per [facility] protocols. Provided informed consent with understanding of side effects, adverse effects, risks and benefits as well as alternative treatments as previously discussed and with the above recommended medications & other aspects of the treatment program. Agrees to return sooner if symptoms worsen or suicidal or homicidal ideations occur. Labs monitored by PCP. 05/30/2024 Medication management (ICD-10 - Z79.899) May self-administer medications or be administered own oral medications per [facility] protocols. Provided informed consent with understanding of [...] or be administered own oral medications per [facility] protocols. Provided informed consent with understanding of [...] or be administered own oral medications per [facility] protocols. Provided informed consent with understanding of [...] appointment. 07/12/2023 Chronic depression (ICD-10 - F32.9) 08/12/2023 Chronic depression (ICD-10 - F32.9) Client reports improved mood - mutually agreed to not make medication changes at this time Psychotherapy recommended. Client has information needed to make appointment. 09/14/2023 Chronic depression (ICD-10 - F32.9) Client reports improved mood - mutually agreed to not make medication changes at this time Psychotherapy recommended. Client has information needed to make appointment. 03/06/2024 Chronic depression (ICD-10 - F32.9) Client [...] this time. Continue psychotherapy as scheduled. 12/27/2023 Other May self-administer medications or be administered own oral medications per [facility] protocols. Provided informed consent with understanding of side effects, adverse effects, risks and benefits as well as alternative treatments as previously discussed and with the above recommended medications & other aspects of the treatment program. Agrees to return sooner if symptoms worsen or suicidal or homicidal ideations occur. Labs monitored by PCP. 07/12/2023 Other Psychotherapy recommended. Client has information needed to make appointment. May self-administer medications or be administered own oral medications per [facility] protocols. Provided informed consent with understanding of side effects, adverse effects, risks and benefits as well as alternative treatments as previously discussed and with the above recommended medications & other aspects of the treatment program. Agrees to return sooner if symptoms worsen or suicidal or homicidal ideations occur. 11/15/2023 Other May self-administer medications or be administered own oral medications per [facility] protocols. Provided informed consent with understanding of side effects, adverse effects, risks and benefits as well as alternative treatments as previously discussed and with the above recommended medications & other aspects of the treatment program. Agrees to return sooner if symptoms worsen or suicidal or homicidal ideations occur. 08/12/2023 Other May self-administer medications or be administered own oral medications per [facility] protocols. Provided informed consent with understanding of side effects, adverse effects, risks and benefits as well as alternative treatments as previously discussed and with the above recommended medications & other aspects of the treatment program. Agrees to return sooner if symptoms worsen or suicidal or homicidal ideations occur. 09/14/2023 Other May self-administer medications or be administered own oral medications per [facility] protocols. Provided informed consent with understanding of side effects, adverse effects, risks and benefits as well as alternative treatments as previously discussed and with the above recommended medications & other aspects of the treatment program. Agrees to return sooner if symptoms worsen or suicidal or homicidal ideations occur. 02/07/2024 Other Plan Of Treatment No Information Insurance Providers Payer Name Payer Address Payer Phone Subscriber Number Group Number Insured Name Patient Relationship to Insured Coverage Start Date Coverage End Date [facility] Attn Claims Department [address] [place] [address] [phone] [id number] Molly Acevedo Self - patient is the insured [employer] [place] [facility] [address] [place] [address] [phone] [id number] Molly Acevedo Self - patient is the insured 3 Medical (General) History Medical History History ICD Code migraine headaches fibromyalgia Surgical History Surgery Date(Month/Year) tonsillectomy/adnoidectomy 2007 gallbladder removed 2015 tead ducts worked on 1998 wisdom teeth removed 2017 Hospitalization History Reason Date(Month/Year) see surgeries
[2024-06-27 15:54] VITALS: BP 126/67; PULSE 87; RESP 15; TEMP 36.6; O2SAT 100
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
--- OUTSIDE RECORDS SUMMARY | 2024-06-27 17:55 | XMS_ITS | Referral Summary ---
Author Organization [facility] Address [address] [place] [address] Care Team Providers Care Jailor Name Role Phone Dhruv Byrd MD Primary Care Provider [phone] Allergies Active Allergy Reactions Criticality Noted Date [...] on file Legal Sex Female 10:28 PM STAFF READINESS OFFICER Gender Identity Not on file Sexual Orientation [...] Plan of Treatment Not on file [place] [id number] [facility] [address] [place] [phone] Care Teams Jailor Relationship Specialty Start Date End Date Dhruv Byrd MD PCP - General Family Medicine 04/21/20
--- OUTSIDE RECORDS SUMMARY | 2024-06-27 17:55 | XMS_ITS | Encounter Summary ---
Author Organization [facility] Address [address] [place] [address] Care Team Providers Care Supervisor Sulfuric Acid Plant Name Role Phone Myra Breana Gorman APRN-FOOD ASSEMBLER KITCHEN Primary Care Provider Jacob Galvan DO Primary Care Provider [phone] Reason for Visit * Reason Onset Date Comments MEDICATION REFILL 06/11/2022 Encounter Details Date Type Department Care Team (Late st Contact Info) Description 06/11/2022 Refill [facility] [address] [place] [address], [place] [address] Andre Farah MD [address] [place] [phone] MEDICATION REFILL Social History Tobacco Use Types Packs/Day Years Used Date Smoking Tobacco: Former Cigarettes 0.5 9 1 03/23/2009 - 01/20/2019 Smokeless Tobacco: Never Alcohol Use Standard Drinks/Week Comments No 0 (1 standard drink = 0.6 oz pur e alcohol) Comments No Sex and Gender Information Value Date Recorded Sex Assigned at Not on file Legal Sex Female 5:35 PM CANVAS WORKER Gender Identity Not on file Sexual Orientation Not on file 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 Not on file Not [...] st Contact Info) Description 12/12/2024 1:00 PM CANVAS WORKER Office Visit [facility]rology [address] [place] [address], [place] [phone] Jhonathan Subramanian, GLOBAL SALES EXECUTIVE-FOOD ASSEMBLER KITCHEN [address] [place] [address] [place] [phone] documented as of this encounter Visit Diagnoses Diagnosis Fibromyalgia Mylagia and myositis, unspecified documented in this encounter Care Teams Supervisor Sulfuric Acid Plant Relationship Specialty Start Date End Date Breana Renteria, GLOBAL SALES EXECUTIVE-FOOD ASSEMBLER KITCHEN [address] [place] [address] PCP - General 05/05/20 05/08/23 Jacob Galvan DO [address] [place] [address] PCP - General Family Medicine 05/09/23 documented as of this encounter
--- OUTSIDE RECORDS SUMMARY | 2024-06-27 17:55 | XMS_ITS | Encounter Summary ---
Author Organization [facility] Address [address] [place] [address] Care Team Providers Care Key Punch Teacher Name Role Phone Breana Renteria Primary Care Provider Jacob Galvan DO Primary Care Provider [phone] Reason for Visit * Reason Onset Date Comments MEDICATION REFILL 07/09/2022 Encounter Details Date Type Department Care Team (Late st Contact Info) Description 07/09/2022 Refill [facility] [address] [place] [address], [place] [address] Jhonathan Subramanian APRN-CNP [address] [place] [phone] MEDICATION REFILL Social History Tobacco Use Types Packs/Day Years Used Date Smoking Tobacco: Former Cigarettes 0.5 9 1 03/23/2009 - 01/20/2019 Smokeless Tobacco: Never Alcohol Use Standard Drinks/Week Comments No 0 (1 standard drink = 0.6 oz pur e alcohol) Comments No Sex and Gender Information Value Date Recorded Sex Assigned at Not on file Legal Sex Female 5:35 PM SHAKE CUTTER Gender Identity Not on file Sexual Orientation Not on file 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 Answer Date of Assessment Author No 05/16/2019 4:55 AM Sumi Oliveira RN * Is person blind or have serious difficulty seeing? Answer Date of Assessment Author No 05/16/2019 4:55 AM Sumi lOiveira RN * Does person have serious difficulty [...] st Contact Info) Description 12/12/2024 1:00 PM SHAKE CUTTER Office Visit [facility] - Neurology [address] [place] [address], [place] [address] Jhonathan Subramanian APRN-CNP [address] [place] [phone] documented as of this encounter Visit Diagnoses Diagnosis Fibromyalgia Mylagia and myositis, unspecified documented in this encounter Care Teams Key Punch Teacher Relationship Specialty Start Date End Date Breana Renteria APRN-CNP [address] [place] [address] PCP - General 05/05/20 05/08/23 Jacob Galvan DO [address] [place] [address] PCP - General Family Medicine 05/09/23 documented as of this encounter
--- OUTSIDE RECORDS SUMMARY | 2024-06-27 17:55 | XMS_ITS | Encounter Summary ---
Author Organization [facility] Address [address] [place] [address] Care Team Providers Care Paid Search Manager Name Role Phone Myra, Breana Gorman APRN-POWER SHOVEL OPERATOR Primary Care Provider Jacob Galvan DO Primary Care Provider [phone] Reason for Visit * Reason Onset Date Comments MEDICATION REFILL 03/01/2022 Encounter Details Date Type Department Care Team (Late st Contact Info) Description 03/01/2022 Refill [facility] [address] [place] [address], [place] [address] Andre Farah MD [address] [place] [phone] MEDICATION REFILL Social History Tobacco Use Types Packs/Day Years Used Date Smoking Tobacco: Former Cigarettes 0.5 9 1 03/23/2009 - 01/20/2019 Smokeless Tobacco: Never Alcohol Use Standard Drinks/Week Comments No 0 (1 standard drink = 0.6 oz pur e alcohol) Comments No Sex and Gender Information Value Date Recorded Sex Assigned at Not on file Legal Sex Female 5:35 PM MILK BOTTLING MACHINE OPERATOR Gender Identity Not on file Sexual Orientation Not on file 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 file Not on file [...] Qty Disp: 15 # of refills: 3 BOTTLING MACHINE OPERATOR documented in this encounter Plan of Treatment Upcoming Encounters Date Type Department Care Team (Late st Contact Info) Description 12/12/2024 1:00 PM MILK BOTTLING MACHINE OPERATOR Office Visit [facility] - Neurology [address] [place] [address], [place] [phone] Jhonathan Subramanian, PILING SETTER-POWER SHOVEL OPERATOR [address] [place] [address] [place] [address] documented as of this encounter Visit Diagnoses Diagnosis Fibromyalgia Mylagia and myositis, unspecified documented in this encounter Care Teams Paid Search Manager Relationship Specialty Start Date End Date Breana Renteria APRN-MEMO [address] [place] [address] PCP - General 05/05/20 05/08/23 Jacob Galvan DO [address] [place] [address] PCP - General Family Medicine 05/09/23 documented as of this encounter
--- OUTSIDE RECORDS SUMMARY | 2024-06-27 17:55 | XMS_ITS | Clinical Summary ---
Author Organization [facility] Address [address] [place] [address] Care Team Providers Care Streaming Media Specialist Name Role Phone Dhruv Byrd MD Primary Care Provider [phone] Allergies Active Allergy Reactions Criticality Noted Date [...] on file Legal Sex Female 10:28 PM PLACER MINER Gender Identity Not on file Sexual Orientation [...] 09/18/2008 Varicella Vaccines Completed 09/03/2014, 12/18/1997 Insurance [facility] Care Teams Streaming Media Specialist Relationship Specialty Start Date End Date Dhruv Byrd MD PCP - General Family Medicine 04/21/20
--- OUTSIDE RECORDS SUMMARY | 2024-06-27 17:55 | XMS_ITS | Clinical Summary ---
Author Organization [facility] [employer] Address [address] [place] [address] Care Team Providers Care Solutions Executive Security Name Role Phone Jacob Galvan DO Primary Care Provider [phone] Source Comments [facility] [employer] [facility],non-owned Affiliates and Associated Physician Practices is amultiple site organization consisting of ambulatory clinics and hospital sitesin [place], [place], [place] and [place]. This disclosure is being madepursuant to the Care Everywhere program and may not contain all information available regarding this patient. Last updated 17.[facility] [employer] Allergies Active Allergy Reactions Criticality Noted Date [...] fluticasone propionate (FLONASE) 50 MCG/ACT nasal spray [place] 1 (one) spray into the nose every [...] 06/21/2024 Telephone [facility] [address] [place] [phone] Jhonathan Subramanian APRN-JUNIOR ACCOUNT MANAGER Medication Issue 06/15/2024 Telephone [facility] [address] [place] [phone] Jhonathan Subramanian SOFTBALL PLAYER-JUNIOR ACCOUNT MANAGER Medication Prior Auth Request ([employer]) 06/12/2024 Telephone [facility] [address] [place] [phone] Jhonathan Subramanian SOFTBALL PLAYER-JUNIOR ACCOUNT MANAGER Medication [facility] 06/11/2024 1:00 PM CDT Office Visit [facility] [address] [place] [phone] Jhonathan Subramanian, SOFTBALL PLAYER-JUNIOR ACCOUNT MANAGER Chronic migraine without aura, intractable, without status migrainosus (Primary Dx); Migraine without aura and without status migrainosus, not intractable; Tension headache 06/11/2024 Travel 05/21/2024 Telephone [facility] [address] [place] [phone] Jhonathan Subramanian SOFTBALL PLAYER-JUNIOR ACCOUNT MANAGER Medication Prior Auth Request from Last 3 [...] on file Legal Sex Female 5:35 PM PIERCING MILL OPERATOR Gender Identity Not on file Sexual Orientation Not on file 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 Not on file Not on file Last Filed Vital Signs Vital Sign Reading Time Taken Comments Blood Pressure 107/64 06/11/2024 1:08 PM CDT Pulse 81 06/11/2024 1:08 PM CDT Temperature 36.3 C (97.4 F) 12/12/2023 1:03 PM PIERCING MILL OPERATOR Respiratory Rate 18 05/21/2019 1:36 PM CDT Oxygen Saturation 97% 06/11/2024 1:08 PM CDT Inhaled Oxygen Concentration - - Weight 50.3 kg (111 lb) 06/11/2024 1:08 PM CDT Height 160 cm (5' 3 ) 12/12/2023 1:03 PM PIERCING MILL OPERATOR Body Mass Index 19.66 12/12/2023 1:03 PM PIERCING MILL OPERATOR Plan of Treatment Upcoming Encounters Date Type Department Care Team (Late st Contact Info) Description 12/12/2024 1:00 PM PIERCING MILL OPERATOR [facility] [address] [place] [address], [place] [address] Jhonathan Subramanian, SOFTBALL PLAYER-JUNIOR ACCOUNT MANAGER [address] [place] [place] [address] Health Maintenance Due Date Last [...] HIV-1 HIV-2 ANTIGEN/ANTIBODY STAT 12/19/2018 2:21 PM PIERCING MILL OPERATOR from Last 3 Months or Most Recently Relevant to Health Maintenance Results * HIV-1 HIV-2 ANTIGEN/ANTIBODY (12/19/2018 2:21 PM PIERCING MILL OPERATOR) HIV Antigen/Antibod y 1 & 2 Non-reacti ve Non-react michel 12/19/2018 3:27 PM PIERCING MILL OPERATOR [facility] Comment: Neither HIV-1 p24 Antigen nor HIV-1/HIV-2 Antibodies are detected. Blood BLOOD SPECIMEN / Unknown Venipuncture / Unknown 12/19/2018 2:21 PM PIERCING MILL OPERATOR 12/19/2018 2:40 PM PIERCING MILL OPERATOR us Carmella Box MD LAB - HEMATOLOGY ORDERABLES Final Result [facility] [address] [phone] from Last 3 Months or Most Recently Relevant to Health Maintenance Insurance [facility] Member Subscriber Plan / Payer ( fective 2020-Present) Name:Alma Delia Acevedoyn F Relation to Subscriber:Self Name:Alma Delia Acevedoyn F Payer ID:[id number] (NAIC) Group ID:Not on file Type:Medicaid Managed Care Address: ATTN CLAIMS DEPARTMENT [address] [place], [place] [address] [facility] [employer] LIABILITY Democrat Liability Advance Directives * Full Code (Latest Code Status on File) Date Activated Date Inactivated Comments 05/16/2019 2:31 AM 05/21/2019 4:18 PM * Full Code Date Activated Date Inactivated Comments 08/23/2017 5:14 AM 08/24/2017 6:05 PM * Full Code Date Activated Date Inactivated Comments 08/23/2017 4:24 AM 08/23/2017 5:14 AM Care Teams Solutions Executive Security Relationship Specialty Start Date End Date Jacob Galvan DO [address] [place] [address] PCP - General Family Medicine 05/09/23
--- OUTSIDE RECORDS SUMMARY | 2024-06-27 17:55 | XMS_ITS | Encounter Summary ---
Author Organization [facility] Address [address] [place] [address] Care Team Providers Care Alarm Installation Technician Name Role Phone Myra Breana Gorman APRN-NETWORK CONTROL TECHNICIAN Primary Care Provider Jacob Galvan DO Primary Care Provider [phone] Reason for Visit * Reason Onset Date Comments MEDICATION REFILL 12/22/2022 Encounter Details Date Type Department Care Team (Late st Contact Info) Description 12/22/2022 Refill [facility] [address] [place] [address], [place] [address] Andre Farah MD [address] [place] [address] [place] [phone] MEDICATION REFILL Social History Tobacco Use Types Packs/Day Years Used Date Smoking Tobacco: Former Cigarettes 0.5 9 1 03/23/2009 - 01/20/2019 Smokeless Tobacco: Never Alcohol Use Standard Drinks/Week Comments No 0 (1 standard drink = 0.6 oz pur e alcohol) Comments No Sex and Gender Information Value Date Recorded Sex Assigned at Not on file Legal Sex Female 5:35 PM GROOMING ASSISTANT Gender Identity Not on file Sexual Orientation Not on file 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 Not on file Not [...] 2 tablets a day) # refills: 0 MING ASSISTANT documented in this encounter Plan of Treatment Upcoming Encounters Date Type Department Care Team (Late st Contact Info) Description 12/12/2024 1:00 PM GROOMING ASSISTANT Office Visit [facility] - Neurology [address] [place] [address] [place] [address] Jhonathan Subramanian APRN-CNP [address] [place] [address] [place] [address] documented as of this encounter Visit Diagnoses Diagnosis Migraine without aura and without status migrainosus, not intractable Migraine without aura, without mention of intractable migraine without mention of status migrainosus documented in this encounter Care Teams Alarm Installation Technician Relationship Specialty Start Date End Date Breana Renteria APRN-CNP [address] [place] [address] PCP - General 05/05/20 05/08/23 Jacob Galvan DO [address] [place] [id number] PCP - General Family Medicine 05/09/23 documented as of this encounter
--- OUTSIDE RECORDS SUMMARY | 2024-06-27 17:55 | XMS_ITS | Encounter Summary ---
Author Organization [facility] Address [address] [place] [address] Care Team Providers Care Community Integration Specialist Name Role Phone Cole Jacob LOPEZ Primary Care Provider [phone] Reason for Visit * Reason Onset Date Comments MEDICATION REFILL 01/20/2024 Encounter Details Date Type Department Care Team (Late st Contact Info) Description 01/20/2024 Refill [facility] [address] [place] [address], [place] [phone] Jhonathan Subramanian, VP CLINICAL RESEARCH-LINE CLOSER [address] [place] [phone] MEDICATION REFILL Social History Tobacco Use Types Packs/Day Years Used Date Smoking Tobacco: Former Cigarettes 0.5 9 1 03/23/2009 - 01/20/2019 Smokeless Tobacco: Never Alcohol Use Standard Drinks/Week Comments No 0 (1 standard drink = 0.6 oz pur e alcohol) Comments No Sex and Gender Information Value Date Recorded Sex Assigned at Not on file Legal Sex Female 5:35 PM LIGHT BULB REPLACER Gender Identity Not on file Sexual Orientation Not on file 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 Not on file Not [...] st Contact Info) Description 12/12/2024 1:00 PM LIGHT BULB REPLACER Office Visit [facility] - Neurology [address] [place] [address], [facility] [place] [phone] Jhonathan Subramanian, VP CLINICAL RESEARCH-LINE CLOSER [address] [place] [address] [place] [phone] documented as of this encounter Visit Diagnoses Diagnosis Chronic migraine without aura, intractable, without status migrainosus Migraine without aura and without status migrainosus, not intractable Migraine without aura, without mention of intractable migraine without mention of status migrainosus documented in this encounter Care Teams Community Integration Specialist Relationship Specialty Start Date End Date Jacob Galvan DO [address] [place] [address] PCP - General Family Medicine 05/09/23 documented as of this encounter
== END 2024-06-27 18:05 | disposition home or self-care (01) ==
LOC: ANHED 17:53
PROVIDERS: Emergency Provider Physician Assistant
DX: S09.90XA Unspecified injury of head, initial encounter (principal); S16.1XXA Strain of muscle, fascia and tendon at neck level, initial encounter; R91.1 Solitary pulmonary nodule; E28.2 Polycystic ovarian syndrome; M79.7 Fibromyalgia; F43.10 Post-traumatic stress disorder, unspecified; F41.9 Anxiety disorder, unspecified; F32.A Depression, unspecified; F17.290 Nicotine dependence, other tobacco product, uncomplicated; Z90.49 Acquired absence of other specified parts of digestive tract; Z79.899 Other long term (current) drug therapy; W20.8XXA Other cause of strike by thrown, projected or falling object, initial encounter
CPT/HCPCS: 70450; 72125; 99284

== ENCOUNTER 2024-09-13 06:03 | Emergency (ER) | payer OTHER, SELFPAY ==
--- OUTSIDE RECORDS SUMMARY | 2024-09-13 06:05 | XMS_ITS | Clinical Summary ---
Author Organization [facility] Address [address] [place] [address] Care Team Providers Care Block Cableman Name Role Phone Jacob Galvan DO Primary Care Provider [phone] Source Comments [facility],non-owned Affiliates and Associated Physician Practices is amultiple site organization consisting of ambulatory clinics and hospital sitesin [place], [place], [place] and [place]. This disclosure is being madepursuant to the Care Everywhere program and may not contain all information available regarding this patient. Last updated 17.[facility] Allergies Active Allergy Reactions Criticality Noted Date [...] fluticasone propionate (FLONASE) 50 MCG/ACT nasal spray Ackerly 1 (one) spray into the nose every [...] Patient not taking.Reported on 06/11/2024 albuterol HFA (PROVENTIL;VENT JARVIS;PROAIR) 108 (90 Base) [...] daily 60 capsule 3 05/09/19 24 Active topiramate (Topamax) 200 MG tabletIndicatio ns:Chronic migraine without aura, intractable, without status migrainosus,Michele sanjay without aura and without status migrainosus, not intractable Take 1 (one) tablet by mouth 2 times daily 60 tablet 6 06/12/19 25 Active butalbital-acet aminophen-caffe ine (Fioricet) 50-325-40 MG tabletIndicatio ns:Migraine without aura and without status migrainosus, not intractable TAKE 1 TABLET BY MOUTH EVERY 6 HOURS NEEDED FOR HEADACHE. NO ADDITIONAL TYLENOL OR ACETAMEOPHEN 15 tablet 5 06/12/19 25 Active dihydroergotami ne mesylate (Migranal) 4 MG/ML nasal solutionIndicat ions:Intractabl e migraine with aura with status migrainosus Ackerly 1 (one) spray into each nostril every 15 minutes as needed for Migraine 6 mL 11 07/12/19 25 Active metoprolol succinate XL 24hr (Toprol XL) 25 MG tabletIndicatio ns:Intractable migraine with aura with status migrainosus Take 0.5 (one-half) tablet by mouth once daily 45 tablet 3 07/12/19 25 Active rimegepant (Nurtec) 75 MG tabletIndicatio ns:Chronic migraine without aura, intractable, without status migrainosus,Michele sanjay without aura and without status migrainosus, not intractable Take 75 mg by mouth every 2 days 16 tablet 11 07/12/19 25 Active Active Problems Problem Noted Date Diagnosed [...] Encounters Date Type Department Care Team Description 07/24/2024 Refill [facility] - Neurology [address] [place] [phone] Boom Amador TRIBAL JUDGE-INTAKE RN MEDICATION REFILL 07/11/2024 Refill [facility] [address] [place] [phone] Boom Amador TRIBAL JUDGE-INTAKE RN MEDICATION REFILL 07/11/2024 Orders Only [facility] [address] [place] [phone] Boom Amador TRIBAL JUDGE-INTAKE RN Chronic migraine without aura, intractable, without status migrainosus; Migraine without aura and without status migrainosus, not intractable 07/11/2024 Orders Only [facility] - Neurology [address] [place] [address], [place] [address] Boom Amador APRN-MEMO Intractable migraine with aura with status migrainosus 07/11/2024 Orders Only [facility] [address] [place] [address], [place] [address] Boom Amador APRN-MEMO Intractable migraine with aura with status migrainosus 07/11/2024 Orders Only [facility] [address] [place] [address], [place] [address] Boom Amador APRN-MEMO Intractable migraine with aura with status migrainosus 06/21/2024 Telephone [facility] - Neurology [address] [place] [address], [place] [address] Jhonathan Subramanian APRN-INTAKE RN Medication Issue 06/15/2024 Telephone [facility] [address] [place] [address], [place] [address] Jhonathan Subramanian TRIBAL JUDGE-INTAKE RN Medication Prior Auth Request ([employer]) from Last 3 Months Immunizations Immunization Administration [...] COPD - Chronic Obstructive Pulmonary Disease Father slight; supposed t o use inhaler Hypertension Father [...] on file Legal Sex Female 5:35 PM FARM PRODUCTS SHIPPER Gender Identity Not on file Sexual Orientation Not on file 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 Not on file Not on file Last Filed Vital Signs Vital Sign Reading Time Taken Comments Blood Pressure 107/64 06/11/2024 1:08 PM CDT Pulse 81 06/11/2024 1:08 PM CDT Temperature 36.3 C (97.4 F) 12/12/2023 1:03 PM FARM PRODUCTS SHIPPER Respiratory Rate 18 05/21/2019 1:36 PM CDT Oxygen Saturation 97% 06/11/2024 1:08 PM CDT Inhaled Oxygen Concentration - - Weight 50.3 kg (111 lb) 06/11/2024 1:08 PM CDT Height 160 cm (5' 3) 12/12/2023 1:03 PM FARM PRODUCTS SHIPPER Body Mass Index 19.66 12/12/2023 1:03 PM FARM PRODUCTS SHIPPER Plan of Treatment Upcoming Encounters Date Type Department Care Team (Late st Contact Info) Description 12/12/2024 1:00 PM FARM PRODUCTS SHIPPER Office Visit [facility] [address] [place] [address], [place] [address] Jhonathan Subramanian, TRIBAL JUDGE-INTAKE RN [address] [place] [address] [place] [phone] Health Maintenance Due Date Last Done Comments HEPATITIS C SCREENING 11/13/2014 PNEUMOCOCCAL VACCINE (1 of 2 - PCV) 11/18/2015 PAP SMEAR 2017 COVID-19 VACCINE ( - season) 2023 DEPRESSION SCREENING 02/08/2024 INFLUENZA VACCINE (#1) 2024 3, 08/23/2018, 05/19/2018, Additional history exists DTAP/TDAP/TD VACCINES [...] HIV-1 HIV-2 ANTIGEN/ANTIBODY STAT 12/19/2018 2:21 PM FARM PRODUCTS SHIPPER from Last 3 Months or Most Recently Relevant to Health Maintenance Results * HIV-1 HIV-2 ANTIGEN/ANTIBODY (12/19/2018 2:21 PM FARM PRODUCTS SHIPPER) HIV Antigen/Antibod y 1 & 2 Non-reacti ve Non-react michel 12/19/2018 3:27 PM FARM PRODUCTS SHIPPER [facility] Comment: Neither HIV-1 p24 Antigen nor HIV-1/HIV-2 Antibodies are detected. Blood BLOOD SPECIMEN / Unknown Venipuncture / Unknown 12/19/2018 2:21 PM FARM PRODUCTS SHIPPER 12/19/2018 2:40 PM FARM PRODUCTS SHIPPER us Carmella Box MD LAB - HEMATOLOGY ORDERABLES Final Result Performing Organization Address City/State/[facility] Co de Phone Number [facility] [address] [phone] from Last 3 Months or Most Recently Relevant to Health Maintenance Insurance [facility] THIRD DEMOCRAT LIABILITY Green Party Liability Advance Directives * Full Code (Latest Code Status on File) Date Activated Date Inactivated Comments 05/16/2019 2:31 AM 05/21/2019 4:18 PM * Full Code Date Activated Date Inactivated Comments 08/23/2017 5:14 AM 08/24/2017 6:05 PM * Full Code Date Activated Date Inactivated Comments 08/23/2017 4:24 AM 08/23/2017 5:14 AM Care Teams Block Cableman Relationship Specialty Start Date End Date Jacob Galvan DO [address] [place] [id number] PCP - General Family Medicine 05/09/23
--- OUTSIDE RECORDS SUMMARY | 2024-09-13 06:05 | XMS_ITS | Encounter Summary ---
Author Organization [facility] Address [address] [place] [address] Care Team Providers Care Cash Register Operator Name Role Phone Manan Etienne MD Primary Care Provider [phone] Breana Renteria Primary Care Provider [phone] None, Provider Primary Care Provider Jacob Rao DO Primary Care Provider [phone] Encounter Details Date Type Department Care Team (Late st Contact Info) Description 01/18/2013 Abstract [facility] CONVERSION [address] [place], [place] [id number] , Generic Conversion, Social History Tobacco Use [...] Rule Out 12/30/2020 12/30/2020 12/30/2020 9:05 PM OCCUPATIONAL THERAPY INSTRUCTOR COVID-19 Rule Out 12/30/2020 12/30/2020 12/31/2020 11:04 PM OCCUPATIONAL THERAPY INSTRUCTOR COVID-19 Confirmed 12/30/2020 12/30/2020 12:32 AM OCCUPATIONAL THERAPY INSTRUCTOR documented as of this encounter Care Teams Cash Register Operator Relationship Specialty [place] [address] [place] [address] PCP - General FAMILY PRACTICE 02/27/18 07/25/21 Breana Renteria FNP [address] [place] [address] PCP - General NURSE PRACTITIONER 07/26/21 01/06/22 None, Provider, PCP - General UNKNOWN PHYSICIAN SPECIALTY 01/07/22 Jacob Galvan DO [address] [place] [address] PCP - General FAMILY PRACTICE 06/16/22 documented as of this encounter
--- OUTSIDE RECORDS SUMMARY | 2024-09-13 06:05 | XMS_ITS | Encounter Summary ---
Author Organization [facility] Address [address] [place] [address] Care Team Providers Care Lift Team Technician Name Role Phone Jacob Galvan DO Primary Care Provider [phone] Reason for Visit * Reason Onset Date Comments MEDICATION REFILL 07/24/2024 Encounter Details Date Type Department Care Team (Late st Contact Info) Description 07/24/2024 Refill [facility] - Neurology [address] [place] [address], [place] [phone] Boom Amador, RANDA-STOCK MANAGER [address] [place] [phone] MEDICATION REFILL Social History Tobacco Use Types Packs/Day Years Used Date Smoking Tobacco: Former Cigarettes 0.5 9 1 03/23/2009 - 01/20/2019 Smokeless Tobacco: Never Alcohol Use Standard Drinks/Week Comments No 0 (1 standard drink = 0.6 oz pur e alcohol) Comments No Sex and Gender Information Value Date Recorded Sex Assigned at Not on file Legal Sex Female 5:35 PM CANDY VENDOR Gender Identity Not on file Sexual Orientation Not on file 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 Not on file Not [...] st Contact Info) Description 12/12/2024 1:00 PM CANDY VENDOR Office Visit [facility] Neurology [address] [place] [address], [facility] [place] [phone] Jhonathan Subramanian, CONTROL INSPECTOR-[address] [place] [phone] documented as of this encounter Visit Diagnoses Diagnosis Intractable migraine with aura with status migrainosus Migraine with aura, with intractable migraine, so stated, with status migrainosus documented in this encounter Care Teams Lift Team Technician Relationship Specialty Start Date End Date Jacob Galvan DO [address] [place] [address] PCP - General Family Medicine 05/09/23 documented as of this encounter
--- OUTSIDE RECORDS SUMMARY | 2024-09-13 06:05 | XMS_ITS | Clinical Summary ---
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 Gender Identity Not on file Sexual Orientation [...] P M CDT Height 160 cm (5' 2.99) 07/29/2022 3:26 PM CDT Body Mass Index 22.89 07/29/2022 3:26 PM CDT Plan of Treatment Health Maintenance Due Date Last Done Comments Cervical Cancer Screening 1996 Hepatitis C Screening 1996 Regular Well Visit/Exam 18-64 2014 Pneumococcal vaccine <65 (1 of 2 - PCV) 11/18/2015 Depression Screening 07/30/2023 07/29/2022, 11/20/2020, 11/20/2020 Covid-19 Vaccine (2 - 2024-2 5 season) 2023 07/17/2020 Influenza Vaccine (#1) 2024 9, 05/19/2018, 02/10/2018, Additional history exists DTaP/Tdap/Td Vaccine (8 - Td or Tdap) 12/19/2030 12/19/2020, 11/08/2011, 09/19/2002, Additional history exists Hepatitis B Screening Completed 07/15/1997 , 1996, 1996 HPV Vaccines Completed 03/27/2009, 11/07, 09/18/2008 Varicella Vaccines Completed 09/03/2014, 12/18/1997 Insurance [facility] Care Teams Orthodontist Assistant Relationship Specialty Start Date End Date Dhruv Byrd MD PCP - General Family Medicine 04/21/20
--- OUTSIDE RECORDS SUMMARY | 2024-09-13 06:05 | XMS_ITS | Patient Health Record ---
Author Organization [facility] Address [address] [place] [address] Care Team Providers Care Counterintelligence/Humint Specialist Name Role Phone Marge Gaston Primary Care Provider Tyler Colon Unavailable Allergies No Known Allergies Reason For Referral No Information Medications Medication SIG (Take, Route, Fr equency, Duration) Notes Start Date End Date Status Migranal Active Depo-Provera 150 MG/ML 1 mL Intramuscular Active Nurtec Active traZODone HCl 50 MG 1 - 2 tablets at bed time as needed Orally Once a day; Duration: 30 days Active FLUoxetine HCl 40 MG 1 capsule Orally On ce a day; Duration: 30 days Active lamoTRIgine 200 MG 1 tablet Orally Once a day; Duration: 30 days Active Pregabalin 200 MG 1 capsule Orally twice a day 06/2023 Active Social History Tobacco Use: Social History Observation Description Date Details (start date - stop date) Unknown Dont use, Tobacco Use/Smoking Question Answer Notes [...] phone, visiting friends or family, going to muslim or club meetings) 3 to 5 times a week How stressed are you? Stress is when someone feels tense, nervous, anxious, or can\t sleep at night because their mind is troubled Quite a bit In the past year have you sp ent more than 2 nights in a row in a assisted, fdc, intermediate center, or juvenile correctional facility? No Are [...] Control (Standard) Question Answer Notes Tobacco use: Uses tobacco in other forms Additional Findings: Tobacco user e-cigarette Problems Problem Type SNOMED Code ICD Code Onset Dates Problem Status W/U Status Risk Notes Problem Tobacco user (904151907) Nicotine dependence, unspecified, uncomplicated (F17.200) Active confirmed Problem Posttraumatic stress disorder (76989122) Post traumatic stress disorder (PTSD) (F43.10) Active confirmed Problem Cannabis dependence (86270816) Marijuana smoker (F12.20) Active confirmed Problem Chronic depression (206703171) Chronic depression (F32.9) Active confirmed Encounters Encounter Location Date Provider Diagnosis [address] [place] [address] 09/14/2023 Marge Gaston Post traumatic stress disorder (PTSD) F43.10 ; Marijuana smoker F12.20 ; Nicotine dependence, unspecified, uncomplicated F17.200 and Chronic depression F32.[address] [place] [address] 11/15/2023 Marge Gaston Post traumatic stress disorder (PTSD) F43.10 ; Marijuana smoker F12.20 ; Nicotine dependence, unspecified, uncomplicated F17.200 and Chronic depression F32.[address] [place] [address] 12/27/2023 Marge Gaston Post traumatic stress disorder (PTSD) F43.10 ; Marijuana smoker F12.20 ; Nicotine dependence, unspecified, uncomplicated F17.200 and Chronic depression F32.[address] [address] 02/07/2024 Marge Sabblut Post traumatic stress disorder (PTSD) F43.10 ; Marijuana smoker F12.20 ; Nicotine dependence, unspecified, uncomplicated F17.200 ; Chronic depression F32.9 and Medication management Z79.[address] [address] 03/06/2024 Marge Sabblut Post traumatic stress disorder (PTSD) F43.10 ; Marijuana smoker F12.20 ; Nicotine dependence, unspecified, uncomplicated F17.200 ; Medication management Z79.899 and Chronic depression F32.[address] [address] 04/16/2024 Marge Sabblut Post traumatic stress disorder (PTSD) F43.10 ; Marijuana smoker F12.20 ; Nicotine dependence, unspecified, uncomplicated F17.200 ; Medication management Z79.899 and Chronic depression F32.[address] [address] 05/30/2024 Marge Sabblut Post traumatic stress disorder (PTSD) F43.10 ; Marijuana smoker F12.20 ; Nicotine dependence, unspecified, uncomplicated F17.200 ; Medication management Z79.899 and Chronic depression F32.[address] [address] 07/04/2024 Marge Sabblut Post traumatic stress disorder (PTSD) F43.10 ; Marijuana smoker F12.20 ; Nicotine dependence, unspecified, uncomplicated F17.200 ; Medication management Z79.899 and Chronic depression F32.[address] [address] 08/08/2024 Marge Sabblut Post traumatic stress disorder (PTSD) F43.10 ; Marijuana smoker F12.20 ; Nicotine dependence, unspecified, uncomplicated F17.200 ; Medication management Z79.899 and Chronic depression F32.[address] [address] 09/03/2024 Marge Gaston Post traumatic stress disorder (PTSD) F43.10 ; Marijuana smoker F12.20 ; Nicotine dependence, unspecified, uncomplicated F17.200 ; Medication management Z79.899 and Chronic depression F32.[address] [address] 11/08/2023 Marge Gaston Chronic depression F32.[address] [address] 11/22/2023 Marge Gaston [address] [address] 11/28/2023 Marge Gaston [address] [address] 01/27/2024 Marge Gaston Chronic depression F32.9 and Post traumatic stress disorder (PTSD) F43.[address] [address] 02/09/2024 Tyler Colon [address] [address] 03/23/2024 Marge Gaston [address] [address] 08/09/2024 Marge Gaston [address] [address] 08/27/2024 Magre Gaston Chronic depression F32.9 Assessments Encounter Date Diagnosis (ICD Code) Assessment Notes Treatment Notes Treatment Clinical Notes Section Notes 09/14/2023 Post traumatic stress disorder (PTSD) (ICD-10 [...] (ICD-10 - F43.10) Continue psychotherapy as scheduled. 07/04/2024 Post traumatic stress disorder (PTSD) (ICD-10 - F43.10) Continue psychotherapy as scheduled. 08/08/2024 Post traumatic stress disorder (PTSD) (ICD-10 - F43.10) Continue psychotherapy as scheduled. 08/27/2024 Chronic depression (ICD-10 - F32.9) 09/03/2024 Post traumatic stress disorder (PTSD) (ICD-10 - F43.10) Continue psychotherapy as scheduled. 09/03/2024 Marijuana smoker (ICD-10 - F12.20) 08/08/2024 Marijuana smoker (ICD-10 - F12.20) 07/04/2024 Marijuana smoker (ICD-10 - F12.20) 05/30/2024 Marijuana smoker (ICD-10 - F12.20) 04/16/2024 Marijuana smoker (ICD-10 - F12.20) 03/06/2024 Marijuana smoker (ICD-10 - F12.20) 02/07/2024 Marijuana smoker (ICD-10 - F12.20) 01/27/2024 Post traumatic stress disorder (PTSD) (ICD-10 - F43.10) 12/27/2023 Marijuana smoker (ICD-10 - F12.20) 11/15/2023 Marijuana smoker (ICD-10 - F12.20) 09/14/2023 Marijuana smoker (ICD-10 - F12.20) 09/14/2023 Nicotine dependence, unspecified, uncomplicated (ICD-10 - F17.200) 11/15/2023 Nicotine dependence, unspecified, uncomplicated (ICD-10 - F17.200) 12/27/2023 Nicotine dependence, unspecified, uncomplicated (ICD-10 - F17.200) 02/07/2024 Nicotine dependence, unspecified, uncomplicated (ICD-10 - F17.200) 03/06/2024 Nicotine dependence, unspecified, uncomplicated (ICD-10 - F17.200) 04/16/2024 Nicotine dependence, unspecified, uncomplicated (ICD-10 - F17.200) 05/30/2024 Nicotine dependence, unspecified, uncomplicated (ICD-10 - F17.200) 07/04/2024 Nicotine dependence, unspecified, uncomplicated (ICD-10 - F17.200) 08/08/2024 Nicotine dependence, unspecified, uncomplicated (ICD-10 - F17.200) 09/03/2024 Nicotine dependence, unspecified, uncomplicated (ICD-10 - F17.200) 09/03/2024 Medication management (ICD-10 - Z79.899) May self-administer medications or be administered own oral medications per [facility] protocols. Provided informed consent with understanding of side effects, adverse effects, risks and benefits as well as alternative treatments as previously discussed and with the above recommended medications & other aspects of the treatment program. Agrees to return sooner if symptoms worsen or suicidal or homicidal ideations occur. Labs monitored by PCP. 08/08/2024 Medication management (ICD-10 - Z79.899) May self-administer medications or be administered own oral medications per [facility] protocols. Provided informed consent with understanding of side effects, adverse effects, risks and benefits as well as alternative treatments as previously discussed and with the above recommended medications & other aspects of the treatment program. Agrees to return sooner if symptoms worsen or suicidal or homicidal ideations occur. Labs monitored by PCP. 07/04/2024 Medication management (ICD-10 - Z79.899) May self-administer medications or be administered own oral medications per [facility] protocols. Provided informed consent with understanding of [...] or be administered own oral medications per [facility] protocols. Provided informed consent with understanding of [...] or be administered own oral medications per [facility] protocols. Provided informed consent with understanding of [...] or be administered own oral medications per [facility] protocols. Provided informed consent with understanding of [...] or be administered own oral medications per [facility] protocols. Provided informed consent with understanding of [...] mood next month. Continue psychotherapy as scheduled. 03/06/2024 Chronic depression (ICD-10 - F32.9) Client does not wish to make medication changes at this time. Continue psychotherapy as scheduled. 04/16/2024 Chronic depression (ICD-10 - F32.9) Client does not wish to make medication changes at this time. Continue psychotherapy as scheduled. 05/30/2024 Chronic depression (ICD-10 - F32.9) Client does not wish to make medication changes at this time. Continue psychotherapy as scheduled. 07/04/2024 Chronic depression (ICD-10 - F32.9) Client does not wish to make medication changes at this time. Continue psychotherapy as scheduled. 08/08/2024 Chronic depression (ICD-10 - F32.9) Continue psychotherapy as scheduled. Past antidepressant trials: sertraline (ineffective at low dose, unable to tolerate at higher doses), venlafaxine (ineffective, didn't like the way it made her feel). 09/03/2024 Chronic depression (ICD-10 - F32.9) Continue psychotherapy as scheduled. Past antidepressant trials: sertraline (ineffective at low dose, unable to tolerate at higher doses), venlafaxine (ineffective, didn't like the way it made her feel), escitalopram (not effective at maximum dose). 09/14/2023 Other May self-administer medications or be administered own oral medications per [facility] protocols. Provided informed consent with understanding of side effects, adverse effects, risks and benefits as well as alternative treatments as previously discussed and with the above recommended medications & other aspects of the treatment program. Agrees to return sooner if symptoms worsen or suicidal or homicidal ideations occur. 11/15/2023 Other May self-administer medications or be administered own oral medications per [facility] protocols. Provided informed consent with understanding of side effects, adverse effects, risks and benefits as well as alternative treatments as previously discussed and with the above recommended medications & other aspects of the treatment program. Agrees to return sooner if symptoms worsen or suicidal or homicidal ideations occur. 12/27/2023 Other May self-administer medications or be administered own oral medications per [facility] protocols. Provided informed consent with understanding of [...] Insured Coverage Start Date Coverage End Date [place] [email or web address] [facility] Att Claims Department [address] [place] [address] [phone] [id number] Molly Acevedo Self - patient is the insured [facility] [employer] [facility] Claims Department [address] [place] [address] [phone] [id number] Molly Acevedo Self - patient is the insured 3 Medical (General) History Medical History History ICD Code migraine headaches fibromyalgia Surgical History Surgery Date(Month/Year) tonsillectomy/adnoidectomy 2007 gallbladder removed 2015 tead ducts worked on 1999 wisdom teeth removed 2018 Hospitalization History Reason Date(Month/Year) see surgeries
--- OUTSIDE RECORDS SUMMARY | 2024-09-13 06:05 | XMS_ITS | Encounter Summary ---
Author Organization [facility] Address [address] [place] [address] Care Team Providers Care Heating And Air Conditioning Mechanic Name Role Phone Myra, Breana Gorman APRN-POSITIVE PRINTER OPERATOR Primary Care Provider Jacob Galvan DO Primary Care Provider [phone] Reason for Visit * Reason Onset Date Comments MEDICATION REFILL 03/01/2022 Encounter Details Date Type Department Care Team (Late st Contact Info) Description 03/01/2022 Refill [facility] [address] [place] [address], [place] [address] Andre Farah MD [address] [place] [phone] MEDICATION REFILL Social History Tobacco Use Types Packs/Day Years Used Date Smoking Tobacco: Former Cigarettes 0.5 9 1 03/23/2009 - 01/20/2019 Smokeless Tobacco: Never Alcohol Use Standard Drinks/Week Comments No 0 (1 standard drink = 0.6 oz pur e alcohol) Comments No Sex and Gender Information Value Date Recorded Sex Assigned at Not on file Legal Sex Female 5:35 PM TRANSCRIPTION COORDINATOR Gender Identity Not on file Sexual Orientation Not on file 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 on file Not on file [...] Qty Disp: 15 # of refills: 3 SCRIPTION COORDINATOR documented in this encounter Plan of Treatment Upcoming Encounters Date Type Department Care Team (Late st Contact Info) Description 12/12/2024 1:00 PM TRANSCRIPTION COORDINATOR Office Visit [facility] - Neurology [address] [place] [address], [place] [phone] Jhonathan Subramanian, STRATEGY EXECUTION CONSULTANT-POSITIVE PRINTER OPERATOR [address] [place] [address] [place] [address] documented as of this encounter Visit Diagnoses Diagnosis Fibromyalgia Mylagia and myositis, unspecified documented in this encounter Care Teams Heating And Air Conditioning Mechanic Relationship Specialty Start Date End Date Breana Renteria APRN-MEMO [address] [place] [address] PCP - General 05/05/20 05/08/23 Jacob Galvan DO [address] [place] [address] PCP - General Family Medicine 05/09/23 documented as of this encounter
--- OUTSIDE RECORDS SUMMARY | 2024-09-13 06:05 | XMS_ITS | Encounter Summary ---
Author Organization [facility] Address [address] [place] [address] Care Team Providers Care Architect Manager Name Role Phone Manan Etienne MD Primary Care Provider [phone] Breana Renteria Primary Care Provider [phone] None, Provider Primary Care Provider Jacob Rao DO Primary Care Provider [phone] Encounter Details Date Type Department Care Team (Late st Contact Info) Description 07/20/2019 MyChart Message Enc [facility] Family & Internal Medicine [address] [address] Manan Etienne MD [address] [place] [address] RE: Medication Questions Social History Tobacco [...] Rule Out 12/30/2020 12/30/2020 12/30/2020 9:05 PM WHEELABRATOR OPERATOR COVID-19 Rule Out 12/30/2020 12/30/2020 12/31/2020 11:04 PM WHEELABRATOR OPERATOR COVID-19 Confirmed 12/30/2020 12/30/2020 12:32 AM WHEELABRATOR OPERATOR Assessment Noted Time PHQ-9 Depression Total Score: 019 10:28 AM CDT documented as of this encounter Care Teams Architect Manager Relationship Specialty [place] [address] [place] [address] PCP - General FAMILY PRACTICE 02/27/18 07/25/21 Breana Renteria FNP [address] [place] [address] PCP - General NURSE PRACTITIONER 07/26/21 01/06/22 None, Provider, PCP - General UNKNOWN PHYSICIAN SPECIALTY 01/07/22 Jacob Galvan DO [address] [place] [address] PCP - General FAMILY PRACTICE 06/16/22 documented as of this encounter
--- OUTSIDE RECORDS SUMMARY | 2024-09-13 06:05 | XMS_ITS | Encounter Summary ---
Author Organization [facility] Address [address] [place] [address] Care Team Providers Care Director Of Graduate Admissions Name Role Phone Manan Etienne MD Primary Care Provider [phone] Breana Renteria Primary Care Provider [phone] None, Provider Primary Care Provider Jacob Rao DO Primary Care Provider [phone] Reason for Visit * Reason Onset Date Comments Hospital Follow Up 12/22/2020 Encounter Details Date Type Department Care Team (Late st Contact Info) Description 12/22/2020 Hospital Follow-up Call [facility] [address] [place] [address] Ewa Thomson RN Hospital Follow [...] COVID-19? No / Unsure 12/20/2020 1:01 AM RELATIONSHIP MGR documented as of this encounter Functional Status * RETIRED Are you deaf or do you have serious difficulty hearing Answer Date of Assessment Author Status No 12/20/2020 12:55 AM RELATIONSHIP MGR Acti ve documented as of this encounter Plan of Treatment Not on file documented as of this encounter Visit Diagnoses Not on filedocumented in this encounter Additional Health Concerns Infection Onset Date Last Indicated Resolved Time COVID-19 Rule Out 12/30/2020 12/30/2020 12/30/2020 9:05 PM RELATIONSHIP MGR COVID-19 Rule Out 12/30/2020 12/30/2020 12/31/2020 11:04 PM RELATIONSHIP MGR COVID-19 Confirmed 12/30/2020 12/30/2020 12:32 AM RELATIONSHIP MGR Assessment Noted Time PHQ-9 Depression Total Score: 019 10:28 AM CDT documented as of this encounter Care Teams Director Of Graduate Admissions Relationship Specialty [place] [address] [place] [address] PCP - General FAMILY PRACTICE 02/27/18 07/25/21 Breana Renteria FNP [address] [place] [address] PCP - General NURSE PRACTITIONER 07/26/21 01/06/22 None, MD [place] PCP - General UNKNOWN PHYSICIAN SPECIALTY 01/07/22 Jacob Galvan DO [address] [place] [address] PCP - General FAMILY PRACTICE 06/16/22 documented as of this encounter
--- OUTSIDE RECORDS SUMMARY | 2024-09-13 06:05 | XMS_ITS | Encounter Summary ---
Author Organization [facility] Address [address] [place] [address] Care Team Providers Care Investigative Analyst Name Role Phone Myra Breana Gorman APRN-ENTRY EXAMINER Primary Care Provider Jacob Galvan DO Primary Care Provider [phone] Reason for Visit * Reason Onset Date Comments MEDICATION REFILL 06/11/2022 Encounter Details Date Type Department Care Team (Late st Contact Info) Description 06/11/2022 Refill [facility] [address] [place] [address], [place] [address] Andre Farah MD [address] [place] [phone] MEDICATION REFILL Social History Tobacco Use Types Packs/Day Years Used Date Smoking Tobacco: Former Cigarettes 0.5 9 1 03/23/2009 - 01/20/2019 Smokeless Tobacco: Never Alcohol Use Standard Drinks/Week Comments No 0 (1 standard drink = 0.6 oz pur e alcohol) Comments No Sex and Gender Information Value Date Recorded Sex Assigned at Not on file Legal Sex Female 5:35 PM FORGING MACHINE OPERATOR Gender Identity Not on file Sexual Orientation Not on file 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 on file Not on file Not [...] st Contact Info) Description 12/12/2024 1:00 PM FORGING MACHINE OPERATOR Office Visit [facility] - Neurology [address] [place] [address], [place] [phone] Jhonathan Subramanian, MICA MINER BLASTING-ENTRY EXAMINER [address] [place] [address] [place] [phone] documented as of this encounter Visit Diagnoses Diagnosis Fibromyalgia Mylagia and myositis, unspecified documented in this encounter Care Teams Investigative Analyst Relationship Specialty Start Date End Date Breana Renteria, MICA MINER BLASTING-ENTRY EXAMINER [address] [place] [address] PCP - General 05/05/20 05/08/23 Jacob Galvan DO [address] [place] [address] PCP - General Family Medicine 05/09/23 documented as of this encounter
--- OUTSIDE RECORDS SUMMARY | 2024-09-13 06:05 | XMS_ITS | Encounter Summary ---
Author Organization [facility] Address [address] [place] [address] Care Team Providers Care Business Professor Name Role Phone Manan Etienne MD Primary Care Provider [phone] Breana Renteria Primary Care Provider [phone] None, Provider Primary Care Provider Jacob Rao DO Primary Care Provider [phone] Encounter Details Date Type Department Care Team (Late st Contact Info) Description 07/23/2019 MyChart Message Enc [facility] Family & Internal Medicine [address] [address] Manan Etienne MD [address] [place] [address] Medication Questions Social History Tobacco Use [...] Rule Out 12/30/2020 12/30/2020 12/30/2020 9:05 PM NURSING INFORMATICS SPECIALIST COVID-19 Rule Out 12/30/2020 12/30/2020 12/31/2020 11:04 PM NURSING INFORMATICS SPECIALIST COVID-19 Confirmed 12/30/2020 12/30/2020 12:32 AM NURSING INFORMATICS SPECIALIST Assessment Noted Time PHQ-9 Depression Total Score: 019 10:28 AM CDT documented as of this encounter Care Teams Business Professor Relationship Specialty [place] [address] [place] [address] PCP - General FAMILY PRACTICE 02/27/18 07/25/21 Breana Renteria FNP [address] [place] [address] PCP - General NURSE PRACTITIONER 07/26/21 01/06/22 None, Provider, PCP - General UNKNOWN PHYSICIAN SPECIALTY 01/07/22 Jacob Galvan DO [address] [place] [address] PCP - General FAMILY PRACTICE 06/16/22 documented as of this encounter
--- OUTSIDE RECORDS SUMMARY | 2024-09-13 06:05 | XMS_ITS | Encounter Summary ---
Author Organization [facility] Address [address] [place] [address] Care Team Providers Care Plan Checker Name Role Phone Breana Renteria Primary Care Provider Jacob Galvan DO Primary Care Provider [phone] Reason for Visit * Reason Onset Date Comments MEDICATION REFILL 07/09/2022 Encounter Details Date Type Department Care Team (Late st Contact Info) Description 07/09/2022 Refill [facility] Neu[facility] [address] [place] [address], [place] [address] Jhonathan Subramanian APRN-CNP [address] [place] [phone] MEDICATION REFILL Social History Tobacco Use Types Packs/Day Years Used Date Smoking Tobacco: Former Cigarettes 0.5 9 1 03/23/2009 - 01/20/2019 Smokeless Tobacco: Never Alcohol Use Standard Drinks/Week Comments No 0 (1 standard drink = 0.6 oz pur e alcohol) Comments No Sex and Gender Information Value Date Recorded Sex Assigned at Not on file Legal Sex Female 5:35 PM BLOCK TRADER Gender Identity Not on file Sexual Orientation Not on file 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 Not on file Not [...] st Contact Info) Description 12/12/2024 1:00 PM BLOCK TRADER Office Visit [facility] - Neurology [address] [place] [address], [place] [address] Jhonathan Subramanian APRN-CNP [address] [place] [phone] documented as of this encounter Visit Diagnoses Diagnosis Fibromyalgia Mylagia and myositis, unspecified documented in this encounter Care Teams Plan Checker Relationship Specialty Start Date End Date Breana Renteria APRN-CNP [address] [place] [address] PCP - General 05/05/20 05/08/23 Jacob Galvan DO [address] [place] [address] PCP - General Family Medicine 05/09/23 documented as of this encounter
--- OUTSIDE RECORDS SUMMARY | 2024-09-13 06:05 | XMS_ITS | Encounter Summary ---
Author Organization [facility] Address [address] [facility] [place] [address] Care Team Providers Care Associate Media Director Name Role Phone Cole Jacob LOPEZ Primary Care Provider [phone] Reason for Visit * Reason Onset Date Comments MEDICATION REFILL 01/20/2024 Encounter Details Date Type Department Care Team (Late st Contact Info) Description 01/20/2024 Refill [facility] - Neurology [address] [place] [address], [place] [phone] Jhonathan Subramanian, COMBATANT SWIMMER-FUNDRAISING MANAGER [address] [place] [phone] MEDICATION REFILL Social History Tobacco Use Types Packs/Day Years Used Date Smoking Tobacco: Former Cigarettes 0.5 9 1 03/23/2009 - 01/20/2019 Smokeless Tobacco: Never Alcohol Use Standard Drinks/Week Comments No 0 (1 standard drink = 0.6 oz pur e alcohol) Comments No Sex and Gender Information Value Date Recorded Sex Assigned at Not on file Legal Sex Female 5:35 PM FOOD SAFETY FIELD SPECIALIST Gender Identity Not on file Sexual Orientation Not on file 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 Not on file Not on file Not [...] st Contact Info) Description 12/12/2024 1:00 PM FOOD SAFETY FIELD SPECIALIST Office Visit [facility] - Neurology [address] [place] [address], [facility] [place] [phone] Jhonathan Subramanian, COMBATANT SWIMMER-FUNDRAISING MANAGER [address] [place] [address] [place] [phone] documented as of this encounter Visit Diagnoses Diagnosis Chronic migraine without aura, intractable, without status migrainosus Migraine without aura and without status migrainosus, not intractable Migraine without aura, without mention of intractable migraine without mention of status migrainosus documented in this encounter Care Teams Associate Media Director Relationship Specialty Start Date End Date Jacob Galvan DO [address] [place] [address] PCP - General Family Medicine 05/09/23 documented as of this encounter
--- OUTSIDE RECORDS SUMMARY | 2024-09-13 06:05 | XMS_ITS | Encounter Summary ---
Author Organization [facility] Address [address] [place] [address] Care Team Providers Care It Service Continuity Supervisor Name Role Phone Myra Breana Gorman APRN-SCRAP SAWYER Primary Care Provider Jacob Galvan DO Primary Care Provider [phone] Reason for Visit * Reason Onset Date Comments MEDICATION REFILL 12/22/2022 Encounter Details Date Type Department Care Team (Late st Contact Info) Description 12/22/2022 Refill [facility] - Neurology [address] [place] [address], [place] [address] Andre Farah MD [address] [place] [address] [place] [phone] MEDICATION REFILL Social History Tobacco Use Types Packs/Day Years Used Date Smoking Tobacco: Former Cigarettes 0.5 9 1 03/23/2009 - 01/20/2019 Smokeless Tobacco: Never Alcohol Use Standard Drinks/Week Comments No 0 (1 standard drink = 0.6 oz pur e alcohol) Comments No Sex and Gender Information Value Date Recorded Sex Assigned at Not on file Legal Sex Female 5:35 PM PRIVATE WEALTH ADVISOR Gender Identity Not on file Sexual Orientation Not on file 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 Answer Date of Assessment Author No 05/16/2019 4:55 AM Suim Oliveira RN * Is person blind or [...] 2 tablets a day) # refills: 0 ATE WEALTH ADVISOR documented in this encounter Plan of Treatment Upcoming Encounters Date Type Department Care Team (Late st Contact Info) Description 12/12/2024 1:00 PM PRIVATE WEALTH ADVISOR Office Visit [facility] - Neurology [address] [place] [address] [place] [address] Jhonathan Subramanian APRN-CNP [address] [place] [address] [place] [address] documented as of this encounter Visit Diagnoses Diagnosis Migraine without aura and without status migrainosus, not intractable Migraine without aura, without mention of intractable migraine without mention of status migrainosus documented in this encounter Care Teams It Service Continuity Supervisor Relationship Specialty Start Date End Date Breana Renteria APRN-CNP [address] [place] [address] PCP - General 05/05/20 05/08/23 Jacob Galvan DO [address] [place] [address] PCP - General Family Medicine 05/09/23 documented as of this encounter
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
[2024-09-13 06:20] VITALS: BP 101/61; PULSE 90; RESP 18; TEMP 36.6; O2SAT 100
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
--- OUTSIDE RECORDS SUMMARY | 2024-09-13 06:41 | XMS_ITS | Encounter Summary ---
Author Organization [facility] Address [address] [place] [address] Care Team Providers Care Notched Blade Loader Name Role Phone Manan Etienne MD Primary Care Provider [phone] Breana Renteria Primary Care Provider [phone] None, Provider Primary Care Provider Jacob Rao DO Primary Care Provider [phone] Encounter Details Date Type Department Care Team (Late st Contact Info) Description 01/18/2013 Abstract [facility] CONVERSION [address] [place], [place] [id number] , Generic Conversion, Social History Tobacco Use [...] Rule Out 12/30/2020 12/30/2020 12/30/2020 9:05 PM ROUTE SALES PERSON COVID-19 Rule Out 12/30/2020 12/30/2020 12/31/2020 11:04 PM ROUTE SALES PERSON COVID-19 Confirmed 12/30/2020 12/30/2020 12:32 AM ROUTE SALES PERSON documented as of this encounter Care Teams Notched Blade Loader Relationship Specialty [place] [address] [place] [address] PCP - General FAMILY PRACTICE 02/27/18 07/25/21 Breana Renteria FNP [address] [place] [address] PCP - General NURSE PRACTITIONER 07/26/21 01/06/22 None, Provider, PCP - General UNKNOWN PHYSICIAN SPECIALTY 01/07/22 Jacob Galvan DO [address] [place] [address] PCP - General FAMILY PRACTICE 06/16/22 documented as of this encounter
--- OUTSIDE RECORDS SUMMARY | 2024-09-13 06:41 | XMS_ITS | Encounter Summary ---
Author Organization [facility] Address [address] [place] [address] Care Team Providers Care Solid Waste Landfill Technician Name Role Phone Manan Etienne MD Primary Care Provider [phone] Breana Renteria Primary Care Provider [phone] None, Provider Primary Care Provider Jacob Rao DO Primary Care Provider [phone] Encounter Details Date Type Department Care Team (Late st Contact Info) Description 07/23/2019 MyChart Message Enc [facility] Family & Internal Medicine [address] [address] Manan Etienne MD [address] [place] [address] Medication Questions Social History Tobacco Use [...] Rule Out 12/30/2020 12/30/2020 12/30/2020 9:05 PM ETHNOLOGY TEACHER COVID-19 Rule Out 12/30/2020 12/30/2020 12/31/2020 11:04 PM ETHNOLOGY TEACHER COVID-19 Confirmed 12/30/2020 12/30/2020 12:32 AM ETHNOLOGY TEACHER Assessment Noted Time PHQ-9 Depression Total Score: 019 10:28 AM CDT documented as of this encounter Care Teams Solid Waste Landfill Technician Relationship Specialty [place] [address] [place] [address] PCP - General FAMILY PRACTICE 02/27/18 07/25/21 Breana Renteria FNP [address] [place] [address] PCP - General NURSE PRACTITIONER 07/26/21 01/06/22 None, Provider, PCP - General UNKNOWN PHYSICIAN SPECIALTY 01/07/22 Jacob Galvan DO [address] [place] [address] PCP - General FAMILY PRACTICE 06/16/22 documented as of this encounter
--- OUTSIDE RECORDS SUMMARY | 2024-09-13 06:41 | XMS_ITS | Encounter Summary ---
Author Organization [facility] Address [address] [place] [address] Care Team Providers Care Manager Fitness Name Role Phone Manan Etienne MD Primary Care Provider [phone] Breana Renteria Primary Care Provider [phone] None, Provider Primary Care Provider Jacob Rao DO Primary Care Provider [phone] Encounter Details Date Type Department Care Team (Late st Contact Info) Description 07/20/2019 MyChart Message Enc [facility] Medical [facility] Family & Internal Medicine [address] [address] Manan Etienne MD [address] [place] [address] RE: Medication Questions Social History Tobacco [...] Rule Out 12/30/2020 12/30/2020 12/30/2020 9:05 PM ACID CLEANER COVID-19 Rule Out 12/30/2020 12/30/2020 12/31/2020 11:04 PM ACID CLEANER COVID-19 Confirmed 12/30/2020 12/30/2020 12:32 AM ACID CLEANER Assessment Noted Time PHQ-9 Depression Total Score: 019 10:28 AM CDT documented as of this encounter Care Teams Manager Fitness Relationship Specialty [place] [address] [place] [address] PCP - General FAMILY PRACTICE 02/27/18 07/25/21 Breana Renteria FNP [address] [place] [address] PCP - General NURSE PRACTITIONER 07/26/21 01/06/22 None, Provider, PCP - General UNKNOWN PHYSICIAN SPECIALTY 01/07/22 Jacob Galvan DO [address] [place] [address] PCP - General FAMILY PRACTICE 06/16/22 documented as of this encounter
--- OUTSIDE RECORDS SUMMARY | 2024-09-13 06:41 | XMS_ITS | Encounter Summary ---
Author Organization [facility] Address [address] [place] [address] Care Team Providers Care Autistic Teacher Name Role Phone Myra Breana Gorman APRN-BATON TWIRLER Primary Care Provider Jacob Galvan DO Primary Care Provider [phone] Reason for Visit * Reason Onset Date Comments MEDICATION REFILL 06/11/2022 Encounter Details Date Type Department Care Team (Late st Contact Info) Description 06/11/2022 Refill [facility] [address] [place] [address], [place] [address] Andre Farah MD [address] [place] [phone] MEDICATION REFILL Social History Tobacco Use Types Packs/Day Years Used Date Smoking Tobacco: Former Cigarettes 0.5 9 1 03/23/2009 - 01/20/2019 Smokeless Tobacco: Never Alcohol Use Standard Drinks/Week Comments No 0 (1 standard drink = 0.6 oz pur e alcohol) Comments No Sex and Gender Information Value Date Recorded Sex Assigned at Not on file Legal Sex Female 5:35 PM FURNITURE DUSTER Gender Identity Not on file Sexual Orientation Not on file 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 on file Not on file Not [...] st Contact Info) Description 12/12/2024 1:00 PM FURNITURE DUSTER Office Visit [facility] - Neurology [address] [place] [address], [place] [phone] Jhonathan Subramanian, REFERRAL MANAGER-BATON TWIRLER [address] [place] [address] [place] [phone] documented as of this encounter Visit Diagnoses Diagnosis Fibromyalgia Mylagia and myositis, unspecified documented in this encounter Care Teams Autistic Teacher Relationship Specialty Start Date End Date Breana Renteria, REFERRAL MANAGER-BATON TWIRLER [address] [place] [address] PCP - General 05/05/20 05/08/23 Jacob Galvan DO [address] [place] [address] PCP - General Family Medicine 05/09/23 documented as of this encounter
--- OUTSIDE RECORDS SUMMARY | 2024-09-13 06:41 | XMS_ITS | Encounter Summary ---
Author Organization [facility] Address [address] [place] [address] Care Team Providers Care Manufacturing Engineering Manager Name Role Phone Cole Jacob LOPEZ Primary Care Provider [phone] Reason for Visit * Reason Onset Date Comments MEDICATION REFILL 01/20/2024 Encounter Details Date Type Department Care Team (Late st Contact Info) Description 01/20/2024 Refill [facility] Neurology [address] [place] [address], [place] [phone] Jhonathan Subarmanian, ENTERPRISE ENGINEER-PUMPMAN [address] [place] [phone] MEDICATION REFILL Social History Tobacco Use Types Packs/Day Years Used Date Smoking Tobacco: Former Cigarettes 0.5 9 1 03/23/2009 - 01/20/2019 Smokeless Tobacco: Never Alcohol Use Standard Drinks/Week Comments No 0 (1 standard drink = 0.6 oz pur e alcohol) Comments No Sex and Gender Information Value Date Recorded Sex Assigned at Not on file Legal Sex Female 5:35 PM CRIMINAL JUSTICE TEACHER Gender Identity Not on file Sexual Orientation Not on file 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 Not on file Not on file Not [...] st Contact Info) Description 12/12/2024 1:00 PM CRIMINAL JUSTICE TEACHER Office Visit [facility] - Neurology [address] [place] [address], [facility] [phone] Jhonathan Subramanian, ENTERPRISE ENGINEER-PUMPMAN [address] [place] [address] [place] [phone] documented as of this encounter Visit Diagnoses Diagnosis Chronic migraine without aura, intractable, without status migrainosus Migraine without aura and without status migrainosus, not intractable Migraine without aura, without mention of intractable migraine without mention of status migrainosus documented in this encounter Care Teams Manufacturing Engineering Manager Relationship Specialty Start Date End Date Jacob Galvan DO [address] [place] [address] PCP - General Family Medicine 05/09/23 documented as of this encounter
--- OUTSIDE RECORDS SUMMARY | 2024-09-13 06:41 | XMS_ITS | Encounter Summary ---
Author Organization [facility] Address [address] [place] [address] Care Team Providers Care Alarm Signaler Name Role Phone Breana Renteria Primary Care Provider Jacob Galvan DO Primary Care Provider [phone] Reason for Visit * Reason Onset Date Comments MEDICATION REFILL 07/09/2022 Encounter Details Date Type Department Care Team (Late st Contact Info) Description 07/09/2022 Refill [facility] - Neurology [address] [place] [address], [place] [address] Jhonathan Subramanian APRN-CNP [address] [place] [phone] MEDICATION REFILL Social History Tobacco Use Types Packs/Day Years Used Date Smoking Tobacco: Former Cigarettes 0.5 9 1 03/23/2009 - 01/20/2019 Smokeless Tobacco: Never Alcohol Use Standard Drinks/Week Comments No 0 (1 standard drink = 0.6 oz pur e alcohol) Comments No Sex and Gender Information Value Date Recorded Sex Assigned at Not on file Legal Sex Female 5:35 PM SURGEON/PRESIDENT Gender Identity Not on file Sexual Orientation Not on file 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 Not on file Not [...] st Contact Info) Description 12/12/2024 1:00 PM SURGEON/PRESIDENT Office Visit [facility] - Neurology [address] [place] [address], [place] [address] Jhonathan Subramanian APRN-CNP [address] [place] [phone] documented as of this encounter Visit Diagnoses Diagnosis Fibromyalgia Mylagia and myositis, unspecified documented in this encounter Care Teams Alarm Signaler Relationship Specialty Start Date End Date Breana Renteria APRN-CNP [address] [place] [address] PCP - General 05/05/20 05/08/23 Jacob Galvan DO [address] [place] [address] PCP - General Family Medicine 05/09/23 documented as of this encounter
--- OUTSIDE RECORDS SUMMARY | 2024-09-13 06:41 | XMS_ITS | Encounter Summary ---
Author Organization [facility] Address [address] [place] [address] Care Team Providers Care Bin Filler Name Role Phone Myra Breana Gorman APRN-BOOKKEEPER RECEPTIONIST Primary Care Provider Jacob Galvan DO Primary Care Provider [phone] Reason for Visit * Reason Onset Date Comments MEDICATION REFILL 12/22/2022 Encounter Details Date Type Department Care Team (Late st Contact Info) Description 12/22/2022 Refill [facility] [address] [place] [address], [place] [address] Andre Farah MD [address] [place] [address] [place] [phone] MEDICATION REFILL Social History Tobacco Use Types Packs/Day Years Used Date Smoking Tobacco: Former Cigarettes 0.5 9 1 03/23/2009 - 01/20/2019 Smokeless Tobacco: Never Alcohol Use Standard Drinks/Week Comments No 0 (1 standard drink = 0.6 oz pur e alcohol) Comments No Sex and Gender Information Value Date Recorded Sex Assigned at Not on file Legal Sex Female 5:35 PM SED SPECIAL EDUCATION TEACHER Gender Identity Not on file Sexual Orientation Not on file 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 Not on file [...] 2 tablets a day) # refills: 0 SPECIAL EDUCATION TEACHER documented in this encounter Plan of Treatment Upcoming Encounters Date Type Department Care Team (Late st Contact Info) Description 12/12/2024 1:00 PM SED SPECIAL EDUCATION TEACHER Office Visit [facility] - Neurology [address] [place] [address] [place] [address] Jhonathan Subramanian APRN-CNP [address] [place] [address] [place] [address] documented as of this encounter Visit Diagnoses Diagnosis Migraine without aura and without status migrainosus, not intractable Migraine without aura, without mention of intractable migraine without mention of status migrainosus documented in this encounter Care Teams Bin Filler Relationship Specialty Start Date End Date Breana Renteria APRN-CNP [address] [place] [address] PCP - General 05/05/20 05/08/23 Jacob Galvan DO [address] [place] [address] PCP - General Family Medicine 05/09/23 documented as of this encounter
--- OUTSIDE RECORDS SUMMARY | 2024-09-13 06:41 | XMS_ITS | Clinical Summary ---
Author Organization [facility] Address [address] [place] [address] Care Team Providers Care Law Office Manager Name Role Phone Jacob Galvan DO Primary Care Provider [phone] Source Comments [facility],non-owned Affiliates and Associated Physician Practices is amultiple site organization consisting of ambulatory clinics and hospital sitesin [place], [place], [place] and [place]. This disclosure is being madepursuant to the Care Everywhere program and may not contain all information available regarding this patient. Last updated 17.[facility] Allergies Active Allergy Reactions Criticality Noted Date [...] fluticasone propionate (FLONASE) 50 MCG/ACT nasal spray [place] 1 (one) spray into the nose every [...] e migraine with aura with status migrainosus [place] 1 (one) spray into each nostril every [...] 07/24/2024 Refill [facility] [address] [place] [phone] Boom Amador DISTRIBUTOR OF DIRECTORIES-ELECTRICAL AND RADIO AIRCRAFT MECHANIC MEDICATION REFILL 07/11/2024 Refill [facility] [address] [place] [phone] Boom Amador DISTRIBUTOR OF DIRECTORIES-ELECTRICAL AND RADIO AIRCRAFT MECHANIC MEDICATION REFILL 07/11/2024 Orders Only [facility] [address] [place] [phone] Boom Amador DISTRIBUTOR OF DIRECTORIES-ELECTRICAL AND RADIO AIRCRAFT MECHANIC Chronic migraine without aura, intractable, without status migrainosus; Migraine without aura and without status migrainosus, not intractable 07/11/2024 Orders Only [facility] [address] [place] [address], [place] [address] Boom Amador APRN-MEMO Intractable migraine with aura with status migrainosus 07/11/2024 Orders Only [facility] [address] [place] [address], [place] [address] Boom Amador APRN-MEMO Intractable migraine with aura with status migrainosus 07/11/2024 Orders Only [facility] [address] [place] [address], [place] [address] Boom Amador APRN-MEMO Intractable migraine with aura with status migrainosus 06/21/2024 Telephone [facility] [address] [place] [address], [place] [address] Jhonathan Subramanian APRN-ELECTRICAL AND RADIO AIRCRAFT MECHANIC Medication Issue 06/15/2024 Telephone [facility] [address] [place] [address], [place] [address] Jhonathan Subramanian DISTRIBUTOR OF DIRECTORIES-ELECTRICAL AND RADIO AIRCRAFT MECHANIC Medication Prior Auth Request ([employer]) from Last [...] on file Legal Sex Female 5:35 PM PLANT DIRECTOR Gender Identity Not on file Sexual Orientation Not on file 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 Not on file Not on file Last Filed Vital Signs Vital Sign Reading Time Taken Comments Blood Pressure 107/64 06/11/2024 1:08 PM CDT Pulse 81 06/11/2024 1:08 PM CDT Temperature 36.3 C (97.4 F) 12/12/2023 1:03 PM PLANT DIRECTOR Respiratory Rate 18 05/21/2019 1:36 PM CDT Oxygen Saturation 97% 06/11/2024 1:08 PM CDT Inhaled Oxygen Concentration - - Weight 50.3 kg (111 lb) 06/11/2024 1:08 PM CDT Height 160 cm (5' 3) 12/12/2023 1:03 PM PLANT DIRECTOR Body Mass Index 19.66 12/12/2023 1:03 PM PLANT DIRECTOR Plan of Treatment Upcoming Encounters Date Type Department Care Team (Late st Contact Info) Description 12/12/2024 1:00 PM PLANT DIRECTOR Office Visit [facility] [address] [place] [address], [place] [address] Jhonathan Subramanian, DISTRIBUTOR OF DIRECTORIES-ELECTRICAL AND RADIO AIRCRAFT MECHANIC [address] [place] [address] [place] [address] Health Maintenance Due Date Last Done Comments [...] HIV-1 HIV-2 ANTIGEN/ANTIBODY STAT 12/19/2018 2:21 PM PLANT DIRECTOR from Last 3 Months or Most Recently Relevant to Health Maintenance Results * HIV-1 HIV-2 ANTIGEN/ANTIBODY (12/19/2018 2:21 PM PLANT DIRECTOR) HIV Antigen/Antibod y 1 & 2 Non-reacti ve Non-react michel 12/19/2018 3:27 PM PLANT DIRECTOR [facility] Comment: Neither HIV-1 p24 Antigen nor HIV-1/HIV-2 Antibodies are detected. Blood BLOOD SPECIMEN / Unknown Venipuncture / Unknown 12/19/2018 2:21 PM PLANT DIRECTOR 12/19/2018 2:40 PM PLANT DIRECTOR us Carmella Box MD LAB - HEMATOLOGY ORDERABLES Final Result Performing Organization Address City/State/[facility] Co de Phone Number [facility] [address] [phone] from Last 3 Months or Most Recently Relevant to Health Maintenance Insurance [facility] THIRD [employer]OCRAT LIABILITY Libertarian Liability Advance Directives * Full Code (Latest Code Status on File) Date Activated Date Inactivated Comments 05/16/2019 2:31 AM 05/21/2019 4:18 PM * Full Code Date Activated Date Inactivated Comments 08/23/2017 5:14 AM 08/24/2017 6:05 PM * Full Code Date Activated Date Inactivated Comments 08/23/2017 4:24 AM 08/23/2017 5:14 AM Care Teams Law Office Manager Relationship Specialty Start Date End Date Jacob Galvan DO [address] [place] [id number] PCP - General Family Medicine 05/09/23
--- OUTSIDE RECORDS SUMMARY | 2024-09-13 06:41 | XMS_ITS | Encounter Summary ---
Author Organization [facility] Address [address] [place] [place] [address] Care Team Providers Care Power Engineer Name Role Phone Jacob Galvan DO Primary Care Provider Reason for Visit * Reason Onset Date Comments MEDICATION REFILL 07/24/2024 Encounter Details Date Type Department Care Team (Late st Contact Info) Description 07/24/2024 Refill [facility] [address] [place] [address], [place] [phone] Boom Amador, RANDA-SET O TYPE OPERATOR [address] [place] [phone] MEDICATION REFILL Social History Tobacco Use Types Packs/Day Years Used Date Smoking Tobacco: Former Cigarettes 0.5 9 1 03/23/2009 - 01/20/2019 Smokeless Tobacco: Never Alcohol Use Standard Drinks/Week Comments No 0 (1 standard drink = 0.6 oz pur e alcohol) Comments No Sex and Gender Information Value Date Recorded Sex Assigned at Not on file Legal Sex Female 5:35 PM SENIOR DIRECTOR FINANCE Gender Identity Not on file Sexual Orientation Not on file 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 Not on file Not [...] st Contact Info) Description 12/12/2024 1:00 PM SENIOR DIRECTOR FINANCE Office Visit [facility] [address] [place] [address], [facility] [place] [phone] Jhonathan Subramanian, SCRAP METAL PROCESSING WORKER-[address] [place] [phone] documented as of this encounter Visit Diagnoses Diagnosis Intractable migraine with aura with status migrainosus Migraine with aura, with intractable migraine, so stated, with status migrainosus documented in this encounter Care Teams Power Engineer Relationship Specialty Start Date End Date Jacob Galvan DO [address] [place] [id number] PCP - General Family Medicine 05/09/23 documented as of this encounter
--- OUTSIDE RECORDS SUMMARY | 2024-09-13 06:41 | XMS_ITS | Encounter Summary ---
Author Organization [facility] Address [address] [place] [address] Care Team Prov[address] Care Place Change Roof Bolter Name Role Phone Myra, Breana Gorman APRN-QUALITY SPECIALIST Primary Care Provider Jacob Galvan DO Primary Care Provider [phone] Reason for Visit * Reason Onset Date Comments MEDICATION REFILL 03/01/2022 Encounter Details Date Type Department Care Team (Late st Contact Info) Description 03/01/2022 Refill [facility] [address] [place] [address], [place] [address] Andre Farah MD [address] [place] [phone] MEDICATION REFILL Social History Tobacco Use Types Packs/Day Years Used Date Smoking Tobacco: Former Cigarettes 0.5 9 1 03/23/2009 - 01/20/2019 Smokeless Tobacco: Never Alcohol Use Standard Drinks/Week Comments No 0 (1 standard drink = 0.6 oz pur e alcohol) Comments No Sex and Gender Information Value Date Recorded Sex Assigned at Not on file Legal Sex Female 5:35 PM RATE EXAMINER Gender Identity Not on file Sexual Orientation Not on file 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 Not on file [...] Qty Disp: 15 # of refills: 3 EXAMINER documented in this encounter Plan of Treatment Upcoming Encounters Date Type Department Care Team (Late st Contact Info) Description 12/12/2024 1:00 PM RATE EXAMINER Office Visit [facility] [address] [place] [address], [place] [phone] Jhonathan Subramanian, VACUUM KETTLE COOK-QUALITY SPECIALIST [address] [place] [address] [place] [address] documented as of this encounter Visit Diagnoses Diagnosis Fibromyalgia Mylagia and myositis, unspecified documented in this encounter Care Teams Place Change Roof Bolter Relationship Specialty Start Date End Date Breana Renteria APRN-MEMO [address] [place] [address] PCP - General 05/05/20 05/08/23 Jacob Galvan DO [address] [place] [address] PCP - General Family Medicine 05/09/23 documented as of this encounter
--- OUTSIDE RECORDS SUMMARY | 2024-09-13 06:42 | XMS_ITS | Encounter Summary ---
Author Organization [facility] Address [address] [place] [address] Care Team Providers Care Automotive Technology Instructor Name Role Phone Manan Etienne MD Primary Care Provider [phone] Breana Renteria Primary Care Provider [phone] None, Provider Primary Care Provider Jacob Rao DO Primary Care Provider [phone] Reason for Visit * Reason Onset Date Comments Hospital Follow Up 12/22/2020 Encounter Details Date Type Department Care Team (Late st Contact Info) Description 12/22/2020 Hospital Follow-up Call [facility] [address] [place] [address] Ewa Thomson RN Hospital Follow [...] COVID-19? No / Unsure 12/20/2020 1:01 AM WHEEL INSPECTOR documented as of this encounter Functional Status * RETIRED Are you deaf or do you have serious difficulty hearing Answer Date of Assessment Author Status No 12/20/2020 12:55 AM WHEEL INSPECTOR Acti ve documented as of this encounter Plan of Treatment Not on file documented as of this encounter Visit Diagnoses Not on filedocumented in this encounter Additional Health Concerns Infection Onset Date Last Indicated Resolved Time COVID-19 Rule Out 12/30/2020 12/30/2020 12/30/2020 9:05 PM WHEEL INSPECTOR COVID-19 Rule Out 12/30/2020 12/30/2020 12/31/2020 11:04 PM WHEEL INSPECTOR COVID-19 Confirmed 12/30/2020 12/30/2020 12:32 AM WHEEL INSPECTOR Assessment Noted Time PHQ-9 Depression Total Score: 019 10:28 AM CDT documented as of this encounter Care Teams Automotive Technology Instructor Relationship Specialty [place] [address] [place] [address] PCP - General FAMILY PRACTICE 02/27/18 07/25/21 Breana Renteria FNP [address] [place] [address] PCP - General NURSE PRACTITIONER 07/26/21 01/06/22 None, MD [place] PCP - General UNKNOWN PHYSICIAN SPECIALTY 01/07/22 Jacob Galvan DO [address] [place] [address] PCP - General FAMILY PRACTICE 06/16/22 documented as of this encounter
--- OUTSIDE RECORDS SUMMARY | 2024-09-13 06:42 | XMS_ITS | Clinical Summary ---
Author Organization [facility] Address [address] [place] [address] Care Team Providers Care Inseam Trimming Machine Operator Name Role Phone Dhruv Byrd MD Primary Care Provider [phone] Allergies Active Allergy Reactions Criticality Noted Date [...] on file Legal Sex Female 10:28 PM CASTING MACHINE OPERATOR Gender Identity Not on file [...] 09/18/2008 Varicella Vaccines Completed 09/03/2014, 12/18/1997 Insurance [facility] Care Teams Inseam Trimming Machine Operator Relationship Specialty Start Date End Date Dhruv Byrd MD PCP - General Family Medicine 04/21/20
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
[2024-09-13 06:51] LABS: BEDSIDEPREGUCG Negative (Negative)
[2024-09-13] MEDS: SODIUM CHLORIDE 0.9% IV 1,000 ML 999 ML IV CONT (06:53)
[2024-09-13] MEDS: PROCHLORPERAZINE EDISYLATE 10 MG/2 ML VIAL 5 MG IV PUSH (06:53)
[2024-09-13] MEDS: KETOROLAC 15 MG/ML VIAL (*BKC) IV PUSH (06:54)
[2024-09-13] MEDS: MAGNESIUM OXIDE 400 MG TABLET PO (07:44)
[2024-09-13 07:46] VITALS: BP 100/60; PULSE 80; RESP 19; TEMP 36.7; O2SAT 100
== END 2024-09-13 07:47 | disposition home or self-care (01) ==
PROVIDERS: Emergency Provider Student in an Organized Health Care Education/Training Program; PCP Family Medicine
DX: G43.909 Migraine, unspecified, not intractable, without status migrainosus (principal); E28.2 Polycystic ovarian syndrome; M79.7 Fibromyalgia; F43.10 Post-traumatic stress disorder, unspecified; F41.9 Anxiety disorder, unspecified; F32.A Depression, unspecified; F17.290 Nicotine dependence, other tobacco product, uncomplicated; Z90.49 Acquired absence of other specified parts of digestive tract; Z79.899 Other long term (current) drug therapy
CPT/HCPCS: 81025; 96361; 96374; 96375; 99284; A9270; J0780; J1200; J1885; J7030; J8540

== ENCOUNTER 2024-11-11 14:58 | Emergency (ER) | payer OTHER, SELFPAY ==
[2024-11-11 15:05] VITALS: BP 113/69; PULSE 86; RESP 18; TEMP 36.9; O2SAT 99
[2024-11-11 16:39] LABS: Hematocrit 40.9 % (37.0-47.0); Hemoglobin 13.9 g/dL (12.0-15.0); Immature Granulocyte Percent A 0.3 % (0-0.5); Lymphocytes Absolute Auto 2.32 K/mm3 (0.9-3.2); Mean Corpuscular HGB Conc 34.0 g/dl (32-36); Mean Corpuscular Hemoglobin 30.4 pg (26-34); Mean Corpuscular Volume 89.5 fl (80-100); Nucleated Red Blood Cells Absolute Auto 0.000 K/mm3 (0.0-0.012); Nucleated Red Blood Cells Perc 0.0 % (0.0-0.2); Platelet Count Result 255 k/mm3 (150-375); Red Blood Count 4.57 M/mm3 (4.2-5.4); White Blood Count 7.4 K/mm3 (4.5-10.0)
[2024-11-11 16:50] LABS: Acetaminophen < 10 ug/mL (10-30); Alanine Aminotransferase 16 U/L (6-35); Albumin Level 4.8 g/dL (3.5-5.1); Alkaline Phosphatase 66 U/L (38-126); Anion Gap 11 mmol/L (4-12); Aspartate Amino Transferase 20 U/L (14-36); Bilirubin,Total 0.7 mg/dL (0.2-1.3); Blood Urea Nitrogen 13 mg/dL (7-17); Calcium 9.5 mg/dL (8.4-10.2); Carbon Dioxide 18 mmol/L (22-30); Chloride 110 mmol/L (98-107); Estimated CRCL calculation 73 ml/min; Estimated Glomerular Filt Rate > 60; Glucose 93 mg/dL (65-110); Potassium 3.7 mmol/L (3.4-5.0); Salicylate < 1.0 mg/dL (2-20); Sodium 139 mmol/L (137-145); Total Protein 8.0 g/dL (6.3-8.2)
[2024-11-11 17:00] LABS: Add Urine Microscopic? YES; Appearance Urine Turbid (Clear); Glucose Urine UA Negative (Negative); Leukocyte Esterase Ur 2+ LEU/UL (Negative); Need Manual Microscopic Reviewed; Nitrate Urine Negative (Negative); Non Pathogenic Casts 0-2; Specific Grav Ur 1.025 (1.001-1.035)
[2024-11-11 17:03] LABS: Cannabinoid Screen Urine Positive (Negative)
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
[2024-11-11 17:12] LABS: Influenza A QL RT-PCR Negative (Negative); Influenza B QL RT-PCR Negative (Negative); RSV RNA, RT-PCR Negative (Negative); SARS-CoV-2 RNA PCR Negative (Negative)
[2024-11-11 17:22] LABS: Thyroid Stimulating Hormone 0.757 uIU/mL (0.465-4.680)
[2024-11-11] MEDS: NICOTINE (*PBKC) 14 MG PATCH 1 PATCH TRANSDERM (17:32)
[2024-11-11] MEDS: CEPHALEXIN 500 MG CAPSULE PO ×2 (17:32→23:50)
[2024-11-11] MEDS: LORazepam (*CRX) 0.5 MG TABLET PO (19:12)
[2024-11-11 20:00] VITALS: BP 97/73; PULSE 72; RESP 16; TEMP 36.6; O2SAT 98
--- NOTE | 2024-11-11 23:07 | PC.NURSE ---
[facility] called-made aware transport arranged for 0800 11/12/24. Report to Tangela WARREN
[2024-11-11] MEDS: IBUPROFEN 600 MG TABLET PO (23:20)
[2024-11-12] MEDS: CEPHALEXIN 500 MG CAPSULE PO (05:32)
[2024-11-12 08:03] VITALS: BP 105/59; PULSE 95; RESP 18; TEMP 37; O2SAT 99
== END 2024-11-12 08:25 ==
PROVIDERS: Physician Assistant; Emergency Provider Student in an Organized Health Care Education/Training Program; PCP Family Medicine
DX: F32.A Depression, unspecified (principal); N30.01 Acute cystitis with hematuria; R45.851 Suicidal ideations; Z20.822 Contact with and (suspected) exposure to COVID-19; M79.7 Fibromyalgia; F41.9 Anxiety disorder, unspecified
CPT/HCPCS: 36415; 80053; 80143; 80179; 80307; 81001; 82077; 84443; 85025; 87086; 87637; 99285; A9270